=== PATIENT | male | born 1960 | race Caucasian/White ===

== ENCOUNTER 2023-11-16 00:52 | Emergency (ER) | payer MEDICARE, MEDICAID, SELFPAY ==
[2023-11-16] VITALS (38 sets, daily range): BP systolic 112–194; BP diastolic 65–112; PULSE 56–114; RESP 12–26; TEMP 35–37.5; O2SAT 93–100; BMI 28.3
--- NOTE | 2023-11-16 | ECG_ITS ---
Test Reason : BEHAVIOR Blood Pressure : / mmHG Vent. Rate : 089 BPM Atrial Rate : 089 BPM P-R Int : 194 ms QRS Dur : 106 ms QT Int : 390 ms P-R-T Axes : 058 051 075 degrees QTc Int : 474 ms Normal sinus rhythm Nonspecific T wave abnormality Prolonged QT Abnormal ECG No previous ECGs available Referred By: Generic ED Physician Electronically Signed By:RANDY KANG MD
--- NOTE | ~2023-11-16 | XR_ITS ---
EXAMINATION: XR CHEST CLINICAL INFORMATION: Cough. COMPARISON: None available. TECHNIQUE: Frontal view of the chest was obtained. FINDINGS: The cardiomediastinal silhouette is within normal limits. There is a questionable small left retrocardiac opacity. Lungs are otherwise clear. There are no significant pleural effusions. The bony structures and soft tissues are unremarkable. XR/XR chest 1V IMPRESSION: Questionable small left retrocardiac opacity. This could represent a developing infiltrate in the appropriate clinical setting. Consider dedicated PA and lateral chest.
--- NOTE | ~2023-11-16 | CT_ITS ---
EXAMINATION: CT HEAD WITHOUT CONTRAST CT CERVICAL SPINE WITHOUT CONTRAST CLINICAL INFORMATION: Rule out mass, bleed COMPARISON: None TECHNIQUE: Contiguous axial imaging was performed from the skull base to vertex without intravenous administration of contrast. Contiguous axial imaging was performed from the upper chest through the skull base without intravenous administration of contrast. Coronal and sagittal reformats were obtained at the acquisition workstation. This CT examination was performed using dose optimization techniques as appropriate, variously including the following: *Automated exposure control. *Adjustment of mA and/or kV according to patient size (this includes techniques or standardized protocols for targeted exams where dose is matched to indication/reason for exam; i.e. extremities or head). *Use of iterative reconstruction technique. DLP: 2603 mGy-cm FINDINGS: Head: There is no evidence of acute intracranial hemorrhage or edematous territorial infarction. Evans-white matter differentiation appears preserved. Proportional prominence of the ventricles and cortical sulci with mild volume loss. Patchy and confluent hypodensities in the periventricular and deep white matter likely representing moderate chronic microangiopathic changes. No evidence for obstructive hydrocephalus. No abnormal mass effect or midline shift. Prominent extra-axial CSF density along the left paramedian posterior fossa which may represent small arachnoid cyst. No acute soft tissue or osseous abnormalities. Mild mucosal thickening of the maxillary sinuses and ethmoid air cells. The mastoids are well-aerated. Secretions within the nasal cavity, nasopharynx and oropharyngeal region. Cervical Spine: Diffuse osseous demineralization. The atlantooccipital and atlantoaxial articulations remain well aligned. Straightening of the normal cervical lordosis. Minimal retrolisthesis of C4 over C5. Multilevel cervical spondylosis with marginal osteophytes and mild to moderate intervertebral disc space narrowing. Degenerative facet arthropathy with fusion across bilateral facet joints at C2-C3. No acute fracture or traumatic subluxation. There is no prevertebral soft tissue swelling. Thyroid gland is not enlarged.Mild centrilobular emphysematous changes in the visualized lung apices. Atherosclerotic calcifications of the common carotid bulbs CT/CT cervical spine wo IV con IMPRESSION: 1. No acute intracranial pathology. Suggestion of small arachnoid cyst along the the left posterior fossa. 2. No acute fracture or traumatic subluxation involving the cervical spine. Multilevel cervical spondylosis.
--- NOTE | ~2023-11-16 | CT_ITS ---
EXAMINATION: CT CHEST, ABDOMEN AND PELVIS WITHOUT CONTRAST CLINICAL INFORMATION: Reason for Exam ? Pneumonia COMPARISON: No pertinent prior studies are available for comparison aside from chest radiograph earlier today. TECHNIQUE: Multidetector volumetric imaging was performed from the thoracic inlet through the pubic symphysis without IV contrast. Sagittal and coronal reformatted images were obtained on the technologist's workstation. This CT examination was performed using dose optimization techniques as appropriate, variously including the following: *Automated exposure control *Adjustment of mA and/or kV according to patient size (this includes techniques or standardized protocols for targeted exams where dose is matched to indication/reason for exam; i.e. extremities or head) *Use of iterative reconstruction technique DLP: 417 and 779 mGy-cm FINDINGS: CHEST: Lung: There is marked volume loss in the left chest with shift of mediastinum to the left. There is complete mucus impaction with occlusion of the distal left mainstem and lower lobe bronchi There is an irregular area of consolidation seen in the left upper lobe measuring 3.2 x 2.2 x 2.5 cm (25: 131 and conte images). It is possible that this also could represent a mass. No prior films are available for comparison. Patchy consolidation is noted at the left lung base along with some tree-in-bud opacities in the anterior left lung. Some scarring and tree-in-bud opacities are seen in the right middle lobe. Mediastinum: An ET tube is present in good position above the felicity. Small amount of mucus is present in the large central bronchi. See discussion above regarding occluded left mainstem bronchus. The central vascular structures are unremarkable. No hilar or mediastinal lymphadenopathy. An NG tube is present with its tip in the stomach Pericardium/Pleura: No significant effusion. No pleural mass or thickening. Chest Wall/Axilla: Unremarkable ABDOMEN/PELVIS: Peritoneal Space: No significant free air or free fluid identified. Liver, Gallbladder, Biliary Tree: The liver is normal in size, shape, and attenuation. No focal hepatic lesion or biliary ductal dilatation is present. The gallbladder is unremarkable with no evidence of radiopaque gallstones, gallbladder wall thickening, or obvious pericholecystic inflammatory changes. Pancreas: Unremarkable Spleen: Unremarkable Adrenal Glands: Unremarkable Kidneys and Ureters: The kidneys are normal in size, shape, and attenuation. No hydronephrosis, hydroureter, or calculi seen. No perinephric stranding. A benign left mid renal 1.4 cm cortical Bosniak class I renal cyst is noted which requires no additional imaging or follow up. No solid renal masses are seen. Bladder: Guerrero catheter is present in the bladder which contains some air and a thickened wall Gastrointestinal Tract: The small and large bowel are unremarkable aside from some scattered colonic diverticula without diverticulitis. There is no free intraperitoneal air is seen. The triangular lucency seen on the chest radiograph new most likely represented a portion of the air-filled stomach. The appendix is unremarkable. Abdominal Wall: No significant hernia is appreciated. Lymph Nodes: Shotty retroperitoneal lymph nodes nodes are present but no lymphadenopathy. Vascular: Calcific atherosclerotic change present in the aorta and iliofemoral vessels. There is a 3.5 cm in aortic aneurysm present. The IVC appears unremarkable. PELVIC VISCERA: The prostate and seminal versicles are unremarkable. OSSEUS STRUCTURES: Mild degenerative changes are noted in the spine. There is marked compression of the superior endplate of L1 which appears chronic. No bony destructive lesions are seen. CT/CT abdomen pelvis wo IV con IMPRESSION: 1. Mucous/secretions occlusion of left mainstem bronchus with volume loss and shift of the mediastinum to the left. 2. Irregular area of consolidation in the left upper lobe which could represent a mass. Comparison with prior studies would be useful is available. 3. Patchy consolidation left lung base with tree-in-bud opacities in the anterior left lung and right middle lobe. This is most likely inflammatory in good be related to aspiration 4. 3.5 cm infrarenal abdominal aortic aneurysm. Ultrasound surveillance every 2 years is recommended. 5. Other incidental findings as described above. Fleischner guidelines were followed.
--- NOTE | ~2023-11-16 | XR_ITS ---
EXAMINATION: XR CHEST CLINICAL INFORMATION: Post intubation COMPARISON: Previous chest x-ray from earlier the same day TECHNIQUE: Frontal view of the chest was obtained. FINDINGS: Endotracheal tube tip 4.6 cm above the felicity. Nasogastric tube projects over proximal stomach. Tip not seen. Patient is rotated to the left. Question left-sided airspace disease, greatest at the left lung base. Right lung is clear. Difficult to exclude small left pleural effusion. No right pleural effusion. No pneumothorax. Triangular lucency in the upper abdomen to the left of the spine. This has a straight margin, question artifactual. CT of the chest abdomen and pelvis is ordered. XR/XR chest 1V IMPRESSION: Satisfactory position of endotracheal tube. Nasogastric tube projects over proximal stomach, tip not seen. Rotated exam but question left base airspace disease and possible small effusion. Irregular shaped lucency under the medial left hemidiaphragm lateral to the left side of the spine. CT of the chest, abdomen and pelvis is ordered.
[2023-11-16 01:26] LABS: MANUAL DIFF FLAG NO
[2023-11-16 01:29] LABS: Basophils Absolute Auto 0.1 X10*3/uL (0.0-0.2); Basophils Percent Auto 0.7 % (0-2); Eosinophils Percent Auto 0.1 % (0-4); Hematocrit 35.8 % (42.0-52.0); Hemoglobin 11.4 g/dl (14.0-18.0); Imm Gran Abs Auto 0.01 X10*3/uL (0.00-0.03); Imm Gran Pct Auto 0.1 % (0.0-0.4); Lymphocytes Absolute Auto 1.2 X10*3/uL (1.2-4.9); Lymphocytes Percent Auto 17.9 % (20-40); Mean Corpuscular HGB Conc 31.8 g/dl (31.0-36.0); Mean Corpuscular Hemoglobin 29.1 pg (27.0-33.0); Mean Corpuscular Volume 91.3 fL (80.0-98.0); Mean Platelet Volume 8.5 fL (9.4-12.4); Monocytes Absolute Auto 0.6 X10*3/uL (0.1-1.2); Monocytes Percent Auto 8.4 % (2-11); Neutrophils Absolute Auto 4.9 x10*3/uL (2.0-8.3); Neutrophils Percent Auto 72.8 % (45-73); Platelet Count 287 X10*3/uL (160-400); Red Blood Count 3.92 X10*6/uL (4.60-5.80); Red Cell Distribution Width 15.2 % (11.0-16.0); White Blood Count 6.8 X10*3/uL (4.8-10.8)
[2023-11-16 01:42] LABS: Alanine Aminotransferase 7 U/L (0-40); Albumin Level 3.4 g/dL (3.5-5.0); Alkaline Phosphatase 83 U/L (39-117); Anion Gap 11 (12-20); Aspartate Amino Transferase 12 U/L (5-37); Bilirubin Total 0.5 mg/dL (0.0-1.0); Blood Urea Nitrogen 13 mg/dL (9-16); Calcium 9.1 mg/dL (8.4-10.2); Carbon Dioxide 28 mmol/L (22-29); Chloride 103 mmol/L (96-108); Creatinine Clr Calc Pharmacy 139.6; Estimated Glomerular Filt Rate > 60; Glucose Random 109 mg/dL (60-115); Potassium 3.6 mmol/L (3.3-5.1); Sodium 138 mmol/L (135-145); Total Protein 7.5 g/dL (6.5-8.0)
[2023-11-16 01:48] LABS: B Type Natriuretic Peptide 44 pg/mL (<100); Troponin-I High Sensitivity 8.8 ng/L (<3.5-35.0)
--- NOTE | 2023-11-16 02:05 | PC.NURSE ---
pt initially changed into regular hospital attire, pt found to be fully dressed and walking towards the door. pt not responding to questions asked by this RN, pt assisted back into room, changed into green attire, multiple types of drugs found and razers found on pt. security called to bedside at this time.
[2023-11-16] MEDS: Naloxone HCl Nasal 4 MG SPRAY NOSTRILALT (02:12)
--- NOTE | 2023-11-16 02:14 | PC.NURSE ---
pt narcan at this time, pt still not responding, is alert with name. sating 94-97% on room air.
--- NOTE | 2023-11-16 02:22 | ED_ITS ---
HPI - General Adult General Chief complaint: Altered Mental Status Stated complaint: od? Time Seen by Provider: 11/16/23 01:09 Source: patient and EMS Mode of arrival: EMS History of Present Illness HPI narrative: 63-year-old male brought in by EMS after PD found him in a car reportedly not responding to questions with pinpoint pupils but no reports of having administered any Narcan. Patient easily arousable here in the emergency room when I have asked him whether not uses any drugs he denies I asked him about alcohol he denies. Related Data Previous Rx's ?Medication ?Instructions ?Recorded azithromycin 250 mg tablet 250 mg PO DAILY 4 days #4 tabs 11/16/23 Allergies Allergy/AdvReac Type Severity Reaction Status Date / Time codeine [CODEINE] AdvReac Mild HIVES Verified 11/16/23 01:16 Review of Systems 2 Review of Systems: Pertinent positives and negatives as stated in HPI [facility] Past Medical History Source: nursing notes reviewed Social History Social History Do you have a plan to hurt others: No Plan Physical Exam ED Vital Signs: Vital Signs - 24 hr 11/16/23 01:13 11/16/23 01:23 Temperature 98.2 F 98.2 F Pulse Rate 70 68 Respiratory Rate 18 12 Blood Pressure 141/87 H 141/87 H Pulse Oximetry 96 96 Oxygen Delivery Method Room Air Room Air BMI result Body Mass Index 28.3 VITAL SIGNS: Reviewed. GENERAL: Well developed, well nourished, in no acute distress. HEAD: Normocephalic/atraumatic EYES: PERRLA, EOM, pinpoint pupil EARS: Ext canals without abnormality NOSE: Nares patent bilateral OROPHARYNX: no oral lesions noted, posterior pharynx clear NECK: Supple, no adenopathy LUNGS: Normal breath sounds. No adventitious sounds or accessory muscle use. SpO2<96> CARDIOVASCULAR: Regular rate and rhythm without noted murmurs ABDOMEN: Soft, non-tender, non-distended with bowel sounds. MUSCULOSKELETAL: No tenderness, deformities, or effusions noted on gross inspection. EXTREMITIES: No cyanosis, clubbing or edema. SKIN: Inspection of the skin reveals no rashes NEUROLOGIC: Alert and oriented x 3. Strength and sensation to light touch were grossly intact x 4, cranial nerves 2-12 are grossly intact. Medications Administered Discontinued Medications Generic Name Dose Route Start Last Admin Trade Name Jaclyn PRN Reason Stop Dose Admin Diphenhydramine HCl 25 mg 11/16/23 02:52 11/16/23 02:59 Diphenhydramine Hcl 50 Mg/Ml Vial IM 11/16/23 02:53 25 mg ONCE ONE Administration Lorazepam 1 mg 11/16/23 02:52 11/16/23 03:00 Lorazepam 2 Mg/Ml Vial IM 11/16/23 02:53 1 mg ONCE ONE Administration Naloxone HCl 4 mg 11/16/23 02:09 11/16/23 02:12 Naloxone Hcl Nasal 4 Mg [place] NOSTRILALT 11/16/23 02:10 4 mg ONCE ONE Administration Olanzapine 10 mg 11/16/23 04:23 11/16/23 04:32 Olanzapine 10 Mg Vial IM 11/16/23 04:24 10 mg ONCE ONE Administration Medical Decision Making Medical Decision Making MDM Narrative: 63-year-old male with history and clinical presentation most likely for heroin overuse. Patient was then noted to be standing up, getting dressed grabbing his stuff and went into the bathroom, security was contacted and patient was escorted out of the bathroom and there were multiple bundles of heroin confiscated, patient became more drowsy, 4 mg of Narcan were administered. Patient not SI or HI and declines detox at this time. 0235: Patient very restless and readily accepted Benadryl/Ativan/Zyprexa. I reviewed all investigations and hematologic indices were negative for leukocytosis/left shift, there is a normocytic anemia without clinical or historical evidence of acute bleeding, there is no thrombocytopenia. Chemistries to Umesh negative for KENN/electrolyte or liver enzyme derangements. I sensitivity troponin is detectable but not significantly elevated and patient is asymptomatic for chest pain. Urinalysis is negative for UTI. UDS significant for fentanyl and marijuana. Serologies negative for influenza/RSV/COVID-19. Chest x-ray questions possible retrocardiac opacity, patient is neither febrile nor does he have any leukocytosis or noted cough. However given the fact that patient is a smoker will ensure that he is discharged on a Z-Zachery. Patient placed in physician observation because the patient needed more time for clinical sobriety. At the time observation was started the patient's vital signs were stable, patient is alert and oriented but slightly agitated, neuro: Nonfocal, CV RRR, lungs clear Differential Diagnosis Differential Diagnoses: The differential diagnosis associated with the presentation includes Please see the discussion above Admission/Observation Consideration of admission/observation: Escalation of care including admission/observation considered Please see the discussion above Lab Data MDM Lab Attestation statement: I reviewed the patient's lab results. Please see the discussion about 11/16/23 01:22 11/16/23 01:22 Labs: Lab Results 11/16/23 11/16/23 Range/Units 01:22 02:40 WBC 6.8 (4.8-10.8) X10*3/uL RBC 3.92 L (4.60-5.80) X10*6/uL Hgb 11.4 L (14.0-18.0) g/dl Hct 35.8 L (42.0-52.0) % MCV 91.3 (80.0-98.0) fL MCH 29.1 (27.0-33.0) pg MCHC 31.8 (31.0-36.0) g/dl RDW 15.2 (11.0-16.0) % Plt Count 287 (160-400) X10*3/uL MPV 8.5 L (9.4-12.4) fL Immature Gran % (Auto) 0.1 (0.0-0.4) % Neut % (Auto) 72.8 (45-73) % Lymph % (Auto) 17.9 L (20-40) % [place] % (Auto) 8.4 (2-11) % Eos % (Auto) 0.1 (0-4) % Baso % (Auto) 0.7 (0-2) % Lymph # (Auto) 1.2 (1.2-4.9) X10*3/uL [place] # (Auto) 0.6 (0.1-1.2) X10*3/uL Eos # (Auto) 0.0 (0.0-0.4) X10*3/uL Baso # (Auto) 0.1 (0.0-0.2) X10*3/uL Abs Immat Gran (auto) 0.01 (0.00-0.03) X10*3/uL Absolute Neuts (auto) 4.9 (2.0-8.3) x10*3/uL Absolute Nucleated RBC 0.000 (0.0-0.012) X10*3/uL Nucleated RBC % (auto) 0.0 (0.0-0.2) /100WBC Sodium 138 (135-145) mmol/L Potassium 3.6 (3.3-5.1) mmol/L Chloride 103 (96-108) mmol/L Carbon Dioxide 28 (22-29) mmol/L Anion Gap 11 L (12-20) BUN 13 (9-16) mg/dL Creatinine 0.63 (0.5-1.4) mg/dL Estim Creat Clear Calc 139.6 Estimated GFR > 60 Random Glucose 109 (60-115) mg/dL Calcium 9.1 (8.4-10.2) mg/dL Total Bilirubin 0.5 (0.0-1.0) mg/dL AST 12 (5-37) U/L ALT 7 (0-40) U/L Alkaline Phosphatase 83 (39-117) U/L Troponin I High Sens 8.8 (<3.5-35.0) ng/L B-Natriuretic Peptide 44 (<100) pg/mL Total Protein 7.5 (6.5-8.0) g/dL Albumin 3.4 L (3.5-5.0) g/dL Urine Color Yellow Urine Appearance Clear Urine pH 7.5 (5.0-9.0) Ur Specific [place] 1.010 (1.005-1.025) Urine Protein Negative (Neg-Trace) mg/dL Urine Glucose (UA) Negative (Negative) mg/dL Urine Ketones Negative (Negative) mg/dL Urine Blood Trace H (Negative) Urine Nitrite Negative (Negative) Ur Leukocyte Esterase Negative (Negative) Urine RBC 3-5 H (0-2) /HPF Urine WBC 0-5 (0-5) /HPF Ur Squamous Epith Cells 0-2 (0-2) /HPF Urine Bacteria None Seen (None Seen) Hyaline Casts 0-2 (0-2) /LPF Urine Opiates Screen Not Detected (Not Detect) Ur Buprenorphine Scrn Not Detected (Not Detect) ng/mL Ur Oxycodone Screen Not Detected (Not Detect) ng/mL Urine Methadone Screen Not Detected (Not Detect) ng/mL Urine Fentanyl Screen POSITIVE H (Not Detect) Ur Barbiturates Screen Not Detected (Not Detect) Ur Phencyclidine Scrn Not Detected (Not Detect) Ur Amphetamines Screen Not Detected (Not Detect) U Benzodiazepines Scrn Not Detected (Not Detect) Urine Cocaine Screen Not Detected (Not Detect) U Marijuana (THC) Screen POSITIVE H (Not Detect) Influenza Type A (PCR) NEGATIVE (Negative) Influenza Type B (PCR) NEGATIVE (Negative) RSV RNA Qual (PCR) NEGATIVE (Negative) SARS-CoV-2 RNA (RT-PCR) NEGATIVE (Negative) Independent Interpretation I performed an independent interpretation of an: EKG Interpretation: Normal sinus rhythm, HR-89, no STEMI, IA/QRS/QTC is within normal limits. Radiology Impression Discussion of test interpretation with radiology: I have reviewed the radiologist's reading. Radiologist Impression: Please see the discussion above Social Determinants Patient?s care significantly limited by Social Determinants of Health including: Alcoholism and drug addiction in family Critical Care Time Critical Care Time Critical Care Time: Yes Total Critical Care Time: 45 Attestation: I personally attest to this time spent taking care of the patient. Discharge Plan Discharge Clinical Impression: Overdose, Substance use disorder Patient Disposition: Still a Patient Prescriptions: New azithromycin 250 mg tablet 250 mg PO DAILY 4 Days Qty: 4 0RF Rx Instructions: start on day 2 of therapy Print Language: Upper Sorbian
[2023-11-16 02:51] LABS: Appearance Urine Clear; Color Urine Yellow; Glucose Urine UA Negative (Negative); Leukocyte Esterase Urine Negative (Negative); Nitrite Urine Negative (Negative); PH 7.5 (5.0-9.0); UMIC TRIGGER UACC YES; Urine Blood Trace (Negative); Urine Ketones Negative (Negative); Urine Protein Negative (Neg-Trace)
[2023-11-16] MEDS: diphenhydrAMINE HCL 50 MG/ML VIAL 25 MG IM (02:59)
[2023-11-16 03:00] LABS: Amphetamine Screen Urine Not Detected (Not Detect); Barbiturates, Urine Not Detected (Not Detect); Benzodiazepines Screen Urine Not Detected (Not Detect); Buprenorphine Scr Not Detected (Not Detect); Cannabinoid Screen Urine POSITIVE (Not Detect); Cocaine Screen Urine Not Detected (Not Detect); Fentanyl, urine POSITIVE (Not Detect); Methadone Screen, Urine Not Detected (Not Detect); Opiate Screen Urine Not Detected (Not Detect); Oxycodone Screen Urine Not Detected (Not Detect); Phencyclidine Screen Urine Not Detected (Not Detect)
[2023-11-16] MEDS: LORazepam 2 MG/ML VIAL 1 MG IM (03:00)
--- NOTE | 2023-11-16 03:01 | PC.NURSE ---
pt given 4mg narcan, became very restless, agitated, continues to try to get up from stretcher, exit seeking./ pt redirected to stretcher multiple times. on the verge of vomiting from narcan, belching frequently. MD Briscoe ordering IM ativan and IM benadryl for pt safety, pt unable to tolerate po meds at this time.
[2023-11-16 03:15] LABS: Bacteria Urine None Seen (None Seen); Hyaline Casts Urine 0-2 /LPF (0-2); Squamous Epithelial Cell Urine 0-2 /HPF (0-2); WBC Urine 0-5 /HPF (0-5)
[2023-11-16 03:26] LABS: Influenza A PCR NEGATIVE (Negative); Influenza B PCR NEGATIVE (Negative); Resp Syncy Virus RNA Qual PCR NEGATIVE (Negative); SARS COV2 PCR INHOUSE NEGATIVE (Negative)
[2023-11-16] MEDS: OLANZapine 10 MG VIAL IM ×2 (04:32→12:25)
[2023-11-16] MEDS: Naloxone HCl Nasal TAKE HOME 4 MG SPRAY 8 MG NOSTRILALT (07:16)
[2023-11-16] MEDS: Azithromycin 500 MG TABLET PO (07:16)
--- NOTE | 2023-11-16 07:46 | PC.NURSE ---
Pt alert and answering questions, breathing even and unlabored. Pt contacted family member for d/c, reports they will be here in approx an hour to be picked up. 1:1 sitter remains at bedside.
[2023-11-16 09:28] LABS: Troponin-I High Sensitivity 12.2 ng/L (<3.5-35.0)
[2023-11-16] MEDS: Buprenorphine/Naloxone 8/2 mg TAB.SUBL 2 TAB SUBLINGUAL (10:45)
--- NOTE | 2023-11-16 11:14 | PC.NURSE ---
Daughter Annemarie ([phone]) at bedside. Spoke to this RN and Praveena ISRAEL regarding safety concerns as pt over past two weeks confused, falling asleep, not talking to family. States h/o dementia with ?worsening but also reports similar presentation with small strokes in past. Pt does appear restless, answering some questions with yes or no only. Appears confused. Dr Mai aware and to bedside
--- NOTE | 2023-11-16 11:16 | HO.SUDE ---
Met with pt in [id number] after overdose in ED. Pt had presented to the ED after being found in car by PD, not responding to questions, pupils pinpoint. Pt was awake and alert on arrival to ED. While in the ED, pt went to the bathroom but was escorted out by security due to having substances. After leaving bathroom, pt became more drowsy and 4 mg Narcan was administered. Pt laying in bed, visibly restless and uncomfortable, slightly diaphoretic, reports anxiety and feeling not good. Pt continuously moving around in the bed. Pt reports fentanyl use, 1 bundle daily, IN. Denies other substances. Pt reports hx ATS admissions, denies any further treatment. Last ATS a few years ago. Pt is not interested in inpatient treatment at this time. Pt reports being prescribed Suboxone from [facility] in [place], last took it a few days ago. Pt reports he takes it most days. Discussed reinitiating while here, pt agreeable. Pt denies other questions or concerns at this time. Discussed with ED provider.
--- NOTE | 2023-11-16 11:26 | ECG_ITS ---
Test Reason : AMS Blood Pressure : / mmHG Vent. Rate : 099 BPM Atrial Rate : 099 BPM P-R Int : 200 ms QRS Dur : 098 ms QT Int : 360 ms P-R-T Axes : 086 067 088 degrees QTc Int : 462 ms Normal sinus rhythm with sinus arrhythmia Normal ECG When compared with ECG of 16-NOV-2023 01:02, No significant change was found Referred By: Praveena Kwong Electronically Signed By:RANDY KANG MD
[2023-11-16 11:29] LABS: VBG Base Excess 4.6 mmol/L; VBG HCO3 28 mmol/L (22-26); VBG pCO2 39 mmHg; VBG pH 7.46 (7.32-7.43); VBG pO2 64 mmHg
[2023-11-16 11:29] LABS: Venous Blood Gas Refer to POC result
[2023-11-16 11:33] LABS: Ammonia 32 umol/L (13-55)
[2023-11-16] MEDS: Midazolam HCl/PF 2 MG/2 ML VIAL 4 MG IVPUSH ×2 (11:35→12:32)
[2023-11-16] MEDS: droPERidol 5 MG/2 ML VIAL 1.25 MG IVPUSH (11:42)
[2023-11-16] MEDS: cefTRIAXone sodium 1 GM in 0.9 % Sodium Chloride 50 ML IV (11:50)
[2023-11-16 12:00] LABS: Lactic Acid 1.5 mmol/L (0.5-2.0)
[2023-11-16 12:27] LABS: Alanine Aminotransferase 11 U/L (0-40); Albumin Level 3.7 g/dL (3.5-5.0); Alkaline Phosphatase 86 U/L (39-117); Anion Gap 13 (12-20); Aspartate Amino Transferase 20 U/L (5-37); Bilirubin Total 0.6 mg/dL (0.0-1.0); Blood Urea Nitrogen 11 mg/dL (9-16); Calcium 9.3 mg/dL (8.4-10.2); Carbon Dioxide 24 mmol/L (22-29); Chloride 102 mmol/L (96-108); Creatinine Clr Calc Pharmacy 135.3; Estimated Glomerular Filt Rate > 60; Glucose Random 125 mg/dL (60-115); Magnesium 1.7 mg/dL (1.6-2.6); Potassium 3.5 mmol/L (3.3-5.1); Sodium 135 mmol/L (135-145); Total Protein 8.2 g/dL (6.5-8.0)
[2023-11-16 12:57] LABS: Glucose, Whole Blood 137 mg/dL (60-115)
[2023-11-16] MEDS: Magnesium Sulfate/H2O 2 GM/50 ML PIGGYBACK IV (13:02)
[2023-11-16] MEDS: Ketamine HCl/NS 50 MG/5 ML SYRINGE IVPUSH (13:06)
--- NOTE | 2023-11-16 13:16 | MHC.EDTECH ---
This patient is altered and this pct is unable to obtain labs at this time will try again later. RN Aware
[2023-11-16] MEDS: Ketamine HCl/NS 50 MG/5 ML SYRINGE 75 MG IVPUSH (13:54)
[2023-11-16] MEDS: HYDROmorphone HCl 2 MG/ML VIAL IVPUSH (14:17)
[2023-11-16] MEDS: dexmedeTOMIDidine HCL/NS 400 MCG/100 ML INFUS..BTL 11.85 MCG IVCONT (14:49)
[2023-11-16] MEDS: Etomidate 20 MG/10 ML VIAL IVPUSH (15:15)
[2023-11-16] MEDS: Rocuronium Bromide 50 MG/5 ML VIAL 75 MG IVPUSH (15:16)
[2023-11-16] MEDS: Midazolam HCl/NS 50 MG/50 ML PLAST..BAG IVCONT (15:24)
--- NOTE | 2023-11-16 15:30 | PC.NURSE ---
Pt moved to Room 4 for intubation, this RN assumed care. 15:10 team at bedside preparing for intubation, second IV access being obtained. pt is on telemetry monitor 15:15 etomidate pushed 15:16 shan pushed 15:19 pt successfully intubated by provider, 7.5 ETT, 24 at the lip, (+) colormetric end tidal 15:20 versed drip initiated and precedex continued, OG tube placed by MD confirmed via LS VENT SETTINGS: RR 16 TV 470 FiO2 30% 5 PEEP
[2023-11-16 15:45] LABS: Glucose, Whole Blood 125 mg/dL (60-115)
[2023-11-16 15:48] LABS: Basophils Percent Auto 0.2 % (0-2); Hematocrit 37.7 % (42.0-52.0); Hemoglobin 12.4 g/dl (14.0-18.0); Imm Gran Abs Auto 0.02 X10*3/uL (0.00-0.03); Imm Gran Pct Auto 0.2 % (0.0-0.4); Lymphocytes Absolute Auto 0.4 X10*3/uL (1.2-4.9); MANUAL DIFF FLAG SCAN; Mean Corpuscular HGB Conc 32.9 g/dl (31.0-36.0); Mean Corpuscular Hemoglobin 29.2 pg (27.0-33.0); Mean Corpuscular Volume 88.7 fL (80.0-98.0); Mean Platelet Volume 8.4 fL (9.4-12.4); Monocytes Absolute Auto 0.3 X10*3/uL (0.1-1.2); Neutrophils Absolute Auto 7.9 x10*3/uL (2.0-8.3); Neutrophils Percent Auto 91.6 % (45-73); Platelet Count 280 X10*3/uL (160-400); Red Blood Count 4.25 X10*6/uL (4.60-5.80); Red Cell Distribution Width 14.9 % (11.0-16.0); SCAN SMEAR FLAG 1; White Blood Count 8.7 X10*3/uL (4.8-10.8)
--- NOTE | 2023-11-16 15:52 | PC.NURSE ---
late entry: this nurse assumed car of pt at 1130 from [facility]. on arrival pt was extremely combative and aggitated, attempting to get out of bed, grab at staff and medical equipment. pt was too agitated to be CT scanned, or to examine. pt was place in soft wriat restraints and IV access was obtained in right forearm by MD Mai. Pt rec 4mg of versed at 1135 with NS bolus of 2844mls initiated. pt remained combative and droperidol 1.25mg was administered, without effect. Pt was then given an additional 10mg of zyprexa IM in the right vastus lateralis, in addition to magnesium 2gm. Pt continued to be agitated adn was given ketamine 50mg at 1306, pt as reassessed, and given 75mg of ketamine at 1354. MD Mai and JHONATAN Gong initiated precedex drip, and pt was moved to ED 4 for intubation.
[2023-11-16] MEDS: 0.9 % Sodium Chloride 1,000 ML 125 ML IVCONT (15:59)
[2023-11-16] MEDS: vancomycin/NS 2,000 MG/500 ML PLAST..BAG 250 MG IV (16:05)
[2023-11-16] MEDS: fentaNYL citrate/NS 1,000 MCG/100 ML PLAST..BAG 2.5 MCG IVCONT (16:19)
[2023-11-16 16:21] LABS: SLIDE REVIEW VERIFIED
--- NOTE | 2023-11-16 17:07 | PC.NURSE ---
Short period after intubation, pt noted to have increasing agitation, moving all extremities and bucking tube. Per MD verbal orders, versed drip increased to 4 mg/hr, precedex to 1.5 mcg/kg/hr and fentanyl drip added (titrated per protocol to 75 mcg/hr). Pt continued to have increased agitation, reaching for tube (pt is in soft restraints), pt obviously uncomfortable. RT at bedside managing airway with suction. MD aware and orders to give 10 mg of Vecuronium prior to CT scan. Vec administer prior to CT scan, pt monitored during scan and tolerated well, all vitals remained stable. Pt currently noted to have RASS score of +3, NSR on night monitor, SPO2 96% on 40% FiO2, tolerating intubation well after Vec. Urine output of 1025, yellow and clear. Vital signs stable. RN continuing to monitor.
--- NOTE | 2023-11-16 17:43 | PC.NURSE ---
This RN noticed an increase in restlessness in pt. Pt noted to have twitching movement in extremities. MD verbal order to restart versed drip at 2mg/hr. RN continuing to monitor.
[2023-11-16] MEDS: dexmedeTOMIDidine HCL/NS 400 MCG/100 ML INFUS..BTL 35.55 MCG IVCONT ×2 (17:55→21:52)
[2023-11-16] MEDS: Ketamine HCl 500 MG/5 ML VIAL 400 MG IVPUSH (18:21)
--- NOTE | 2023-11-16 18:30 | PC.NURSE ---
Pt noted to still have increasing agitation, MD orders to titrate fentanyl to 200 mcg/hr and push ketamine 400 mg IV. Waiting for pharmacy to bring ketamine drip. RN remains at bedside.
--- NOTE | 2023-11-16 18:32 | PC.NURSE ---
Assessment: Pt agitated, RASS score between +2 and +3. MD aware. Slight improvements with Ketamine push. Chest noted to be barreled. Pts skin warm and dry, pale. OG tube draining dark green/brown fluid, approx 750 mL. Urine output approx. 900 mL, Cloudy with sediment noted. NSR on landing gear mechanic, BPs remaining stable.
[2023-11-16] MEDS: Ketamine HCl 500 MG in 0.9 % Sodium Chloride 250 ML 9.58 MG IVCONT (18:59)
[2023-11-16 19:00] LABS: GASOB Int Neg Ctl Valid YES; GASOB Int Pos Ctl Valid YES; Occult Blood Gastric POSITIVE (NEG)
[2023-11-16] MEDS: Ketamine HCl 500 MG/5 ML VIAL 200 MG IVPUSH ×2 (19:59→21:21)
--- NOTE | 2023-11-16 20:26 | PC.NURSE ---
This RN noticed an increase in restlessness in patient, patient noted to move lower extremities and moaning. Dr. Vo notified, bolus of Ketamine 200 mg IV push administered, Ketamine drip titrated to 0.4 mg/kg/hr.
--- NOTE | 2023-11-16 20:58 | PC.NURSE ---
Unable to titrate Ketamine IV drip above 0.4 mg/kg/hr d/t pump value above drug upper hard limit message. Dr Vo made aware, per OK of Ketamine drip at 0.4 mg at this time.
[2023-11-16] MEDS: Ketamine HCl/NS 50 MG/5 ML SYRINGE 200 MG IVPUSH (21:27)
[2023-11-16] MEDS: fentaNYL citrate/NS 1,000 MCG/100 ML PLAST..BAG 20 MCG IVCONT (22:03)
--- NOTE | 2023-11-16 22:42 | PC.NURSE ---
Nurse to andrey called to [facility] ED. Patient transported to [place] ED by [facility].
== END 2023-11-16 22:47 | disposition short-term general hospital (02) ==
PROVIDERS: Emergency Medicine; Physician Assistant Medical; Student in an Organized Health Care Education/Training Program; Emergency Provider Emergency Medicine Emergency Medical Services
DX: T50.901A Poisoning by unspecified drugs, medicaments and biological substances, accidental (unintentional), initial encounter (principal); Y92.810 Car as the place of occurrence of the external cause; F19.90 Other psychoactive substance use, unspecified, uncomplicated; R45.1 Restlessness and agitation; R91.8 Other nonspecific abnormal finding of lung field; I95.9 Hypotension, unspecified; J98.4 Other disorders of lung; I71.43 Infrarenal abdominal aortic aneurysm, without rupture; Z03.818 Encounter for observation for suspected exposure to other biological agents ruled out
CPT/HCPCS: 0241U; 31500; 36415; 70450; 71045; 71250; 72125; 74176; 80053; 80307; 81001; 82140; 82271; 82550; 82803; 82947; 83605; 83735; 83880; 84443; 84484; 85025; 87040; 93005; 94002; 96361; 96365; 96366; 96367; 96368; 96372; 96375; 96376; 99285; J0696; J1170; J1200; J1790; J2060; J2250; J2251; J2359; J3010; J3370; J3475

== ENCOUNTER → 2023-11-16 01:02 | Outpatient (BNV) | payer MEDICARE, MEDICAID, SELFPAY | PROVIDERS: Emergency Provider Student in an Organized Health Care Education/Training Program; Visit Provider Internal Medicine Cardiovascular Disease | DX: I49.9 Cardiac arrhythmia, unspecified (principal) | CPT/HCPCS: 93010 ==

== ENCOUNTER 2023-11-28 20:24 | Emergency (ER) | payer MEDICARE, MEDICAID, SELFPAY ==
--- NOTE | 2023-11-28 | ECG_ITS ---
Test Reason : ALTERED Blood Pressure : / mmHG Vent. Rate : 063 BPM Atrial Rate : 063 BPM P-R Int : 244 ms QRS Dur : 100 ms QT Int : 410 ms P-R-T Axes : 063 049 040 degrees QTc Int : 419 ms Sinus rhythm with 1st degree A-V block Nonspecific T wave abnormality Abnormal ECG When compared with ECG of 16-NOV-2023 12:09, [place] interval has increased Vent. rate has decreased BY 36 BPM Non-specific change in ST segment in Inferior leads Nonspecific T wave abnormality now evident in Inferior leads Referred By: Hermes Jacobsen Electronically Signed By:Man Kebede
--- NOTE | ~2023-11-28 | CT_ITS ---
EXAMINATION: CT HEAD WITHOUT CONTRAST CT CERVICAL SPINE WITHOUT CONTRAST CLINICAL INFORMATION: Found on ground. COMPARISON: CT head and cervical spine 11/16/2023. TECHNIQUE: Contiguous axial imaging was performed from the skull base to vertex without intravenous administration of contrast. Contiguous axial imaging was performed from the upper chest through the skull base without intravenous administration of contrast. Coronal and sagittal reformats were obtained at the acquisition workstation. This CT examination was performed using dose optimization techniques as appropriate, variously including the following: *Automated exposure control *Adjustment of mA and/or kV according to patient size (this includes techniques or standardized protocols for targeted exams where dose is matched to indication/reason for exam; i.e. extremities or head) *Use of iterative reconstruction technique DLP: 701 and 450 mGy-cm FINDINGS: Head: There is no evidence of acute intracranial hemorrhage or edematous territorial infarction. Scattered hypoattenuation in the periventricular and deep white matter are consistent with moderate microangiopathy. Evans-white matter differentiation is preserved. Unchanged lacunar infarcts in the bilateral basal ganglia. Proportional prominence of the ventricles and sulcal spaces. No evidence for obstructive hydrocephalus. No abnormal mass effect or midline shift. Unchanged prominent CSF-attenuating space in the posterior cranial fossa No acute soft tissue or osseous abnormalities. Mucosal thickening of the paranasal sinuses with no air-fluid levels. The mastoids and middle ear cavities are clear. Cervical Spine: The atlantooccipital and atlantoaxial articulations remain well aligned. Straightening of the cervical lordosis. Unchanged mild anterior vertebral body height loss at C7. No evidence of acute compression deformity or traumatic subluxation. Moderate to severe multilevel cervical spondylosis leading to various degrees of neural foraminal encroachment. Redemonstration of central spinal canal stenoses at C4-C5. There is no prevertebral soft tissue swelling. The thyroid gland and remaining cervical soft tissues are normal in appearance. The lung apices demonstrate no abnormalities. CT/CT cervical spine wo IV con IMPRESSION: 1. No acute intracranial pathology. 2. Chronic microangiopathy and generalized cerebral volume loss. 3. No acute cervical spinal fractures or malalignment. 4. Moderate to severe cervical spondylosis with various degrees of neural foraminal encroachment as well as central canal stenosis. Recommend clinical correlation for cervical myelopathy and if indicated further evaluation with an MRI of the cervical spine.
--- NOTE | ~2023-11-28 | CT_ITS ---
EXAMINATION: CT CHEST WITHOUT CONTRAST CLINICAL INFORMATION: Worsening pneumonia. COMPARISON: CT chest 11/16/2023. TECHNIQUE: Multidetector volumetric CT imaging of the chest was done. Axial MIP volume rendering provided. Sagittal and coronal reformatted images were obtained. This CT examination was performed using dose optimization techniques as appropriate, variously including the following: *Automated exposure control *Adjustment of mA and/or kV according to patient size (this includes techniques or standardized protocols for targeted exams where dose is matched to indication/reason for exam; i.e. extremities or head) *Use of iterative reconstruction technique DLP: 421 mGy-cm FINDINGS: Limited examination secondary to motion. LUNGS: Again noted asymmetric volume loss of the left lung. Combination of consolidative opacities, septal and bronchial thickening in the left lung, predominantly in the left lower lobe are slightly decreased. Slightly decreased size of a consolidative/nodular opacity in the left upper lobe for example measuring 2 cm when AP diameter (image 136 series 26) previously 2.5 cm. Additional nodular like opacity in the left lung base measuring 2.1 cm (image 359 series 26), not well seen previously due to overlying airspace opacities on the prior examination that are now less extensive. Scattered smaller subcentimeter peribronchial parenchymal nodules redemonstrated. Central airways are patent. Stable bleb/bullae measuring 3.4 cm in the right lower lobe (image 38 series 28). Moderate emphysema. MEDIASTINUM: Stable cardiomegaly. No pericardial effusion. No mediastinal lymphadenopathy. Evaluation of the hilar structures is limited in the absence of IV contrast. CORONARY ARTERY CALCIFICATION: Multivessel coronary artery calcifications. PLEURA: No pleural effusion or pneumothorax. AXILLA: No lymphadenopathy. UPPER ABDOMEN: Unremarkable. OSSEOUS STRUCTURES: Thoracic spondylosis. Stable compression deformities in the thoracolumbar spine, more prominent at L1. Chronic appearing bilateral rib deformities. CT/CT chest wo IV con IMPRESSION: Limited examination secondary to motion. Multifocal airspace opacities in the left lower lobe are slightly decreased compared to 11/16/2023. There are multiple nodular-like opacities with bilingual inside sales representative observations in the left upper lobe measuring 2 cm and left lung base measuring 2.1 cm, the former slightly decreased in size compared to 11/16/2023. Constellation of findings might be infectious/inflammatory, although underlying malignancy is difficult to exclude. If these persist/increased on short-term CT chest follow-up, further evaluation with PET/CT is recommended.
[2023-11-28 20:40] VITALS: BP 96/66; PULSE 70; O2SAT 94
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
[2023-11-28 20:59] VITALS: BP 112/64; PULSE 82; RESP 14; TEMP 36.7; O2SAT 94; BMI 23.1
--- NOTE | 2023-11-28 20:59 | PC.NURSE ---
pt refused EKG PA aware
[2023-11-28 21:29] VITALS: BP 98/55; PULSE 63; RESP 16; TEMP 36.6; O2SAT 95
[2023-11-28 21:41] LABS: MANUAL DIFF FLAG NO
--- NOTE | 2023-11-28 21:42 | MHC.EDTECH ---
after lots of talking to Patient this pct was able to get patient ekg and was read by Provider ,was able to get some labs drawn ,Another pct will try to draw blue top .
[2023-11-28 21:43] LABS: Basophils Absolute Auto 0.1 X10*3/uL (0.0-0.2); Basophils Percent Auto 0.9 % (0-2); Eosinophils Percent Auto 0.1 % (0-4); Hematocrit 36.9 % (42.0-52.0); Hemoglobin 11.8 g/dl (14.0-18.0); Imm Gran Abs Auto 0.02 X10*3/uL (0.00-0.03); Imm Gran Pct Auto 0.3 % (0.0-0.4); Lymphocytes Absolute Auto 1.1 X10*3/uL (1.2-4.9); Lymphocytes Percent Auto 16.4 % (20-40); Mean Corpuscular Hemoglobin 29.7 pg (27.0-33.0); Mean Corpuscular Volume 92.9 fL (80.0-98.0); Mean Platelet Volume 9.1 fL (9.4-12.4); Monocytes Absolute Auto 0.8 X10*3/uL (0.1-1.2); Monocytes Percent Auto 11.6 % (2-11); Neutrophils Absolute Auto 4.9 x10*3/uL (2.0-8.3); Neutrophils Percent Auto 70.7 % (45-73); Platelet Count 251 X10*3/uL (160-400); Red Blood Count 3.97 X10*6/uL (4.60-5.80); Red Cell Distribution Width 15.1 % (11.0-16.0); White Blood Count 6.9 X10*3/uL (4.8-10.8)
--- NOTE | 2023-11-28 21:50 | PC.NURSE ---
pt cooperative with care. labs obtained
[2023-11-28 22:01] LABS: Troponin-I High Sensitivity 8.7 ng/L (<3.5-35.0)
[2023-11-28 22:02] LABS: INTERNATIONAL NORM RATIO 1.2 (0.9-1.1); Prothrombin Time 14.4 SEC (11.1-13.3)
[2023-11-28 22:05] LABS: Partial Thromboplastin Time 49.5 SEC (26.0-36.8)
[2023-11-28 22:08] LABS: Alanine Aminotransferase 9 U/L (0-40); Albumin Level 3.3 g/dL (3.5-5.0); Alkaline Phosphatase 73 U/L (39-117); Anion Gap 15 (12-20); Aspartate Amino Transferase 10 U/L (5-37); Bilirubin Total 0.4 mg/dL (0.0-1.0); Blood Urea Nitrogen 22 mg/dL (9-16); Calcium 9.5 mg/dL (8.4-10.2); Carbon Dioxide 28 mmol/L (22-29); Chloride 103 mmol/L (96-108); Creatinine Clr Calc Pharmacy 96.7; Estimated Glomerular Filt Rate > 60; Ethanol < 10 mg/dL; Glucose Random 85 mg/dL (60-115); Magnesium 2.1 mg/dL (1.6-2.6); Potassium 4.4 mmol/L (3.3-5.1); Sodium 142 mmol/L (135-145); Total Protein 6.7 g/dL (6.5-8.0)
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
[2023-11-28 23:59] VITALS: BP 114/57; PULSE 63; RESP 15; TEMP 36.6; O2SAT 95
--- NOTE | 2023-11-29 00:20 | MHC.EDTECH ---
PATIENT WAS AWAKE ,USE URINAL ,URINE SAMPLE COLLECTED AND SENT TO LAB ,PATIENT BACK IN BED .
[2023-11-29 00:28] LABS: Appearance Urine Clear; Color Urine Dark Yellow; Glucose Urine UA Negative (Negative); Leukocyte Esterase Urine Trace (Negative); Nitrite Urine Negative (Negative); PH 5.5 (5.0-9.0); Specific Gravity - Urine 1.025 (1.005-1.025); UMIC TRIGGER UACC YES; Urine Blood Large (3+) (Negative); Urine Ketones Trace mg/dL (Negative); Urine Protein Trace mg/dL (Neg-Trace)
[2023-11-29 00:38] LABS: Amphetamine Screen Urine Not Detected (Not Detect); Barbiturates, Urine Not Detected (Not Detect); Benzodiazepines Screen Urine Not Detected (Not Detect); Buprenorphine Scr Not Detected (Not Detect); Cannabinoid Screen Urine POSITIVE (Not Detect); Cocaine Screen Urine Not Detected (Not Detect); Fentanyl, urine POSITIVE (Not Detect); Methadone Screen, Urine Positive (Not Detect); Opiate Screen Urine Not Detected (Not Detect); Oxycodone Screen Urine Not Detected (Not Detect); Phencyclidine Screen Urine Not Detected (Not Detect)
[2023-11-29 00:49] LABS: Bacteria Urine None Seen (None Seen); Calcium Oxalate Crystals Urine Present; Squamous Epithelial Cell Urine 0-2 /HPF (0-2); WBC Urine 0-5 /HPF (0-5)
[2023-11-29 01:30] VITALS: BP 111/63; PULSE 57; RESP 14; TEMP 36.1; O2SAT 95
--- NOTE | 2023-11-29 01:30 | MHC.EDTECH ---
PATIENT 2ND TROP DRAWN AND SENT TO LAB ,VITALS TAKEN ,PATIENT SLEEPING .
[2023-11-29 01:51] LABS: Troponin-I High Sensitivity 6.4 ng/L (<3.5-35.0)
[2023-11-29 04:00] VITALS: BP 130/75; PULSE 68; RESP 15; TEMP 36.1; O2SAT 95
[2023-11-29 06:08] VITALS: BP 122/76; PULSE 76; RESP 16; TEMP 36.3; O2SAT 97
[2023-11-29 06:55] VITALS: BP 124/65; PULSE 73; RESP 18; TEMP 36.4; O2SAT 95
== END 2023-11-29 06:57 | disposition home or self-care (01) ==
PROVIDERS: Physician Assistant; Emergency Provider Emergency Medicine
DX: R41.82 Altered mental status, unspecified (principal); F19.10 Other psychoactive substance abuse, uncomplicated; Z87.01 Personal history of pneumonia (recurrent)
CPT/HCPCS: 36415; 70450; 71250; 72125; 80053; 80307; 81001; 82550; 83735; 84484; 85025; 85610; 85730; 93005; 99285

== ENCOUNTER → 2023-11-28 21:20 | Outpatient (BNV) | payer MEDICARE, MEDICAID, SELFPAY | PROVIDERS: Emergency Provider Emergency Medicine; Visit Provider Internal Medicine Cardiovascular Disease | DX: I44.0 Atrioventricular block, first degree (principal) | CPT/HCPCS: 93010 ==

== ENCOUNTER 2023-11-30 10:58 | Inpatient (IN) | payer MEDICARE, SELFPAY ==
--- NOTE | ~2023-11-30 | CT_ITS ---
EXAMINATION: CT HEAD WITHOUT CONTRAST CLINICAL INFORMATION: Altered mental status COMPARISON: 11/28/2023 TECHNIQUE: Contiguous axial imaging was performed from the skull base to vertex without intravenous administration of contrast. This CT examination was performed using dose optimization techniques as appropriate, variously including the following: *Automated exposure control *Adjustment of mA and/or kV according to patient size (this includes techniques or standardized protocols for targeted exams where dose is matched to indication/reason for exam; i.e. extremities or head) *Use of iterative reconstruction technique DLP: 729 mGy-cm FINDINGS: CT examination of the brain shows age-related involutional changes with prominence of the ventricles and sulci. Periventricular white matter hypodensities are evident, likely on the basis of chronic microvascular ischemic disease. CSF attenuation space in the posterior cranial fossa is unchanged, likely a prominent cisterna magna. No acute hemorrhage, mass effect or shift is evident. In the posterior fossa, the brainstem, cerebellum and fourth ventricle are unremarkable. The orbits and bony calvarium are intact. The paranasal sinuses and mastoid air cells are well pneumatized and clear. CT/CT head/brain wo IV con IMPRESSION: 1. Age-related involutional changes and microvascular disease. 2. No acute hemorrhage, mass effect, shift or acute intracranial pathology. 3. No significant change since 11/28/2023.
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
[2023-11-30 11:39] VITALS: BP 114/56; PULSE 74; RESP 16; TEMP 36.8; O2SAT 96; BMI 24.3
[2023-11-30 12:31] LABS: MANUAL DIFF FLAG NO
[2023-11-30 12:34] LABS: Basophils Percent Auto 0.6 % (0-2); Hematocrit 36.7 % (42.0-52.0); Hemoglobin 11.7 g/dl (14.0-18.0); Imm Gran Abs Auto 0.02 X10*3/uL (0.00-0.03); Imm Gran Pct Auto 0.3 % (0.0-0.4); Lymphocytes Absolute Auto 0.8 X10*3/uL (1.2-4.9); Lymphocytes Percent Auto 13.1 % (20-40); Mean Corpuscular HGB Conc 31.9 g/dl (31.0-36.0); Mean Corpuscular Hemoglobin 29.7 pg (27.0-33.0); Mean Corpuscular Volume 93.1 fL (80.0-98.0); Mean Platelet Volume 8.7 fL (9.4-12.4); Monocytes Absolute Auto 0.5 X10*3/uL (0.1-1.2); Monocytes Percent Auto 7.8 % (2-11); Neutrophils Percent Auto 78.2 % (45-73); Platelet Count 267 X10*3/uL (160-400); Red Blood Count 3.94 X10*6/uL (4.60-5.80); White Blood Count 6.4 X10*3/uL (4.8-10.8)
[2023-11-30 12:52] LABS: Ammonia 24 umol/L (13-55)
[2023-11-30 12:57] LABS: Ethanol < 10 mg/dL; Salicylate < 5.0 mg/dL (15-30)
[2023-11-30 13:08] LABS: Anion Gap 14 (12-20)
[2023-11-30 13:13] LABS: Alanine Aminotransferase 9 U/L (0-40); Albumin Level 3.5 g/dL (3.5-5.0); Alkaline Phosphatase 75 U/L (39-117); Aspartate Amino Transferase 12 U/L (5-37); Bilirubin Total 0.5 mg/dL (0.0-1.0); Blood Urea Nitrogen 18 mg/dL (9-16); Calcium 9.4 mg/dL (8.4-10.2); Carbon Dioxide 29 mmol/L (22-29); Chloride 105 mmol/L (96-108); Estimated Glomerular Filt Rate > 60; Glucose Random 148 mg/dL (60-115); Lipase 12 U/L (8-78); Magnesium 2.1 mg/dL (1.6-2.6); Potassium 3.7 mmol/L (3.3-5.1); Sodium 144 mmol/L (135-145); Total Protein 7.1 g/dL (6.5-8.0)
[2023-11-30 13:36] VITALS: BP 105/61; PULSE 69; RESP 16; TEMP 36.4; O2SAT 93
--- NOTE | 2023-11-30 14:00 | MHC.CM.ED ---
Received notification from registration that patient interested in completing HCP. Met with patient. HCP completed, signed and witnessed. Original given to patient. Copy placed in chart. Continue to monitor for d/c needs.
[2023-11-30 14:28] LABS: Appearance Urine Clear; Color Urine Dark Yellow; Glucose Urine UA Negative (Negative); Leukocyte Esterase Urine Trace (Negative); Nitrite Urine Negative (Negative); PH 6.5 (5.0-9.0); Specific Gravity - Urine 1.025 (1.005-1.025); UMIC TRIGGER UACC YES; Urine Blood Large (3+) (Negative); Urine Ketones Trace mg/dL (Negative); Urine Protein Trace mg/dL (Neg-Trace)
[2023-11-30 14:33] LABS: Bacteria Urine None Seen (None Seen); Hyaline Casts Urine 0-2 /LPF (0-2); RBC Urine >20 /HPF (0-2); Squamous Epithelial Cell Urine 0-2 /HPF (0-2); WBC Urine 0-5 /HPF (0-5)
[2023-11-30 14:35] LABS: Amphetamine Screen Urine Not Detected (Not Detect); Barbiturates, Urine Not Detected (Not Detect); Benzodiazepines Screen Urine Not Detected (Not Detect); Buprenorphine Scr Not Detected (Not Detect); Cannabinoid Screen Urine POSITIVE (Not Detect); Cocaine Screen Urine Not Detected (Not Detect); Fentanyl, urine POSITIVE (Not Detect); Methadone Screen, Urine Positive (Not Detect); Opiate Screen Urine Not Detected (Not Detect); Oxycodone Screen Urine Not Detected (Not Detect); Phencyclidine Screen Urine Not Detected (Not Detect)
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
--- NOTE | 2023-11-30 15:10 | PC.NURSE ---
report given to VIRI Jules pt to be moved to Pod bed 1
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
[2023-12-01 06:39] VITALS: BP 130/61; PULSE 65; RESP 16; TEMP 36.6
--- NOTE | 2023-12-01 07:34 | MHC.CARE ---
[facility], through which patient obtains his methadone and other medication. [phone]
--- NOTE | 2023-12-01 08:12 | HE.PHANOTE ---
RE: METHADONE Patient's receives methadone from [facility] ([phone]), confirmed by Jorge A Shaver at center 12/01/23. Patient receives 60mg, dose last given 11/28/23 12:17.
[2023-12-01] MEDS: methADONE HCl 20 MG/2 ML ORAL.CONC 60 MG PO (08:44)
[2023-12-01 09:32] VITALS: BP 129/50; PULSE 80; RESP 16; TEMP 36.9; O2SAT 96
--- NOTE | 2023-12-01 09:45 | PC.NURSE ---
Assumed care of patient at 0645. Patient is observed resting in his bed. No signs of distress observed. Breathing is even and unlabored. Will continue plan of care.
--- NOTE | 2023-12-01 09:46 | PC.NURSE ---
Nursing Communication PT daughter called and informed RN that patient takes methadone from [facility]. Methadone verification completed and faxed to pharmacy.
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
[2023-12-01] MEDS: LORazepam 2 MG/ML VIAL IM ×2 (14:15→20:49)
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
[2023-12-01] MEDS: OLANZapine 5 MG TABLET PO (16:50)
[2023-12-01] MEDS: Nicotine 21 MG PATCH.TD24 TRANSDERMA (20:48)
[2023-12-01 21:06] VITALS: BP 125/44; PULSE 84; RESP 18; TEMP 36.9; O2SAT 97
[2023-12-01] MEDS: Nicotine Polacrilex 2 MG GUM BUCCAL (22:55)
[2023-12-02] MEDS: LORazepam 2 MG/ML VIAL IM (03:03)
[2023-12-02 06:18] VITALS: RESP 17
--- NOTE | 2023-12-02 06:52 | PC.NURSE ---
Pt requiring several redirections throughout the evening. PT trying to come into nurses station and other patients rooms, as well as posturing, swinging at staff and saying racial slurs to staff.
--- NOTE | 2023-12-02 07:17 | PC.NURSE ---
Assumed care of patient at 0645, patient appears to be sleeping, respirations even and unlabored, no apparent distress noted. Continue plan of care for care team brenna
[2023-12-02] MEDS: Nicotine 21 MG PATCH.TD24 TRANSDERMA (08:51)
[2023-12-02] MEDS: methADONE HCl 20 MG/2 ML ORAL.CONC 60 MG PO (08:52)
[2023-12-02] MEDS: LORazepam 1 MG TABLET 2 MG PO (09:28)
[2023-12-02] MEDS: QUEtiapine Fumarate 100 MG TABLET PO (09:28)
--- NOTE | 2023-12-02 12:23 | PC.NURSE ---
family member at bedside
--- NOTE | 2023-12-02 13:03 | ECG_ITS ---
Test Reason : qt interval Blood Pressure : / mmHG Vent. Rate : 063 BPM Atrial Rate : 063 BPM P-R Int : 210 ms QRS Dur : 100 ms QT Int : 424 ms P-R-T Axes : 057 031 048 degrees QTc Int : 433 ms Sinus rhythm with 1st degree A-V block Otherwise normal ECG When compared with ECG of 28-NOV-2023 21:20, No significant change was found Referred By: Generic ED Physician Electronically Signed By:Man Kebede
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
[2023-12-02 14:08] VITALS: BP 99/62; PULSE 70; RESP 16; TEMP 36.6; O2SAT 93
[2023-12-02 14:58] VITALS: BP 99/62; PULSE 70; RESP 16; TEMP 36.6; O2SAT 93
[2023-12-02] MEDS: LORazepam 1 MG TABLET PO (15:29)
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
[2023-12-02 20:35] VITALS: RESP 18
[2023-12-03 07:57] VITALS: BP 138/75; PULSE 81; RESP 14; TEMP 36.7; O2SAT 92
[2023-12-03 08:28] LABS: Estimated Average Glucose 100 mg/dL; Hemoglobin A1c % 5.1 % (<6.0)
[2023-12-03 08:42] LABS: Alanine Aminotransferase 9 U/L (0-40); Albumin Level 3.2 g/dL (3.5-5.0); Alkaline Phosphatase 79 U/L (39-117); Anion Gap 12 (12-20); Aspartate Amino Transferase 12 U/L (5-37); Bilirubin Total 0.5 mg/dL (0.0-1.0); Blood Urea Nitrogen 18 mg/dL (9-16); Calcium 9.2 mg/dL (8.4-10.2); Carbon Dioxide 27 mmol/L (22-29); Chloride 105 mmol/L (96-108); Cholesterol 195 mg/dL (<200); Creatinine Clr Calc Pharmacy 115.5; Estimated Glomerular Filt Rate > 60; Glucose Fasting 88 mg/dL (60-99); HDL Cholesterol 31 mg/dL (>40); LDL Cholesterol Calculated 143 mg/dL (<100); Potassium 3.6 mmol/L (3.3-5.1); Sodium 140 mmol/L (135-145); Total Protein 6.7 g/dL (6.5-8.0); Triglycerides 107 mg/dL (<150)
[2023-12-03 08:50] LABS: Thyroid Stimulating Hormone 0.91 uIU/mL (0.32-4.0)
[2023-12-03 09:03] VITALS: BP 138/75
[2023-12-03] MEDS: lisinopriL 40 MG TABLET PO (09:03)
[2023-12-03] MEDS: LORazepam 1 MG TABLET PO ×3 (09:04→22:28)
[2023-12-03] MEDS: methADONE HCl 20 MG/2 ML ORAL.CONC 60 MG PO (09:04)
[2023-12-03] MEDS: OLANZapine 2.5 MG TABLET PO ×2 (09:04→22:28)
[2023-12-03 09:05] LABS: Vitamin B12 354 pg/mL (200-900)
[2023-12-03] MEDS: Nicotine 21 MG PATCH.TD24 TRANSDERMA (09:08)
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
[2023-12-03 20:50] VITALS: RESP 16
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
[2023-12-04 08:55] VITALS: BP 114/55; PULSE 77; RESP 12; TEMP 36.8; O2SAT 95
[2023-12-04] MEDS: Nicotine 21 MG PATCH.TD24 TRANSDERMA (09:26)
[2023-12-04 09:27] VITALS: BP 114/55
[2023-12-04] MEDS: lisinopriL 40 MG TABLET PO (09:27)
[2023-12-04] MEDS: LORazepam 1 MG TABLET PO ×3 (09:27→20:41)
[2023-12-04] MEDS: OLANZapine 2.5 MG TABLET PO ×2 (09:27→20:41)
[2023-12-04] MEDS: methADONE HCl 20 MG/2 ML ORAL.CONC 60 MG PO (09:27)
[2023-12-04 20:35] VITALS: BP 101/59; PULSE 109; RESP 16; TEMP 36.1; O2SAT 96
[2023-12-05 07:38] VITALS: BP 146/74; PULSE 72; RESP 14; TEMP 36.1; O2SAT 93
[2023-12-05 08:58] VITALS: BP 146/74
[2023-12-05] MEDS: lisinopriL 40 MG TABLET PO (08:58)
[2023-12-05] MEDS: Nicotine 21 MG PATCH.TD24 TRANSDERMA (08:58)
[2023-12-05] MEDS: methADONE HCl 20 MG/2 ML ORAL.CONC 60 MG PO (08:58)
[2023-12-05] MEDS: LORazepam 1 MG TABLET PO ×3 (08:58→21:23)
[2023-12-05] MEDS: OLANZapine 2.5 MG TABLET PO ×2 (08:58→21:24)
[2023-12-05 20:05] VITALS: BP 107/56; PULSE 86; RESP 16; TEMP 36; O2SAT 93
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
[2023-12-06 08:00] VITALS: BP 135/62; PULSE 80; RESP 18; TEMP 36.7; O2SAT 97
[2023-12-06 08:20] VITALS: BP 135/62
[2023-12-06] MEDS: LORazepam 1 MG TABLET PO ×2 (08:20→21:08)
[2023-12-06] MEDS: lisinopriL 40 MG TABLET PO (08:20)
[2023-12-06] MEDS: OLANZapine 2.5 MG TABLET PO ×2 (08:21→21:08)
[2023-12-06] MEDS: methADONE HCl 20 MG/2 ML ORAL.CONC 60 MG PO (08:21)
[2023-12-06] MEDS: Nicotine 21 MG PATCH.TD24 TRANSDERMA (08:23)
[2023-12-06 12:34] LABS: Thyroid Peroxidase Antibodies 8 IU/mL (<9)
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
[2023-12-06 20:15] VITALS: BP 114/56; PULSE 79; RESP 20; TEMP 36.7; O2SAT 88
[2023-12-06 20:45] VITALS: O2SAT 93
[2023-12-07 07:38] VITALS: BP 129/71; PULSE 68; RESP 12; TEMP 37.2; O2SAT 94
[2023-12-07 08:47] VITALS: BP 129/71
[2023-12-07] MEDS: methADONE HCl 20 MG/2 ML ORAL.CONC 60 MG PO (08:47)
[2023-12-07] MEDS: lisinopriL 40 MG TABLET PO (08:47)
[2023-12-07] MEDS: Apixaban 5 MG TABLET PO (08:48)
[2023-12-07] MEDS: OLANZapine 2.5 MG TABLET PO (08:48)
[2023-12-07] MEDS: LORazepam 1 MG TABLET PO (08:48)
--- NOTE | 2023-12-07 11:50 | PC.NURSE ---
Pt took a shower and was walking in the hallway. He did not have socks on and slipped, fell and hit his head which was witnessed by staff. Pt stated I didn't have a chance to put my socks on yet, I was going to do it after I got back to my room. Vitals: 137/77, HR 83, O2 96%. No visible injuries noted. aware.
[2023-12-07] MEDS: hydrOXYzine HCL 25 MG TABLET PO (12:04)
== END 2023-12-07 12:13 | disposition home or self-care (01) | DRG 885 ==
LOC: HO.ED 15:22 → HO.PADLT16 12-02 13:52
PROVIDERS: Physician Assistant Medical; Admitting Provider Social Worker; Emergency Provider Student in an Organized Health Care Education/Training Program; Visit Provider Psychiatry & Neurology Psychiatry
DX: F29 Unspecified psychosis not due to a substance or known physiological condition (principal); F11.20 Opioid dependence, uncomplicated; F06.1 Catatonic disorder due to known physiological condition; Z79.899 Other long term (current) drug therapy
CPT/HCPCS: 36415; 70450; 80053; 80061; 80179; 80307; 81001; 82140; 82607; 82746; 83036; 83690; 83735; 84443; 85025; 86376; 93005; 99285; J2060; S9485

== ENCOUNTER → 2023-11-30 12:22 | Outpatient (BNV) | payer MEDICARE, SELFPAY | PROVIDERS: Emergency Provider Student in an Organized Health Care Education/Training Program; Visit Provider Social Worker | DX: F19.988 Other psychoactive substance use, unspecified with other psychoactive substance-induced disorder (principal); F20.2 Catatonic schizophrenia | CPT/HCPCS: 90792; 99231; 99232; 99239; 99285 ==

== ENCOUNTER → 2023-12-02 13:03 | Outpatient (BNV) | payer MEDICARE, SELFPAY | PROVIDERS: Admitting Provider Social Worker; Emergency Provider Student in an Organized Health Care Education/Training Program; Visit Provider Internal Medicine Cardiovascular Disease | DX: I44.0 Atrioventricular block, first degree (principal) | CPT/HCPCS: 93010 ==

== ENCOUNTER 2024-06-06 10:16 | Inpatient (IN) | payer MEDICARE, MEDICAID, SELFPAY ==
--- NOTE | ~2024-06-06 | XR_ITS ---
EXAMINATION: XR CHEST CLINICAL INFORMATION: Shortness of breath. COMPARISON: Most recent CT chest dated 11/28/2023. TECHNIQUE: Frontal view of the chest was obtained. FINDINGS: Diffuse interstitial prominence without focal airspace consolidation. No pleural effusion or pneumothorax. Stable cardiomediastinal silhouette. XR/XR chest 1V IMPRESSION: Diffuse interstitial prominence without focal airspace consolidation. Electronically signed by: Fer Mckay MD 06/07/2024 08:56 PM [facility]
[2024-06-06 10:35] VITALS: BP 158/92; BP 179/92; PULSE 57; PULSE 58; RESP 14; TEMP 36.4; O2SAT 97; O2SAT 98; BMI 29.8
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
--- NOTE | 2024-06-06 11:08 | ECG_ITS ---
Test Reason : AMS Blood Pressure : / mmHG Vent. Rate : 061 BPM Atrial Rate : 061 BPM P-R Int : 244 ms QRS Dur : 104 ms QT Int : 428 ms P-R-T Axes : 059 -04 082 degrees QTc Int : 430 ms Sinus rhythm with 1st degree A-V block Otherwise normal ECG When compared with ECG of 02-DEC-2023 13:07, No significant change was found Referred By: Anni Wu Electronically Signed By:Man Kebede
[2024-06-06 13:02] LABS: MANUAL DIFF FLAG NO
[2024-06-06 13:03] LABS: Basophils Absolute Auto 0.1 X10*3/uL (0.0-0.2); Basophils Percent Auto 0.9 % (0-2); Eosinophils Absolute Auto 0.1 X10*3/uL (0.0-0.4); Eosinophils Percent Auto 0.9 % (0-4); Hematocrit 42.6 % (42.0-52.0); Hemoglobin 14.1 g/dl (14.0-18.0); Imm Gran Abs Auto 0.02 X10*3/uL (0.00-0.03); Imm Gran Pct Auto 0.3 % (0.0-0.4); Lymphocytes Absolute Auto 1.3 X10*3/uL (1.2-4.9); Lymphocytes Percent Auto 17.3 % (20-40); Mean Corpuscular HGB Conc 33.1 g/dl (31.0-36.0); Mean Corpuscular Hemoglobin 30.3 pg (27.0-33.0); Mean Corpuscular Volume 91.4 fL (80.0-98.0); Mean Platelet Volume 8.9 fL (9.4-12.4); Monocytes Absolute Auto 0.6 X10*3/uL (0.1-1.2); Neutrophils Absolute Auto 5.6 x10*3/uL (2.0-8.3); Neutrophils Percent Auto 72.6 % (45-73); Platelet Count 244 X10*3/uL (160-400); Red Blood Count 4.66 X10*6/uL (4.60-5.80); Red Cell Distribution Width 13.8 % (11.0-16.0); White Blood Count 7.8 X10*3/uL (4.8-10.8)
[2024-06-06 13:18] LABS: Alanine Aminotransferase 13 U/L (0-40); Albumin Level 3.8 g/dL (3.5-5.0); Alkaline Phosphatase 81 U/L (39-117); Anion Gap 11 (12-20); Aspartate Amino Transferase 19 U/L (5-37); Bilirubin Total 0.5 mg/dL (0.0-1.0); Blood Urea Nitrogen 12 mg/dL (9-16); Calcium 9.2 mg/dL (8.4-10.2); Carbon Dioxide 30 mmol/L (22-29); Chloride 103 mmol/L (96-108); Creatinine Clr Calc Pharmacy 116.9; Estimated Glomerular Filt Rate > 60; Glucose Random 121 mg/dL (60-115); Magnesium 1.8 mg/dL (1.6-2.6); Potassium 4.1 mmol/L (3.3-5.1); Sodium 140 mmol/L (135-145); Total Protein 7.2 g/dL (6.5-8.0)
[2024-06-06 13:41] LABS: Influenza A PCR NEGATIVE (Negative); Influenza B PCR NEGATIVE (Negative); Resp Syncy Virus RNA Qual PCR NEGATIVE (Negative); SARS COV2 PCR INHOUSE NEGATIVE (Negative)
[2024-06-06 14:07] LABS: Appearance Urine Clear; Color Urine Yellow; Glucose Urine UA Negative (Negative); Leukocyte Esterase Urine Negative (Negative); Nitrite Urine Negative (Negative); PH 7.5 (5.0-9.0); Specific Gravity - Urine <= 1.005 (1.005-1.025); UMIC TRIGGER UACC YES; Urine Blood Trace (Negative); Urine Ketones Negative (Negative); Urine Protein Negative (Neg-Trace)
[2024-06-06 14:10] LABS: Bacteria Urine None Seen (None Seen); Hyaline Casts Urine 0-2 /LPF (0-2); Squamous Epithelial Cell Urine 0-2 /HPF (0-2); WBC Urine 0-5 /HPF (0-5)
[2024-06-06 14:19] LABS: Amphetamine Screen Urine Not Detected (Not Detect); Barbiturates, Urine Not Detected (Not Detect); Benzodiazepines Screen Urine Not Detected (Not Detect); Buprenorphine Scr Positive (Not Detect); Cannabinoid Screen Urine POSITIVE (Not Detect); Cocaine Screen Urine Not Detected (Not Detect); Fentanyl, urine Not Detected (Not Detect); Methadone Screen, Urine Not Detected (Not Detect); Opiate Screen Urine Not Detected (Not Detect); Oxycodone Screen Urine Not Detected (Not Detect); Phencyclidine Screen Urine Not Detected (Not Detect)
[2024-06-06] MEDS: Gabapentin 400 MG CAPSULE 800 MG PO ×2 (16:11→22:50)
[2024-06-06] MEDS: lisinopriL 40 MG TABLET PO (16:27)
[2024-06-06] MEDS: Buprenorphine/Naloxone 12/3 mg FILM 1 FILM SUBLINGUAL (16:28)
--- NOTE | 2024-06-06 16:28 | PC.NURSE ---
one time dose of suboxone requested and ordered by Manuel. Pt has not had it in 3 days. he is uncomfortable, irritable, in pain and agitated. medicated per mar
[2024-06-06] MEDS: OLANZapine 2.5 MG TABLET PO (22:50)
[2024-06-06] MEDS: Apixaban 5 MG TABLET PO (22:50)
[2024-06-06 22:52] VITALS: BP 161/91; PULSE 95; RESP 18; TEMP 36.5; O2SAT 94
--- NOTE | 2024-06-06 23:11 | MHC.CARE ---
Pt evaluated by the CARE team and Pt is found appropriate for inpatient level of care. ED provider and POD RN aware. Pt is on a section 12A for safety.
[2024-06-07] MEDS: Gabapentin 400 MG CAPSULE 800 MG PO (08:06)
[2024-06-07 08:07] VITALS: BP 106/76
[2024-06-07] MEDS: Apixaban 5 MG TABLET PO ×2 (08:07→22:31)
[2024-06-07] MEDS: lisinopriL 40 MG TABLET PO (08:07)
[2024-06-07] MEDS: Buprenorphine/Naloxone 12/3 mg FILM 1 FILM SUBLINGUAL ×2 (08:07→22:31)
[2024-06-07] MEDS: Tiotropium Bromide 2.5 mcg 1 PUFF/2.5 MCG MIST.INHAL 2 PUFF INHALE (08:07)
[2024-06-07] MEDS: OLANZapine 2.5 MG TABLET PO ×2 (08:07→22:31)
[2024-06-07 08:16] VITALS: BP 106/76; PULSE 72; RESP 18; TEMP 36.7; O2SAT 91
--- NOTE | 2024-06-07 08:52 | PHA.MEDREC ---
Pharmacy Consult ? Medication Reconciliation Pharmacy has completed the medication reconciliation. Patient knew medications. Patient states most recent dose of lisinopril is 10mg daily
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
--- NOTE | 2024-06-07 11:05 | MHC.EDTECH ---
patient asked for more food when t/w told the nurse what he already had she asked him what he wanted and he responded I like to eat pussy. I like to eat pussy .T/W told patient that was inappropriate and told him to go to his room he told t/w to suck his balls .
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
[2024-06-07 15:31] VITALS: BP 100/68; PULSE 73; RESP 16; TEMP 36.5; O2SAT 95
[2024-06-07 15:33] VITALS: BMI 30.6
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
[2024-06-07 19:12] LABS: TSH reflex Free T4 2.28 uIU/mL (0.32-4.0)
[2024-06-07 19:32] VITALS: BP 114/69; PULSE 69; RESP 14; TEMP 37.1
[2024-06-07] MEDS: Pseudoephedrine HCL 30 MG TABLET PO (23:03)
[2024-06-08] MEDS: Pseudoephedrine HCL 30 MG TABLET PO (06:33)
[2024-06-08 07:39] VITALS: BP 128/84; PULSE 94; RESP 18; TEMP 36.6; O2SAT 95
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
[2024-06-08] MEDS: Buprenorphine/Naloxone 12/3 mg FILM 1 FILM SUBLINGUAL (08:39)
[2024-06-08] MEDS: lisinopriL 10 MG TABLET PO (08:39)
[2024-06-08] MEDS: Apixaban 5 MG TABLET PO (08:39)
[2024-06-08] MEDS: OLANZapine 2.5 MG TABLET PO (08:39)
[2024-06-08 09:01] LABS: Estimated Average Glucose 111 mg/dL; Hemoglobin A1C 139.2066 umol/L; Hemoglobin A1c % 5.5 % (<6.0); Total Hemoglobin (HGBA1C) 3819.4746 umol/L
[2024-06-08 09:09] LABS: Alanine Aminotransferase 15 U/L (0-40); Albumin Level 3.8 g/dL (3.5-5.0); Alkaline Phosphatase 77 U/L (39-117); Anion Gap 9 (12-20); Aspartate Amino Transferase 22 U/L (5-37); Bilirubin Total 0.5 mg/dL (0.0-1.0); Blood Urea Nitrogen 19 mg/dL (9-16); Calcium 8.9 mg/dL (8.4-10.2); Carbon Dioxide 29 mmol/L (22-29); Chloride 104 mmol/L (96-108); Cholesterol 204 mg/dL (<200); Creatinine Clr Calc Pharmacy 112.3; Estimated Glomerular Filt Rate > 60; Glucose Fasting 126 mg/dL (60-99); HDL Cholesterol 36 mg/dL (>40); LDL Cholesterol Calculated 149 mg/dL (<100); Potassium 3.9 mmol/L (3.3-5.1); Sodium 138 mmol/L (135-145); Total Protein 7.2 g/dL (6.5-8.0); Triglycerides 98 mg/dL (<150)
[2024-06-08 09:24] LABS: Thyroid Stimulating Hormone 1.86 uIU/mL (0.32-4.0)
[2024-06-08 09:33] LABS: Vitamin B12 547 pg/mL (200-900)
[2024-06-08] MEDS: Tiotropium Bromide 2.5 mcg 1 PUFF/2.5 MCG MIST.INHAL 2 PUFF INHALE (09:36)
[2024-06-08] MEDS: OLANZapine ODT 10 MG TAB.RAPDIS TRANSLINGU (10:52)
[2024-06-08] MEDS: LORazepam 1 MG TABLET 2 MG PO ×2 (10:52→14:42)
[2024-06-08] MEDS: OLANZapine 5 MG TABLET PO (14:43)
[2024-06-08] MEDS: OLANZapine 10 MG VIAL IM (15:07)
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
--- NOTE | 2024-06-09 05:34 | PC.NURSE ---
Pt refused HS meds, sleeping all evening and not responding to TW.
[2024-06-09 08:00] VITALS: BP 127/95; PULSE 118; RESP 18; TEMP 36.5; O2SAT 92
[2024-06-09] MEDS: Nicotine 14 MG PATCH.TD24 TRANSDERMA (08:21)
[2024-06-09 08:23] VITALS: BP 127/95
[2024-06-09] MEDS: lisinopriL 10 MG TABLET PO (08:23)
[2024-06-09] MEDS: Apixaban 5 MG TABLET PO (08:23)
[2024-06-09] MEDS: hydrOXYzine HCL 25 MG TABLET PO (08:23)
[2024-06-09] MEDS: OLANZapine 10 MG TABLET PO ×2 (08:23→16:10)
[2024-06-09] MEDS: guaiFENesin DM 600/30 1 TAB TAB.ER.12H PO (08:23)
[2024-06-09] MEDS: Lithium Carbonate 300 MG CAPSULE 600 MG PO (08:23)
[2024-06-09] MEDS: Tiotropium Bromide 2.5 mcg 1 PUFF/2.5 MCG MIST.INHAL 2 PUFF INHALE (08:25)
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
[2024-06-09] MEDS: Buprenorphine/Naloxone 12/3 mg FILM 1 FILM SUBLINGUAL (08:51)
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
[2024-06-09] MEDS: OLANZapine 10 MG VIAL IM (09:07)
[2024-06-09] MEDS: LORazepam 1 MG TABLET 2 MG PO (09:23)
[2024-06-09] MEDS: Propranolol HCL 10 MG TABLET 5 MG PO ×2 (09:24→16:09)
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
[2024-06-09 16:05] VITALS: BP 131/83; PULSE 75; RESP 18; O2SAT 94
--- NOTE | 2024-06-09 23:56 | PC.NURSE ---
refusal HS medications- OOB at 2345 to use the bathroom. when he returned to bed medications offered. psychomotor agitation, moving body hastily, having difficulties putting on hospital Zev top. when discussing medications stated ''I don't want lithium I don't take it at home, if I have zyprexa I don't want that either'' rapid speech. when asked about injection earlier in day stated ''I don't want to talk about anything, my head feels jumbled'' is currently back in bed with eyes closed. 1:1 maintained.
[2024-06-10] MEDS: Pseudoephedrine HCL 30 MG TABLET PO ×2 (03:36→14:35)
[2024-06-10] MEDS: OLANZapine ODT 10 MG TAB.RAPDIS TRANSLINGU (03:36)
[2024-06-10] MEDS: LORazepam 1 MG TABLET 2 MG PO ×3 (03:57→11:54)
--- NOTE | 2024-06-10 04:15 | PC.NURSE ---
OOB at 0315-restless. appeared SOB and self identified as having ''COPD'' then asking if t/w could give him a cigarette. Sao2 89%. walking in hallway, holding up his pants. taking time to lean against the wall. expiratory wheezing noted. did bring up a significant amount of gómez sputum. door checking and exit seeking but accepting direction when given directive then time to process through, the milieu being quiet due to sleeping peers was also a positive contributing factor. frequently in the bathroom, soft smeared stool found on [facility] on floor in room. when asked if he was feeling constipated responded ''yes'' did accept PO zyprexa, ativan and pseudophedrine and had small sips of prune juice. role playing out sniffing cocaine by ripping up pieces of newspaper, rolling and using as a tool to snort substance that was not present. difficulty staying still. 2 staff needed during this time to prevent patient from walking into others room.
--- NOTE | 2024-06-10 05:04 | PC.NURSE ---
inhaler-a rescue inhaler for albuterol was obtained and brought to the unit by the nursing gambling floor supervisor. patient is currently in bed with eyes closed. respirations 17-18. color is pink. will allow patient to sleep. 1:1 maintained.
[2024-06-10 08:08] VITALS: BP 142/84; PULSE 116; RESP 18; TEMP 36.9; O2SAT 93
[2024-06-10] MEDS: Propranolol HCL 10 MG TABLET 5 MG PO ×2 (08:19→14:35)
[2024-06-10] MEDS: guaiFENesin DM 600/30 1 TAB TAB.ER.12H PO (08:20)
[2024-06-10] MEDS: lisinopriL 10 MG TABLET PO (08:20)
[2024-06-10] MEDS: OLANZapine 10 MG TABLET PO ×2 (08:20→14:35)
[2024-06-10] MEDS: Lithium Carbonate 300 MG CAPSULE 600 MG PO (08:20)
[2024-06-10] MEDS: Apixaban 5 MG TABLET PO (08:20)
[2024-06-10] MEDS: Nicotine 14 MG PATCH.TD24 TRANSDERMA (08:21)
[2024-06-10] MEDS: Tiotropium Bromide 2.5 mcg 1 PUFF/2.5 MCG MIST.INHAL 2 PUFF INHALE (08:21)
[2024-06-10] MEDS: Buprenorphine/Naloxone 12/3 mg FILM 1 FILM SUBLINGUAL (08:40)
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
[2024-06-10 14:35] VITALS: BP 98/65; PULSE 101
[2024-06-10 19:50] VITALS: RESP 16
[2024-06-11 08:37] VITALS: BP 114/73; PULSE 73; RESP 16; TEMP 36.9; O2SAT 94
[2024-06-11] MEDS: Nicotine 14 MG PATCH.TD24 TRANSDERMA (08:45)
[2024-06-11] MEDS: Apixaban 5 MG TABLET PO ×2 (08:45→20:56)
[2024-06-11] MEDS: OLANZapine 10 MG TABLET PO ×2 (08:45→14:36)
[2024-06-11] MEDS: Lithium Carbonate 300 MG CAPSULE 600 MG PO ×2 (08:45→20:54)
[2024-06-11] MEDS: guaiFENesin DM 600/30 1 TAB TAB.ER.12H PO ×2 (08:45→20:54)
[2024-06-11] MEDS: lisinopriL 10 MG TABLET PO (08:45)
[2024-06-11] MEDS: Propranolol HCL 10 MG TABLET 5 MG PO ×3 (08:46→20:56)
[2024-06-11] MEDS: Buprenorphine/Naloxone 12/3 mg FILM 1 FILM SUBLINGUAL ×2 (08:47→20:56)
[2024-06-11] MEDS: Tiotropium Bromide 2.5 mcg 1 PUFF/2.5 MCG MIST.INHAL 2 PUFF INHALE (08:59)
[2024-06-11 14:35] VITALS: BP 108/61; PULSE 103
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
[2024-06-11 20:42] VITALS: BP 105/55; PULSE 88; O2SAT 93
[2024-06-11] MEDS: LORazepam 1 MG TABLET 2 MG PO (22:53)
[2024-06-12 07:42] VITALS: BP 121/70; PULSE 86; RESP 18; TEMP 36.5
[2024-06-12] MEDS: Propranolol HCL 10 MG TABLET 5 MG PO (08:29)
[2024-06-12] MEDS: Apixaban 5 MG TABLET PO (08:30)
[2024-06-12] MEDS: Lithium Carbonate 300 MG CAPSULE 600 MG PO (08:30)
[2024-06-12] MEDS: guaiFENesin DM 600/30 1 TAB TAB.ER.12H PO (08:30)
[2024-06-12] MEDS: lisinopriL 10 MG TABLET PO (08:30)
[2024-06-12] MEDS: Nicotine 14 MG PATCH.TD24 TRANSDERMA (08:31)
[2024-06-12] MEDS: OLANZapine 10 MG TABLET PO (08:31)
[2024-06-12] MEDS: LORazepam 1 MG TABLET 2 MG PO (08:35)
[2024-06-12] MEDS: Tiotropium Bromide 2.5 mcg 1 PUFF/2.5 MCG MIST.INHAL 2 PUFF INHALE (08:35)
[2024-06-12] MEDS: Buprenorphine/Naloxone 12/3 mg FILM 1 FILM SUBLINGUAL (08:37)
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
[2024-06-12 18:59] LABS: Thyrotropin Receptor Antibody <1.00 IU/L (<=2.00)
== END 2024-06-12 11:49 | disposition home or self-care (01) | DRG 885 ==
LOC: HO.ED 15:33 → HO.PADLT16 06-07 13:38
PROVIDERS: Physician Assistant Medical; Admitting Provider Social Worker; Emergency Provider Student in an Organized Health Care Education/Training Program; Visit Provider Psychiatry & Neurology Psychiatry
DX: F31.12 Bipolar disorder, current episode manic without psychotic features, moderate (principal); F11.20 Opioid dependence, uncomplicated; Z20.822 Contact with and (suspected) exposure to COVID-19; Z79.01 Long term (current) use of anticoagulants; Z79.899 Other long term (current) drug therapy
CPT/HCPCS: 0241U; 36415; 71045; 80053; 80061; 80307; 81001; 82607; 83036; 83520; 83735; 84443; 85025; 93005; 99285; J2359; S9485

== ENCOUNTER → 2024-06-06 11:08 | Outpatient (BNV) | payer MEDICARE, SELFPAY | PROVIDERS: Admitting Provider Social Worker; Emergency Provider Student in an Organized Health Care Education/Training Program; Visit Provider Internal Medicine Cardiovascular Disease | DX: I44.0 Atrioventricular block, first degree (principal) | CPT/HCPCS: 93010 ==

== ENCOUNTER → 2024-06-07 11:46 | Outpatient (BNV) | payer MEDICARE, SELFPAY | PROVIDERS: Admitting Provider Social Worker; Emergency Provider Student in an Organized Health Care Education/Training Program; Visit Provider Psychiatry & Neurology Psychiatry | DX: F31.12 Bipolar disorder, current episode manic without psychotic features, moderate (principal) | CPT/HCPCS: 90792; 99232; 99239; 99499 ==

== ENCOUNTER 2024-06-14 15:11 | Inpatient (IN) | payer MEDICARE, SELFPAY ==
[2024-06-14] VITALS (19 sets, daily range): BP systolic 87–135; BP diastolic 45–75; PULSE 72–93; RESP 12–22; TEMP 36.4–37.4; O2SAT 82–100; BMI 31.6
--- NOTE | ~2024-06-14 | CT_ITS ---
EXAMINATION: CT HEAD WITHOUT CONTRAST CLINICAL INFORMATION: Altered mental status COMPARISON: CT head 11/30/2023 TECHNIQUE: Contiguous axial imaging was performed from the skull base to vertex without intravenous administration of contrast. This CT examination was performed using dose optimization techniques as appropriate, variously including the following: *Automated exposure control *Adjustment of mA and/or kV according to patient size (this includes techniques or standardized protocols for targeted exams where dose is matched to indication/reason for exam; i.e. extremities or head) *Use of iterative reconstruction technique DLP: 1489 mGy-cm FINDINGS: There is no evidence of acute intracranial hemorrhage or edematous large vessel territorial infarction. No abnormal mass effect or midline shift is seen. Evans to white matter differentiation is well preserved. No abnormal extra-axial fluid collections are identified. Commensurate prominence of the ventricles and sulci is compatible with generalized parenchymal volume loss. Redemonstrated is patchy periventricular and subcortical white matter hypoattenuation, most likely representing microangiopathic disease. CSF attenuation space in the posterior cranial fossa is unchanged, likely a prominent cisterna magna. No acute calvarial fracture.. Orbits appear unremarkable. Paranasal sinuses and mastoid air cells are well-aerated. CT/CT head/brain wo IV con IMPRESSION: No CT evidence of acute intracranial hemorrhage or edematous territorial infarction.. Chronic changes, unchanged from 11/30/2023. Electronically signed by: Roger Rausch MD 06/14/2024 06:53 PM [facility] [place]
--- NOTE | ~2024-06-14 | CT_ITS ---
EXAMINATION: CT CHEST, ABDOMEN AND PELVIS WITHOUT CONTRAST CLINICAL INFORMATION: sob/mucus plugging along with vomiting and question of small bowel obstruction COMPARISON: CT chest 11/28/2023, CT chest abdomen pelvis 11/16/2023 TECHNIQUE: Multidetector volumetric imaging was performed from the thoracic inlet through the pubic symphysis without IV contrast. Sagittal and coronal reformatted images were obtained on the technologist's workstation. This CT examination was performed using dose optimization techniques as appropriate, variously including the following: *Automated exposure control *Adjustment of mA and/or kV according to patient size (this includes techniques or standardized protocols for targeted exams where dose is matched to indication/reason for exam; i.e. extremities or head) *Use of iterative reconstruction technique DLP: 1133 and 1778 mGy-cm FINDINGS: CHEST: There is severe motion artifact limiting interpretation. Lung: Emphysematous changes are present with bullous formation. There is bronchial thickening present with marked changes in the lower lobes with mucus plugging and distal atelectasis/infiltrate. Mediastinum: The mediastinum is normal. The central vascular structures are unremarkable. No hilar or mediastinal lymphadenopathy. Pericardium/Pleura: No significant effusion. No pleural mass or thickening. Coronary artery calcium: Minimal Chest Wall/Axilla: Unremarkable ABDOMEN/PELVIS: Peritoneal Space: No significant free air or free fluid identified. Liver, Gallbladder, Biliary Tree: The liver is enlarged measuring 18.8 cm in cephalocaudad dimension. Attenuation and shape are normal. No focal hepatic lesion or biliary ductal dilatation is present. The gallbladder is unremarkable with no evidence of radiopaque gallstones, gallbladder wall thickening, or obvious pericholecystic inflammatory changes. Pancreas: Unremarkable Spleen: Unremarkable Adrenal Glands: Unremarkable Kidneys and Ureters: The kidneys are normal in size, shape, and attenuation. No hydronephrosis, hydroureter, or calculi seen. No perinephric stranding. A benign 1 cm cortical exophytic left lower pole cm Bosniak class I renal cyst is noted which requires no additional imaging or follow up. No solid renal masses are seen. Bladder: Unremarkable Gastrointestinal Tract: Marked diverticular change seen in the sigmoid without evidence of diverticulitis. Scattered tics elsewhere. The small and large bowel are otherwise unremarkable. The appendix is not seen with certainty but there is no evidence of appendicitis. Abdominal Wall: No significant hernia is appreciated. Lymph Nodes: No retroperitoneal lymphadenopathy. Vascular: The infrarenal abdominal aorta is dilated at 3.6 cm. Marked atherosclerotic changes are seen throughout the aorta and iliofemoral vessels.. The IVC appears unremarkable. PELVIC VISCERA: There is mild BPH. Seminal vesicles appear normal. OSSEUS STRUCTURES: Degenerative changes are present throughout the spine. There is grade 1 anterolisthesis of L5 upon S1 with bilateral L5 pars defects. There are compression fractures of the inferior endplate of L3 and the superior endplate of L1. CT/CT abdomen pelvis wo IV con IMPRESSION: 1. Emphysema with bronchial thickening and mucus plugging in the lower lobes with distal atelectasis/infiltrate. 2. 3.6 cm infrarenal abdominal aortic aneurysm. Ultrasound screening is recommended every 2 years. 3. No bowel obstruction. Pole 4. Other incidental findings as described above. Fleischner guidelines were followed. Electronically signed by: Thomas Keita MD 06/14/2024 10:37 PM [facility]
--- NOTE | ~2024-06-14 | XR_ITS ---
EXAMINATION: XR CHEST CLINICAL INFORMATION: hypoxia COMPARISON: 06/07/2024 TECHNIQUE: Frontal view of the chest was obtained. FINDINGS: There is mild cardiac enlargement. No large pleural effusions are seen. Again noted are diffuse prominent interstitial markings. There is new patchy consolidation at the left lung base. XR/XR chest 1V IMPRESSION: New patchy consolidation left lung base. Electronically signed by: Thomas Keita MD 06/14/2024 07:06 PM [facility]
--- NOTE | 2024-06-14 15:40 | ECG_ITS ---
Test Reason : AMS Blood Pressure : / mmHG Vent. Rate : 081 BPM Atrial Rate : 081 BPM P-R Int : 214 ms QRS Dur : 104 ms QT Int : 372 ms P-R-T Axes : 088 019 081 degrees QTc Int : 432 ms Sinus rhythm with 1st degree A-V block Low voltage QRS Borderline ECG When compared with ECG of 06-JUN-2024 12:01, ST elevation now present in Inferior leads Referred By: Noe Hernandez Electronically Signed By:RANDY KANG MD
--- NOTE | 2024-06-14 15:54 | PC.NURSE ---
patient presents to the ED via ems, patient found in bed with empty b
[2024-06-14 16:22] LABS: INTERNATIONAL NORM RATIO 1.2 (0.9-1.1); Prothrombin Time 13.6 SEC (10.9-12.4)
[2024-06-14 16:36] LABS: Alanine Aminotransferase 13 U/L (0-40); Albumin Level 4.1 g/dL (3.5-5.0); Alkaline Phosphatase 77 U/L (39-117); Anion Gap 14 (12-20); Aspartate Amino Transferase 21 U/L (5-37); Bilirubin Total 0.5 mg/dL (0.0-1.0); Blood Urea Nitrogen 47 mg/dL (9-16); Calcium 9.3 mg/dL (8.4-10.2); Carbon Dioxide 26 mmol/L (22-29); Chloride 102 mmol/L (96-108); Creatinine Clr Calc Pharmacy 42.1; Estimated Glomerular Filt Rate 33; Ethanol < 10 mg/dL; Glucose Random 141 mg/dL (60-115); Lipase 10 U/L (8-78); Magnesium 2.5 mg/dL (1.6-2.6); Potassium 4.8 mmol/L (3.3-5.1); Sodium 137 mmol/L (135-145); Total Protein 7.6 g/dL (6.5-8.0)
[2024-06-14 16:40] LABS: Acetaminophen LAB < 3 mcg/mL (<30); Salicylate < 5.0 mg/dL (15-30)
[2024-06-14 16:42] LABS: Troponin-I High Sensitivity 99.2 ng/L (<3.5-35.0)
[2024-06-14 16:53] LABS: Influenza A PCR NEGATIVE (Negative); Influenza B PCR NEGATIVE (Negative); Resp Syncy Virus RNA Qual PCR NEGATIVE (Negative); SARS COV2 PCR INHOUSE NEGATIVE (Negative)
[2024-06-14 16:56] LABS: TSH reflex Free T4 0.88 uIU/mL (0.32-4.0)
[2024-06-14 16:59] LABS: MANUAL DIFF FLAG NO
--- NOTE | 2024-06-14 16:59 | PC.NURSE ---
patient presented to the ED with ems after being found in bed at his brothers house with empty bottles of lithium, gabapentin, tramdol and citalopram. patient 82% on room air in ED when moved into stretcher, placed on non rebreather 15l. patient responsive to noxious painful stimuli, pupils pin point, grunting respirations. patient sats came up and patient was placed on oxymask 5lNC satting 94%. patients daughter presented at bedside stating patient was not lethargic like this yesterday and is unsure if he took his medications in excess, patient has long hx of drug abuse and mental illness. patient was changed over into hospital attire, belongings secured and locked up.
[2024-06-14 17:01] LABS: Lithium 0.71 mmol/L (0.60-1.20)
[2024-06-14 17:02] LABS: Basophils Percent Auto 0.2 % (0-2); Hematocrit 41.8 % (42.0-52.0); Hemoglobin 13.7 g/dl (14.0-18.0); Imm Gran Abs Auto 0.11 X10*3/uL (0.00-0.03); Imm Gran Pct Auto 0.5 % (0.0-0.4); Lymphocytes Absolute Auto 0.7 X10*3/uL (1.2-4.9); Lymphocytes Percent Auto 3.5 % (20-40); Mean Corpuscular HGB Conc 32.8 g/dl (31.0-36.0); Mean Corpuscular Hemoglobin 30.6 pg (27.0-33.0); Mean Corpuscular Volume 93.5 fL (80.0-98.0); Mean Platelet Volume 9.7 fL (9.4-12.4); Monocytes Absolute Auto 1.4 X10*3/uL (0.1-1.2); Monocytes Percent Auto 6.6 % (2-11); Neutrophils Absolute Auto 18.7 x10*3/uL (2.0-8.3); Neutrophils Percent Auto 89.2 % (45-73); Platelet Count 208 X10*3/uL (160-400); Red Blood Count 4.47 X10*6/uL (4.60-5.80)
[2024-06-14 17:03] LABS: VBG Base Excess 2.3 mmol/L; VBG HCO3 30 mmol/L (22-26); VBG pCO2 64 mmHg; VBG pH 7.28 (7.32-7.43); VBG pO2 38 mmHg
[2024-06-14] MEDS: Naloxone HCl 2 MG/2 ML SYRINGE IVPUSH ×2 (17:19→17:25)
[2024-06-14 17:24] LABS: Venous Blood Gas Refer to POC result
[2024-06-14] MEDS: 0.9 % Sodium Chloride 1,000 ML 999 ML IV ×3 (17:28→19:09)
--- NOTE | 2024-06-14 17:29 | PC.NURSE ---
patient noted to desat down to 65% on oxymask at 5l. patient unresponsive to painful stimuli. was given 2mg IV narcan at 1719 with small change, patient placed on non rebreather sats came up to 85%, patient given second dose of 2mg IV narcan at 1725. RT at bedside patient placed on high flow 50L at 70%, patient repositioned and sitting up, 95%. patient pupils remain pinpoint but reactive.
--- NOTE | 2024-06-14 17:31 | ED.GENADULT ---
HPI - General Adult General Chief complaint: Altered Mental Status Stated complaint: ams,unresponsive Time Seen by Provider: 06/14/24 15:22 Source: patient, family ( daughter), RN notes reviewed and old records reviewed Mode of arrival: EMS Limitations: altered mental status History of Present Illness ED Provider: [place] HPI narrative: 64-year-old male past medical history significant for bipolar disorder, COPD not on supplemental O2 presents for evaluation of altered mental status. Per the patient's daughter, the patient was at his brother's house. He has not gotten out of bed since yesterday he was discharged from this facility 2 days ago for psychosis the patient arrives via EMS, he was apparently found to have a sat of 82% on room air the patient had empty pill bottles of lithium, tramadol, citalopram and gabapentin next to him. He was supposedly prescribed a 1 week supply of these medications 2 days ago and yet they were all empty today the patient will open his eyes and grown but does not answer any questions Related Data Home Medications ?Medication ?Instructions ?Recorded ?Confirmed apixaban 5 mg tablet (Eliquis) 5 mg PO BID 06/06/24 06/06/24 buprenorphine 12 mg-naloxone 3 mg 1 film sublingual BID 06/06/24 06/06/24 sublingual film lisinopril 10 mg tablet 10 mg PO DAILY 06/07/24 06/07/24 Previous Rx's ?Medication ?Instructions ?Recorded gabapentin 800 mg tablet 800 mg PO TID 30 days #90 tabs 06/12/24 lithium carbonate 300 mg capsule 600 mg (2 x 300 mg) PO BID 30 days 06/12/24 #120 caps nicotine (polacrilex) 4 mg gum 4 mg buccal Q2H PRN nicotine 06/12/24 cravings 30 days #110 ea nicotine 14 mg/24 hr daily 14 mg transdermal DAILY 28 days 06/12/24 transdermal patch #28 ea olanzapine 2.5 mg tablet 2.5 mg PO BID 30 days #60 tabs 06/12/24 propranolol 10 mg tablet 5 mg PO TID 30 days #45 tabs 06/12/24 umeclidinium 62.5 mcg/actuation 1 inh inhalation DAILY 30 days #30 06/12/24 blister powder for inhalation ea (Incruse Ellipta) Allergies Allergy/AdvReac Type Severity Reaction Status Date / Time codeine [CODEINE] AdvReac Mild HIVES Verified 06/14/24 15:33 Review of Systems Review of Systems: Yes Unobtainable due to mental status PMFSH Past Medical History Medical History (Updated 06/15/24 @ 06:00 by Holly Knapp RN) Chronic headaches Social History Social History Household Members: Unknown / Unable to assess Housing: Unknown / Unable to assess Unable to assess alcohol history related to: Unable to respond Comment: sitter in room Patient Tobacco Use Status: Tobacco use Unknown Tobacco use type: Cigarette Cigarette Packs Per Day: 1.5 Cigarettes Per Day: 30.0 Years Smoked: 30 Second Hand Smoke Exposure: No Use of substances other than those prescribed or required for medical reasons: Unknown Substance Use Type: Unknown Currently Displaying Signs/Symptoms of Drug Intoxication Withdrawal: No Advance Directives: Yes Advance Directives on File: Yes Advance Directives Date on File: 11/30/23 Do you have a plan to hurt others: Vague Recently lost weight without trying: No How much weight loss: Not applicable Eating poorly because of decreased appetite: No Nutrition screen score: 0 Nutrition Risks: No Nutritional Risk Poor oral hygiene: No service: No Sexual orientation: Unable to collect Physical Exam ED Vital Signs: Vital Signs - 24 hr 06/14/24 15:32 06/14/24 15:42 06/14/24 17:42 Temperature 98.5 F Pulse Rate 84 92 Respiratory Rate 14 12 22 H Blood Pressure 96/51 L 108/75 Pulse Oximetry 82 L 97 Oxygen Delivery Method Room Air High Flow Nasal Cannula Oxygen Flow Rate 50 Fraction of Inspired Oxygen 06/14/24 17:43 06/14/24 17:44 06/14/24 17:55 Temperature Pulse Rate 93 Respiratory Rate 21 H 21 H 22 H Blood Pressure Pulse Oximetry Oxygen Delivery Method Oxygen Flow Rate Fraction of Inspired Oxygen 06/14/24 18:26 06/14/24 18:52 06/14/24 18:56 Temperature Pulse Rate 89 84 Respiratory Rate 22 H 21 H 22 H Blood Pressure 135/67 87/45 L Pulse Oximetry 97 94 Oxygen Delivery Method High Flow Nasal Cannula High Flow Nasal Cannula Oxygen Flow Rate 50 50 Fraction of Inspired Oxygen 06/14/24 19:10 06/14/24 19:30 06/14/24 19:55 Temperature 98.6 F Pulse Rate 83 78 77 Respiratory Rate 20 17 14 Blood Pressure 97/52 L 101/56 L 115/69 Pulse Oximetry 95 98 100 Oxygen Delivery Method High Flow Nasal Cannula High Flow Nasal Cannula High Flow Nasal Cannula Oxygen Flow Rate 50 Fraction of Inspired Oxygen 06/14/24 20:03 06/14/24 21:54 06/14/24 21:55 Temperature 99.3 F 98.2 F Pulse Rate 80 74 79 Respiratory Rate 16 15 15 Blood Pressure 111/62 113/66 111/64 Pulse Oximetry 100 94 97 Oxygen Delivery Method High Flow Nasal Cannula Oxymask Oxymask Oxygen Flow Rate 4 4 Fraction of Inspired Oxygen 06/14/24 23:16 06/14/24 23:19 06/14/24 23:30 Temperature 97.5 F Pulse Rate 81 72 Respiratory Rate 21 H 15 15 Blood Pressure 109/59 L 113/69 Pulse Oximetry 97 95 Oxygen Delivery Method BiPAP BiPAP Oxygen Flow Rate Fraction of Inspired Oxygen 30 06/15/24 02:13 06/15/24 02:23 Temperature 97.9 F Pulse Rate 65 67 Respiratory Rate 14 15 Blood Pressure 108/65 108/65 Pulse Oximetry 90 L 92 Oxygen Delivery Method Nasal Cannula Nasal Cannula Oxygen Flow Rate 4 3 Fraction of Inspired Oxygen BMI result Body Mass Index 31.6 Const General: ill appearing and patient obtunded; No cooperative, healthy appearing, awake or Physically active Nutritional Appearance: overweight Orientation/consciousness: patient obtunded Limitations: altered mental status [facility] Head: Yes normocephalic and Yes atraumatic Eyes Eyelids: Yes eyelids normal Conjunctivae: conjunctivae normal Sclerae: sclerae normal Corneas: corneas normal Chest Chest palpation & inspection: normal inspection of the chest Resp Other: lungs diminished throughout with rhonchi Effort & Inspection: abnormal respiratory effort, not able to speak in complete sentences, abnormal respiratory pattern, Actively coughing and labored Auscultation: not clear to auscultation bilaterally Cardio Rate: regular rate Rhythm: regular rhythm GI Palpation (GI): Soft to palpation, nontender, no guarding and not rigid Skin General skin exam: no rashes or lesions noted and elasticity normal Neuro General: patient obtunded Extrem Other: Moving all extremities well without any obvious deformities Course Reevaluation(s) Reevaluation #1: I re-evaluated the patient, I sternal with the patient he woke up he told me that he knew he was in the hospital but then went back to sleep. He then became more hypoxic to around 75%. I attempting to give the patient Narcan 2 mg IV x2 doses with little to no effect. We ordered a breathing treatment, some Solu-Medrol, vancomycin and Zosyn as his chest x-ray shows pneumonia and he is high risk for aspiration pneumonia. The patient was placed back on non-rebreather. His oxygen saturation improved to about Time: 17:31 Reevaluation #2: patient was given 30 cc/kilos after he had 1 episode of hypotension. His lactate was 1.2 and he only had 1 episode of hypotension below 90 systolic. Time: 21:01 Medications Administered Generic Name Dose Route Start Last Admin Trade Name Freq PRN Reason Stop Dose Admin Albuterol/Ipratropium 3 ml 06/15/24 04:30 06/15/24 04:58 Albuterol/Iprat 2.5/0.5mg 3 Ml Ampul.Neb INHALE 3 ml RQ6H SALTY Administration Piperacillin Sod/Tazobactam 50 mls @ 100 mls/hr 06/15/24 04:30 06/15/24 06:20 Sod 3.375 gm/ Sodium Chloride IV Infused 0000,0600,1200,1800 SALTY Infusion Vancomycin HCl 1,250 mg/ 250 mls @ 166.667 mls/hr 06/15/24 07:00 06/15/24 08:52 Sodium Chloride IV Infused Q12H SALTY Infusion Methylprednisolone Sodium Succinate 60 mg 06/15/24 04:45 06/15/24 05:43 Methylprednisolone Sod Succ 125 Mg/2 Ml Vial IVPUSH 60 mg 0600,1400,2200 SALTY Administration Discontinued Medications Generic Name Dose Route Start Last Admin Trade Name Freq PRN Reason Stop Dose Admin Albuterol Sulfate 2.5 mg/ 0 mg 06/14/24 17:42 06/14/24 17:47 Albuterol/Ipratropium 3 ml INHALE 06/14/24 17:43 1 dose ONCE ONE Administration Sodium Chloride 1,000 mls @ 999 mls/hr 06/14/24 17:15 06/14/24 19:07 Ns IV 06/14/24 18:15 Infused .Q1H1M SALTY Infusion Piperacillin Sod/Tazobactam 50 mls @ 100 mls/hr 06/14/24 17:12 06/14/24 18:33 Sod 3.375 gm/ Sodium Chloride IV 06/14/24 17:41 Infused ONCE ONE Infusion Vancomycin HCl 2,000 mg in 500 mls @ 250 mls/hr 06/14/24 18:00 06/14/24 21:11 Vancomycin/Ns IV 06/14/24 19:59 Infused ONCE ONE Infusion Sodium Chloride 1,000 mls @ 999 mls/hr 06/14/24 18:45 06/14/24 21:08 Ns IV 06/14/24 20:45 Infused .Q1H1M SALTY Infusion Influenza Virus Vaccine 0.5 ml 06/15/24 05:42 06/15/24 06:09 Flu Vacc [id number](6mos Up)/Pf 0.5 Ml Syringe IM 06/15/24 05:43 Not Given .ONCE ONE Lorazepam 2 mg 06/14/24 17:55 06/14/24 17:55 Lorazepam 2 Mg/Ml Vial IVPUSH 06/14/24 17:56 2 mg ONCE ONE Administration Methylprednisolone Sodium Succinate 125 mg 06/14/24 17:30 06/14/24 17:42 Methylprednisolone Sod Succ 125 Mg/2 Ml Vial IVPUSH 06/14/24 17:31 125 mg ONCE ONE Administration Naloxone HCl 2 mg 06/14/24 17:30 06/14/24 17:19 Naloxone Hcl 2 Mg/2 Ml Syringe IVPUSH 06/14/24 17:31 2 mg ONCE ONE Administration Naloxone HCl 2 mg 06/14/24 17:30 06/14/24 17:25 Naloxone Hcl 2 Mg/2 Ml Syringe IVPUSH 06/14/24 17:31 2 mg ONCE ONE Administration Ondansetron HCl 4 mg 06/14/24 17:55 06/14/24 18:07 Ondansetron Hcl 4 Mg/2 Ml Vial IVPUSH 06/14/24 17:56 4 mg ONCE ONE Administration Medical Decision Making Medical Decision Making [facility] Narrative: 64-year-old male presents for evaluation of altered mental status, there is a question of whether or not he ingested some number of his prescribed medications as documented above. He was not witnessed doing this and does not admit to doing this. Plan for labs, VBG, drug screen, EKG, portable chest x-ray, CT scan of the brain. patient has acute respiratory failure secondary to mucus plugging in bilateral lungs with a background of overdose on lithium, gabapentin, trazodone, with likely aspiration level of lithium is 0.055 after 8 hours. Patient's WBC counts are 21,000 initially patient was in respiratory acidosis improved after suctioned and placed on BiPAP 06/02 on 30% FiO2 repeat ABG showed marked improvement last VBG showed pH of 7.32 pCO2 47PO2 150 which has improved from initial pH of 7.28 as patient is on BiPAP not on oxygen at home will admit patient to ICU unable to reach Dr. sullivan, spoke to Dr. Campbell cuff runner agreed to take the patient to ICU for acute respiratory hypoxic hypercapnic failure with bilateral multifocal pneumonia Differential Diagnosis Differential Diagnoses: The differential diagnosis associated with the presentation includes Sepsis Substance abuse Overdose Catatonia Psychosis Pneumonia medication noncompliance Admission/Observation Consideration of admission/observation: Escalation of care including admission/observation considered Lab Data MDM Lab Attestation statement: I reviewed [place] [id number] with a mild anemia. The patient does have a chronic anemia. Normal platelet count. No significant electrolyte abnormalities. The patient does have acute kidney injury with a BUN of 47 and creatinine of 2.04. His renal function two days ago was within normal limits 06/15/24 04:50 06/15/24 04:50 Labs: Lab Results 06/14/24 06/14/24 06/14/24 Range/Units 16:05 16:55 16:58 WBC 21.0 H (4.8-10.8) X10*3/uL RBC 4.47 L (4.60-5.80) X10*6/uL Hgb 13.7 L (14.0-18.0) g/dl Hct 41.8 L (42.0-52.0) % MCV 93.5 (80.0-98.0) fL MCH 30.6 (27.0-33.0) pg MCHC 32.8 (31.0-36.0) g/dl RDW 14.0 (11.0-16.0) % Plt Count 208 (160-400) X10*3/uL MPV 9.7 (9.4-12.4) fL Immature Gran % (Auto) 0.5 H (0.0-0.4) % Neut % (Auto) 89.2 H (45-73) % Lymph % (Auto) 3.5 L (20-40) % [place] % (Auto) 6.6 (2-11) % Eos % (Auto) 0.0 (0-4) % Baso % (Auto) 0.2 (0-2) % Lymph # (Auto) 0.7 L (1.2-4.9) X10*3/uL [place] # (Auto) 1.4 H (0.1-1.2) X10*3/uL Eos # (Auto) 0.0 (0.0-0.4) X10*3/uL Baso # (Auto) 0.0 (0.0-0.2) X10*3/uL Abs Immat Gran (auto) 0.11 H (0.00-0.03) X10*3/uL Absolute Neuts (auto) 18.7 H (2.0-8.3) x10*3/uL Absolute Nucleated RBC 0.000 (0.0-0.012) X10*3/uL Nucleated RBC % (auto) 0.0 (0.0-0.2) /100WBC PT 13.6 H (10.9-12.4) SEC INR 1.2 H (0.9-1.1) O2 Saturation % ABG pH at Pt Temp (7.35-7.45) ABG pCO2 at Pt Temp (32-45) mmHg ABG pO2 at Pt Temp (83-108) mmHg ABG HCO3 (22-26) mmol/L ABG Base Excess (Actual) mmol/L VBG pH 7.28 L (7.32-7.43) VBG pCO2 64 mmHg VBG pO2 38 mmHg VBG HCO3 30 H (22-26) mmol/L VBG O2 Saturation 65.0 % VBG Base Excess 2.3 mmol/L Sodium 137 (135-145) mmol/L Potassium 4.8 D (3.3-5.1) mmol/L Chloride 102 (96-108) mmol/L Carbon Dioxide 26 (22-29) mmol/L Anion Gap 14 (12-20) BUN 47 H (9-16) mg/dL Creatinine 2.04 H (0.5-1.4) mg/dL Estim Creat Clear Calc 42.1 Estimated GFR 33 Random Glucose 141 H (60-115) mg/dL Osmolality (281-305) mosm/kg Lactic Acid (0.5-2.0) mmol/L Calcium 9.3 (8.4-10.2) mg/dL Magnesium 2.5 (1.6-2.6) mg/dL Total Bilirubin 0.5 (0.0-1.0) mg/dL AST 21 (5-37) U/L ALT 13 (0-40) U/L Alkaline Phosphatase 77 (39-117) U/L Total Creatine Kinase (38-174) U/L Troponin I High Sens 99.2 H D (<3.5-35.0) ng/L Total Protein 7.6 (6.5-8.0) g/dL Albumin 4.1 (3.5-5.0) g/dL Lipase 10 (8-78) U/L TSH 0.88 (0.32-4.0) uIU/mL Urine Color Urine Appearance Urine pH (5.0-9.0) Ur Specific [place] (1.005-1.025) Urine Protein (Neg-Trace) mg/dL Urine Glucose (UA) (Negative) mg/dL Urine Ketones (Negative) mg/dL Urine Blood (Negative) Urine Nitrite (Negative) Ur Leukocyte Esterase (Negative) Urine RBC (0-2) /HPF Urine WBC (0-5) /HPF Ur Squamous Epith Cells (0-2) /HPF Calcium Oxalate Crystal Urine Bacteria (None Seen) Hyaline Casts (0-2) /LPF Salicylates < 5.0 L (15-30) mg/dL Urine Opiates Screen (Not Detect) Ur Buprenorphine Scrn (Not Detect) ng/mL Ur Oxycodone Screen (Not Detect) ng/mL Urine Methadone Screen (Not Detect) ng/mL Urine Fentanyl Screen (Not Detect) Acetaminophen < 3 (<30) mcg/mL Ur Barbiturates Screen (Not Detect) Ur Phencyclidine Scrn (Not Detect) Ur Amphetamines Screen (Not Detect) U Benzodiazepines Scrn (Not Detect) [place] 0.71 (0.60-1.20) mmol/L Urine Cocaine Screen (Not Detect) U Marijuana (THC) Screen (Not Detect) Ethyl Alcohol < 10 mg/dL Influenza Type A (PCR) NEGATIVE (Negative) Influenza Type B (PCR) NEGATIVE (Negative) RSV RNA Qual (PCR) NEGATIVE (Negative) SARS-CoV-2 RNA (RT-PCR) NEGATIVE (Negative) 06/14/24 06/14/24 06/14/24 Range/Units 18:20 18:47 21:53 WBC (4.8-10.8) X10*3/uL RBC (4.60-5.80) X10*6/uL Hgb (14.0-18.0) g/dl Hct (42.0-52.0) % MCV (80.0-98.0) fL MCH (27.0-33.0) pg MCHC (31.0-36.0) g/dl RDW (11.0-16.0) % Plt Count (160-400) X10*3/uL MPV (9.4-12.4) fL Immature Gran % (Auto) (0.0-0.4) % Neut % (Auto) (45-73) % Lymph % (Auto) (20-40) % [place] % (Auto) (2-11) % Eos % (Auto) (0-4) % Baso % (Auto) (0-2) % Lymph # (Auto) (1.2-4.9) X10*3/uL [place] # (Auto) (0.1-1.2) X10*3/uL Eos # (Auto) (0.0-0.4) X10*3/uL Baso # (Auto) (0.0-0.2) X10*3/uL Abs Immat Gran (auto) (0.00-0.03) X10*3/uL Absolute Neuts (auto) (2.0-8.3) x10*3/uL Absolute Nucleated RBC (0.0-0.012) X10*3/uL Nucleated RBC % (auto) (0.0-0.2) /100WBC PT (10.9-12.4) SEC INR (0.9-1.1) O2 Saturation % ABG pH at Pt Temp (7.35-7.45) ABG pCO2 at Pt Temp (32-45) mmHg ABG pO2 at Pt Temp (83-108) mmHg ABG HCO3 (22-26) mmol/L ABG Base Excess (Actual) mmol/L VBG pH (7.32-7.43) VBG pCO2 mmHg VBG pO2 mmHg VBG HCO3 (22-26) mmol/L VBG O2 Saturation % VBG Base Excess mmol/L Sodium (135-145) mmol/L Potassium (3.3-5.1) mmol/L Chloride (96-108) mmol/L Carbon Dioxide (22-29) mmol/L Anion Gap (12-20) BUN (9-16) mg/dL Creatinine (0.5-1.4) mg/dL Estim Creat Clear Calc Estimated GFR Random Glucose (60-115) mg/dL Osmolality (281-305) mosm/kg Lactic Acid 1.2 (0.5-2.0) mmol/L Calcium (8.4-10.2) mg/dL Magnesium (1.6-2.6) mg/dL Total Bilirubin (0.0-1.0) mg/dL AST (5-37) U/L ALT (0-40) U/L Alkaline Phosphatase (39-117) U/L Total Creatine Kinase 84 (38-174) U/L Troponin I High Sens (<3.5-35.0) ng/L Total Protein (6.5-8.0) g/dL Albumin (3.5-5.0) g/dL Lipase (8-78) U/L TSH (0.32-4.0) uIU/mL Urine Color Yellow Urine Appearance Clear Urine pH 5.5 (5.0-9.0) Ur Specific [place] 1.020 (1.005-1.025) Urine Protein 30 (1+) H (Neg-Trace) mg/dL Urine Glucose (UA) Negative (Negative) mg/dL Urine Ketones Negative (Negative) mg/dL Urine Blood Negative (Negative) Urine Nitrite Negative (Negative) Ur Leukocyte Esterase Negative (Negative) Urine RBC 0-2 (0-2) /HPF Urine WBC 0-5 (0-5) /HPF Ur Squamous Epith Cells 0-2 (0-2) /HPF Calcium Oxalate Crystal Present Urine Bacteria None Seen (None Seen) Hyaline Casts 11-20 (0-2) /LPF Salicylates (15-30) mg/dL Urine Opiates Screen Not Detected (Not Detect) Ur Buprenorphine Scrn Positive H (Not Detect) ng/mL Ur Oxycodone Screen Not Detected (Not Detect) ng/mL Urine Methadone Screen Not Detected (Not Detect) ng/mL Urine Fentanyl Screen Not Detected (Not Detect) Acetaminophen (<30) mcg/mL Ur Barbiturates Screen Not Detected (Not Detect) Ur Phencyclidine Scrn Not Detected (Not Detect) Ur Amphetamines Screen Not Detected (Not Detect) U Benzodiazepines Scrn Not Detected (Not Detect) [place] (0.60-1.20) mmol/L Urine Cocaine Screen Not Detected (Not Detect) U Marijuana (THC) Screen POSITIVE H (Not Detect) Ethyl Alcohol mg/dL Influenza Type A (PCR) (Negative) Influenza Type B (PCR) (Negative) RSV RNA Qual (PCR) (Negative) SARS-CoV-2 RNA (RT-PCR) (Negative) 06/14/24 06/14/24 06/15/24 Range/Units 21:58 22:36 00:24 WBC (4.8-10.8) X10*3/uL RBC (4.60-5.80) X10*6/uL Hgb (14.0-18.0) g/dl Hct (42.0-52.0) % MCV (80.0-98.0) fL MCH (27.0-33.0) pg MCHC (31.0-36.0) g/dl RDW (11.0-16.0) % Plt Count (160-400) X10*3/uL MPV (9.4-12.4) fL Immature Gran % (Auto) (0.0-0.4) % Neut % (Auto) (45-73) % Lymph % (Auto) (20-40) % [place] % (Auto) (2-11) % Eos % (Auto) (0-4) % Baso % (Auto) (0-2) % Lymph # (Auto) (1.2-4.9) X10*3/uL [place] # (Auto) (0.1-1.2) X10*3/uL Eos # (Auto) (0.0-0.4) X10*3/uL Baso # (Auto) (0.0-0.2) X10*3/uL Abs Immat Gran (auto) (0.00-0.03) X10*3/uL Absolute Neuts (auto) (2.0-8.3) x10*3/uL Absolute Nucleated RBC (0.0-0.012) X10*3/uL Nucleated RBC % (auto) (0.0-0.2) /100WBC PT (10.9-12.4) SEC INR (0.9-1.1) O2 Saturation 95.0 % ABG pH at Pt Temp 7.25 L (7.35-7.45) ABG pCO2 at Pt Temp 59 H (32-45) mmHg ABG pO2 at Pt Temp 81 L (83-108) mmHg ABG HCO3 26 (22-26) mmol/L ABG Base Excess (Actual) -1.3 mmol/L VBG pH 7.29 L (7.32-7.43) VBG pCO2 52 mmHg VBG pO2 95 mmHg VBG HCO3 25 (22-26) mmol/L VBG O2 Saturation 100.0 % VBG Base Excess -1.4 mmol/L Sodium 138 (135-145) mmol/L Potassium 4.5 (3.3-5.1) mmol/L Chloride 109 H (96-108) mmol/L Carbon Dioxide 23 (22-29) mmol/L Anion Gap 11 L (12-20) BUN 36 H (9-16) mg/dL Creatinine 1.13 (0.5-1.4) mg/dL Estim Creat Clear Calc 76.1 Estimated GFR > 60 Random Glucose 143 H (60-115) mg/dL Osmolality 305 (281-305) mosm/kg Lactic Acid (0.5-2.0) mmol/L Calcium 8.5 D (8.4-10.2) mg/dL Magnesium (1.6-2.6) mg/dL Total Bilirubin 0.4 (0.0-1.0) mg/dL AST 17 (5-37) U/L ALT 9 (0-40) U/L Alkaline Phosphatase 81 (39-117) U/L Total Creatine Kinase 72 (38-174) U/L Troponin I High Sens (<3.5-35.0) ng/L Total Protein 6.6 (6.5-8.0) g/dL Albumin 3.5 (3.5-5.0) g/dL Lipase (8-78) U/L TSH (0.32-4.0) uIU/mL Urine Color Urine Appearance Urine pH (5.0-9.0) Ur Specific [place] (1.005-1.025) Urine Protein (Neg-Trace) mg/dL Urine Glucose (UA) (Negative) mg/dL Urine Ketones (Negative) mg/dL Urine Blood (Negative) Urine Nitrite (Negative) Ur Leukocyte Esterase (Negative) Urine RBC (0-2) /HPF Urine WBC (0-5) /HPF Ur Squamous Epith Cells (0-2) /HPF Calcium Oxalate Crystal Urine Bacteria (None Seen) Hyaline Casts (0-2) /LPF Salicylates (15-30) mg/dL Urine Opiates Screen (Not Detect) Ur Buprenorphine Scrn (Not Detect) ng/mL Ur Oxycodone Screen (Not Detect) ng/mL Urine Methadone Screen (Not Detect) ng/mL Urine Fentanyl Screen (Not Detect) Acetaminophen (<30) mcg/mL Ur Barbiturates Screen (Not Detect) Ur Phencyclidine Scrn (Not Detect) Ur Amphetamines Screen (Not Detect) U Benzodiazepines Scrn (Not Detect) [place] 0.55 L (0.60-1.20) mmol/L Urine Cocaine Screen (Not Detect) U Marijuana (THC) Screen (Not Detect) Ethyl Alcohol mg/dL Influenza Type A (PCR) (Negative) Influenza Type B (PCR) (Negative) RSV RNA Qual (PCR) (Negative) SARS-CoV-2 RNA (RT-PCR) (Negative) 06/15/24 06/15/24 Range/Units 00:30 03:50 WBC (4.8-10.8) X10*3/uL RBC (4.60-5.80) X10*6/uL Hgb (14.0-18.0) g/dl Hct (42.0-52.0) % MCV (80.0-98.0) fL MCH (27.0-33.0) pg MCHC (31.0-36.0) g/dl RDW (11.0-16.0) % Plt Count (160-400) X10*3/uL MPV (9.4-12.4) fL Immature Gran % (Auto) (0.0-0.4) % Neut % (Auto) (45-73) % Lymph % (Auto) (20-40) % [place] % (Auto) (2-11) % Eos % (Auto) (0-4) % Baso % (Auto) (0-2) % Lymph # (Auto) (1.2-4.9) X10*3/uL [place] # (Auto) (0.1-1.2) X10*3/uL Eos # (Auto) (0.0-0.4) X10*3/uL Baso # (Auto) (0.0-0.2) X10*3/uL Abs Immat Gran (auto) (0.00-0.03) X10*3/uL Absolute Neuts (auto) (2.0-8.3) x10*3/uL Absolute Nucleated RBC (0.0-0.012) X10*3/uL Nucleated RBC % (auto) (0.0-0.2) /100WBC PT (10.9-12.4) SEC INR (0.9-1.1) O2 Saturation 91.0 % ABG pH at Pt Temp 7.30 L (7.35-7.45) ABG pCO2 at Pt Temp 56 H (32-45) mmHg ABG pO2 at Pt Temp 63 L (83-108) mmHg ABG HCO3 28 H (22-26) mmol/L ABG Base Excess (Actual) 0.7 mmol/L VBG pH 7.32 (7.32-7.43) VBG pCO2 47 mmHg VBG pO2 159 mmHg VBG HCO3 25 (22-26) mmol/L VBG O2 Saturation 100.0 % VBG Base Excess -1.2 mmol/L Sodium (135-145) mmol/L Potassium (3.3-5.1) mmol/L Chloride (96-108) mmol/L Carbon Dioxide (22-29) mmol/L Anion Gap (12-20) BUN (9-16) mg/dL Creatinine (0.5-1.4) mg/dL Estim Creat Clear Calc Estimated GFR Random Glucose (60-115) mg/dL Osmolality (281-305) mosm/kg Lactic Acid (0.5-2.0) mmol/L Calcium (8.4-10.2) mg/dL Magnesium (1.6-2.6) mg/dL Total Bilirubin (0.0-1.0) mg/dL AST (5-37) U/L ALT (0-40) U/L Alkaline Phosphatase (39-117) U/L Total Creatine Kinase (38-174) U/L Troponin I High Sens (<3.5-35.0) ng/L Total Protein (6.5-8.0) g/dL Albumin (3.5-5.0) g/dL Lipase (8-78) U/L TSH (0.32-4.0) uIU/mL Urine Color Urine Appearance Urine pH (5.0-9.0) Ur Specific [place] (1.005-1.025) Urine Protein (Neg-Trace) mg/dL Urine Glucose (UA) (Negative) mg/dL Urine Ketones (Negative) mg/dL Urine Blood (Negative) Urine Nitrite (Negative) Ur Leukocyte Esterase (Negative) Urine RBC (0-2) /HPF Urine WBC (0-5) /HPF Ur Squamous Epith Cells (0-2) /HPF Calcium Oxalate Crystal Urine Bacteria (None Seen) Hyaline Casts (0-2) /LPF Salicylates (15-30) mg/dL Urine Opiates Screen (Not Detect) Ur Buprenorphine Scrn (Not Detect) ng/mL Ur Oxycodone Screen (Not Detect) ng/mL Urine Methadone Screen (Not Detect) ng/mL Urine Fentanyl Screen (Not Detect) Acetaminophen (<30) mcg/mL Ur Barbiturates Screen (Not Detect) Ur Phencyclidine Scrn (Not Detect) Ur Amphetamines Screen (Not Detect) U Benzodiazepines Scrn (Not Detect) [place] (0.60-1.20) mmol/L Urine Cocaine Screen (Not Detect) U Marijuana (THC) Screen (Not Detect) Ethyl Alcohol mg/dL Influenza Type A (PCR) (Negative) Influenza Type B (PCR) (Negative) RSV RNA Qual (PCR) (Negative) SARS-CoV-2 RNA (RT-PCR) (Negative) ABG Data Attestation ABG: I personally reviewed and interpreted this ABG as follows: Interpretation: the patient is acidotic with a pH of 7.28, his CO2 is elevated to 30 which may be related to low respiratory rate Independent Interpretation I performed an independent interpretation of an: EKG, Plain X-Ray ( multifocal pneumonia) and CT Scan Interpretation: Normal sinus rhythm heart rate 71 beats per minute QTC [address]-T changes no acute ischemia Radiology Impression Discussion of test interpretation with radiology: I have reviewed the radiologist's reading. Radiologist Impression: [address] [address] [address] Scan Report Signed Patient: Thomas Hartman MR#: [id number] : 1960 Acct:[id number] Age/Sex: 64 / M ADM Date: 06/14/24 Loc: HO.ED Attending Dr: Ordering Physician: Noe Hernandez MD Date of Service: 06/14/24 Procedure(s): CT chest wo IV con Accession Number(s): [id number] cc: Physician,Unknown ; Noe Hernandez MD~ EXAMINATION: CT CHEST, ABDOMEN AND PELVIS WITHOUT CONTRAST CLINICAL INFORMATION: sob/mucus plugging along with vomiting and question of small bowel obstruction COMPARISON: CT chest 11/28/2023, CT chest abdomen pelvis 11/16/2023 TECHNIQUE: Multidetector volumetric imaging was performed from the thoracic inlet through the pubic symphysis without IV contrast. Sagittal and coronal reformatted images were obtained on the technologist's workstation. This CT examination was performed using dose optimization techniques as appropriate, variously including the following: *Automated exposure control *Adjustment of mA and/or kV according to patient size (this includes techniques or standardized protocols for targeted exams where dose is matched to indication/reason for exam; i.e. extremities or head) *Use of iterative reconstruction technique DLP: 1133 and 1778 mGy-cm FINDINGS: CHEST: There is severe motion artifact limiting interpretation. Lung: Emphysematous changes are present with bullous formation. There is bronchial thickening present with marked changes in the lower lobes with mucus plugging and distal atelectasis/infiltrate. Mediastinum: The mediastinum is normal. The central vascular structures are unremarkable. No hilar or mediastinal lymphadenopathy. Pericardium/Pleura: No significant effusion. No pleural mass or thickening. Coronary artery calcium: Minimal Chest Wall/Axilla: Unremarkable ABDOMEN/PELVIS: Peritoneal Space: No significant free air or free fluid identified. Liver, Gallbladder, Biliary Tree: The liver is enlarged measuring 18.8 cm in cephalocaudad dimension. Attenuation and shape are normal. No focal hepatic lesion or biliary ductal dilatation is present. The gallbladder is unremarkable with no evidence of radiopaque gallstones, gallbladder wall thickening, or obvious pericholecystic inflammatory changes. Pancreas: Unremarkable Spleen: Unremarkable Adrenal Glands: Unremarkable Kidneys and Ureters: The kidneys are normal in size, shape, and attenuation. No hydronephrosis, hydroureter, or calculi seen. No perinephric stranding. A benign 1 cm cortical exophytic left lower pole cm Bosniak class I renal cyst is noted which requires no additional imaging or follow up. No solid renal masses are seen. Bladder: Unremarkable Gastrointestinal Tract: Marked diverticular change seen in the sigmoid without evidence of diverticulitis. Scattered tics elsewhere. The small and large bowel are otherwise unremarkable. The appendix is not seen with certainty but there is no evidence of appendicitis. Abdominal Wall: No significant hernia is appreciated. Lymph Nodes: No retroperitoneal lymphadenopathy. Vascular: The infrarenal abdominal aorta is dilated at 3.6 cm. Marked atherosclerotic changes are seen throughout the aorta and iliofemoral vessels.. The IVC appears unremarkable. PELVIC VISCERA: There is mild BPH. Seminal vesicles appear normal. OSSEUS STRUCTURES: Degenerative changes are present throughout the spine. There is grade 1 anterolisthesis of L5 upon S1 with bilateral L5 pars defects. There are compression fractures of the inferior endplate of L3 and the superior endplate of L1. CT/CT chest wo IV con IMPRESSION: 1. Emphysema with bronchial thickening and mucus plugging in the lower lobes with distal atelectasis/infiltrate. 2. 3.6 cm infrarenal abdominal aortic aneurysm. Ultrasound screening is recommended every 2 years. 3. No bowel obstruction. Pole 4. Other incidental findings as described above. Fleischner guidelines were followed. Electronically signed by: Thomas Keita MD 06/14/2024 10:37 PM [facility] [place] CT/CT head/brain wo IV con IMPRESSION: No CT evidence of acute intracranial hemorrhage or edematous territorial infarction.. Chronic changes, unchanged from 11/30/2023. Critical Care Time Critical Care Time Critical Care Time: Yes Total Critical Care Time: 120 Attestation: The patient was critically ill with a high probability of imminent or life threatening deterioration. I spent greater [id number] minutes of discontinuous time evaluating the patient,delivering critical care at the bedside, discussing and evaluating pertinent data with consultants. Critical care time does not include time spent performing separately billable procedures or teaching. Total time spent performing critical care was 120 minutes. Discharge Plan Discharge Clinical Impression: Acute respiratory failure with hypoxia and hypercapnia, Multifocal pneumonia, KENN (acute kidney injury), Overdose Patient Disposition: Admitted As Inpatient Interventions: Admission Worksheet (ED) Last Done: 06/15/24 05:26 Discharge Date/Time: 06/15/24 05:27
[2024-06-14] MEDS: methylPREDNISolone Sod Succ 125 MG/2 ML VIAL IVPUSH (17:42)
[2024-06-14] MEDS: Albuterol Sulfate 2.5 MG, Albuterol/Iprat 2.5/0.5MG 3 ML 3 ML INHALE (17:47)
[2024-06-14] MEDS: LORazepam 2 MG/ML VIAL IVPUSH (17:55)
[2024-06-14] MEDS: ondansetron HCL 4 MG/2 ML VIAL IVPUSH (18:07)
[2024-06-14] MEDS: Piperacillin Sodium/Tazobactam 3.375 GM in 0.9 % Sodium Chloride 50 ML IV (18:13)
--- NOTE | 2024-06-14 18:17 | PC.NURSE ---
patient had episode of vomiting, patient vomited on self and floor bile and whole green beans. patient went back to unresponsive state. patient remains on high flow nasal cannula, suction used for patient sputum since patient not able to safely cough up on own.
[2024-06-14] MEDS: vancomycin/NS 2,000 MG/500 ML PLAST..BAG 250 MG IV (18:33)
[2024-06-14 18:45] LABS: Lactic Acid 1.2 mmol/L (0.5-2.0)
--- NOTE | 2024-06-14 18:47 | PC.NURSE ---
patient needed to have IV ativan and soft restraints applied due to pulling at medical devices and tubing. patient now sleeping, resp even and unlabored, patient is on high flow nasal cannula, tolerating well. straight cath performed patient has 1000cc of urine output
[2024-06-14 18:54] LABS: Appearance Urine Clear; Color Urine Yellow; Glucose Urine UA Negative (Negative); Leukocyte Esterase Urine Negative (Negative); Nitrite Urine Negative (Negative); PH 5.5 (5.0-9.0); UMIC TRIGGER UACC YES; Urine Blood Negative (Negative); Urine Ketones Negative (Negative); Urine Protein 30 (1+) mg/dL (Neg-Trace)
[2024-06-14 19:04] LABS: Amphetamine Screen Urine Not Detected (Not Detect); Barbiturates, Urine Not Detected (Not Detect); Benzodiazepines Screen Urine Not Detected (Not Detect); Buprenorphine Scr Positive (Not Detect); Cannabinoid Screen Urine POSITIVE (Not Detect); Cocaine Screen Urine Not Detected (Not Detect); Fentanyl, urine Not Detected (Not Detect); Methadone Screen, Urine Not Detected (Not Detect); Opiate Screen Urine Not Detected (Not Detect); Oxycodone Screen Urine Not Detected (Not Detect); Phencyclidine Screen Urine Not Detected (Not Detect)
--- NOTE | 2024-06-14 19:10 | PC.NURSE ---
patient noted to be hypotensive, ED provider aware, fluid bolus running per SEP
[2024-06-14 19:32] LABS: Bacteria Urine None Seen (None Seen); Calcium Oxalate Crystals Urine Present; RBC Urine 0-2 /HPF (0-2); Squamous Epithelial Cell Urine 0-2 /HPF (0-2); WBC Urine 0-5 /HPF (0-5)
--- NOTE | 2024-06-14 20:13 | PC.NURSE ---
Patient discontinued from High Flow Oxygen to Room Air. Stable at 97%, no distress noted. RR even and unlabored at this time.
--- NOTE | 2024-06-14 20:16 | PC.NURSE ---
Patient O2 Saturations dipped, patient placed on Nasal Cannuala and subsequently an oxymask. RR even and unlabored no distress noted.
[2024-06-14 22:02] LABS: VBG Base Excess -1.4 mmol/L; VBG HCO3 25 mmol/L (22-26); VBG pCO2 52 mmHg; VBG pH 7.29 (7.32-7.43); VBG pO2 95 mmHg
[2024-06-14 22:07] LABS: Venous Blood Gas Refer to POC result
[2024-06-14 22:47] LABS: ABG Base Excess -1.3 mmol/L; ABG HCO3 26 mmol/L (22-26); ABG pCO2 59 mmHg (32-45); ABG pH 7.25 (7.35-7.45); ABG pO2 81 mmHg (83-108)
--- NOTE | 2024-06-14 23:05 | PC.NURSE ---
Restraints discontinued at this time due to BiPap being initiated. Sitter in place for patient safety.
--- NOTE | 2024-06-14 23:22 | PC.NURSE ---
This RN assumed care of patient at 23:00. Patient in stretcher bed, calm, opens his eyes to painful stimuli. VSS: P79, BP 109/59, RR 13, O2 Sat 97% on BIPAP at 16/30%. 1:1 sitter at bedside.
--- NOTE | 2024-06-14 23:48 | PC.NURSE ---
This RN called to [facility], spoke to Yl who recommended to draw CMP, Total CK, Serum Osmolality, and Liberal Level, and would like a return call from a hospitalist or ED provider with results of labs. Dr. Gabriel and Willie notified.
--- NOTE | 2024-06-14 23:59 | ECG_ITS ---
Test Reason : OVERDOSED Blood Pressure : / mmHG Vent. Rate : 071 BPM Atrial Rate : 071 BPM P-R Int : 216 ms QRS Dur : 110 ms QT Int : 404 ms P-R-T Axes : 062 003 073 degrees QTc Int : 439 ms Sinus rhythm with 1st degree A-V block Otherwise normal ECG When compared with ECG of 14-JUN-2024 15:35, No significant change was found Referred By: Noe Hernandez Electronically Signed By:RANDY KANG MD
[2024-06-15] VITALS (23 sets, daily range): BP systolic 92–127; BP diastolic 44–74; PULSE 64–81; RESP 10–21; TEMP 36.2–37.1; O2SAT 90–97; BMI 32.0
--- NOTE | 2024-06-15 00:25 | MHC.EDTECH ---
repeated ekg taken and was read by Provider ,repeated blood drawn and sent to lab .
[2024-06-15 00:34] LABS: Venous Blood Gas Refer to POC result
[2024-06-15 00:35] LABS: VBG Base Excess -1.2 mmol/L; VBG HCO3 25 mmol/L (22-26); VBG pCO2 47 mmHg; VBG pH 7.32 (7.32-7.43); VBG pO2 159 mmHg
[2024-06-15 00:46] LABS: Alanine Aminotransferase 9 U/L (0-40); Albumin Level 3.5 g/dL (3.5-5.0); Alkaline Phosphatase 81 U/L (39-117); Anion Gap 11 (12-20); Aspartate Amino Transferase 17 U/L (5-37); Bilirubin Total 0.4 mg/dL (0.0-1.0); Blood Urea Nitrogen 36 mg/dL (9-16); Calcium 8.5 mg/dL (8.4-10.2); Carbon Dioxide 23 mmol/L (22-29); Chloride 109 mmol/L (96-108); Creatinine Clr Calc Pharmacy 76.1; Estimated Glomerular Filt Rate > 60; Glucose Random 143 mg/dL (60-115); Potassium 4.5 mmol/L (3.3-5.1); Sodium 138 mmol/L (135-145); Total Protein 6.6 g/dL (6.5-8.0)
[2024-06-15 00:47] LABS: Lithium 0.55 mmol/L (0.60-1.20)
[2024-06-15 00:52] LABS: Osmolality, Serum 305 mosm/kg (281-305)
[2024-06-15 01:10] LABS: ABG Refer to POC result
--- NOTE | 2024-06-15 01:15 | PC.NURSE ---
This RN called to [facility], spoke to Eli, RN-reported results of labs. Per Eli, monitor patient for seizure acivity, moniotr EKG Q 4 hrs for QT prolongation. Dr. Gabriel made aware.
--- NOTE | 2024-06-15 01:39 | PC.NURSE ---
RT at bedside, BIBAP discontinued. Patient placed on O2 NC at 4 LPM, saturating 93-94%.
--- NOTE | 2024-06-15 02:24 | MHC.EDTECH ---
Rounding done ,vitals taken ,Patient sleeping ,1:1 sitter at bedside .
--- NOTE | 2024-06-15 03:20 | PC.NURSE ---
Lai, provider from ICU at bedside, decreased O2 flow to 3 LPM NC, per MD goal to maintain patient's O2 Sat >88% on 3 LPM, if O2 Sat drops <88%, notify ED provider and respiratory therapist.
--- NOTE | 2024-06-15 03:24 | PC.NURSE ---
[place] catheter applied for comfort/to prevent skin breakdown d/t urinary incontinence.
[2024-06-15 03:52] LABS: ABG Refer to POC result
[2024-06-15 03:55] LABS: ABG Base Excess 0.7 mmol/L; ABG HCO3 28 mmol/L (22-26); ABG pCO2 56 mmHg (32-45); ABG pO2 63 mmHg (83-108)
--- NOTE | 2024-06-15 04:00 | ECG_ITS ---
Test Reason : REPEAT QT Blood Pressure : / mmHG Vent. Rate : 072 BPM Atrial Rate : 072 BPM P-R Int : 242 ms QRS Dur : 102 ms QT Int : 368 ms P-R-T Axes : 044 004 062 degrees QTc Int : 402 ms Poor data quality Sinus rhythm with 1st degree A-V block When compared with ECG of 15-JUN-2024 00:04, Poor data quality in current ECG precludes serial comparison Referred By: Noe Hernandez Electronically Signed By:RANDY KANG MD
--- NOTE | 2024-06-15 04:03 | P.HPCC_ITS ---
History of Present Illness Date of Service: 06/15/24 <JHONATAN Siddiqi - Last Filed: 06/15/24 04:39> Attending physician on admission: Natanael Lomas <JHONATAN Siddiqi - Last Filed: 06/15/24 04:39> Chief Complaint: Hypercapnic resp failure, copd exa, PNA <JHONATAN Siddiqi - Last Filed: 06/15/24 04:39> The patient is a 64-year-old male with underlying history of bipolar disorder on lithium, COPD not O2 dependent, history of severe mucus plugging of the left bronchi for which he had been treated at [facility], details unknown, he is on Eliquis but I am not clear if this is for atrial fibrillation, PE or DVT treatment, he also has a history of Yamil's thyroiditis treated at [facility].; hypertension, peripheral neuropathy, Catatonia, several episodes of overdoses and psychotic episodes. Patient had presented to the emergency room via EMS due to altered mental status reported by the patient's daughter.? The patient reportedly was discharged from this facility 2 days ago due to an acute psychotic episode.? On arrival to the emergency room patient had been satting 82% on room air with empty pill bottles of lithium, tramadol, citalopram and gabapentin which reportedly patient was prescribed all for a one-week supply but he only fill the 2 days ago now they are empty. While in the ER the patient had been somewhat sleepy but otherwise arousable, [place] [address], H and H of 13 and 41, overall normal electrolytes her BUN to creatinine ratio was greater than 30, lactic acid of 1.2.? Patient was treated with vancomycin, Zosyn, due to emphysema with bronchial thickening and mucus plugging in the lower lobes and distal atelectasis/infiltrates noted on chest CT. ?Solu-Medrol, some IV fluids and was given high-flow oxygen however they were concerned that the patient was becoming somewhat somnolent, place him on BiPAP given that the initial ABG showed mild respiratory acidosis with hypercapnia with a pH of 25 and CO2 of 59.? After an hour venous blood gas was normal.? Patient was taken off BiPAP and placed on 3 L nasal cannula, right now the patient has no complaints and is verbally arousable, following commands and is not in any acute distress however repeat ABG reveals pH of 7.3 and pCO2 of 56 on a fully compensated.? Patient will be admitted to the ICU for further care. <JHONATAN Siddiqi - Last Filed: 06/15/24 04:39> Review of Systems 2 Review of Systems: un obtainable on Bi pap <JHONATAN Siddiqi - Last Filed: 06/15/24 04:39> [facility] Past Medical History Medical History: Medical History (Updated 06/15/24 @ 06:00 by Holly Knapp RN) Chronic headaches <JHONATAN Siddiqi - Last Filed: 06/15/24 04:39> Social History Social History: Social History Household Members: Unknown / Unable to assess Housing: Unknown / Unable to assess Unable to assess alcohol history related to: Unable to respond Comment: sitter in room Patient Tobacco Use Status: Tobacco use Unknown Tobacco use type: Cigarette Cigarette Packs Per Day: 1.5 Cigarettes Per Day: 30.0 Years Smoked: 30 Second Hand Smoke Exposure: No Use of substances other than those prescribed or required for medical reasons: Unknown Substance Use Type: Unknown Currently Displaying Signs/Symptoms of Drug Intoxication Withdrawal: No Advance Directives: Yes Advance Directives on File: Yes Advance Directives Date on File: 11/30/23 Do you have a plan to hurt others: Vague Recently lost weight without trying: No How much weight loss: Not applicable Eating poorly because of decreased appetite: No Nutrition screen score: 0 Nutrition Risks: No Nutritional Risk Poor oral hygiene: No service: No Sexual orientation: Unable to collect <JHONATAN Siddiqi - Last Filed: 06/15/24 04:39> Meds Allergies/Adverse reactions: Allergies Allergy/AdvReac Type Severity Reaction Status Date / Time codeine [CODEINE] AdvReac Mild HIVES Verified 06/14/24 15:33 <JHONATAN Siddiqi - Last Filed: 06/15/24 04:39> Home medications: Home Medications ?Medication ?Instructions ?Recorded ?Confirmed ?Last Taken ?Type apixaban 5 mg tablet (Eliquis) 5 mg PO BID 06/06/24 06/15/24 06/05/24 History buprenorphine 12 mg-naloxone 3 mg 1 film sublingual BID 06/06/24 06/15/24 06/05/24 History sublingual film lisinopril 10 mg tablet 10 mg PO DAILY 06/07/24 06/15/24 Unknown History albuterol sulfate 90 mcg/actuation 2 puff inhalation Q6H PRN 06/15/24 06/15/24 Unknown History aerosol inhaler (Ventolin HFA) Shortness Of Breath Or Wheezing <JHONATAN Siddiqi - Last Filed: 06/15/24 04:39> Physical Exam 2 Vital Signs: Vital Signs: Last Vital Signs Temp 97.9 F 06/15/24 02:23 Pulse 67 06/15/24 02:23 Resp 15 06/15/24 02:23 BP 108/65 06/15/24 02:23 Pulse Ox 92 06/15/24 02:23 O2 Del Method Nasal Cannula 06/15/24 02:23 O2 Flow Rate 3 06/15/24 02:23 FiO2 30 06/14/24 23:30 BMI result Body Mass Index 31.6 <JHONATAN Siddiqi - Last Filed: 06/15/24 04:39> VS: ?108/65, 67, 15, 92% on nasal cannula 3 L. General:? Alert oriented x3 no acute distress.? Speaking full sentences.? Speech is well articulated, thought process is coherent.? Following all commands.? No accessory muscles, no respiratory distress. Skin:? Intact, no lesions, edema, erythema, clubbing or cyanosis.? No ulcers. HEENT:? Head is normocephalic, atraumatic, pupils equal round reactive to light.? Buccal mucosa is moist, Neck is supple without lymphadenopathy. Cardiac:? Clear S1-S2, no murmurs rubs or gallops. Pulmonary:? Diminished lung sounds bilaterally with expiratory wheezing and fine rhonchi at both bases right more than left. Abdomen:? Protuberant, positive bowel sounds in all 4 quadrants.? Soft, nontender, no rebound or guarding.? Musculoskeletal:? Moving all 4 extremities upon request a major joints, there is no crepitus or tenderness.? The strength is 5/5 bilaterally and throughout all 4 extremities.? There is no leg edema , no calf tenderness , no leg asymmetry.? Gait not assessed at this point. Neurologic:? As above, no focal deficits. Vascular:? 2+ pulses upper and lower extremities distally. <JHONATAN Siddiqi - Last Filed: 06/15/24 04:39> Results Labs CBC and Chem 7: 06/15/24 04:50 06/15/24 04:50 <JHONATAN Siddiqi - Last Filed: 06/15/24 04:39> Labs: Laboratory Results - last 24 hr 06/14/24 06/14/24 06/14/24 16:05 16:55 16:58 MCV 93.5 MCH 30.6 MCHC 32.8 RDW 14.0 Plt Count 208 MPV 9.7 Immature Gran % (Auto) 0.5 H Neut % (Auto) 89.2 H Lymph % (Auto) 3.5 L Hughes % (Auto) 6.6 Eos % (Auto) 0.0 Baso % (Auto) 0.2 Lymph # (Auto) 0.7 L Hughes # (Auto) 1.4 H Eos # (Auto) 0.0 Baso # (Auto) 0.0 Abs Immat Gran (auto) 0.11 H Absolute Neuts (auto) 18.7 H Absolute Nucleated RBC 0.000 Nucleated RBC % (auto) 0.0 PT 13.6 H INR 1.2 H O2 Saturation ABG pH at Pt Temp ABG pCO2 at Pt Temp ABG pO2 at Pt Temp ABG HCO3 ABG Base Excess (Actual) VBG pH 7.28 L VBG pCO2 64 VBG pO2 38 VBG HCO3 30 H VBG O2 Saturation 65.0 VBG Base Excess 2.3 Anion Gap 14 Estim Creat Clear Calc 42.1 Estimated GFR 33 Random Glucose 141 H Osmolality Lactic Acid Calcium 9.3 Magnesium 2.5 Total Bilirubin 0.5 AST 21 ALT 13 Alkaline Phosphatase 77 Total Creatine Kinase Troponin I High Sens 99.2 H D Total Protein 7.6 Albumin 4.1 Lipase 10 TSH 0.88 Urine Color Urine Appearance Urine pH Ur Specific [place] Urine Protein Urine Glucose (UA) Urine Ketones Urine Blood Urine Nitrite Ur Leukocyte Esterase Urine RBC Urine WBC Ur Squamous Epith Cells Calcium Oxalate Crystal Urine Bacteria Hyaline Casts Salicylates < 5.0 L Urine Opiates Screen Ur Buprenorphine Scrn Ur Oxycodone Screen Urine Methadone Screen Urine Fentanyl Screen Acetaminophen < 3 Ur Barbiturates Screen Ur Phencyclidine Scrn Ur Amphetamines Screen U Benzodiazepines Scrn [place] 0.71 Urine Cocaine Screen U Marijuana (THC) Screen Ethyl Alcohol < 10 Influenza Type A (PCR) NEGATIVE Influenza Type B (PCR) NEGATIVE RSV RNA Qual (PCR) NEGATIVE SARS-CoV-2 RNA (RT-PCR) NEGATIVE 06/14/24 06/14/24 06/14/24 18:20 18:47 21:53 MCV MCH MCHC RDW Plt Count MPV Immature Gran % (Auto) Neut % (Auto) Lymph % (Auto) Hughes % (Auto) Eos % (Auto) Baso % (Auto) Lymph # (Auto) Hughes # (Auto) Eos # (Auto) Baso # (Auto) Abs Immat Gran (auto) Absolute Neuts (auto) Absolute Nucleated RBC Nucleated RBC % (auto) PT INR O2 Saturation ABG pH at Pt Temp ABG pCO2 at Pt Temp ABG pO2 at Pt Temp ABG HCO3 ABG Base Excess (Actual) VBG pH VBG pCO2 VBG pO2 VBG HCO3 VBG O2 Saturation VBG Base Excess Anion Gap Estim Creat Clear Calc Estimated GFR Random Glucose Osmolality Lactic Acid 1.2 Calcium Magnesium Total Bilirubin AST ALT Alkaline Phosphatase Total Creatine Kinase 84 Troponin I High Sens Total Protein Albumin Lipase TSH Urine Color Yellow Urine Appearance Clear Urine pH 5.5 Ur Specific [place] 1.020 Urine Protein 30 (1+) H Urine Glucose (UA) Negative Urine Ketones Negative Urine Blood Negative Urine Nitrite Negative Ur Leukocyte Esterase Negative Urine RBC 0-2 Urine WBC 0-5 Ur Squamous Epith Cells 0-2 Calcium Oxalate Crystal Present Urine Bacteria None Seen Hyaline Casts 11-20 Salicylates Urine Opiates Screen Not Detected Ur Buprenorphine Scrn Positive H Ur Oxycodone Screen Not Detected Urine Methadone Screen Not Detected Urine Fentanyl Screen Not Detected Acetaminophen Ur Barbiturates Screen Not Detected Ur Phencyclidine Scrn Not Detected Ur Amphetamines Screen Not Detected U Benzodiazepines Scrn Not Detected [place] Urine Cocaine Screen Not Detected U Marijuana (THC) Screen POSITIVE H Ethyl Alcohol Influenza Type A (PCR) Influenza Type B (PCR) RSV RNA Qual (PCR) SARS-CoV-2 RNA (RT-PCR) 06/14/24 06/14/24 06/15/24 21:58 22:36 00:24 MCV MCH MCHC RDW Plt Count MPV Immature Gran % (Auto) Neut % (Auto) Lymph % (Auto) Hughes % (Auto) Eos % (Auto) Baso % (Auto) Lymph # (Auto) Hughes # (Auto) Eos # (Auto) Baso # (Auto) Abs Immat Gran (auto) Absolute Neuts (auto) Absolute Nucleated RBC Nucleated RBC % (auto) PT INR O2 Saturation 95.0 ABG pH at Pt Temp 7.25 L ABG pCO2 at Pt Temp 59 H ABG pO2 at Pt Temp 81 L ABG HCO3 26 ABG Base Excess (Actual) -1.3 VBG pH 7.29 L VBG pCO2 52 VBG pO2 95 VBG HCO3 25 VBG O2 Saturation 100.0 VBG Base Excess -1.4 Anion Gap 11 L Estim Creat Clear Calc 76.1 Estimated GFR > 60 Random Glucose 143 H Osmolality 305 Lactic Acid Calcium 8.5 D Magnesium Total Bilirubin 0.4 AST 17 ALT 9 Alkaline Phosphatase 81 Total Creatine Kinase 72 Troponin I High Sens Total Protein 6.6 Albumin 3.5 Lipase TSH Urine Color Urine Appearance Urine pH Ur Specific [place] Urine Protein Urine Glucose (UA) Urine Ketones Urine Blood Urine Nitrite Ur Leukocyte Esterase Urine RBC Urine WBC Ur Squamous Epith Cells Calcium Oxalate Crystal Urine Bacteria Hyaline Casts Salicylates Urine Opiates Screen Ur Buprenorphine Scrn Ur Oxycodone Screen Urine Methadone Screen Urine Fentanyl Screen Acetaminophen Ur Barbiturates Screen Ur Phencyclidine Scrn Ur Amphetamines Screen U Benzodiazepines Scrn [place] 0.55 L Urine Cocaine Screen U Marijuana (THC) Screen Ethyl Alcohol Influenza Type A (PCR) Influenza Type B (PCR) RSV RNA Qual (PCR) SARS-CoV-2 RNA (RT-PCR) 06/15/24 06/15/24 00:30 03:50 MCV MCH MCHC RDW Plt Count MPV Immature Gran % (Auto) Neut % (Auto) Lymph % (Auto) Hughes % (Auto) Eos % (Auto) Baso % (Auto) Lymph # (Auto) Hughes # (Auto) Eos # (Auto) Baso # (Auto) Abs Immat Gran (auto) Absolute Neuts (auto) Absolute Nucleated RBC Nucleated RBC % (auto) PT INR O2 Saturation 91.0 ABG pH at Pt Temp 7.30 L ABG pCO2 at Pt Temp 56 H ABG pO2 at Pt Temp 63 L ABG HCO3 28 H ABG Base Excess (Actual) 0.7 VBG pH 7.32 VBG pCO2 47 VBG pO2 159 VBG HCO3 25 VBG O2 Saturation 100.0 VBG Base Excess -1.2 Anion Gap Estim Creat Clear Calc Estimated GFR Random Glucose Osmolality Lactic Acid Calcium Magnesium Total Bilirubin AST ALT Alkaline Phosphatase Total Creatine Kinase Troponin I High Sens Total Protein Albumin Lipase TSH Urine Color Urine Appearance Urine pH Ur Specific [place] Urine Protein Urine Glucose (UA) Urine Ketones Urine Blood Urine Nitrite Ur Leukocyte Esterase Urine RBC Urine WBC Ur Squamous Epith Cells Calcium Oxalate Crystal Urine Bacteria Hyaline Casts Salicylates Urine Opiates Screen Ur Buprenorphine Scrn Ur Oxycodone Screen Urine Methadone Screen Urine Fentanyl Screen Acetaminophen Ur Barbiturates Screen Ur Phencyclidine Scrn Ur Amphetamines Screen U Benzodiazepines Scrn [place] Urine Cocaine Screen U Marijuana (THC) Screen Ethyl Alcohol Influenza Type A (PCR) Influenza Type B (PCR) RSV RNA Qual (PCR) SARS-CoV-2 RNA (RT-PCR) <JHONATAN Siddiqi - Last Filed: 06/15/24 04:39> Imaging Radiologist's Impressions: Impressions Chest X-Ray 06/14/24 15:58 IMPRESSION: New patchy consolidation left lung base. Electronically signed by: Thomas Keita MD 06/14/2024 07:06 PM EST RP Head CT 06/14/24 16:13 IMPRESSION: No CT evidence of acute intracranial hemorrhage or edematous territorial infarction.. Chronic changes, unchanged from 11/30/2023. Electronically signed by: Roger Rausch MD 06/14/2024 06:53 PM EST RP Chest CT 06/14/24 17:55 IMPRESSION: 1. Emphysema with bronchial thickening and mucus plugging in the lower lobes with distal atelectasis/infiltrate. 2. 3.6 cm infrarenal abdominal aortic aneurysm. Ultrasound screening is recommended every 2 years. 3. No bowel obstruction. Pole 4. Other incidental findings as described above. Fleischner guidelines were followed. Electronically signed by: Thomas Keita MD 06/14/2024 10:37 PM EST RP Abdomen/Pelvis CT 06/14/24 20:54 IMPRESSION: 1. Emphysema with bronchial thickening and mucus plugging in the lower lobes with distal atelectasis/infiltrate. 2. 3.6 cm infrarenal abdominal aortic aneurysm. Ultrasound screening is recommended every 2 years. 3. No bowel obstruction. Pole 4. Other incidental findings as described above. Fleischner guidelines were followed. Electronically signed by: Thomas Keita MD 06/14/2024 10:37 PM [facility] <JHONATAN Siddiqi - Last Filed: 06/15/24 04:39> Assessment and Plan (1) Acute respiratory failure with hypoxia and hypercapnia: Status: Acute <JHONATAN Siddiqi - Last Filed: 06/15/24 04:39> ASSESSMENT : 1. Acute hypoxic respiratory failure with Acute on Chronic hypercapnic state 2. Hospital acquire pneumonia 3. Acute on chronic Mucus plugging with prior history of left mainstem bronchi plugging in October of this year 4. Polysubstance abuse 5. History of bipolar with recent psychotic event 6. Systemic inflammatory distress syndrome due to 1. 7. Acute COPD exacerbation 8. Normocytic anemia 9. Dehydration and early acute kidney injury with BUN to creatinine ratio greater than 30 10. Ongoing tobacco abuse previously on nicotine 11. Stable hypertension PLAN OF CARE: Patient will be admitted to the ICU, monitor vital signs, I's and O's, even though the patient has no respiratory distress and is completely arousable and not confused, obtunded or encephalopathic, will place him on BiPAP support for a few more hours to washout the CO2; although I am concerned that this can make the mucus plugging worse.? Continue with vancomycin and Zosyn, placing on Mucinex and request chest PT during the day.? We will continue with steroids, DuoNebs scheduled and albuterol p.r.n..? Given gentle IV fluids and repeat laboratories this morning. Patient will need further investigation into his psychiatric medications and a psych consult may be ideal. Will request medical records from [facility] and [facility]. Med rec has to be clarified and confirmed as well as the Rx for eliquis before resuming it. Repeat lithium level, check Tsh, t3,t4 and repeat VBG at 11 am GI PROPHYLAXIS:? P.o. Prilosec DVT PROPHYLAXIS: ?Pneumatic stockings only, Critical care time used for critical evaluation of this patient, diagnosis, treatment and coordination of care, review her records and documentation TOTAL CRITICAL CARE TIME 90 MIN . discussion and coordination with consultants, completely separate from any procedures performed. Patient's care was discussed in detail with Dr. Hackett is aware of all the above as well as the plan of care for this patient. <JHONATAN Siddiqi - Last Filed: 06/15/24 04:39> ASSESSMENT : 1. Acute hypoxic respiratory failure with Acute on Chronic hypercapnic state 2. Hospital acquire pneumonia 3. Acute on chronic Mucus plugging with prior history of left mainstem bronchi plugging in October of this year 4. Polysubstance abuse 5. History of bipolar with recent psychotic event 6. Systemic inflammatory distress syndrome due to 1. 7. Acute COPD exacerbation 8. Normocytic anemia 9. Dehydration and early acute kidney injury with BUN to creatinine ratio greater than 30 10. Ongoing tobacco abuse previously on nicotine 11. Stable hypertension PLAN OF CARE: Patient will be admitted to the ICU, monitor vital signs, I's and O's, even though the patient has no respiratory distress and is completely arousable and not confused, obtunded or encephalopathic, will place him on BiPAP support for a few more hours to washout the CO2; although I am concerned that this can make the mucus plugging worse.? Continue with vancomycin and Zosyn, placing on Mucinex and request chest PT during the day.? We will continue with steroids, DuoNebs scheduled and albuterol p.r.n..? Given gentle IV fluids and repeat laboratories this morning. Patient will need further investigation into his psychiatric medications and a psych consult may be ideal. Will request medical records from [facility] and [facility]. Med rec has to be clarified and confirmed as well as the Rx for eliquis before resuming it. Repeat lithium level, check Tsh, t3,t4 and repeat VBG at 11 am EMS found several empty bottles of lithium, tramadol, gabapentin, escitalopram were seen at his home; but his home medications does not include tramadol and gabapentin. [place] levels are normal. His daughter states that he is a hoarder and likes to collect old bottles to keep coins in them. He also stated that his mental status is significantly changed and worse since he has been started on lithium. Psych has been consulted. He is doing well off BiPAP, passed swallow eval. We will transfer him to floor this afternoon. GI PROPHYLAXIS:? P.o. Prilosec DVT PROPHYLAXIS: ?Pneumatic stockings only, Critical care time used for critical evaluation of this patient, diagnosis, treatment and coordination of care, review her records and documentation TOTAL CRITICAL CARE TIME 90 MIN . discussion and coordination with consultants, completely separate from any procedures performed. Patient's care was discussed in detail with Dr. Lomas is aware of all the above as well as the plan of care for this patient. <Natanael Lomas MD - Last Filed: 06/15/24 12:08> Total time managing care of this patient today: 90 minutes. <JHONATAN Siddiqi - Last Filed: 06/15/24 04:39>
--- NOTE | 2024-06-15 04:29 | PC.NURSE ---
Lan, RT at bedside, patient placed on BIBAP / 28% with plan to admit to ICU.
--- NOTE | 2024-06-15 04:31 | PC.NURSE ---
Bladder scan completed by Denise soil technologist with 921 mL of urine noted in patient's bladder, reported results to Dr. Ervin, verbal order received for insertion of F/C 16 Fr with 10 mL balloon inflation.
[2024-06-15 04:58] LABS: Basophils Percent Auto 0.1 % (0-2); Hematocrit 39.6 % (42.0-52.0); Imm Gran Abs Auto 0.08 X10*3/uL (0.00-0.03); Imm Gran Pct Auto 0.5 % (0.0-0.4); Lymphocytes Absolute Auto 0.7 X10*3/uL (1.2-4.9); Lymphocytes Percent Auto 3.7 % (20-40); MANUAL DIFF FLAG SCAN; Mean Corpuscular HGB Conc 32.8 g/dl (31.0-36.0); Mean Corpuscular Hemoglobin 30.7 pg (27.0-33.0); Mean Corpuscular Volume 93.6 fL (80.0-98.0); Mean Platelet Volume 9.6 fL (9.4-12.4); Monocytes Absolute Auto 0.6 X10*3/uL (0.1-1.2); Monocytes Percent Auto 3.3 % (2-11); Neutrophils Absolute Auto 16.4 x10*3/uL (2.0-8.3); Neutrophils Percent Auto 92.4 % (45-73); Platelet Count 175 X10*3/uL (160-400); Red Blood Count 4.23 X10*6/uL (4.60-5.80); Red Cell Distribution Width 13.9 % (11.0-16.0); SCAN SMEAR FLAG 1; White Blood Count 17.8 X10*3/uL (4.8-10.8)
[2024-06-15] MEDS: Albuterol/Iprat 2.5/0.5MG 3 ML AMPUL.NEB INHALE ×4 (04:58→23:42)
[2024-06-15 05:06] LABS: Lithium 0.59 mmol/L (0.60-1.20)
[2024-06-15 05:21] LABS: SLIDE REVIEW VERIFIED
[2024-06-15 05:23] LABS: Alanine Aminotransferase 9 U/L (0-40); Albumin Level 3.6 g/dL (3.5-5.0); Alkaline Phosphatase 66 U/L (39-117); Anion Gap 14 (12-20); Aspartate Amino Transferase 18 U/L (5-37); Bilirubin Total 0.5 mg/dL (0.0-1.0); Blood Urea Nitrogen 33 mg/dL (9-16); Calcium 8.7 mg/dL (8.4-10.2); Carbon Dioxide 22 mmol/L (22-29); Chloride 109 mmol/L (96-108); Creatinine Clr Calc Pharmacy 87.7; Estimated Glomerular Filt Rate > 60; Glucose Random 134 mg/dL (60-115); Potassium 4.6 mmol/L (3.3-5.1); Sodium 140 mmol/L (135-145); Total Protein 6.7 g/dL (6.5-8.0)
[2024-06-15 05:39] LABS: TSH reflex Free T4 0.45 uIU/mL (0.32-4.0); Thyroid Stimulating Hormone 0.45 uIU/mL (0.32-4.0)
[2024-06-15] MEDS: Piperacillin Sodium/Tazobactam 3.375 GM in 0.9 % Sodium Chloride 50 ML IV ×3 (05:43→18:19)
[2024-06-15] MEDS: methylPREDNISolone Sod Succ 125 MG/2 ML VIAL 60 MG IVPUSH (05:43)
--- NOTE | 2024-06-15 06:52 | PHA.PROG ---
Admission Date/Time: June 15, 2024 04:00 Indication: resp infection Weight in k.2 kg Adjusted body weight in K.28 kg Mccarley body weight in K kg Obesity Dosing Indication % IBW: Serum Creatinine - Last 168 Hours 06/14/24 06/15/24 06/15/24 16:05 00:24 04:50 Creatinine 2.04 H 1.13 0.98 Estimated CrCl and GFR - Last 168 Hours 06/14/24 06/15/24 06/15/24 16:05 00:24 04:50 Estim Creat Clear Calc 42.1 76.1 87.7 Estimated GFR 33 > 60 > 60 Vancomycin Loading Dose: 2000 mg Current Vancomycin Dosing Regimen: 1250 mg q12h Vancomycin Monitoring using AUC goal of 400 - 600 range with trough as surrogate marker: predicted AUC 599 Date and Time for next Vancomycin Level to be drawn: before 3rd dose 06/15/24 @1700 Pharmacist Comments on Vancomycin Plan: Patient cr trending down. Getting a level before 3rd dose to see if we are dosing appropriately Vancomycin dosing will take advantage of [employer] as a clinical decision support tool that uses Bayesian modeling to calculate individual patient's pharmacokinetic parameters and forecast the patient's drug concentration time course with the target goal AUC 24 range of 400 - 600 mg/L/hr.
--- NOTE | 2024-06-15 06:57 | MHC.CARE ---
CARE Team called ICU after receiving a consult request to conduct an assessment for level of care. Pt is not currently medically cleared and cannot be effectively assessed at this time. ICU was asked to resubmit the consult request when pt was cleared medically.
[2024-06-15] MEDS: vancomycin HCL 1,250 MG in 0.9 % Sodium Chloride 250 ML 166.67 MG IV ×2 (07:09→19:58)
--- NOTE | 2024-06-15 08:00 | ECG_ITS ---
Test Reason : REPEAT QT Blood Pressure : / mmHG Vent. Rate : 071 BPM Atrial Rate : 071 BPM P-R Int : 214 ms QRS Dur : 116 ms QT Int : 404 ms P-R-T Axes : 057 -02 079 degrees QTc Int : 439 ms Sinus rhythm with 1st degree A-V block Otherwise normal ECG When compared with ECG of 15-JUN-2024 04:02, No significant changes seen Referred By: Noe Hernandez Electronically Signed By:RANDY KANG MD
--- NOTE | 2024-06-15 09:57 | MHC.CM.PN ---
Pt currently on BiPAP, confused in ICU and unable to participate in CM assessment. Review of past visits note pt resides alone, has no DME or services and has his dtr Annemarie listed as his HCP. Pt d/c'd from [facility] psych on 06/12: found at home w/empty med containers. Pt will need to see psych once medically cleared for possible readmission. CM to follow for finalization of d/c needs.
--- NOTE | 2024-06-15 11:09 | PC.NURSE ---
Workflow Developer spoke with Pt's daughter, Geovanna, who related that Pt's increased agitation , disorganized thoughts, and paranoia seem to coincide with starting lithium. Pt's daughter stated that a day prior to admission, Pt had a fall with possible head injury following a marked decrease in balance. Pt's daughter also related that Pt often re-uses pill bottles for other purposes and doesn't throw them away. Pt's daughter feels that Pt may not have taken all those meds especially since one of them (tramadol) is a med that he hasn't taken in years. Pt's daughter educated about pt's health status and plan of care.
--- NOTE | 2024-06-15 12:07 | PHA.MEDREC ---
Pharmacy Consult ? Medication Reconciliation Pharmacy has completed the medication reconciliation. Used pharmacy claims, discharge packet (from 06/12/24) and conversation with patient to confirm med list. Patient was alert and knew his doses for all meds except lithium. He got agitated and upset when asked about lithium. He said he had bad reaction to it and didn't want to say what the reaction is, the last time he took the medication nor confirm the dose that he's on. Med is left confirmed per pharmacy claim and discharge packet. Dr. Lomas was notified of how patient was upset when talking about it.
[2024-06-15] MEDS: Nicotine 14 MG PATCH.TD24 TRANSDERMA (12:08)
[2024-06-15] MEDS: Apixaban 5 MG TABLET PO ×2 (12:08→20:04)
[2024-06-15] MEDS: OLANZapine 2.5 MG TABLET PO ×2 (12:08→20:04)
[2024-06-15] MEDS: guaiFENesin LA 600 MG TAB.ER.12H PO ×2 (12:08→20:04)
[2024-06-15] MEDS: Buprenorphine/Naloxone 12/3 mg FILM 1 FILM SUBLINGUAL ×2 (12:21→20:10)
[2024-06-15 13:07] LABS: VBG HCO3 23 mmol/L (22-26); VBG pCO2 36 mmHg; VBG pO2 191 mmHg
[2024-06-15 13:07] LABS: Venous Blood Gas Refer to POC result
[2024-06-15 13:18] LABS: Lithium 0.53 mmol/L (0.60-1.20)
--- OUTSIDE RECORDS SUMMARY | 2024-06-15 14:50 | XMS_ITS ---
Author Organization [facility] [address] [place] [address] Location Address [address] [place] [phone] Care Team Providers Care Library Page Name Role Phone Chaim MATTA, Edward Unavailable [phone] ALLERGIES Allergen (clinical drug ingredient) Drug/Non Drug Allergy documented on EMR Reaction Allergy Type Onset Date Status codeine Codeine Unknown Drug Allergy Active prednisolone Prednisolone Unknown Drug Allergy A ctive RESULTS Component Value Reference Range Notes MRI : Brain without Contrast Reviewed date:03/19/2024 01:02:55 PM Interpretation: Performing Lab: Notes/Report: REASON FOR REFERRAL Diagnosis 1 Memory loss (R41.3) Referral Organization [facility] Location Referring Provider First Name Edward Referring Provider Last Name Chaim MATTA Referring Provider Speciality Neurology Referred Provider Specialty Neuropsychia try General Notes referral for neuropy remi psych evaluation, Shannan Chapa 03/28/2024 10:22:09 AM >faxed to MARIA VICTORIA ([facility] [place])[phone] Referral Priority Routine REASON FOR VISIT AMS, Gait disorder, h/o neuropathy MEDICATIONS Medication SIG (Take, Route, Frequency, Duration) Notes Start Date End Date Status Buprenorphine HCl-Naloxone HCl Active busPIRone HCl Active Apixaban Active Cyanocobalamin Activ e Docusate Sodium Acti ve Multivitamin Active Nicotine Active Melatonin Active Gabapentin Active Lisinopril Active Albuterol Sulfate Ac tive diphenhydrAMINE HCl Active Thiamine Active cloNIDine Active Magnesium Hydroxide Active Senna Active OLANZapine Active SOCIAL HISTORY Sex Assigned At : Social History Observation Description Sex Assigned At Male PROBLEMS Problem Type ICD Code Onset Dates Problem Status W/U Status Risk SNOMED Code Notes Problem Memory loss (R41.3) Active confirmed Memory loss (69540395) 63 year old male who is here with episodes of AMS and memory complaint MMSE today is 30/30 PCP is concerned about underlying neurological disorder. many of the episodes he stated to me were induced by drug use however we will order MRI brain, cognitive labs and neuropsych to evaluate for other cause to his symptoms Problem Gait abnormality (R26.9) Active confirmed Gait abnormality (86583808) gait is possibly due to neuropathy ordering EMG legs he is already on gabapentin VITAL SIGNS Blood pressure systolic 158 mm Hg 03/19/20 Blood pressure diastolic 100 mm Hg 024 Heart Rate 90 /min 03/19/2024 Respiratory Rate 16 /min 03/19/2024 Encounters Encounter Location Date Provider Diagnosis [facility] [address] [place] [address] [place] [phone] 03/19/2024 Edward Rucker MD Memory loss R41.3 ; Confusion R41.0 and Gait abnormality R26.9 ASSESSMENTS Encounter Date Diagnosis Assessment Notes Treatment Notes Treatment Clinical Notes 03/19/2024 Memory loss (ICD-10 - R41.3) 63 year old male who is here with episodes of AMS and memory complaint MMSE today is 30/30 PCP is concerned about underlying neurological disorder. many of the episodes he stated to me were induced by drug use however we will order MRI brain, cognitive labs and neuropsych to evaluate for other cause to his symptoms 03/19/2024 Confusion (ICD-10 - R41.0) 03/19/2024 Gait abnormality (ICD-10 - R26.9) gait is possibly due to neuropathy ordering EMG legs he is already on gabapentin PLAN OF TREATMENT Pending Test Test Name Order Date RPR (DX) W/REFL TITER AND CONFIRMATORY T ESTING 03/19/2024 LYME DISEASE AB W/REFL TO BLOT (IGG, IGM ) 03/19/2024 VITAMIN B12/FOLATE, SERUM PANEL 03/19/20 24 TSH W/REFLEX TO FT4 03/19/2024 EMG/NCV LEGS 03/19/2024 Referrals Referral Date Details Next Appt Details Follow Up: f/u after [facility] testing, Reason: Progress Notes * Ravi KATOB:1959 (63 yo M)Acc No.[id number]:03/19/2024 Patient:??Thomas KAT Provider:??Edward Rucker MD :1960?Age:63 Y?Sex:Paulie lopez Date:03/19/2024 Phone: Address:[address] [place] [address], [facility], [place], [place] Subjective: * Chief Complaints: * ?AMSGait disorderH/o ne uropathy * HPI: ?Constitutional:? Chief Complaint of: AMS, Gait ataxia ?63 year old male who presents from [facility]. ?Reports he Tasneem 5x in the past year. He has been induced into a coma multiple times. He has been seen through many hospitals including [facility], [facility], [facility], etc. ?States one time he took his daughter car to get cigarettes, ended up at [employer] [place]. Took a bus to multiple different locales. Does not remember what happened himself and forgot where he put his daughter's car. He was taking heroin at the time. ?Also reports will having trouble with balance. Reports history of neuropathy. ?CT head (01/2024): ?NO ACUTE INTRACRANIAL ABNORMALITY. Atrophy and microangiopathy. ?[Records reviewed with the patient today]. * ROS:?General Denies fever, chills, sweats, anorexia, fatigue, weakness, malaise, weight loss and sleep disorder. Eyes Denies blurring, diplopia, irritation, discharge, vision loss, eye pain and photophobia. ENT Denies earache, ear discharge, tinnitus, decreased hearing, nasal congestion, nosebleeds, sore throat and hoarseness. CV Denies chest pains, palpitations, syncope, dyspnea on exertion, orthopnea, PND and peripheral edema. Resp Denies cough, dyspnea at rest, excessive sputum, hemoptysis, wheezing and pleurisy. MS Denies back pain, joint pain, joint swelling, muscle cramps, muscle weakness, stiffness, arthritis, sciatica, restless legs, leg pain at night and leg pain with exertion. Derm Denies rash, itching, dryness and suspicious lesions. Neuro (+) gait difficulty Denies paralysis, paresthesias, tremors, vertigo, transient blindness, frequent falls, seizures, frequent headaches Psych (+) memory loss Denies depression, anxiety, suicidal ideation, hallucinations, paranoia, phobia and confusion. Endo Denies cold intolerance, heat intolerance, polydipsia, polyphagia, polyuria and unusual weight change. Heme Denies abnormal bruising, bleeding and enlarged lymph nodes. Allergy Denies urticaria, allergic rash, hay fever and recurrent infections. * Medical History:?? * Surgical History:??No Surgic al History documented. * Hospitalization/Major Diagno stic Procedure:??overdose * Family History:??Non-Contrib utory.?? * Social History:?history of drugs from 8 years of age on disability, not sure why no alcohol currently at [facility] he used to smoke before history of drug use, but not currently doing any. * Medications:??TakingSenna OL ANZapine Magnesium Hydroxide diphenhydrAMINE HCl Albuterol Sulfate cloNIDine Thiamine Nicotine Multivitamin Melatonin Lisinopril Gabapentin Docusate Sodium Cyanocobalamin busPIRone HCl Buprenorphine HCl- Naloxone HCl Apixaban Taking Senna Taking OLANZapine Taking Magnesium Hydroxide Taking diphenhydrAMINE HCl Taking Albuterol Sulfate Taking cloNIDine Taking Thiamine Taking Nicotine Taking Multivitamin Taking Melatonin Taking Lisinopril Taking Gabapentin Taking Docusate Sodium Taking Cyanocobalamin Taking busPIRone HCl Taking Buprenorphine HCl-Naloxone HCl Taking Apixaban * Allergies:??CodeinePrednisol oneno[Allergies Verified] Objective: * Vitals:??HR:90, BP:158/100, RR:16. * Examination: ?General Examination: ?Comprehensive Examination: ?General examination: The patient was well developed and well nourished. Normal hygiene was noted. ?Eyes / Ophthalmoscopic: See under CN-2 ?Cardiovascular: Carotid arteries: Normal auscultation to the carotid arteries. ?Heart Auscultation: Normal auscultation to the heart. ?Peripheral Vascular Exam: Normal peripheral pulses. ?Mental status: ?Alertness, Attention and Concentration: Normal ?Orientation: Normal. 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 ?PERRL, EOMI, V1-3 intact, no facial droop, hearing intact, uvula is midline, scm/trap 5/5 b/l, tongue is midline ?tone: normal x 4 ext ?bulk: normal x 4 ext ?strength is 5/5 all 4 ext ?sensation intact ST ?(+) romberg ?no dysmetria on FTN b/l ?Gait is normal ?DTR depressed ?MMSE today: . Assessment: * Assessment: 1.??Memory loss - R41.3 (Zayra gordon), 63 year old male who is here with episodes of AMS and memory complaintMMSE today is 30PCP is concerned about underlying neurological disorder. many of the episodes he stated to me were induced by drug use howeverwe will order MRI brain, cognitive labs and neuropsych to evaluate for other cause to his symptoms??2.??Confusion - R41.0??3.??Gait abnormality - R26.9, gait is possibly due to neuropathyordering EMG legshe is already on gabapentin ?? Plan: * Treatment: 2.??Confusion?LAB: RPR (DX) W/REFL TITER AND CONFIRMATORY TESTING ?LAB: LYME DISEASE AB W/REFL TO BLOT (IGG, IGM) ?LAB: VITAMIN B12/FOLATE, SERUM PANEL ?LAB: TSH W/REFLEX TO FT4 ?Imaging: MRI : Brain without Contrast 3.??Gait abnormality?LAB: RPR (DX) W/REFL TITER AND CONFIRMATORY TESTING ?LAB: LYME DISEASE AB W/REFL TO BLOT (IGG, IGM) ?LAB: VITAMIN B12/FOLATE, SERUM PANEL ?LAB: TSH W/REFLEX TO FT4 ?Imaging: EMG/NCV LEGS * Procedure Codes:?? * Follow Up:??f/u after Neurop sych testing * Billing Information: * Visit Code:?? 94738 Office Visit, New Pt., Level 4. * Procedure Codes:?? * Sign off status: Completed true * Provider:??Edward Rucker MD Date:?? 03/19/2024 Consultation Request Notes Referral Date Referring Provider Referred Provider Not es 03/19/2024 Chaim MATTA, Edward ,
--- OUTSIDE RECORDS SUMMARY | 2024-06-15 14:50 | XMS_ITS ---
Author Organization [facility] [address] [place] [address] Location Address [address] [place] [phone] Care Team Providers Care Rn Critical Care Name Role Phone Kevin MATTA, Josiah Gatica [phone] MEDICATIONS Medication SIG (Take, Route, Frequency, Duration) Notes Start Date End Date Status Docusate Sodium Acti ve Apixaban Active Buprenorphine HCl-Naloxone HCl Active busPIRone HCl Active Cyanocobalamin Activ e Gabapentin Active Lisinopril Active Melatonin Active Multivitamin Active Nicotine Active Magnesium Hydroxide Active Thiamine Active cloNIDine Active Albuterol Sulfate Ac tive diphenhydrAMINE HCl Active OLANZapine Active Senna Active SOCIAL HISTORY Sex Assigned At : Social History Observation Description Sex Assigned At Male Encounters Encounter Location Date Provider Diagnosis [facility] [address] [phone] 04/26/2024 Josiah Brown MD PLAN OF TREATMENT No Information Progress Notes * SHEY AndreaToddOB:1959 (63 yo M)Acc No.[id number]:04/26/2024 Patient:??Thomas KAT Provider:??Josiah Brown MD :1960?Age:63 Y?Sex:Ma le Date:04/26/2024 Phone: Address:[address] [place] [address], [place] Subjective: * Chief Complaints: * ? * Medical History:?? * Medications:??Taking Senna , Taking OLANZapine , Taking Magnesium Hydroxide , Taking diphenhydrAMINE HCl , Taking Albuterol Sulfate , Taking cloNIDine , Taking Thiamine , Taking Nicotine , Taking Multivitamin , Taking Melatonin , Taking Lisinopril , Taking Gabapentin , Taking Docusate Sodium , Taking Cyanocobalamin , Taking busPIRone HCl , Taking Buprenorphine HCl-Naloxone HCl , Taking Apixaban Objective: Assessment: Plan: * Treatment: * Procedure Codes:??NSHOW No S how Fee * Billing Information: * Visit Code:?? * Procedure Codes:?? NSHOW No Show Fee. * Sign off status: Completed true * Provider:??Josiah Brown MD Date:??2023
--- OUTSIDE RECORDS SUMMARY | 2024-06-15 14:51 | XMS_ITS | Patient Health Record ---
Author Organization [facility] Address [address], [place] [id number] Support Name Relationship Address Phone MaddielibiaBrad reinoso Emergency Contact Unknown [phone] Thomas Hartman Guarantor Unknown [phone] Allergies Allergen (clinical drug ingredient) Drug/Non Drug Allergy documented on EMR Reaction Allergy Type Onset Date Status codeine codeine (uncoded) Unknown Allergy Ac tive Reason For Referral No Information Medications Medication SIG (Take, Route, Frequency, Duration) Notes Start Date End Date Status Remeron 15 mg 1 tab(s) orally once a day (at bedtime) for 30 day(s) Active CeleXA 20 mg 1 and a half tabs or ally once a day for 30 day(s) 04/11/2012 Active Immunizations Vaccine Route Administration Date Status Comme nts PPD negative Unknown 01/07/2012 Administered Problems Problem Type SNOMED Code ICD Code Onset Dates Problem Status W/U Status Risk Notes Problem Major depressive disorder (580042222) Major depressive disorder NOS (296.00) Active confirmed Problem Back pain (178570864) Back pain (724.5) Active confirmed Problem Obesity (086944830) OBESITY NOS BMI 30.0-39.9 (278.00) Active confirmed Problem OPIOID/OTHER DEP-UNSPEC (304.70) Active confirmed Problem Body mass index 30.00 to 34.99 (61748705495414 7) BMI 31.0-31.9,ADULT (V85.31) Active confirmed Problem Tobacco use (043809417) Tobacco use disorder (305.1) Active confirmed Plan Of Treatment Pending Test Test Name Order Date Hepatitis ABC Profile 05/30/2012 Insurance Providers Payer Name Payer Address Payer Phone Subscriber Number Group Number Insured Name Patient Relationship to Insured Coverage Start Date Coverage End Date [place] Standard [address] [place] [address] [id number] Thomsa Valdovinos Self - patient is the insured [place] Medicare Part A [employer] [facility] [address] DEBBIE Weaver [address] [id number] Mick zuritaAndreaen Self - patient is the insured Medical (General) History Medical History History ICD Code 1999-herniated L4 and 5 , industrial acc ident 1999-COPD, was on inhalers in past Hospitalization History Reason Date(Month/Year) drug OD x 1 week, suicide attempt with opal estrada
--- OUTSIDE RECORDS SUMMARY | 2024-06-15 14:51 | XMS_ITS | Patient Health Record ---
Author Organization [facility] [address] [facility] Location Address [address] [place] [phone] Care Team Providers Care Insurance Rater Name Role Phone Kevin MATTA, Josiah Unavailable [phone] Edward Rucker MD Unavailable [phone] ALLERGIES Allergen (clinical drug ingredient) Drug/Non Drug Allergy documented on EMR Reaction Allergy Type Onset Date Status codeine Codeine Unknown Drug Allergy Active prednisolone Prednisolone Unknown Drug Allergy A ctive RESULTS Component Value Reference Range Notes MRI : Brain without Contrast Reviewed date:03/19/2024 01:02:55 PM Interpretation: Performing Lab: Notes/Report: REASON FOR REFERRAL Diagnosis 1 Memory loss (R41.3) Referral Organization [facility] [address] [place] [address] Location Referring Provider First Name Edward Referring Provider Last Name Chaim MATTA Referring Provider Speciality Neurology Referred Provider Specialty Neuropsychia try General Notes referral for neuropy remi psych evaluation, Shannan Chapa 03/28/2024 10:22:09 AM >faxed to NEON ([facility] [place])[id number] Referral Priority Routine MEDICATIONS Medication SIG (Take, Route, Frequency, Duration) Notes Start Date End Date Status Magnesium Hydroxide Active OLANZapine Active Docusate Sodium Acti ve Senna Active Gabapentin Active Lisinopril Active Melatonin Active Multivitamin Active Nicotine Active Thiamine Active cloNIDine Active Apixaban Active Albuterol Sulfate Ac tive Buprenorphine HCl-Naloxone HCl Active diphenhydrAMINE HCl Active busPIRone HCl Active Cyanocobalamin Activ e SOCIAL HISTORY Sex Assigned At : Social History Observation Description Sex Assigned At Male PROBLEMS Problem Type ICD Code Onset Dates Problem Status W/U Status Risk SNOMED Code Notes Problem Memory loss (R41.3) Active confirmed Memory loss (71054900) 63 year old male who is here [...] Gait abnormality (R26.9) Active confirmed Gait abnormality (36028306) gait is possibly due to neuropathy ordering EMG legs he is already on gabapentin VITAL SIGNS Heart Rate 90 /min 03/19/2024 Respiratory Rate 16 /min 03/19/2024 Blood pressure diastolic 100 mm Hg 03/19/2024 Blood pressure systolic 158 mm Hg 03/19/2024 Encounters Encounter Location Date Provider Diagnosis [facility] [address] [place] [address] [place] [phone] 03/19/2024 Edward Rucker MD Memory loss R41.3 ; Confusion R41.0 and Gait abnormality R26.9 [facility] [address] [address] 04/26/2024 Josiah Brown MD ASSESSMENTS Encounter Date Diagnosis Assessment Notes Treatment [...] ) 03/19/2024 VITAMIN B12/FOLATE, SERUM PANEL 03/19/20 TSH W/REFLEX TO FT4 03/19/2024 EMG/NCV LEGS 03/19/2024 Insurance Providers Payer Name Payer Address Payer Phone Subscriber Number Group Number Insured Name Patient Relationship to Insured Coverage Start Date Coverage End Date [facility] [address] [place] [address] [id number] Thomas Noe Self - patient is the insured MEDICAL (GENERAL) HISTORY Medical History History ICD Code HTN COPD Opioid use disorder Benzodiazepine use disorder PTSD h/o DVT h/o neuropathy Hospitalization History Reason Date(Month/Year) overdose
[2024-06-15 16:00] LABS: MRSA Nasal PCR NEGATIVE (Negative); SA Nasal PCR POSITIVE (Negative)
--- NOTE | 2024-06-15 18:19 | HE.PHANOTE ---
VANCO Trough after 2 doses came back at 13.0, keeping dose at 1250mg Q12H for at least another day to get patient therapeutic and then to potentially be decreased to 1000mg Q12H depending on renal function. Renal fx has come down nicely and stable for now, next trough to be checked at 1700 06/16/24. Predicted trough 18.5, predicted AUC 554.
[2024-06-16] VITALS: BP 133/72; PULSE 68; RESP 18; TEMP 36.8; O2SAT 95
[2024-06-16] MEDS: Piperacillin Sodium/Tazobactam 3.375 GM in 0.9 % Sodium Chloride 50 ML IV ×3 (00:16→12:01)
[2024-06-16 03:36] VITALS: BP 137/73; PULSE 68; RESP 18; TEMP 36.9; O2SAT 92
[2024-06-16 07:29] LABS: Venous Blood Gas Refer to POC result
[2024-06-16 07:30] VITALS: BP 106/75; PULSE 76; RESP 20; TEMP 37.1; O2SAT 92
[2024-06-16 07:33] LABS: VBG Base Excess 4.1 mmol/L; VBG HCO3 29 mmol/L (22-26); VBG pCO2 47 mmHg; VBG pO2 68 mmHg
[2024-06-16 07:51] LABS: MANUAL DIFF FLAG NO
[2024-06-16 07:52] LABS: Basophils Percent Auto 0.4 % (0-2); Eosinophils Absolute Auto 0.1 X10*3/uL (0.0-0.4); Eosinophils Percent Auto 0.5 % (0-4); Hematocrit 35.6 % (42.0-52.0); Hemoglobin 11.6 g/dl (14.0-18.0); Imm Gran Abs Auto 0.06 X10*3/uL (0.00-0.03); Imm Gran Pct Auto 0.5 % (0.0-0.4); Lymphocytes Absolute Auto 1.3 X10*3/uL (1.2-4.9); Lymphocytes Percent Auto 11.7 % (20-40); Mean Corpuscular HGB Conc 32.6 g/dl (31.0-36.0); Mean Corpuscular Hemoglobin 30.6 pg (27.0-33.0); Mean Corpuscular Volume 93.9 fL (80.0-98.0); Mean Platelet Volume 9.7 fL (9.4-12.4); Monocytes Percent Auto 8.8 % (2-11); Neutrophils Absolute Auto 8.6 x10*3/uL (2.0-8.3); Neutrophils Percent Auto 78.1 % (45-73); Platelet Count 185 X10*3/uL (160-400); Red Blood Count 3.79 X10*6/uL (4.60-5.80)
[2024-06-16] MEDS: OLANZapine 2.5 MG TABLET PO (08:05)
[2024-06-16] MEDS: Apixaban 5 MG TABLET PO (08:05)
[2024-06-16] MEDS: vancomycin HCL 1,250 MG in 0.9 % Sodium Chloride 250 ML 166.67 MG IV (08:05)
[2024-06-16] MEDS: predniSONE 20 MG TABLET 40 MG PO (08:05)
[2024-06-16] MEDS: Nicotine 14 MG PATCH.TD24 TRANSDERMA (08:06)
[2024-06-16] MEDS: guaiFENesin LA 600 MG TAB.ER.12H PO (08:06)
[2024-06-16 08:08] LABS: Alanine Aminotransferase 8 U/L (0-40); Albumin Level 3.3 g/dL (3.5-5.0); Alkaline Phosphatase 55 U/L (39-117); Anion Gap 10 (12-20); Aspartate Amino Transferase 15 U/L (5-37); Bilirubin Total 0.4 mg/dL (0.0-1.0); Blood Urea Nitrogen 28 mg/dL (9-16); Calcium 8.7 mg/dL (8.4-10.2); Carbon Dioxide 26 mmol/L (22-29); Chloride 108 mmol/L (96-108); Creatinine Clr Calc Pharmacy 94.1; Estimated Glomerular Filt Rate > 60; Glucose Random 104 mg/dL (60-115); Magnesium 2.1 mg/dL (1.6-2.6); Phosphorus 1.6 mg/dL (2.7-4.5); Potassium 3.7 mmol/L (3.3-5.1); Sodium 140 mmol/L (135-145); Total Protein 6.1 g/dL (6.5-8.0)
[2024-06-16] MEDS: Buprenorphine/Naloxone 12/3 mg FILM 1 FILM SUBLINGUAL (09:15)
--- NOTE | 2024-06-16 09:33 | P.PNIM_ITS ---
Subjective Subjective Date of Service: 06/16/24 Interval History: no complaints Physical Exam 2 Vital Signs: Vital Signs: Last Vital Signs Temp 98.7 F 06/16/24 07:30 Pulse 76 06/16/24 07:30 Resp 20 06/16/24 07:30 BP 106/75 06/16/24 07:30 Pulse Ox 92 06/16/24 07:30 O2 Del Method Room Air 06/16/24 07:30 O2 Flow Rate 2 06/16/24 00:00 FiO2 28 06/15/24 11:00 BMI result Body Mass Index 32.0 General: AO X 3, no acute distress Resp: CTA bilateral, no accessory muscles used CVS: S1,S2,RRR GI: soft, non tender, non distended Neuro: motor grossly intact, alert Psych: appropriate affect, appropriate insight Objective Data Active Medications Albuterol Sulfate (Albuterol Sulfate (0.083%) 2.5 Mg/3 Ml Vial.Neb) 2.5 mg INHALE Q4H PRN PRN Reason: Wheezing Albuterol/Ipratropium (Albuterol/Iprat 2.5/0.5mg 3 Ml Ampul.Neb) 3 ml INHALE RQ6H [facility] Last Admin: 06/16/24 06:24 Dose: Not Given Documented By: ALIS Non-Admin Reason: Patient Asleep Apixaban (Apixaban 5 Mg Tablet) 5 mg PO BID [facility] Last Admin: 06/16/24 08:05 Dose: 5 mg Documented By: KAUR Buprenorphine/Naloxone (Buprenorphine/Naloxone 12/3 Mg Film) 1 film SUBLINGUAL BID [facility] Last Admin: 06/16/24 09:15 Dose: 1 film Documented By: KAUR Guaifenesin (Guaifenesin La 600 Mg Tab.Er.12h) 600 mg PO BID [facility] Last Admin: 06/16/24 08:06 Dose: 600 mg Documented By: KAUR Piperacillin Sod/Tazobactam (Sod 3.375 gm/ Sodium Chloride) 50 mls @ 100 mls/hr IV 0000,0600,1200,1800 [facility] Last Infusion: 06/16/24 06:31 Dose: Infused Documented By: DARIO Vancomycin HCl 1,250 mg/ (Sodium Chloride) 250 mls @ 166.667 mls/hr IV Q12H [facility] Last Admin: 06/16/24 08:05 Dose: 166.67 mls/hr Documented By: AKUR Nicotine (Nicotine 14 Mg Patch.Td24) 14 mg TRANSDERMA DAILY [facility] Last Admin: 06/16/24 08:06 Dose: 14 mg Documented By: KAUR Olanzapine (Olanzapine 2.5 Mg Tablet) 2.5 mg PO BID [facility] Last Admin: 06/16/24 08:05 Dose: 2.5 mg Documented By: KAUR Pharmacy Consult (Consult Rx Vancomycin Dosing) 1 each MISCELLANE DAILY PRN PRN Reason: Consult order Pharmacy Consult (Consult Rx Vancomycin Dosing) 1 each MISCELLANE DAILY PRN PRN Reason: Consult order Prednisone (Prednisone 20 Mg Tablet) 40 mg PO DAILY [facility] Last Admin: 06/16/24 08:05 Dose: 40 mg Documented By: KAUR Ziprasidone (Ziprasidone Mesylate 20 Mg Vial) 20 mg IM Q6H PRN PRN Reason: agitation Labs 06/16/24 07:23 06/16/24 07:23 Labs: Laboratory Results - last 24 hr 06/15/24 06/15/24 06/15/24 12:41 12:56 13:01 MCV MCH MCHC RDW Plt Count MPV Immature Gran % (Auto) Neut % (Auto) Lymph % (Auto) [facility] % (Auto) Eos % (Auto) Baso % (Auto) Lymph # (Auto) [facility] # (Auto) Eos # (Auto) Baso # (Auto) Abs Immat Gran (auto) Absolute Neuts (auto) Absolute Nucleated RBC Nucleated RBC % (auto) VBG pH 7.40 VBG pCO2 36 VBG pO2 191 VBG HCO3 23 VBG O2 Saturation 99.0 VBG Base Excess -1.0 Anion Gap Estim Creat Clear Calc Estimated GFR Random Glucose Calcium Phosphorus Magnesium Total Bilirubin AST ALT Alkaline Phosphatase Total Protein Albumin Nasal Screen MRSA (PCR) NEGATIVE Nasal S. aureus Screen POSITIVE A Nasal MRSA/S.aureus Interp SEE NOTE Random Vancomycin [place] 0.53 L 06/15/24 06/16/24 06/16/24 17:29 07:23 07:27 MCV 93.9 MCH 30.6 MCHC 32.6 RDW 14.0 Plt Count 185 MPV 9.7 Immature Gran % (Auto) 0.5 H Neut % (Auto) 78.1 H Lymph % (Auto) 11.7 L [facility] % (Auto) 8.8 Eos % (Auto) 0.5 Baso % (Auto) 0.4 Lymph # (Auto) 1.3 [facility] # (Auto) 1.0 Eos # (Auto) 0.1 Baso # (Auto) 0.0 Abs Immat Gran (auto) 0.06 H Absolute Neuts (auto) 8.6 H Absolute Nucleated RBC 0.000 Nucleated RBC % (auto) 0.0 VBG pH 7.40 VBG pCO2 47 VBG pO2 68 VBG HCO3 29 H VBG O2 Saturation 94.0 VBG Base Excess 4.1 Anion Gap 10 L Estim Creat Clear Calc 94.1 Estimated GFR > 60 Random Glucose 104 Calcium 8.7 Phosphorus 1.6 L Magnesium 2.1 Total Bilirubin 0.4 AST 15 ALT 8 Alkaline Phosphatase 55 Total Protein 6.1 L Albumin 3.3 L Nasal Screen MRSA (PCR) Nasal S. aureus Screen Nasal MRSA/S.aureus Interp Random Vancomycin 13.0 L [place] Microbiology Microbiology Results: Microbiology 06/15/24 10:38 Gram Stain - Final Sputum - Expectorated Sputum Culture - Preliminary Culture in progress. 06/14/24 17:52 Blood Culture - Preliminary Blood - Venous No growth after 24 hours. 06/14/24 17:52 Blood Culture - Preliminary Blood - Venous No growth after 24 hours. Assessment and Plan (1) Acute respiratory failure with hypoxia and hypercapnia: Status: Acute Plan 64M PMH bipolar, COPD, opiate dependence, hypertension, likely provoked pulmonary embolism (though still on apixaban), brought to hospital by EMS after daughter found patient unresponsive and hypoxic was admitted to the ICU for hypercapnia and BiPAP therapy quickly recovered and downgraded to medical floor. Acute hypoxic and hypercapnic respiratory failure and acute toxic metabolic encephalopathy Now resolved Possible pneumonia On IV vancomycin Zosyn, likely deescalate on discharge Schizoaffective disorder Continue lithium and olanzapine Concern for suicide attempt though patient denies, now medically cleared will request care team eval Reported history of provoked pulmonary embolism Exact circumstances unknown and continues to be on apixaban Hypertension Lisinopril, propranolol held for relative hypotension DVT prophylaxis on Eliquis Full Code reason for continued hospitalization: Care team eval Quality Stroke Does the patient have a stroke diagnosis?: No VTE Prior VTE?: No VTE Risk Level:: Medical - moderate - high VTE Device Contraindication: N/A - Device Ordered VTE Drug Contraindication: N/A - Med Ordered
--- NOTE | 2024-06-16 10:49 | PM.DS ---
DS: Providers Provider Date of Service: 06/16/24 Date of admission: 06/15/24 04:00 Date of discharge: 06/16/24 Primary care physician: Unknown Physician Consults: 06/15/24 05:32 Consult to Psychiatry Stat Consulting Provider: Psych Covering Reason for consultation: bipolar recent admit Has provider been notified: No 06/15/24 05:42 Consult to Care Team Routine Comment: Reason for consultation: ? SI Has provider been notified: Yes 06/16/24 09:32 Consult to Care Team Routine Comment: Reason for consultation: medically cleared, daughter reports SI, patient denies DS: Diagnosis Discharge Diagnosis (1) Acute respiratory failure with hypoxia and hypercapnia: Status: Acute DS: Summary Hospital Course Hospital Course: from initial hpi: 64-year-old male with underlying history of bipolar disorder on lithium, COPD not O2 dependent, history of severe mucus plugging of the left bronchi for which he had been treated at [facility], details unknown, he is on Eliquis but I am not clear if this is for atrial fibrillation, PE or DVT treatment, he also has a history of Yamil's thyroiditis treated at [facility] hypertension, peripheral neuropathy, Catatonia, several episodes of overdoses and psychotic episodes. Patient had presented to the emergency room via EMS due to altered mental status reported by the patient's daughter.? The patient reportedly was discharged from this facility 2 days ago due to an acute psychotic episode.? On arrival to the emergency room patient had been satting 82% on room air with empty pill bottles of lithium, tramadol, citalopram and gabapentin which reportedly patient was prescribed all for a one-week supply but he only fill the 2 days ago now they are empty. While in the ER the patient had been somewhat sleepy but otherwise arousable, [place] [address], H and H of 13 and 41, overall normal electrolytes her BUN to creatinine ratio was greater than 30, lactic acid of 1.2.? Patient was treated with vancomycin, Zosyn, due to emphysema with bronchial thickening and mucus plugging in the lower lobes and distal atelectasis/infiltrates noted on chest CT. ?Solu-Medrol, some IV fluids and was given high-flow oxygen however they were concerned that the patient was becoming somewhat somnolent, place him on BiPAP given that the initial ABG showed mild respiratory acidosis with hypercapnia with a pH of 25 and CO2 of 59.? After an hour venous blood gas was normal.? Patient was taken off BiPAP and placed on 3 L nasal cannula, right now the patient has no complaints and is verbally arousable, following commands and is not in any acute distress however repeat ABG reveals pH of 7.3 and pCO2 of 56 on a fully compensated.? Patient will be admitted to the ICU for further care hospital course: Patient was admitted to the intensive care unit for acute hypoxic and hypercapnic respiratory failure and acute toxic metabolic encephalopathy requiring BiPAP therapy. Hypercapnic quickly resolved and mental status returned to baseline. Patient was weaned off oxygen. For possible pneumonia was treated with IV vancomycin and Zosyn and will be discharged on 5 more days of cefuroxime and azithromycin. For schizoaffective disorder was continued on lithium and olanzapine. There was initially concern for suicide attempt however patient denies and was seen by care team who recommended outpatient follow up. For reported history of provoked pulmonary embolism the exact circumstances are unknown patient should continue his apixaban for now but follow up with Hematology for possible discontinuing. For hypertension patient was noted to have low normal blood pressures and lisinopril and propranolol have been discontinued, if blood pressures increase outpatient may need to restart. Time Attestation Discharge Coordination Time (in mins): 33 Quality: Safe Use of Opioids Does Pt have an Active Cancer Diagnosis on the Problem List?: No Quality: Stroke Does the patient have a stroke diagnosis?: No Physical Exam Vital Signs: Vital Signs: Last Vital Signs Temp 98.7 F 06/16/24 07:30 Pulse 76 06/16/24 07:30 Resp 20 06/16/24 07:30 BP 106/75 06/16/24 07:30 Pulse Ox 92 06/16/24 07:30 O2 Del Method Room Air 06/16/24 07:30 O2 Flow Rate 2 06/16/24 00:00 FiO2 28 06/15/24 11:00 BMI result Body Mass Index 32.0 General: AO X 3, no acute distress Resp: CTA bilateral, no accessory muscles used CVS: S1,S2,RRR GI: soft, non tender, non distended Neuro: motor grossly intact, alert Psych: appropriate affect, appropriate insight DS: Data Data Completed and Pending Labs on day of discharge: Laboratory Results - last 24 hr 1106/15/24 06/15/24 12:41 12:56 13:01 WBC RBC Hgb Hct MCV MCH MCHC RDW Plt Count MPV Immature Gran % (Auto) Neut % (Auto) Lymph % (Auto) [place] % (Auto) Eos % (Auto) Baso % (Auto) Lymph # (Auto) [place] # (Auto) Eos # (Auto) Baso # (Auto) Abs Immat Gran (auto) Absolute Neuts (auto) Absolute Nucleated RBC Nucleated RBC % (auto) VBG pH 7.40 VBG pCO2 36 VBG pO2 191 VBG HCO3 23 VBG O2 Saturation 99.0 VBG Base Excess -1.0 Sodium Potassium Chloride Carbon Dioxide Anion Gap BUN Creatinine Estim Creat Clear Calc Estimated GFR Random Glucose Calcium Phosphorus Magnesium Total Bilirubin AST ALT Alkaline Phosphatase Total Protein Albumin Nasal Screen MRSA (PCR) NEGATIVE Nasal S. aureus Screen POSITIVE A Nasal MRSA/S.aureus Interp SEE NOTE Random Vancomycin [place] 0.53 L 06/15/24 06/16/24 06/16/24 17:29 07:23 07:27 WBC 11.0 H RBC 3.79 L Hgb 11.6 L Hct 35.6 L MCV 93.9 MCH 30.6 MCHC 32.6 RDW 14.0 Plt Count 185 MPV 9.7 Immature Gran % (Auto) 0.5 H Neut % (Auto) 78.1 H Lymph % (Auto) 11.7 L [place] % (Auto) 8.8 Eos % (Auto) 0.5 Baso % (Auto) 0.4 Lymph # (Auto) 1.3 [place] # (Auto) 1.0 Eos # (Auto) 0.1 Baso # (Auto) 0.0 Abs Immat Gran (auto) 0.06 H Absolute Neuts (auto) 8.6 H Absolute Nucleated RBC 0.000 Nucleated RBC % (auto) 0.0 VBG pH 7.40 VBG pCO2 47 VBG pO2 68 VBG HCO3 29 H VBG O2 Saturation 94.0 VBG Base Excess 4.1 Sodium 140 Potassium 3.7 Chloride 108 Carbon Dioxide 26 Anion Gap 10 L BUN 28 H Creatinine 0.92 Estim Creat Clear Calc 94.1 Estimated GFR > 60 Random Glucose 104 Calcium 8.7 Phosphorus 1.6 L Magnesium 2.1 Total Bilirubin 0.4 AST 15 ALT 8 Alkaline Phosphatase 55 Total Protein 6.1 L Albumin 3.3 L Nasal Screen MRSA (PCR) Nasal S. aureus Screen Nasal MRSA/S.aureus Interp Random Vancomycin 13.0 L [place] Preliminary micro results at discharge 06/15/24 10:38 Sputum Culture - Preliminary Sputum - Expectorated Culture in progress. 06/14/24 17:52 Blood Culture - Preliminary Blood - Venous No growth after 24 hours. 06/14/24 17:52 Blood Culture - Preliminary Blood - Venous No growth after 24 hours. Discharge Plan Discharge Anticipated Discharge Date/Time: 06/16/24 10:47 Patient Disposition: Home, Self-Care Discharge Diagnosis: hypercapnea Referrals: Physician,Unknown J [Primary Care Provider] - 1 Week Discharge Medications: Continued buprenorphine-naloxone 12-3 mg film 1 film sublingual BID Eliquis 5 mg tablet 5 mg PO BID nicotine 14 mg/24 hr Patch 24 Hour 14 mg transdermal DAILY 28 Days Qty: 28 0RF nicotine (polacrilex) 4 mg gum 4 mg buccal Q2H PRN (Reason: nicotine cravings) 30 Days Qty: 110 0RF lithium carbonate 300 mg Capsule 600 mg PO BID 30 Days Qty: 120 0RF olanzapine 2.5 mg Tablet 2.5 mg PO BID 30 Days Qty: 60 0RF gabapentin 800 mg tablet 800 mg PO TID 30 Days Qty: 90 0RF Incruse Ellipta 62.5 mcg/actuation blister with device 1 inh INHALATION DAILY 30 Days Qty: 30 0RF albuterol sulfate [Ventolin HFA] 90 mcg/actuation HFA aerosol inhaler 2 puff inhalation Q6H PRN (Reason: Shortness Of Breath Or Wheezing) Discontinued lisinopril 10 mg tablet 10 mg PO DAILY propranolol 10 mg Tablet 5 mg PO TID 30 Days Qty: 45 0RF Protocol: Hold for SBP/HR < HOLD for SBP < : 90 HOLD for HR < : 60 Discharge Orders: Discharge Order (Routine); Ordered 06/16/24 Ordered By: Brandyn Anand Diet: Advance to usual diet Activity on Discharge: As tolerated Stand Alone Forms: Patient Portal Discharge page Print Language: Togolese Care Plan Goals: recovery Health Concerns: ams Plan of Treatment: resolved, holding bp meds for now, if bp increases may need to restart Assessment: see above
[2024-06-16 11:21] VITALS: BP 135/72; PULSE 76; RESP 20; TEMP 36.7; O2SAT 92
--- NOTE | 2024-06-16 11:21 | MHC.CM.PN ---
Pt has been medically cleared for DC, he will go home via family transport, plan is home, self care.
--- NOTE | 2024-06-16 11:27 | P.F2F_ITS ---
Service Date Service Date: 06/16/24 Encounter Date of encounter: 06/16/24 Reasons for Services Signs and symptoms assessed: difficulty managing meds Reason for senior living: medication management, medication treatment and teach disease management Homebound: Leaving the home is medically contraindicated at this time without the asist of a device and/or another person due th the listed conditions above and below. Reason homebound: unsteady gait / fall risk Certification: Based on the above findings, I certify that this patient is confined to the home and needs intermittent senior living care, physical therapy and/or speech therapy, or continues to need occupational therapy. The patient is under my care, and I have initiated the establishment of the plan of care. The patient will be followed by a physician who will periodically review the plan of care. Time Spent With Patient Time: Total time managing care of this patient today ____ minutes.
[2024-06-16] MEDS: Albuterol/Iprat 2.5/0.5MG 3 ML AMPUL.NEB INHALE (11:28)
[2024-06-16 11:32] VITALS: PULSE 80; RESP 18; O2SAT 93
== END 2024-06-16 13:44 | disposition home or self-care (01) | DRG 193 ==
LOC: HO.ED 21:02 → HO.EDOVER 06-15 04:12 → HO.ICU 06-15 04:25 → HO.IMC 06-15 16:50
PROVIDERS: Internal Medicine Critical Care Medicine; Physician Assistant; Student in an Organized Health Care Education/Training Program; Admitting Provider Physician Assistant Medical; Emergency Provider Internal Medicine; PCP Internal Medicine Nephrology; Visit Provider Internal Medicine
DX: J18.9 Pneumonia, unspecified organism (principal); G92.8 Other toxic encephalopathy; J96.21 Acute and chronic respiratory failure with hypoxia; J96.22 Acute and chronic respiratory failure with hypercapnia; J44.0 Chronic obstructive pulmonary disease with (acute) lower respiratory infection; J44.1 Chronic obstructive pulmonary disease with (acute) exacerbation; N17.9 Acute kidney failure, unspecified; F11.20 Opioid dependence, uncomplicated; F25.9 Schizoaffective disorder, unspecified; I10 Essential (primary) hypertension; G62.9 Polyneuropathy, unspecified; E86.0 Dehydration; Z20.822 Contact with and (suspected) exposure to COVID-19; Z86.711 Personal history of pulmonary embolism; Z79.01 Long term (current) use of anticoagulants; Z79.899 Other long term (current) drug therapy
CPT/HCPCS: 0241U; 36415; 70450; 71045; 71250; 74176; 80053; 80143; 80178; 80179; 80202; 80307; 81001; 82550; 82803; 83605; 83690; 83735; 83930; 84100; 84443; 84484; 85025; 85610; 87040; 87070; 87077; 87186; 87205; 87640; 87641; 93005; 94640; 94660; 99285; C1758; J2060; J2310; J2405; J2543; J2919; J3370; J3371; S9485

== ENCOUNTER → 2024-06-14 15:40 | Outpatient (BNV) | payer MEDICARE, SELFPAY | PROVIDERS: Admitting Provider Physician Assistant Medical; Emergency Provider Internal Medicine; Visit Provider Internal Medicine Cardiovascular Disease | DX: I44.0 Atrioventricular block, first degree (principal) | CPT/HCPCS: 93010 ==

== ENCOUNTER → 2024-06-15 04:00 | Outpatient (BNV) | payer MEDICARE, SELFPAY | PROVIDERS: Admitting Provider Physician Assistant Medical; Emergency Provider Internal Medicine; Visit Provider Internal Medicine | DX: J96.01 Acute respiratory failure with hypoxia (principal); J96.02 Acute respiratory failure with hypercapnia | CPT/HCPCS: 99239; 99499; G0180 ==

== ENCOUNTER → 2024-06-15 04:00 | Outpatient (BNV) | payer MEDICARE, SELFPAY | PROVIDERS: Admitting Provider Physician Assistant Medical; Emergency Provider Internal Medicine; Visit Provider Physician Assistant Medical | DX: J96.01 Acute respiratory failure with hypoxia (principal); J96.02 Acute respiratory failure with hypercapnia | CPT/HCPCS: 99291 ==

== ENCOUNTER → 2024-06-15 04:00 | Outpatient (BNV) | payer MEDICARE, SELFPAY | PROVIDERS: Admitting Provider Physician Assistant Medical; Emergency Provider Internal Medicine; Visit Provider Internal Medicine Cardiovascular Disease | DX: I44.0 Atrioventricular block, first degree (principal) | CPT/HCPCS: 93010 ==

== ENCOUNTER 2024-09-07 11:00 | Inpatient (IN) | payer MEDICARE, SELFPAY ==
--- NOTE | ~2024-09-07 | XR_ITS ---
EXAMINATION: XR CHEST CLINICAL INFORMATION: lethargic COMPARISON: 06/14/2024 x-ray [address] CT. TECHNIQUE: 2 views of the chest were obtained. FINDINGS: Mild elevation left hemidiaphragm, unchanged. The cardiac, hilar, and mediastinal contours are normal. Lungs demonstrate increased bronchovascular markings in the right base, suggestive of bronchopneumonia. There is no pneumothorax or pleural effusion. Old right rib fractures are present. No acute bony abnormalities. No soft tissue abnormality. XR/XR chest 2V IMPRESSION: Right basilar opacity, in keeping with bronchopneumonia in the appropriate clinical setting. Electronically signed by: Adalberto Mahan MD 09/07/2024 12:20 PM [facility]
--- NOTE | ~2024-09-07 | CT_ITS ---
EXAMINATION: CT HEAD WITHOUT CONTRAST CLINICAL INFORMATION: Lethargic, anticoagulation. COMPARISON: 06/14/2024. TECHNIQUE: Contiguous axial imaging was performed from the skull base to vertex without intravenous administration of contrast. This CT examination was performed using dose optimization techniques as appropriate, variously including the following: *Automated exposure control *Adjustment of mA and/or kV according to patient size (this includes techniques or standardized protocols for targeted exams where dose is matched to indication/reason for exam; i.e. extremities or head) *Use of iterative reconstruction technique FINDINGS: There is no evidence of intracranial hemorrhage or extra-axial fluid collection. There is no mass effect, or edema. No CT evidence of acute territorial infarct. Ventricles, sulci, and cisterns are normal in size and configuration for patient age. No hydrocephalus. No midline shift. Prominent cisterna magna, normal variant. Negative hyperdense MCA sign. Negative insular ribbon sign. Patchy periventricular and deep white matter hypoattenuation is consistent with mild to moderate small vessel ischemic changes. Old lacunar type infarctions present in the anterior bilateral ganglial capsular regions. Atheromatous calcification of the bilateral carotid siphons and V4 segments vertebral arteries bilaterally. Globes and orbital contents image normally. No extracranial soft tissue abnormalities. There has been prior sinonasal surgery. The paranasal sinuses, mastoid air cells, and tympanic cavities are normally aerated. No suspicious bony abnormalities. There are no acute fractures evident. CT/CT head/brain wo IV con IMPRESSION: 1. No acute intracranial abnormality. 2. Chronic changes as discussed. Electronically signed by: Adalberto Mahan MD 09/07/2024 12:16 PM [facility]
--- NOTE | 2024-09-07 11:13 | ED_ITS ---
HPI - General Adult General Chief complaint: Altered Mental Status Stated complaint: lethargic, slow response, nodding off per EMS Time Seen by Provider: 09/07/24 11:12 Source: patient, EMS, RN notes reviewed and old records reviewed Mode of arrival: EMS Limitations: altered mental status History of Present Illness ED Provider: Senthil HPI narrative: Patient is a 64-year-old male with history of COPD, bipolar 1 disorder on lithium, on Eliquis for unknown reason, HTN, peripheral neuropathy, Yamil's thyroiditis, chronic headaches presenting to the emergency department via EMS for altered mental status. Report that patient was noted to appear altered when walking out of a convenience store. EMS noted pinpoint pupils and administered 2mg IV naloxone with little change. Patient complains only of depression, denies any physical complaints. He denies any drug or alcohol use. Denies suicidal or homicidal ideation. Denies fall or other trauma. MD complaint: altered mental status Onset (ago): unknown Treatments prior to arrival: other Related Data Home Medications ?Medication ?Instructions ?Recorded ?Confirmed apixaban 5 mg tablet (Eliquis) 5 mg PO BID 06/06/24 06/15/24 buprenorphine 12 mg-naloxone 3 mg 1 film sublingual BID 06/06/24 06/15/24 sublingual film albuterol sulfate 90 mcg/actuation 2 puff inhalation Q6H PRN 06/15/24 06/15/24 aerosol inhaler (Ventolin HFA) Shortness Of Breath Or Wheezing Previous Rx's ?Medication ?Instructions ?Recorded gabapentin 800 mg tablet 800 mg PO TID 30 days #90 tabs 06/12/24 lithium carbonate 300 mg capsule 600 mg (2 x 300 mg) PO BID 30 days 06/12/24 #120 caps nicotine (polacrilex) 4 mg gum 4 mg buccal Q2H PRN nicotine 06/12/24 cravings 30 days #110 ea nicotine 14 mg/24 hr daily 14 mg transdermal DAILY 28 days 06/12/24 transdermal patch #28 ea olanzapine 2.5 mg tablet 2.5 mg PO BID 30 days #60 tabs 06/12/24 umeclidinium 62.5 mcg/actuation 1 inh inhalation DAILY 30 days #30 06/12/24 blister powder for inhalation ea (Incruse Ellipta) azithromycin 500 mg tablet 500 mg PO DAILY 5 days #5 tabs 06/16/24 cefuroxime axetil 500 mg tablet 500 mg PO BID #10 tabs 06/16/24 Allergies Allergy/AdvReac Type Severity Reaction Status Date / Time codeine [CODEINE] AdvReac Mild HIVES Verified 09/07/24 11:44 Review of Systems 2 Review of Systems: As per HPI Yes all other systems are reviewed and are negative Constitutional: Constitutional: Reports as per HPI [facility] Past Medical History Medical History (Updated 09/07/24 @ 18:21 by Gilma Ndiaye NP) Chronic headaches Social History Social History Household Members: Unknown / Unable to assess Housing: Unknown / Unable to assess Unable to assess alcohol history related to: Unable to respond 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 Patient Tobacco Use Status: Tobacco use Unknown Tobacco use type: Cigarette Cigarette Packs Per Day: 1.5 Cigarettes Per Day: 30.0 Years Smoked: 30 Second Hand Smoke Exposure: No Use of substances other than those prescribed or required for medical reasons: Unable to respond Substance Use Type: Unknown Advance Directives: Yes Advance Directives on File: Yes Advance Directives Date on File: 11/30/23 service: No Sexual orientation: Unable to collect Physical Exam ED Vital Signs: Vital Signs - 24 hr 09/07/24 11:42 09/07/24 14:41 09/07/24 17:39 Temperature 97.9 F Pulse Rate 60 63 58 Respiratory Rate 18 14 18 Blood Pressure 119/73 119/66 136/72 Pulse Oximetry 97 96 97 Oxygen Delivery Method Room Air Room Air Room Air BMI result Body Mass Index 38.0 Vital signs have been reviewed and appear to be correct. Blood pressure normal. Heart rate normal. Respiratory rate normal. Temperature normal. Oxygen saturation normal. Const General: cooperative, healthy appearing, no acute distress and lethargic Nutritional Appearance: average body habitus Orientation/consciousness: oriented to person, oriented to place, oriented to time, patient oriented x3 and lethargic HENMT Head: Yes normocephalic and Yes atraumatic Ears: external ears normal General nose exam: Normal external nose present Face and sinus: Yes face symmetric Mouth: oropharynx normal and moist mucous membranes Throat: Yes uvula midline Eyes Pupils: Equal, round and reactive pupils present and Pupil size comments bilaterally 2 Neck Neck: Yes normal visual inspection and Yes supple Resp Effort & Inspection: normal respiratory effort and able to speak in complete sentences Auscultation: clear to auscultation bilaterally Cardio Rate: regular rate Rhythm: regular rhythm Heart sounds: S1 normal heart sound present and S2 normal heart sound present GI Palpation (GI): Soft to palpation and nontender Auscultation: normoactive bowel sounds General: Yes no CVA tenderness Back/Spine/Pelvis Back: no CVA tenderness Skin General skin exam: elasticity normal and turgor normal Neuro Other: lethargic, responds to verbal stimuli General: oriented to person, oriented to place, oriented to time, patient oriented x3, tone normal, moves all extremities, Normal light touch and pain sensation, no focal motor deficits, CN's II-XI intact bilaterally and deep tendon reflexes 2+ bilaterally Cranial nerves: Yes Equal, round and reactive pupils present Cognition (Neuro): normal cognition Extrem General: Yes full ROM, Yes no pedal edema and Yes no calf tenderness Psych Mental Status: mental status grossly normal Affect: Blunted affect present Thought content: suicidality, no homicidality, no hallucinations and Depressive thoughts present NIH Stroke Scale Internal: Initial- Upon Arrival Time: 11:42 Level of Consciousness: Not Alert; but arousable by minor stimulation Level of Consciousness Questions: Answers both questions correctly Level of Consciousness Commands: Performs both tasks correctly Best Gaze: Normal Visual: No visual loss Facial Palsy: Normal Motor Arm (Right): No drift Motor Arm (Left): No drift Motor Leg (Right): No drift Motor Leg (Left): No drift Limb Ataxia: Absent Sensory: Normal Best Language: No aphasia Dysarthia: Normal Extinction and Inattention: No abnormality Score: 1 Course Reevaluation(s) Reevaluation #1: Patient now awake, alert, and ambulatory but refusing to answer any questions. Ambulating around the department, redirectable back to his stretcher. Urine drug screen positive for THC and buprenorphine. [place] level subtherapeutic. No evidence of infection on urinalysis. Patient medically cleared at this time for care team evaluation for depression, placed on physician observation. Time: 17:47 Medications Administered Discontinued Medications Generic Name Dose Route Start Last Admin Trade Name Freq PRN Reason Stop Dose Admin Ceftriaxone Sodium 1 gm 09/07/24 12:36 09/07/24 13:19 Ceftriaxone Sodium 1 Gm Vial IVPUSH 09/07/24 12:37 1 gm ONCE ONE Administration Azithromycin 500 mg/ Sodium 250 mls @ 125 mls/hr 09/07/24 12:36 09/07/24 15:50 Chloride IV 09/07/24 14:35 Infused ONCE ONE Infusion Medical Decision Making Medical Decision Making [facility] Narrative: Patient is a 64-year-old male with history of COPD, bipolar 1 disorder on lithium, on Eliquis for unknown reason, HTN, peripheral neuropathy, Yamil's thyroiditis, chronic headaches presenting to the emergency department via EMS for altered mental status. On exam patient is awake, A+Ox3, VS WNL, afebrile, normal neurological exam without focal deficits, physical exam findings as above. Given reported symptoms and physical exam findings, initial differential includes but is not limited to ICH, drug or alcohol intoxication, electrolyte abnormality, lithium toxicity, UTI, pneumonia, viral illness, encephalopathy. Labs at baseline. CT head notable for no evidence of ICH. My interpretation is in agreement with the radiologist's interpretation. See course for remaining clinical decision making. Differential Diagnosis Differential Diagnoses: The differential diagnosis associated with the presentation includes As per [facility] Admission/Observation Consideration of admission/observation: Escalation of care including admission/observation considered Consult Healthcare Provider Management of the patient was discussed with: Behavioral Health Provider Lab Data [facility] Lab Attestation statement: I reviewed the patient's lab results. As per [facility] 09/07/24 12:47 09/07/24 12:47 Labs: Lab Results 09/07/24 09/07/24 09/07/24 Range/Units 11:42 12:47 14:49 WBC 5.1 (4.8-10.8) X10*3/uL RBC 3.97 L (4.60-5.80) X10*6/uL Hgb 11.9 L (14.0-18.0) g/dl Hct 38.1 L (42.0-52.0) % MCV 96.0 (80.0-98.0) fL MCH 30.0 (27.0-33.0) pg MCHC 31.2 (31.0-36.0) g/dl RDW 14.4 (11.0-16.0) % Plt Count 207 (160-400) X10*3/uL MPV 9.3 L (9.4-12.4) fL Immature Gran % (Auto) 0.0 (0.0-0.4) % Neut % (Auto) 60.1 (45-73) % Lymph % (Auto) 25.2 (20-40) % [place] % (Auto) 11.7 H (2-11) % Eos % (Auto) 1.6 (0-4) % Baso % (Auto) 1.4 (0-2) % Lymph # (Auto) 1.3 (1.2-4.9) X10*3/uL [place] # (Auto) 0.6 (0.1-1.2) X10*3/uL Eos # (Auto) 0.1 (0.0-0.4) X10*3/uL Baso # (Auto) 0.1 (0.0-0.2) X10*3/uL Abs Immat Gran (auto) 0.00 (0.00-0.03) X10*3/uL Absolute Neuts (auto) 3.1 (2.0-8.3) x10*3/uL Absolute Nucleated RBC 0.000 (0.0-0.012) X10*3/uL Nucleated RBC % (auto) 0.0 (0.0-0.2) /100WBC PT 13.2 H (10.9-12.4) SEC INR 1.1 (0.9-1.1) Sodium 140 (135-145) mmol/L Potassium 3.8 (3.3-5.1) mmol/L Chloride 108 (96-108) mmol/L Carbon Dioxide 27 (22-29) mmol/L Anion Gap 9 L (12-20) BUN 13 (9-16) mg/dL Creatinine 0.63 (0.5-1.4) mg/dL Estim Creat Clear Calc 132.1 Estimated GFR > 60 POC Glucose 98 (60-115) mg/dL Random Glucose 92 (60-115) mg/dL Lactic Acid 1.7 (0.5-2.0) mmol/L Calcium 8.5 (8.4-10.2) mg/dL Magnesium 2.0 (1.6-2.6) mg/dL Total Bilirubin 0.2 (0.0-1.0) mg/dL AST 21 (5-37) U/L ALT 9 (0-40) U/L Alkaline Phosphatase 62 (39-117) U/L Total Protein 6.7 (6.5-8.0) g/dL Albumin 3.3 L (3.5-5.0) g/dL Urine Color Urine Appearance Urine pH (5.0-9.0) Ur Specific [place] (1.005-1.025) Urine Protein (Neg-Trace) mg/dL Urine Glucose (UA) (Negative) mg/dL Urine Ketones (Negative) mg/dL Urine Blood (Negative) Urine Nitrite (Negative) Ur Leukocyte Esterase (Negative) Urine Opiates Screen (Not Detect) Ur Buprenorphine Scrn (Not Detect) ng/mL Ur Oxycodone Screen (Not Detect) ng/mL Urine Methadone Screen (Not Detect) ng/mL Urine Fentanyl Screen (Not Detect) Ur Barbiturates Screen (Not Detect) Ur Phencyclidine Scrn (Not Detect) Ur Amphetamines Screen (Not Detect) U Benzodiazepines Scrn (Not Detect) [place] < 0.10 L (0.60-1.20) mmol/L Urine Cocaine Screen (Not Detect) U Marijuana (THC) Screen (Not Detect) Ethyl Alcohol < 10 mg/dL Influenza Type A (PCR) NEGATIVE (Negative) Influenza Type B (PCR) NEGATIVE (Negative) RSV RNA Qual (PCR) NEGATIVE (Negative) SARS-CoV-2 RNA (RT-PCR) NEGATIVE (Negative) 09/07/24 Range/Units 17:15 WBC (4.8-10.8) X10*3/uL RBC (4.60-5.80) X10*6/uL Hgb (14.0-18.0) g/dl Hct (42.0-52.0) % MCV (80.0-98.0) fL MCH (27.0-33.0) pg MCHC (31.0-36.0) g/dl RDW (11.0-16.0) % Plt Count (160-400) X10*3/uL MPV (9.4-12.4) fL Immature Gran % (Auto) (0.0-0.4) % Neut % (Auto) (45-73) % Lymph % (Auto) (20-40) % [place] % (Auto) (2-11) % Eos % (Auto) (0-4) % Baso % (Auto) (0-2) % Lymph # (Auto) (1.2-4.9) X10*3/uL [place] # (Auto) (0.1-1.2) X10*3/uL Eos # (Auto) (0.0-0.4) X10*3/uL Baso # (Auto) (0.0-0.2) X10*3/uL Abs Immat Gran (auto) (0.00-0.03) X10*3/uL Absolute Neuts (auto) (2.0-8.3) x10*3/uL Absolute Nucleated RBC (0.0-0.012) X10*3/uL Nucleated RBC % (auto) (0.0-0.2) /100WBC PT (10.9-12.4) SEC INR (0.9-1.1) Sodium (135-145) mmol/L Potassium (3.3-5.1) mmol/L Chloride (96-108) mmol/L Carbon Dioxide (22-29) mmol/L Anion Gap (12-20) BUN (9-16) mg/dL Creatinine (0.5-1.4) mg/dL Estim Creat Clear Calc Estimated GFR POC Glucose (60-115) mg/dL Random Glucose (60-115) mg/dL Lactic Acid (0.5-2.0) mmol/L Calcium (8.4-10.2) mg/dL Magnesium (1.6-2.6) mg/dL Total Bilirubin (0.0-1.0) mg/dL AST (5-37) U/L ALT (0-40) U/L Alkaline Phosphatase (39-117) U/L Total Protein (6.5-8.0) g/dL Albumin (3.5-5.0) g/dL Urine Color Yellow Urine Appearance Clear Urine pH 6.0 (5.0-9.0) Ur Specific [place] 1.020 (1.005-1.025) Urine Protein Negative (Neg-Trace) mg/dL Urine Glucose (UA) Negative (Negative) mg/dL Urine Ketones Negative (Negative) mg/dL Urine Blood Negative (Negative) Urine Nitrite Negative (Negative) Ur Leukocyte Esterase Negative (Negative) Urine Opiates Screen Not Detected (Not Detect) Ur Buprenorphine Scrn Positive H (Not Detect) ng/mL Ur Oxycodone Screen Not Detected (Not Detect) ng/mL Urine Methadone Screen Not Detected (Not Detect) ng/mL Urine Fentanyl Screen Not Detected (Not Detect) Ur Barbiturates Screen Not Detected (Not Detect) Ur Phencyclidine Scrn Not Detected (Not Detect) Ur Amphetamines Screen Not Detected (Not Detect) U Benzodiazepines Scrn Not Detected (Not Detect) [place] (0.60-1.20) mmol/L Urine Cocaine Screen Not Detected (Not Detect) U Marijuana (THC) Screen POSITIVE H (Not Detect) Ethyl Alcohol mg/dL Influenza Type A (PCR) (Negative) Influenza Type B (PCR) (Negative) RSV RNA Qual (PCR) (Negative) SARS-CoV-2 RNA (RT-PCR) (Negative) Independent Interpretation I performed an independent interpretation of an: CT Scan Interpretation: No evidence of ICH on CT head Radiology Impression Discussion of test interpretation with radiology: I have reviewed the radiologist's reading. Radiologist Impression: CT/CT head/brain wo IV con IMPRESSION: 1. No acute intracranial abnormality. 2. Chronic changes as discussed. External Record Review External record reviewed: Inpatient record, Office record and Outpatient record Discharge Plan Discharge Clinical Impression: Depression, Bipolar disorder Patient Disposition: Still a Patient Prescriptions: No Action buprenorphine-naloxone 12-3 mg film 1 film sublingual BID Eliquis 5 mg tablet 5 mg PO BID nicotine 14 mg/24 hr Patch 24 Hour 14 mg transdermal DAILY 28 Days Qty: 28 0RF nicotine (polacrilex) 4 mg gum 4 mg buccal Q2H PRN (Reason: nicotine cravings) 30 Days Qty: 110 0RF lithium carbonate 300 mg Capsule 600 mg PO BID 30 Days Qty: 120 0RF olanzapine 2.5 mg Tablet 2.5 mg PO BID 30 Days Qty: 60 0RF gabapentin 800 mg tablet 800 mg PO TID 30 Days Qty: 90 0RF Incruse Ellipta 62.5 mcg/actuation blister with device 1 inh INHALATION DAILY 30 Days Qty: 30 0RF albuterol sulfate [Ventolin HFA] 90 mcg/actuation HFA aerosol inhaler 2 puff inhalation Q6H PRN (Reason: Shortness Of Breath Or Wheezing) cefuroxime axetil 500 mg tablet 500 mg PO BID Qty: 10 0RF azithromycin 500 mg tablet 500 mg PO DAILY 5 Days Qty: 5 0RF Print Language: Israeli
--- NOTE | 2024-09-07 11:40 | ECG_ITS ---
Test Reason : ALTERED MENTAL Blood Pressure : */* mmHG Vent. Rate : 56 BPM Atrial Rate : 56 BPM P-R Int : 274 ms QRS Dur : 106 ms QT Int : 430 ms P-R-T Axes : 53 -3 32 degrees QTcB Int : 414 ms Sinus bradycardia with 1st degree A-V block Otherwise normal ECG When compared with ECG of 15-Jun-2024 04:04, Nonspecific T wave abnormality no longer evident in Lateral leads Referred By: Gilma Ndiaye Electronically Signed By: RANDY KANG MD
[2024-09-07 11:42] VITALS: BP 119/73; PULSE 60; RESP 18; TEMP 36.6; O2SAT 97; BMI 38.0
[2024-09-07 11:45] LABS: Glucose, Whole Blood 98 mg/dL (60-115)
[2024-09-07 12:55] LABS: MANUAL DIFF FLAG NO
[2024-09-07 13:00] LABS: Basophils Absolute Auto 0.1 X10*3/uL (0.0-0.2); Basophils Percent Auto 1.4 % (0-2); Eosinophils Absolute Auto 0.1 X10*3/uL (0.0-0.4); Eosinophils Percent Auto 1.6 % (0-4); Hematocrit 38.1 % (42.0-52.0); Hemoglobin 11.9 g/dl (14.0-18.0); Lymphocytes Absolute Auto 1.3 X10*3/uL (1.2-4.9); Lymphocytes Percent Auto 25.2 % (20-40); Mean Corpuscular HGB Conc 31.2 g/dl (31.0-36.0); Mean Platelet Volume 9.3 fL (9.4-12.4); Monocytes Absolute Auto 0.6 X10*3/uL (0.1-1.2); Monocytes Percent Auto 11.7 % (2-11); Neutrophils Absolute Auto 3.1 x10*3/uL (2.0-8.3); Neutrophils Percent Auto 60.1 % (45-73); Platelet Count 207 X10*3/uL (160-400); Red Blood Count 3.97 X10*6/uL (4.60-5.80); Red Cell Distribution Width 14.4 % (11.0-16.0); White Blood Count 5.1 X10*3/uL (4.8-10.8)
[2024-09-07 13:05] LABS: INTERNATIONAL NORM RATIO 1.1 (0.9-1.1); Prothrombin Time 13.2 SEC (10.9-12.4)
[2024-09-07 13:09] LABS: Ethanol < 10 mg/dL
[2024-09-07 13:11] LABS: Alanine Aminotransferase 9 U/L (0-40); Albumin Level 3.3 g/dL (3.5-5.0); Alkaline Phosphatase 62 U/L (39-117); Anion Gap 9 (12-20); Aspartate Amino Transferase 21 U/L (5-37); Bilirubin Total 0.2 mg/dL (0.0-1.0); Blood Urea Nitrogen 13 mg/dL (9-16); Calcium 8.5 mg/dL (8.4-10.2); Carbon Dioxide 27 mmol/L (22-29); Chloride 108 mmol/L (96-108); Creatinine Clr Calc Pharmacy 132.1; Estimated Glomerular Filt Rate > 60; Glucose Random 92 mg/dL (60-115); Potassium 3.8 mmol/L (3.3-5.1); Sodium 140 mmol/L (135-145); Total Protein 6.7 g/dL (6.5-8.0)
[2024-09-07 13:14] LABS: Lactic Acid 1.7 mmol/L (0.5-2.0)
[2024-09-07] MEDS: Azithromycin 500 MG in 0.9 % Sodium Chloride 250 ML 125 MG IV (13:19)
[2024-09-07] MEDS: cefTRIAXone sodium 1 GM VIAL IVPUSH (13:19)
--- OUTSIDE RECORDS SUMMARY | 2024-09-07 13:31 | XMS_ITS | Clinical Summary ---
Author Organization [facility] Address [address] [place] [address] Care Team Providers Care House Director Name Role Phone Bashir Vo MD Primary Care Provider [phone] Allergies No known active allergies Medications Medication Sig Dispensed Refills Start Date End Date Status Eliquis 5 MG tablet Take 1 tablet (5 mg total) by mouth 2 (two) times a day. 09/15/2023 Active furosemide (LASIX) 20 MG tablet Take 1 tablet (20 mg total) by mouth daily. 10/27/2023 Active gabapentin (NEURONTIN) 800 MG tablet Take 1 tablet (800 mg total) by mouth 2 (two) times a day. 10/19/2023 Active lisinopril (PRINIVIL,ZeSTRIL) 40 MG tabletIndications:Acu te respiratory failure with hypoxia (HCC) Take 1 tablet (40 mg total) by mouth daily. 90 tablet 11/24/2023 Active multivitamin Tab tabletIndications:Acu te respiratory failure with hypoxia (HCC) Take 1 tablet by mouth daily. 11/24/2023 Active PANTOprazole (PROTONIX) 40 MG EC tabletIndications:Acu te respiratory failure with hypoxia (HCC) Take 1 tablet (40 mg total) by mouth daily. 30 tablet 11/24/2023 Active nicotine polacrilex (NICORETTE) 4 MG gumIndications:Acute respiratory failure with hypoxia (HCC) Apply 1 each (4 mg total) to the mouth or throat every 2 (two) hours as needed for smoking cessation. 11/23/2023 Active nicotine (NICODERM CQ) 21 MG/24HR patchIndications:Acut e respiratory failure with hypoxia (HCC) Place 1 patch on the skin daily. 11/23/2023 Active Active Problems Problem Noted Date Diagnosed Date Aspiration pneumonia 11/17/2023 Substance use 11/17/2023 Pressure injury of left buttock, stage 2 024 Social History Tobacco Use Types Packs/Day Years Used Date Smoking Tobacco: Never Assessed [facility] Utilities Answer Date Recorded In the past 12 months has th e electric, gas, oil, or water company threatened to shut off services in your home? Patient unable to answer 11/17/2023 AUDIT-C Answer Date Recorded Q1: How often do you have a drink containing alcohol? Patient unable to answer 11/17/2023 Q2: How many drinks containi ng alcohol do you have on a typical day when you are drinking? Patient unable to answer Q3: How often do you have si x or more drinks on one occasion? Patient unable to answer 11/17/2023 Hunger Vital Sign Answer Date Recorded Within the past 12 months, y ou worried that your food would run out before you got the money to buy more. Patient unable to answer 11/17/2023 Within the past 12 months, t he food you bought just didn't last and you didn't have money to get more. Patient unable to answer 11/17/2023 PRAPARE - Transportation Answer Date Re corded In the past 12 months, has l ack of transportation kept you from medical appointments or from getting medications? Patient unable to answer 11/17/2023 In the past 12 months, has l ack of transportation kept you from meetings, work, or from getting things needed for daily living? Patient unable to answer 11/17/2023 Housing Stability Vital Sign Answer Ko e Recorded In the last 12 months, was t here a time when you were not able to pay the mortgage or rent on time? Patient unable to answer 11/17/2023 In the last 12 months, how m any places have you lived? 1 11/17/2023 In the last 12 months, was t here a time when you did not have a steady place to sleep or slept in a assisted (including now)? Patient unable to answer 11/17/2023 Sex and Gender Information Value Date Recorded Sex Assigned at Male 11/16/2023 11:24 PM EDT Gender Identity Male 11/16/2023 11:24 PM EDT Sexual Orientation Heterosexual (straight) 11/17 9:07 AM EDT Last Filed Vital Signs Vital Sign Reading Time Taken Comments Blood Pressure 124/72 11/23/2023 12:37 PM EDT Pulse 112 11/23/2023 12:37 PM EDT Temperature 36.9 ??C (98.5 ??F) 11/23/2023 12:37 PM E DT Respiratory Rate 18 11/23/2023 12:37 PM EDT Oxygen Saturation 93% 11/23/2023 12:37 PM EDT Inhaled Oxygen Concentration - - Weight 86.7 kg (191 lb 2.2 oz) 11/22/2023 6:00 A M EDT Height 182.9 cm (6') 11/17/2023 3:40 AM EDT Body Mass Index 25.92 11/17/2023 3:40 AM EDT Plan of Treatment Health Maintenance Due Date Last Done Comments Hepatitis C Virus Screening 1960 DTaP/Tdap/Td Vaccines (1 - Tdap) 1977 Pneumococcal Vaccines 50+ (1 of 2 - PCV) 1977 Colonoscopy 2003 Zoster (Shingles) Vaccine (1 of 2) 2008 Influenza Vaccine 02/23/2024 COVID-19 Vaccine (1 - 2023-2 5 season) 2024 RSV Vaccine 60 years and old er and Patients (1 - 1-dose 75+ series) 2033 Hepatitis B Vaccines Aged Out No long er eligible based on patient's age to complete this topic Advance Directives * Full Code (Latest Code Status on File) Date Activated Date Inactivated Comments 11/17/2023 1:14 AM Healthcare Agents on File Name Relationship Healthcare Agent [facility] p Communication Annemarie Sands Adult child 4. Next of Kin ( Spouse, Adult Child, Parent, Adult Sibling, Grandparent) Care Teams House Director Relationship Specialty Start Date End Date Bashir Vo MD [address] [place] [address] PCP - General Emergency Medicine 11/18/23
--- OUTSIDE RECORDS SUMMARY | 2024-09-07 13:31 | XMS_ITS | Patient Health Record ---
Author Organization [facility] [address] [facility] Location Address [address] [place] [id number] Care Team Providers Care Foam Rubber Fabricator Name Role Phone Kevin MATTA, Josiah Unavailable [phone] Edward Rucker MD Unavailable [phone] ALLERGIES Allergen (clinical drug ingredient) Drug/Non Drug Allergy documented on EMR Reaction Allergy Type Onset Date Status codeine Codeine Unknown Drug Allergy Active prednisolone Prednisolone Unknown Drug Allergy A ctive RESULTS Component Value Reference Range Notes MRI : Brain without Contrast Reviewed date:03/19/2024 01:02:55 PM Interpretation: Performing Lab: Notes/Report: REASON FOR REFERRAL Diagnosis 1 Memory loss (R41.3) Referral Organization [facility] [address] [place] [address] Location Referring Provider First Name Edward Referring Provider Last Name Chaim MATTA Referring Provider Speciality Neurology Referred Provider Specialty Neuropsychia try General Notes referral for neuropy remi psych evaluation, Shannan Chapa 03/28/2024 10:22:09 AM >faxed to [facility] (NEUROPYSCH EVALUATION OF [place])[phone] Referral Priority Routine MEDICATIONS Medication SIG (Take, [...] History Observation Description Sex Assigned At Male Section Notes: history of drugs from 8 years of age on disability, not sure why no alcohol currently at [facility] he used to smoke before history of drug use, but not currently doing any PROBLEMS Problem Type ICD Code Onset Dates Problem Status W/U Status Risk SNOMED Code Notes Problem Memory loss (R41.3) Active confirmed Memory loss (01320177) 63 year old male who is here [...] Gait abnormality (R26.9) Active confirmed Gait abnormality (78792103) gait is possibly due to neuropathy ordering EMG legs he is already on gabapentin VITAL SIGNS Heart Rate 90 /min 03/19/2024 Respiratory Rate 16 /min 03/19/2024 Blood pressure diastolic 100 mm Hg 03/19/2024 Blood pressure systolic 158 mm Hg 03/19/2024 Encounters Encounter Location Date Provider Diagnosis [address] [id number] 03/19/2024 Edward Rucker MD Memory loss R41.3 ; Confusion R41.0 and Gait abnormality R26.9 [facility] [address] [address] 04/26/2024 Josiah Brown MD ASSESSMENTS Encounter Date Diagnosis Assessment Notes Treatment Notes Treatment Clinical Notes Section Notes 03/19/2024 Memory loss (ICD-10 - R41.3) [...] Insured Coverage Start Date Coverage End Date [facility] [address] [place] [address] [id number] Thomas Noe Self - patient is the insured MEDICAL (GENERAL) HISTORY Medical History History ICD Code HTN COPD Opioid use disorder Benzodiazepine use disorder PTSD h/o DVT h/o neuropathy Hospitalization History Reason Date(Month/Year) overdose
--- OUTSIDE RECORDS SUMMARY | 2024-09-07 13:31 | XMS_ITS ---
Author Organization [facility] [address] [place] [address] [address] Address [address] [place] [id number] Care Team Providers Care Windows Systems Engineer Name Role Phone Kevin MATTA, Josiah Gatica [phone] MEDICATIONS Medication SIG (Take, Route, Frequency, Duration) [...] Male Encounters Encounter Location Date Provider Diagnosis [facility] [address] [address] 04/26/2024 Josiah Brown MD PLAN OF TREATMENT No Information Progress Notes * SHEY AndreaToddOB:1959 (63 yo M)Acc No.[id number]:04/26/2024 Patient:??Thomas KAT Provider:??Josiah Brown MD :1960?Age:63 Y?Sex:Ma le Date:04/26/2024 Phone: Address:[address] [place] [address] Subjective: * Chief Complaints: * ? * [...]
--- OUTSIDE RECORDS SUMMARY | 2024-09-07 13:31 | XMS_ITS | Clinical Summary ---
Author Organization [facility] it Address [address] [place] [address] Care Team Providers Care Auditor In Charge Name Role Phone Unavailable Primary Care Provider Unavailabl e Social History Tobacco Use Types Packs/Day Years Used Date Smoking Tobacco: Never Assessed Sex and Gender Information Value Date Recorded Sex Assigned at Not on file Legal Sex Male 9:29 AM EST Gender Identity Not on file Sexual Orientation Not on file Plan of Treatment Health Maintenance Due Date Last Done Comments DTaP,Tdap,and Td Vaccines (1 - Tdap) 1977 Hepatitis A Vaccines (1 of 2 - Risk 2-dose series) 1977 Zoster Vaccines (1 of 2) 2008 Pneumococcal Vaccine: 50+ Ye ars (1 of 1 - PCV) 2023 Abdominal Aortic Aneurysm (A AA) Screen 02/25/2024 Cholesterol Screening (Lipid Panel) 02/25/2024 Colorectal Cancer Screening: Colonoscopy 02/25/2024 Depression Screening 02/25/2024 Falls Risk Assessment 02/25/2024 Hepatitis C Screening 02/25/2024 Social Influencers of Health Screening 02/25/2024 COVID-19 Vaccine (1 - 2023-2 5 season) 2024 Influenza Vaccine (#1) 2024 RSV Immunization Patients 60 + Years Old (1 - 1-dose 75+ series) 2033 HIB Vaccines Aged Out No longer eligi ble based on patient's age to complete this topic HPV Vaccines Aged Out No longer eligi ble based on patient's age to complete this topic Hepatitis B Vaccines Aged Out No long er eligible based on patient's age to complete this topic IPV Vaccines Aged Out No longer eligi ble based on patient's age to complete this topic MMR Vaccines Aged Out No longer eligi ble based on patient's age to complete this topic Meningococcal ACWY Vaccine Aged Out N o longer eligible based on patient's age to complete this topic RSV Immunization Patients Un alexandro 20 months Aged Out No longer eligible b ased on patient's age to complete this topic Varicella Vaccines Aged Out No longer eligible based on patient's age to complete this topic
--- OUTSIDE RECORDS SUMMARY | 2024-09-07 13:31 | XMS_ITS ---
Author Organization [facility] [address] [place] [address] [address] Address [address] [place] [id number] Care Team Providers Care Horticultural Manager Name Role Phone Chaim MATTA, Edward Unavailable [phone] ALLERGIES Allergen (clinical drug ingredient) Drug/Non Drug Allergy documented on EMR Reaction Allergy Type Onset Date Status codeine Codeine Unknown Drug Allergy Active prednisolone Prednisolone Unknown Drug Allergy A ctive RESULTS Component Value Reference Range Notes MRI : Brain without Contrast Reviewed date:03/19/2024 01:02:55 PM Interpretation: Performing Lab: Notes/Report: REASON FOR REFERRAL Diagnosis 1 Memory loss (R41.3) Referral Organization [facility] [address] Location Referring Provider First Name Edward Referring Provider Last Name Chaim MATTA Referring Provider Speciality Neurology Referred Provider Specialty Neuropsychia try General Notes referral for neuropy remi psych evaluation, Shannan Chapa 03/28/2024 10:22:09 AM >faxed to [facility] (NEUROPYSCH EVALUATION OF [place])[phone] Referral Priority Routine REASON FOR VISIT AMS, [...] Memory loss (R41.3) Active confirmed Memory loss (54295894) 63 year old male who is here [...] Gait abnormality (R26.9) Active confirmed Gait abnormality (04878010) gait is possibly due to neuropathy ordering EMG legs he is already on gabapentin VITAL SIGNS Blood pressure systolic 158 mm Hg 03/19/20 Blood pressure diastolic 100 mm Hg 024 Heart Rate 90 /min 03/19/2024 Respiratory Rate 16 /min 03/19/2024 Encounters Encounter Location Date Provider Diagnosis [facility] [address] [place] [address] [place] [phone] 03/19/2024 Edward Rucker MD Memory loss R41.3 [...] Appt Details Follow Up: f/u after [facility] testing, Reason: Progress Notes * Irwin KAT:1959 (63 yo M)Acc No.[id number]:03/19/2024 Patient:??Thomas KAT Provider:??Edward Rucker MD :1960?Age:63 Y?Sex:Paulie lopez Date:03/19/2024 Phone: Address:[address] [place] [address], [facility], [place], [id number] Subjective: * Chief Complaints: * ?AMSGait disorderH/o ne uropathy * HPI: ?Constitutional:? Chief Complaint of: AMS, Gait ataxia ?63 year old male who presents from [facility]. ?Reports he Tasneem 5x in the past year. He has been induced into a coma multiple times. He has been seen through many hospitals including [facility], [facility], [facility], etc. ?States one time he took his daughter car to get cigarettes, ended up at [facility]. Took a bus to multiple different locales. [...] Normal. ?Memory testing: Normal short, intermediate and mcc memory ?Fund of knowledge: Normal to bedside [...] of AMS and memory complaintMMSE today is 30/30PCP is concerned about underlying neurological disorder. many [...] testing * Billing Information: * Visit Code:?? 41221 Office Visit, New Pt., Level 4. * Procedure Codes:?? * Sign off status: Completed true * Provider:??Edward Rucker MD Date:?? 03/19/2024 History and Physical Notes * HPI (History of Present Illness) Category Sub-Category Detail Notes Category Not es Constitutional Chief Complaint of: AMS, Gait ataxia 63 year old male who presents from [facility]. Reports he Tasneem 5x in the past year. He has been induced into a coma multiple times. He has been seen through many hospitals including [facility], [facility], [facility], etc. States one time he took his daughter car to get cigarettes, ended up at [facility]. Took a bus to multiple different locales. Does not remember what happened himself and forgot where he put his daughter's car. He was taking heroin at the time. Also reports will having trouble with balance. Reports history of neuropathy. CT head (01/2024): NO ACUTE INTRACRANIAL ABNORMALITY. Atrophy and microangiopathy. [Records reviewed with the patient today] Examination Category Sub-Category Detail Notes Category Not es General Examination Comprehensive Examination: General examination: The patient was well developed and well nourished. Normal hygiene was noted. Eyes / Ophthalmoscopic: See under CN-2 Cardiovascular: Carotid arteries: Normal auscultation to the carotid arteries. Heart Auscultation: Normal auscultation to the heart. Peripheral Vascular Exam: Normal peripheral pulses. Mental status: Alertness, Attention and Concentration: Normal Orientation: Normal. Memory testing: Normal short, intermediate and computer terminal operator memory Fund of knowledge: Normal to bedside testing Speech: Normal Language: Normal including naming. PERRL, EOMI, V1-3 intact, no facial droop, hearing intact, uvula is midline, scm/trap 5/5 b/l, tongue is midline tone: normal x 4 ext bulk: normal x 4 ext strength is 5/5 all [address] (+) romberg no dysmetria on FTN b/l Gait is normal DTR depressed MMSE today: Consultation Request Notes Referral Date Referring Provider Referred Provider Not es 03/19/2024 Chaim MATTA, Edward ,
[2024-09-07 13:57] LABS: Influenza A PCR NEGATIVE (Negative); Influenza B PCR NEGATIVE (Negative); Resp Syncy Virus RNA Qual PCR NEGATIVE (Negative); SARS COV2 PCR INHOUSE NEGATIVE (Negative)
[2024-09-07 14:41] VITALS: BP 119/66; PULSE 63; RESP 14; O2SAT 96
--- NOTE | 2024-09-07 14:41 | PC.NURSE ---
continues to sleep. pupils 3mm
[2024-09-07 15:16] LABS: Lithium < 0.10 mmol/L (0.60-1.20)
--- NOTE | 2024-09-07 17:13 | PC.NURSE ---
Pt is ambulatory to br. states he feels fine to go home.
[2024-09-07 17:24] LABS: Appearance Urine Clear; Color Urine Yellow; Glucose Urine UA Negative (Negative); Leukocyte Esterase Urine Negative (Negative); Nitrite Urine Negative (Negative); Urine Blood Negative (Negative); Urine Ketones Negative (Negative); Urine Protein Negative (Neg-Trace)
--- NOTE | 2024-09-07 17:32 | PC.NURSE ---
This RN removed IV aprx 15 minutes ago when patient began frequenting bathroom repeatedly. Pt had mult bottles of THC, one bottle of ativan and one bottle of gabapentin prescribed to him. has been roaming and not speaking with staff. only response was to the question would you like a snack?
[2024-09-07 17:36] LABS: Amphetamine Screen Urine Not Detected (Not Detect); Barbiturates, Urine Not Detected (Not Detect); Benzodiazepines Screen Urine Not Detected (Not Detect); Buprenorphine Scr Positive (Not Detect); Cannabinoid Screen Urine POSITIVE (Not Detect); Cocaine Screen Urine Not Detected (Not Detect); Fentanyl, urine Not Detected (Not Detect); Methadone Screen, Urine Not Detected (Not Detect); Opiate Screen Urine Not Detected (Not Detect); Oxycodone Screen Urine Not Detected (Not Detect); Phencyclidine Screen Urine Not Detected (Not Detect)
[2024-09-07 17:39] VITALS: BP 136/72; PULSE 58; RESP 18; O2SAT 97
--- NOTE | 2024-09-07 18:14 | PC.NURSE ---
pt is able to follow commands and dress in green elver. gabapentin and ativan from pockets sent to pharmy. continues to remain silent except when asking for food.
--- NOTE | 2024-09-07 19:16 | PC.NURSE ---
sleeping. needs to be escorted to pod
--- NOTE | 2024-09-07 20:43 | MHC.EDTECH ---
Belongings in locker #2 in Pod
--- NOTE | 2024-09-07 21:40 | PC.NURSE ---
client wandered mildly once transitioned from main ED asked where bathroom was and utilized bathroom then adjourned to his assigned room
[2024-09-07 23:25] VITALS: BP 173/81; PULSE 66; RESP 18; TEMP 36.6; O2SAT 94
[2024-09-07 23:30] VITALS: BMI 38.0
--- NOTE | 2024-09-08 00:37 | PC.ADMIT ---
Mr Thomas Hartman was admitted to as a 12B on 5 minute checks. Patient's skin check was unremarkable. His current issues include Bipolar 1, depression, KENN, pneumonia, COPD, and possible overdose. His toxicology screen was positive for Bupenorphine and THC. The patient answered a few questions, then kassandra and returned to his room, ending the attempted admission. Thomas was on medications but apparently has gone without taking these medications for a few weeks. Thomas lives with his daughter in an apartment. He smokes 30 cigarettes a day and vapes as well. It is unclear if he drinks alcohol, but he is not currently showing signs of withdrawal.
[2024-09-08 08:00] VITALS: RESP 16
[2024-09-08 09:27] LABS: Estimated Average Glucose 103 mg/dL; Hemoglobin A1C 115.6281 umol/L; Hemoglobin A1c % 5.2 % (<6.0)
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
[2024-09-08 09:44] LABS: Cholesterol 165 mg/dL (<200); HDL Cholesterol 37 mg/dL (>40); LDL Cholesterol Calculated 114 mg/dL (<100); Magnesium 1.8 mg/dL (1.6-2.6); Triglycerides 73 mg/dL (<150)
[2024-09-08 09:54] LABS: Thyroid Stimulating Hormone 0.96 uIU/mL (0.32-4.0)
[2024-09-08 10:10] LABS: Folate 13.7 ng/mL (> or = 4.0); Vitamin B12 482 pg/mL (200-900)
[2024-09-08] MEDS: Nicotine 14 MG PATCH.TD24 TRANSDERMA (10:30)
[2024-09-08] MEDS: Buprenorphine/Naloxone 12/3 mg FILM 1 FILM SUBLINGUAL ×2 (10:31→19:29)
[2024-09-08] MEDS: Apixaban 5 MG TABLET PO ×2 (10:31→19:58)
[2024-09-08] MEDS: OLANZapine 2.5 MG TABLET PO ×2 (10:31→19:58)
[2024-09-08] MEDS: Lithium Carbonate 300 MG CAPSULE 600 MG PO (10:31)
--- NOTE | 2024-09-08 10:31 | PHA.MEDREC ---
Pharmacy Consult ? Medication Reconciliation Pharmacy has completed the medication reconciliation. Pharmacy has reviewed med rec done by nursing. Corrections made including removal of azithromycin and cefuroxime last filled in May for 5 day supply, addition of bupropion xl 150 that was missing from original home med list, and change of gabapentin 800 mg tid to more current dosing of 600 mg tid. MD notified of changes and she adjusted orders accordingly.
[2024-09-08] MEDS: Gabapentin 300 MG CAPSULE 600 MG PO ×2 (14:40→19:58)
[2024-09-08] MEDS: Nicotine Polacrilex 2 MG GUM 4 MG BUCCAL (15:11)
[2024-09-09 08:00] VITALS: BP 133/81; PULSE 76; RESP 16; TEMP 36.4; O2SAT 94
[2024-09-09] MEDS: Nicotine 14 MG PATCH.TD24 TRANSDERMA (08:39)
[2024-09-09] MEDS: Lithium Carbonate 300 MG CAPSULE 600 MG PO (08:39)
[2024-09-09] MEDS: OLANZapine 2.5 MG TABLET PO ×2 (08:39→21:07)
[2024-09-09] MEDS: Buprenorphine/Naloxone 12/3 mg FILM 1 FILM SUBLINGUAL ×2 (08:39→21:07)
[2024-09-09] MEDS: Apixaban 5 MG TABLET PO ×2 (08:39→21:08)
[2024-09-09] MEDS: Gabapentin 300 MG CAPSULE 600 MG PO ×3 (08:39→21:08)
--- NOTE | 2024-09-09 09:38 | P.PNPSI_ITS ---
Subjective Subjective Date of Service: 09/09/24 Reason For Visit: Bipolar disorder Subjective Notes: Conditional Voluntary Healthcare Proxy: No Guardianship: No Medical Problems Affecting Mental Status: No Interim History: Pt refusing to meet today. Later in the day he became anxious, needing prns per team, along with confusion. Will continue to attempt to make alliance to assist him. Medication Compliance: Intermittent Side effects from medications: Yes (??) Attending Groups: No Review of Systems Acute medical concerns: No Medical Review of Systems: unchanged Review of Systems Review of Systems confusion is intermittent Mental Status Exam Mental Status Exam Patient Appearance: Fatigued Patient Orientation: Person Level of Consciousness: Sedated Patient Behavior: Guarded, Suspicious, Resistive to Care and Confused Mood Description: Angry Affect Description: Hostile Patient Cognition Impaired: No Ability to Follow Directions: Fair Speech Pattern: Spontaneous Speech and Poor Articulation Memory Description: Remote Impaired and Episodic Impaired Hallucinations: None Delusions: Paranoid Ideation Thought Process: Distracted Thought Content: positive for Circumstantial Depressive Symptoms: Increased Irritability and Difficulty Concentrating Judgement: Poor Diagnostics Vital Signs (24Hr): BMI result Body Mass Index 38.0 Labs 09/07/24 12:47 09/07/24 12:47 Labs: Laboratory Results - last 48 hr 09/07/24 09/07/24 09/07/24 11:42 12:47 14:49 WBC 5.1 RBC 3.97 L Hgb 11.9 L Hct 38.1 L MCV 96.0 MCH 30.0 MCHC 31.2 RDW 14.4 Plt Count 207 MPV 9.3 L Immature Gran % (Auto) 0.0 Neut % (Auto) 60.1 Lymph % (Auto) 25.2 [place] % (Auto) 11.7 H Eos % (Auto) 1.6 Baso % (Auto) 1.4 Lymph # (Auto) 1.3 [place] # (Auto) 0.6 Eos # (Auto) 0.1 Baso # (Auto) 0.1 Abs Immat Gran (auto) 0.00 Absolute Neuts (auto) 3.1 Absolute Nucleated RBC 0.000 Nucleated RBC % (auto) 0.0 PT 13.2 H INR 1.1 Sodium 140 Potassium 3.8 Chloride 108 Carbon Dioxide 27 Anion Gap 9 L BUN 13 Creatinine 0.63 Estim Creat Clear Calc 132.1 Estimated GFR > 60 POC Glucose 98 Random Glucose 92 Estimat Average Glucose Hemoglobin A1c % Lactic Acid 1.7 Calcium 8.5 Magnesium 2.0 Total Bilirubin 0.2 AST 21 ALT 9 Alkaline Phosphatase 62 Total Protein 6.7 Albumin 3.3 L Triglycerides Cholesterol LDL Cholesterol, Calc HDL Cholesterol Vitamin B12 Folate TSH Free T4 Urine Color Urine Appearance Urine pH Ur Specific [place] Urine Protein Urine Glucose (UA) Urine Ketones Urine Blood Urine Nitrite Ur Leukocyte Esterase Urine Opiates Screen Ur Buprenorphine Scrn Ur Oxycodone Screen Urine Methadone Screen Urine Fentanyl Screen Ur Barbiturates Screen Ur Phencyclidine Scrn Ur Amphetamines Screen U Benzodiazepines Scrn [place] < 0.10 L Urine Cocaine Screen U Marijuana (THC) Screen Ethyl Alcohol < 10 Influenza Type A (PCR) NEGATIVE Influenza Type B (PCR) NEGATIVE RSV RNA Qual (PCR) NEGATIVE SARS-CoV-2 RNA (RT-PCR) NEGATIVE 09/07/24 09/08/24 17:15 09:04 WBC RBC Hgb Hct MCV MCH MCHC RDW Plt Count MPV Immature Gran % (Auto) Neut % (Auto) Lymph % (Auto) [place] % (Auto) Eos % (Auto) Baso % (Auto) Lymph # (Auto) [place] # (Auto) Eos # (Auto) Baso # (Auto) Abs Immat Gran (auto) Absolute Neuts (auto) Absolute Nucleated RBC Nucleated RBC % (auto) PT INR Sodium Potassium Chloride Carbon Dioxide Anion Gap BUN Creatinine Estim Creat Clear Calc Estimated GFR POC Glucose Random Glucose Estimat Average Glucose 103 Hemoglobin A1c % 5.2 Lactic Acid Calcium Magnesium 1.8 Total Bilirubin AST ALT Alkaline Phosphatase Total Protein Albumin Triglycerides 73 Cholesterol 165 LDL Cholesterol, Calc 114 H HDL Cholesterol 37 L Vitamin B12 482 Folate 13.7 TSH 0.96 Free T4 1.00 Urine Color Yellow Urine Appearance Clear Urine pH 6.0 Ur Specific [place] 1.020 Urine Protein Negative Urine Glucose (UA) Negative Urine Ketones Negative Urine Blood Negative Urine Nitrite Negative Ur Leukocyte Esterase Negative Urine Opiates Screen Not Detected Ur Buprenorphine Scrn Positive H Ur Oxycodone Screen Not Detected Urine Methadone Screen Not Detected Urine Fentanyl Screen Not Detected Ur Barbiturates Screen Not Detected Ur Phencyclidine Scrn Not Detected Ur Amphetamines Screen Not Detected U Benzodiazepines Scrn Not Detected [place] Urine Cocaine Screen Not Detected U Marijuana (THC) Screen POSITIVE H Ethyl Alcohol Influenza Type A (PCR) Influenza Type B (PCR) RSV RNA Qual (PCR) SARS-CoV-2 RNA (RT-PCR) Imaging Radiology Impressions: ITS Impressions Head CT 09/07/24 11:41 IMPRESSION: 1. No acute intracranial abnormality. 2. Chronic changes as discussed. Electronically signed by: Adalberto Mahan MD 09/07/2024 12:16 PM EST RP Chest X-Ray 09/07/24 12:10 IMPRESSION: Right basilar opacity, in keeping with bronchopneumonia in the appropriate clinical setting. Electronically signed by: Adalberto Mahan MD 09/07/2024 12:20 PM EST RP Medications Medications Current Medications Acetaminophen (Acetaminophen 325 Mg Tablet) 650 mg PO Q6H PRN PRN Reason: Headache/Pain, Scale 1-10 Al Hydroxide/Mg Hydroxide (Magnesium Hydrox/Alum Hydrox 30 Ml Oral.Susp) 30 ml PO Q6H PRN PRN Reason: Heartburn/Nausea Albuterol Sulfate (Albuterol Sulfate 90 Mcg 8 Gm Inhaler) 2 puff INHALE RQ6H PRN PRN Reason: sob Apixaban (Apixaban 5 Mg Tablet) 5 mg PO BID [facility] Last Admin: 09/09/24 08:39 Dose: 5 mg Buprenorphine/Naloxone (Buprenorphine/Naloxone 12/3 Mg Film) 1 film SUBLINGUAL BID [facility] Last Admin: 09/09/24 08:39 Dose: 1 film Gabapentin (Gabapentin 300 Mg Capsule) 600 mg PO TID [facility] Last Admin: 09/09/24 08:39 Dose: 600 mg Hydroxyzine HCl (Hydroxyzine Hcl 25 Mg Tablet) 25 mg PO Q6H PRN PRN Reason: mild anxiety [place] Carbonate ([place] Carbonate 300 Mg Capsule) 600 mg PO BID [facility] Last Admin: 09/09/24 08:39 Dose: 600 mg Magnesium Hydroxide (Milk Of Magnesia 30 Ml Oral.Susp) 30 ml PO DAILY PRN PRN Reason: Constipation Nicotine (Nicotine 14 Mg Patch.Td24) 14 mg TRANSDERMA DAILY [facility] Last Admin: 09/09/24 08:39 Dose: 14 mg Nicotine Polacrilex (Nicotine Polacrilex 2 Mg Gum) 4 mg BUCCAL Q2H PRN PRN Reason: Nicotine Cravings Last Admin: 09/08/24 15:11 Dose: 4 mg Nicotine Polacrilex (Nicotine Polacrilex Lozenge 4 Mg Lozenge) 4 mg BUCCAL Q2H PRN PRN Reason: Nicotine Cravings Olanzapine (Olanzapine 2.5 Mg Tablet) 2.5 mg PO BID [facility] Last Admin: 09/09/24 08:39 Dose: 2.5 mg Tiotropium [place] (Tiotropium [place] 2.5 Mcg 1 Puff/2.5 Mcg Mist.Inhal) 2 puff INHALE RDAILY SALTY Trazodone HCl (Trazodone Hcl 50 Mg Tablet) 50 mg PO BEDTIME MRX1 PRN PRN Reason: Insomnia Allergies Allergies Allergy/AdvReac Type Severity Reaction Status Date / Time codeine [CODEINE] AdvReac Mild HIVES Verified 09/07/24 11:44 Assessment & Plan Assessment & Plan (1) Bipolar disorder: Status: Acute Code(s): F31.9 - Bipolar disorder, unspecified (2) Opioid use disorder, moderate, dependence: Status: Acute Code(s): F11.20 - Opioid dependence, uncomplicated Plan Admit, 15 minute checks Re-establish regime Diagnostics as needed Collateral Contact Encourage milieu as pt recompensates Discharge planning 09/09 continue current regime Reason for continued inpatient stay Substantial Risk for: rapid decompensation Time Spent With Patient Time: Total time managing care of this patient today ____ minutes.
[2024-09-09 19:35] VITALS: BP 122/64; PULSE 73; RESP 16; TEMP 37.3; O2SAT 91
[2024-09-09] MEDS: LORazepam 1 MG TABLET 2 MG PO (22:17)
[2024-09-09] MEDS: OLANZapine 10 MG TABLET PO (22:17)
--- NOTE | 2024-09-10 08:27 | P.PNPSI_ITS ---
Subjective Subjective Date of Service: 09/10/24 Reason For Visit: Bipolar disorder Subjective Notes: Conditional Voluntary Healthcare Proxy: No Guardianship: No Medical Problems Affecting Mental Status: No Interim History: Pt able to talk with tw today. He will not accept [place] as he finds it to be very unhelpful. He asks we re-start Wellbutrin. He is willing to increase Olanzapine and asks for Lorazepam prn which we will briefly trial. Medication Compliance: Intermittent Side effects from medications: Yes (??) Attending Groups: No Review of Systems Acute medical concerns: No Medical Review of Systems: unchanged Review of Systems Review of Systems confusion, lability, irritability, anxiety Mental Status Exam Mental Status Exam Patient Appearance: Fatigued Patient Orientation: Person Level of Consciousness: Sedated Patient Behavior: Guarded, Suspicious, Resistive to Care and Confused Mood Description: Angry Affect Description: Hostile Patient Cognition Impaired: No Ability to Follow Directions: Fair Speech Pattern: Spontaneous Speech and Poor Articulation Memory Description: Remote Impaired and Episodic Impaired Hallucinations: None Delusions: Paranoid Ideation Thought Process: Distracted Thought Content: positive for Circumstantial Depressive Symptoms: Increased Irritability and Difficulty Concentrating Judgement: Poor Diagnostics Vital Signs (24Hr): Vital Signs - 24 hr 09/09/24 19:35 Temperature 99.1 F Pulse Rate 73 Respiratory Rate 16 Blood Pressure 122/64 Pulse Oximetry 91 L Oxygen Delivery Method Room Air BMI result Body Mass Index 38.0 Labs 09/07/24 12:47 09/07/24 12:47 Labs: Laboratory Results - last 48 hr 09/08/24 09:04 Estimat Average Glucose 103 Hemoglobin A1c % 5.2 Magnesium 1.8 Triglycerides 73 Cholesterol 165 LDL Cholesterol, Calc 114 H HDL Cholesterol 37 L Vitamin B12 482 Folate 13.7 TSH 0.96 Free T4 1.00 Imaging Radiology Impressions: ITS Impressions Head CT 09/07/24 11:41 IMPRESSION: 1. No acute intracranial abnormality. 2. Chronic changes as discussed. Electronically signed by: Adalberto Mahan MD 09/07/2024 12:16 PM EST RP Chest X-Ray 09/07/24 12:10 IMPRESSION: Right basilar opacity, in keeping with bronchopneumonia in the appropriate clinical setting. Electronically signed by: Adalberto Mahan MD 09/07/2024 12:20 PM EST RP Medications Medications Current Medications Acetaminophen (Acetaminophen 325 Mg Tablet) 650 mg PO Q6H PRN PRN Reason: Headache/Pain, Scale 1-10 Al Hydroxide/Mg Hydroxide (Magnesium Hydrox/Alum Hydrox 30 Ml Oral.Susp) 30 ml PO Q6H PRN PRN Reason: Heartburn/Nausea Albuterol Sulfate (Albuterol Sulfate 90 Mcg 8 Gm Inhaler) 2 puff INHALE RQ6H PRN PRN Reason: sob Apixaban (Apixaban 5 Mg Tablet) 5 mg PO BID [facility] Last Admin: 09/09/24 21:08 Dose: 5 mg Buprenorphine/Naloxone (Buprenorphine/Naloxone 12/3 Mg Film) 1 film SUBLINGUAL BID [facility] Last Admin: 09/09/24 21:07 Dose: 1 film Gabapentin (Gabapentin 300 Mg Capsule) 600 mg PO TID [facility] Last Admin: 09/09/24 21:08 Dose: 600 mg Hydroxyzine HCl (Hydroxyzine Hcl 25 Mg Tablet) 25 mg PO Q6H PRN PRN Reason: mild anxiety [place] Carbonate ([place] Carbonate 300 Mg Capsule) 600 mg PO BID [facility] Last Admin: 09/09/24 21:08 Dose: Not Given Magnesium Hydroxide (Milk Of Magnesia 30 Ml Oral.Susp) 30 ml PO DAILY PRN PRN Reason: Constipation Nicotine (Nicotine 14 Mg Patch.Td24) 14 mg TRANSDERMA DAILY [facility] Last Admin: 09/09/24 08:39 Dose: 14 mg Nicotine Polacrilex (Nicotine Polacrilex 2 Mg Gum) 4 mg BUCCAL Q2H PRN PRN Reason: Nicotine Cravings Last Admin: 09/08/24 15:11 Dose: 4 mg Nicotine Polacrilex (Nicotine Polacrilex Lozenge 4 Mg Lozenge) 4 mg BUCCAL Q2H PRN PRN Reason: Nicotine Cravings Olanzapine (Olanzapine 2.5 Mg Tablet) 2.5 mg PO BID [facility] Last Admin: 09/09/24 21:07 Dose: 2.5 mg Tiotropium [place] (Tiotropium [place] 2.5 Mcg 1 Puff/2.5 Mcg Mist.Inhal) 2 puff INHALE RDAILY [facility] Last Admin: 09/09/24 10:25 Dose: Not Given Trazodone HCl (Trazodone Hcl 50 Mg Tablet) 50 mg PO BEDTIME MRX1 PRN PRN Reason: Insomnia Allergies Allergies Allergy/AdvReac Type Severity Reaction Status Date / Time codeine [CODEINE] AdvReac Mild HIVES Verified 09/07/24 11:44 Assessment & Plan Assessment & Plan (1) Bipolar disorder: Status: Acute Code(s): F31.9 - Bipolar disorder, unspecified (2) Opioid use disorder, moderate, dependence: Status: Acute Code(s): F11.20 - Opioid dependence, uncomplicated Plan Admit, 15 minute checks Re-establish regime Diagnostics as needed Collateral Contact Encourage milieu as pt recompensates Discharge planning. 09/10: DC [place] Wellbutrin 75 mg a.m. Increase Olanzapine to 5 mg bid Trial of Lorazepam prn Reason for continued inpatient stay Substantial Risk for: med/psych decompensation Time Spent With Patient Time: Total time managing care of this patient today ____ minutes.
[2024-09-10] MEDS: Gabapentin 300 MG CAPSULE 600 MG PO ×3 (09:20→20:50)
[2024-09-10] MEDS: Apixaban 5 MG TABLET PO ×2 (09:20→20:50)
[2024-09-10] MEDS: OLANZapine 2.5 MG TABLET PO (09:20)
[2024-09-10] MEDS: Lithium Carbonate 300 MG CAPSULE 600 MG PO (09:20)
[2024-09-10] MEDS: Buprenorphine/Naloxone 12/3 mg FILM 1 FILM SUBLINGUAL ×2 (09:20→20:49)
[2024-09-10] MEDS: Nicotine 14 MG PATCH.TD24 TRANSDERMA (09:21)
[2024-09-10] MEDS: hydrOXYzine HCL 25 MG TABLET PO (14:43)
[2024-09-10 20:00] VITALS: BP 121/64; PULSE 93; RESP 16; TEMP 37.1; O2SAT 92
[2024-09-10] MEDS: LORazepam 1 MG TABLET PO (20:49)
[2024-09-10] MEDS: OLANZapine 5 MG TABLET PO (20:49)
[2024-09-11 07:55] VITALS: BP 107/54; PULSE 52; TEMP 36.8; O2SAT 95
[2024-09-11] MEDS: buPROPion HCL 75 MG TABLET PO (08:56)
[2024-09-11] MEDS: Gabapentin 300 MG CAPSULE 600 MG PO ×3 (08:56→20:57)
[2024-09-11] MEDS: Nicotine 14 MG PATCH.TD24 TRANSDERMA (08:57)
[2024-09-11] MEDS: OLANZapine 5 MG TABLET PO ×2 (08:57→20:56)
[2024-09-11] MEDS: Buprenorphine/Naloxone 12/3 mg FILM 1 FILM SUBLINGUAL ×2 (08:57→20:58)
[2024-09-11] MEDS: Tiotropium Bromide 2.5 mcg 1 PUFF/2.5 MCG MIST.INHAL 2 PUFF INHALE (09:02)
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
[2024-09-11] MEDS: LORazepam 1 MG TABLET PO (20:56)
[2024-09-11 21:00] VITALS: BP 129/77; PULSE 86; TEMP 36.9; O2SAT 93
[2024-09-12 08:00] VITALS: BP 136/84; PULSE 69; RESP 16; TEMP 36.8; O2SAT 95
[2024-09-12] MEDS: Buprenorphine/Naloxone 12/3 mg FILM 1 FILM SUBLINGUAL ×2 (08:42→22:10)
[2024-09-12] MEDS: Nicotine 14 MG PATCH.TD24 TRANSDERMA (08:42)
[2024-09-12] MEDS: buPROPion HCL 75 MG TABLET PO (08:43)
[2024-09-12] MEDS: Tiotropium Bromide 2.5 mcg 1 PUFF/2.5 MCG MIST.INHAL 2 PUFF INHALE (08:43)
[2024-09-12] MEDS: OLANZapine 5 MG TABLET PO ×2 (08:43→22:07)
[2024-09-12] MEDS: Apixaban 5 MG TABLET PO (08:43)
[2024-09-12] MEDS: Gabapentin 300 MG CAPSULE 600 MG PO ×3 (08:43→22:06)
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
[2024-09-12] MEDS: LORazepam 1 MG TABLET PO ×3 (09:49→22:07)
--- NOTE | 2024-09-12 15:59 | PC.NURSE ---
09/12/24 All assessments were done by this nurse, not by Tristen Hamlin RN, systems error had occurred. IT aware.
[2024-09-12 20:00] VITALS: BP 114/66; PULSE 83; TEMP 36.6; O2SAT 93
[2024-09-12] MEDS: Acetaminophen 325 MG TABLET 650 MG PO (22:08)
[2024-09-13 08:00] VITALS: BP 142/69; PULSE 69; RESP 16; TEMP 36.6; O2SAT 95
[2024-09-13] MEDS: buPROPion HCL 75 MG TABLET PO (09:06)
[2024-09-13] MEDS: OLANZapine 5 MG TABLET PO ×2 (09:06→21:27)
[2024-09-13] MEDS: LORazepam 1 MG TABLET PO ×3 (09:06→21:26)
[2024-09-13] MEDS: Acetaminophen 325 MG TABLET 650 MG PO ×3 (09:06→22:04)
[2024-09-13] MEDS: Gabapentin 300 MG CAPSULE 600 MG PO ×3 (09:06→21:27)
[2024-09-13] MEDS: Buprenorphine/Naloxone 12/3 mg FILM 1 FILM SUBLINGUAL ×2 (09:06→21:28)
[2024-09-13] MEDS: Tiotropium Bromide 2.5 mcg 1 PUFF/2.5 MCG MIST.INHAL 2 PUFF INHALE (09:12)
[2024-09-13] MEDS: Nicotine 21 MG PATCH.TD24 TRANSDERMA (09:12)
[2024-09-13] MEDS: buPROPion HCl XL 150 MG TAB.ER.24H PO (11:39)
[2024-09-13] MEDS: hydrOXYzine HCL 25 MG TABLET PO (13:25)
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
[2024-09-13 20:00] VITALS: BP 120/88; PULSE 94; TEMP 36.6; O2SAT 94
[2024-09-14 08:00] VITALS: BP 139/63; PULSE 77; RESP 16; TEMP 36.9; O2SAT 91
[2024-09-14] MEDS: Buprenorphine/Naloxone 12/3 mg FILM 1 FILM SUBLINGUAL ×2 (09:04→22:38)
[2024-09-14] MEDS: LORazepam 1 MG TABLET PO ×3 (09:04→20:06)
[2024-09-14] MEDS: Gabapentin 300 MG CAPSULE 600 MG PO ×3 (09:04→22:38)
[2024-09-14] MEDS: buPROPion HCl XL 150 MG TAB.ER.24H PO (09:04)
[2024-09-14] MEDS: OLANZapine 5 MG TABLET PO ×2 (09:05→22:38)
[2024-09-14] MEDS: Nicotine 21 MG PATCH.TD24 TRANSDERMA (09:05)
[2024-09-14] MEDS: Tiotropium Bromide 2.5 mcg 1 PUFF/2.5 MCG MIST.INHAL 2 PUFF INHALE (10:49)
[2024-09-14 19:49] VITALS: BP 130/69; PULSE 94; RESP 16; TEMP 37.3; O2SAT 94
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
[2024-09-15 08:00] VITALS: BP 134/81; PULSE 85; RESP 16; TEMP 36.4; O2SAT 98
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
[2024-09-15] MEDS: LORazepam 1 MG TABLET PO ×4 (09:20→22:48)
[2024-09-15] MEDS: Gabapentin 300 MG CAPSULE 600 MG PO ×3 (09:20→21:36)
[2024-09-15] MEDS: OLANZapine 5 MG TABLET PO ×2 (09:20→21:37)
[2024-09-15] MEDS: buPROPion HCl XL 150 MG TAB.ER.24H PO (09:21)
[2024-09-15] MEDS: Buprenorphine/Naloxone 12/3 mg FILM 1 FILM SUBLINGUAL ×2 (09:21→21:37)
[2024-09-15] MEDS: Tiotropium Bromide 2.5 mcg 1 PUFF/2.5 MCG MIST.INHAL 2 PUFF INHALE (09:35)
[2024-09-15] MEDS: hydrOXYzine HCL 25 MG TABLET PO ×2 (12:51→21:37)
[2024-09-15 19:43] VITALS: BP 129/70; PULSE 82; RESP 16; TEMP 36.9; O2SAT 87
[2024-09-16 08:00] VITALS: BP 148/82; PULSE 70; TEMP 36.7; O2SAT 95
[2024-09-16] MEDS: Tiotropium Bromide 2.5 mcg 1 PUFF/2.5 MCG MIST.INHAL 2 PUFF INHALE (09:07)
[2024-09-16] MEDS: Buprenorphine/Naloxone 12/3 mg FILM 1 FILM SUBLINGUAL ×2 (09:08→21:26)
[2024-09-16] MEDS: Gabapentin 300 MG CAPSULE 600 MG PO ×3 (09:08→21:26)
[2024-09-16] MEDS: OLANZapine 5 MG TABLET PO ×2 (09:08→21:27)
[2024-09-16] MEDS: LORazepam 1 MG TABLET PO ×3 (09:08→21:27)
[2024-09-16] MEDS: buPROPion HCl XL 150 MG TAB.ER.24H PO (09:08)
[2024-09-16] MEDS: Nicotine 21 MG PATCH.TD24 TRANSDERMA (09:08)
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
[2024-09-16 12:47] VITALS: BP 139/80; PULSE 97; RESP 18; O2SAT 97
[2024-09-16] MEDS: hydrOXYzine HCL 25 MG TABLET PO (16:07)
[2024-09-16 20:00] VITALS: BP 136/80; PULSE 97; RESP 16; TEMP 36.3; O2SAT 97
[2024-09-17 08:00] VITALS: BP 128/74; PULSE 76; RESP 18; TEMP 36.6; O2SAT 94
[2024-09-17] MEDS: Gabapentin 300 MG CAPSULE 600 MG PO ×3 (09:06→21:17)
[2024-09-17] MEDS: buPROPion HCl XL 150 MG TAB.ER.24H PO (09:06)
[2024-09-17] MEDS: LORazepam 1 MG TABLET PO ×4 (09:06→21:17)
[2024-09-17] MEDS: Nicotine 21 MG PATCH.TD24 TRANSDERMA (09:06)
[2024-09-17] MEDS: OLANZapine 5 MG TABLET PO ×3 (09:06→21:17)
[2024-09-17] MEDS: Buprenorphine/Naloxone 12/3 mg FILM 1 FILM SUBLINGUAL ×2 (09:07→21:22)
[2024-09-17] MEDS: Tiotropium Bromide 2.5 mcg 1 PUFF/2.5 MCG MIST.INHAL 2 PUFF INHALE (09:09)
[2024-09-17] MEDS: Albuterol Sulfate 90 MCG 8 GM INHALER 2 PUFF INHALE ×4 (09:13→19:40)
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
[2024-09-17] MEDS: Acetaminophen 325 MG TABLET 650 MG PO (14:50)
[2024-09-17] MEDS: hydrOXYzine HCL 25 MG TABLET PO (16:42)
[2024-09-17 19:45] VITALS: BP 120/74; PULSE 100; RESP 22; O2SAT 85
[2024-09-17 21:00] VITALS: BP 123/79; PULSE 79; RESP 20; TEMP 36.9; O2SAT 92
[2024-09-18 08:00] VITALS: BP 159/84; PULSE 88; RESP 20; TEMP 36.5; O2SAT 98
[2024-09-18] MEDS: Gabapentin 300 MG CAPSULE 600 MG PO ×3 (09:27→21:35)
[2024-09-18] MEDS: OLANZapine 5 MG TABLET PO ×2 (09:27→21:35)
[2024-09-18] MEDS: LORazepam 1 MG TABLET PO ×3 (09:27→21:35)
[2024-09-18] MEDS: buPROPion HCl XL 150 MG TAB.ER.24H PO (09:27)
[2024-09-18] MEDS: Buprenorphine/Naloxone 12/3 mg FILM 1 FILM SUBLINGUAL ×2 (09:28→21:35)
[2024-09-18] MEDS: Tiotropium Bromide 2.5 mcg 1 PUFF/2.5 MCG MIST.INHAL 2 PUFF INHALE (09:30)
[2024-09-18] MEDS: Nicotine 21 MG PATCH.TD24 TRANSDERMA (09:36)
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
[2024-09-18] MEDS: hydrOXYzine HCL 25 MG TABLET PO (16:57)
[2024-09-18 17:55] VITALS: BP 143/78
[2024-09-18] MEDS: cloNIDine HCL 0.1 MG TABLET PO (17:55)
[2024-09-18] MEDS: Albuterol Sulfate 90 MCG 8 GM INHALER 2 PUFF INHALE ×2 (17:57→21:36)
[2024-09-18 18:02] VITALS: BP 143/78; PULSE 88; O2SAT 90
[2024-09-18 20:00] VITALS: BP 117/58; PULSE 98; TEMP 36.4; O2SAT 90
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
[2024-09-19] MEDS: Nicotine 21 MG PATCH.TD24 TRANSDERMA (09:14)
[2024-09-19] MEDS: buPROPion HCl XL 150 MG TAB.ER.24H PO (09:14)
[2024-09-19] MEDS: Gabapentin 300 MG CAPSULE 600 MG PO ×2 (09:14→14:11)
[2024-09-19] MEDS: LORazepam 1 MG TABLET PO ×2 (09:14→14:11)
[2024-09-19] MEDS: OLANZapine 5 MG TABLET PO (09:14)
[2024-09-19] MEDS: Naloxone HCl Nasal TAKE HOME 4 MG SPRAY 8 MG NOSTRILALT (09:15)
[2024-09-19] MEDS: Buprenorphine/Naloxone 12/3 mg FILM 1 FILM SUBLINGUAL (09:15)
[2024-09-19] MEDS: Tiotropium Bromide 2.5 mcg 1 PUFF/2.5 MCG MIST.INHAL 2 PUFF INHALE (09:21)
[2024-09-19 09:42] VITALS: BP 176/92; PULSE 100; RESP 18; TEMP 36.9; O2SAT 93
[2024-09-19 11:50] VITALS: BP 126/74
[2024-09-19] MEDS: cloNIDine HCL 0.1 MG TABLET PO (11:50)
== END 2024-09-19 16:28 | disposition home or self-care (01) | DRG 885 ==
LOC: HO.ED 20:42 → HO.PM5 22:09
PROVIDERS: Registered Nurse Emergency; Admitting Provider Clinical Nurse Specialist Psychiatric/Mental Health, Adult; Emergency Provider Emergency Medicine; PCP Internal Medicine Nephrology; Visit Provider Psychiatry & Neurology Psychiatry
DX: F31.9 Bipolar disorder, unspecified (principal); F11.20 Opioid dependence, uncomplicated; F17.210 Nicotine dependence, cigarettes, uncomplicated; Z71.6 Tobacco abuse counseling; Z20.822 Contact with and (suspected) exposure to COVID-19; Z79.899 Other long term (current) drug therapy
CPT/HCPCS: 0241U; 36415; 70450; 71046; 80053; 80061; 80178; 80307; 81003; 82607; 82746; 82947; 83036; 83605; 83735; 84439; 84443; 85025; 85610; 93005; 99285; J0456; J0696; S9485

== ENCOUNTER → 2024-09-07 11:40 | Outpatient (BNV) | payer MEDICARE, SELFPAY | PROVIDERS: Emergency Provider Emergency Medicine; PCP Internal Medicine Nephrology; Visit Provider Internal Medicine Cardiovascular Disease | DX: I44.0 Atrioventricular block, first degree (principal); R00.1 Bradycardia, unspecified | CPT/HCPCS: 93010 ==

== ENCOUNTER → 2024-09-07 11:41 | Outpatient (BNV) | payer MEDICARE, SELFPAY | PROVIDERS: Emergency Provider Emergency Medicine; PCP Internal Medicine Nephrology; Visit Provider Radiology Diagnostic Radiology | DX: R53.83 Other fatigue (principal) | CPT/HCPCS: 70450; 71046 ==

== ENCOUNTER → 2024-09-07 21:45 | Outpatient (BNV) | payer MEDICARE, SELFPAY | PROVIDERS: Admitting Provider Clinical Nurse Specialist Psychiatric/Mental Health, Adult; Emergency Provider Emergency Medicine; PCP Internal Medicine Nephrology; Visit Provider Clinical Nurse Specialist Psychiatric/Mental Health, Adult | DX: F31.4 Bipolar disorder, current episode depressed, severe, without psychotic features (principal); F11.20 Opioid dependence, uncomplicated | CPT/HCPCS: 90792; 99231; 99232; 99239 ==

== ENCOUNTER 2024-12-09 16:40 | Emergency (ER) | payer MEDICARE, SELFPAY ==
--- NOTE | ~2024-12-09 | CT_ITS ---
CLINICAL HISTORY: Overdose, AMS, R O bleed, stroke, mass effect CT head without contrast Comparison: CT/ME/SR - CT HEAD/BRAIN WO IV CON - 09/07/24 11:45 EST Findings: No intra-axial mass, midline shift, hydrocephalus, or acute hemorrhage. Mild diffuse cerebral volume loss. Mild degree of patchy low-density within the periventricular and subcortical white matter. The visualized paranasal sinuses and mastoid air cells are normal. The orbits are within normal limits. There is no acute fracture. IMPRESSION: 1. No acute intracranial findings. This document has been electronically signed by: Jeremy Gilbert MD on 12/09/2024 18:44:46
--- NOTE | ~2024-12-09 | XR_ITS ---
CLINICAL HISTORY: Overdose, AMS, hypoxia R O CHF, pneumonia 1 view chest x-ray Comparison: CR/SR - XR CHEST 2V - 09/07/24 12:02 EST Findings: The lungs are clear. Normal size heart. No acute fracture. IMPRESSION: 1. No acute findings. This document has been electronically signed by: Jeremy Gilbert MD on 12/09/2024 18:13:56
[2024-12-09 16:51] VITALS: BP 131/85; BP 166/70; PULSE 53; PULSE 82; RESP 14; TEMP 36.6; O2SAT 92; O2SAT 94; BMI 35.5
--- NOTE | 2024-12-09 17:04 | ED.OVERDOSE ---
HPI - Overdose General Chief Complaint: Overdose Stated Complaint: bundle of fentanyl use found by pd lethargic awake Time Seen by Provider: 12/09/24 17:04 Source: EMS Mode of arrival: EMS Limitations: no limitations History of Present Illness ED Provider: Dr. Bashir Vo HPI Narrative: 64-year-old male COPD, bipolar disorder, HTN, peripheral neuropathy, Yamil's thyroiditis, chronic headaches polysubstance use disorder with unintentional overdose in the past who was brought to emergency department by EMS for altered mental status. According to EMS note, the patient was found unresponsive / drowsy and a car after supposedly using 10 bags of fentanyl. Paramedics did not give Narcan prior to arrival emergency department. In the emergency department the patient was somnolent but arousable. He had pinpoint pupils. He was given intranasal Narcan 4 mg x2 and the patient became more alert. The patient had no memory coming to the emergency department. He states that he did use narcotic medications but he can not recount how much she used. He states that he use the narcotics intranasally. Related Data Previous Rx's ?Medication ?Instructions ?Recorded albuterol sulfate 90 mcg/actuation 2 puff inhalation Q6H PRN 09/18/24 aerosol inhaler (Ventolin HFA) Shortness Of Breath Or Wheezing 30 days #6.7 grams buprenorphine 12 mg-naloxone 3 mg 1 film sublingual BID 30 days #60 09/18/24 sublingual film ea bupropion HCl 150 mg 24 hr tablet, 150 mg PO DAILY 30 days #30 tabs 09/18/24 extended release clonidine HCl 0.1 mg tablet 0.1 mg PO Q4H PRN moderate anxiety 09/18/24 30 days #60 tabs gabapentin 600 mg tablet 600 mg PO TID 30 days #90 tabs 09/18/24 hydroxyzine HCl 25 mg tablet 25 mg PO Q6H PRN mild anxiety 30 09/18/24 days #60 tabs lorazepam 1 mg tablet 1 mg PO TID 30 days #90 tabs 09/18/24 nicotine (polacrilex) 4 mg gum 4 mg buccal Q2H PRN nicotine 09/18/24 cravings 30 days #110 ea olanzapine 5 mg tablet 5 mg PO BID 30 days #60 tabs 09/18/24 umeclidinium 62.5 mcg/actuation 1 inh inhalation DAILY 30 days #30 09/18/24 blister powder for inhalation ea (Incruse Ellipta) albuterol sulfate 2.5 mg/3 mL 2.5 mg (3 mL) inhalation Q6H PRN 09/19/24 (0.083 %) solution for nebulization SOB 30 days #360 mL nicotine 21 mg/24 hr daily 1 patch transdermal DAILY PRN 09/19/24 transdermal patch smoking cessation 28 days #28 ea Allergies Allergy/AdvReac Type Severity Reaction Status Date / Time codeine [CODEINE] AdvReac Mild HIVES Verified 12/10/24 10:43 [facility] Past Medical History Medical History (Updated 12/09/24 @ 23:10 by Bashir Vo MD) Overdose Opioid use disorder, moderate, dependence Chronic headaches Social History Social History Household Members: Children Housing: Apartment Unable to assess alcohol history related to: Unable to respond 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 Patient Tobacco Use Status: Current everyday Tobacco user Tobacco use type: Cigarette Cigarette Packs Per Day: 1.5 Cigarettes Per Day: 30 Years Smoked: 55 e-Cigarette/Vaping Use: Currently Using Second Hand Smoke Exposure: No Substance Use Type: Opiates Advance Directives: Yes Advance Directives on File: Yes Advance Directives Date on File: 11/30/23 service: No Sexual orientation: Straight/Heterosexual Physical Exam Vital Signs: Vital Signs: Last Vital Signs Temp 98.3 F 12/09/24 23: Pulse 68 12/09/24 23:25 Resp 19 12/09/24 23:25 BP 138/93 H 12/09/24 23:25 Pulse Ox 92 12/09/24 23:25 O2 Del Method Room Air 12/09/24 23:25 O2 Flow Rate 3 12/09/24 22:29 BMI result Body Mass Index 35.5 initial vital signs revealed bradycardia with heart rate 53, respiratory rate 14, O2 saturation 92% on 4 L via nasal cannula. Exam: General: Somnolent, minimally arousable to painful stimuli Head: Normocephalic, atraumatic EENT: pinpoint pupils, conjunctiva normal, nose normal , ears normal, throat without erythema or exudates Neck: Supple, no adenopathy Lung: breath sounds symmetric, no wheezing, rales or rhonchi Chest: symmetric movement, nontender Heart: regular rate and rhythm, normal S1, S2 no murmurs or rubs Abdomen: soft, non-tender, nondistended, normal bowel sounds Back: no vertebral tenderness, no CVAT Extremities: no deformities, moves all extremities symmetrically Neuro: somnolent but arousable, minimally responsible painful stimuli Medications Administered Discontinued Medications Generic Name Dose Route Start Last Admin Trade Name Jaclyn PRN Reason Stop Dose Admin Sodium Chloride 1,000 mls @ 999 mls/hr 12/09/24 17:05 12/09/24 19:26 Ns IV 12/09/24 18:05 Infused .Q1H1M STA Infusion Naloxone HCl 4 mg 12/09/24 16:51 12/09/24 17:06 Naloxone Hcl Nasal 4 Mg [place] NOSTRILALT 12/09/24 16:52 4 mg ONCE ONE Administration Medical Decision Making Medical Decision Making MDM Narrative: 64-year-old male COPD, bipolar disorder, HTN, peripheral neuropathy, Yamil's thyroiditis, chronic headaches polysubstance use disorder with unintentional overdose in the past who was brought to emergency department by EMS for altered mental status. According to EMS note, the patient was found unresponsive / drowsy and a car after supposedly using 10 bags of fentanyl. Paramedics did not give Narcan prior to arrival emergency department. In the emergency department the patient was somnolent but arousable. He had pinpoint pupils. He was given intranasal Narcan 4 mg x2 and the patient became more alert. The patient had no memory coming to the emergency department. He states that he did use narcotic medications but he can not recount how much she used. He states that he use the narcotics intranasally. vital signs revealed bradycardia, O2 saturation was 92% on on oxygen via nasal cannula with an O2 saturation of 92% on room air. exam revealed was somnolent minimally arousable to painful stimuli and pinpoint pupils. Patient was given intranasal Narcan 4 mg x 2 with improvement of his mental status. Patient had no memory of coming to the emergency department but did state that he used intranasal narcotics prior to coming to emergency department. Differential diagnosis: Includes but is not limited to unintentional opiate overdose, fentanyl overdose, aspiration pneumonia, anemia, electrolyte abnormalities Course: My interpretation patient's laboratory evaluation was as follows: CBC was normal. CMP was normal. VBG was normal. COVID-19, influenza and RSV tests were negative. Urinalysis was negative. Urine tox screen was positive for opiates, fentanyl, marijuana and buprenorphine. Patient did tell me that he takes Suboxone and is followed weekly via Suboxone clinic. CT scan of the head revealed no acute findings. chest x-ray revealed no acute findings. EKG revealed a sinus bradycardia with a first-degree block and poor R-wave progression V1 -V2 but this was unchanged compared to the previous EKG in August of 2024. The patient was kept in the emergency department until the morning when he was awake and able to give me a history and he did tell me that he used intranasal narcotics. The patient is in a Suboxone program and states that he has seen weekly. He is not interested in talking to our recovery team or care team at this time. I did discuss the dangers of using street drugs and he was given a rescue pack of intranasal Narcan at the time of discharge. He was also given recover resources on his discharge instructions. The patient's O2 saturation was 92% on room air at the time of discharge. Admission/Observation Consideration of admission/observation: Escalation of care including admission/observation considered (Yes) Lab Data MDM Lab Attestation statement: I reviewed the patient's lab results. 12/09/24 18:06 12/09/24 17:41 Labs: Lab Results 12/09/24 12/09/24 12/09/24 Range/Units 17:41 17:47 18:06 WBC 6.4 (4.8-10.8) X10*3/uL RBC 4.69 (4.60-5.80) X10*6/uL Hgb 14.1 (14.0-18.0) g/dl Hct 42.6 (42.0-52.0) % MCV 90.8 (80.0-98.0) fL MCH 30.1 (27.0-33.0) pg MCHC 33.1 (31.0-36.0) g/dl RDW 13.3 (11.0-16.0) % Plt Count 202 (160-400) X10*3/uL MPV 9.4 (9.4-12.4) fL Immature Gran % (Auto) 0.3 (0.0-0.4) % Neut % (Auto) 72.0 (45-73) % Lymph % (Auto) 16.6 L (20-40) % Whiteside % (Auto) 8.7 (2-11) % Eos % (Auto) 1.6 (0-4) % Baso % (Auto) 0.8 (0-2) % Lymph # (Auto) 1.1 L (1.2-4.9) X10*3/uL Whiteside # (Auto) 0.6 (0.1-1.2) X10*3/uL Eos # (Auto) 0.1 (0.0-0.4) X10*3/uL Baso # (Auto) 0.1 (0.0-0.2) X10*3/uL Abs Immat Gran (auto) 0.02 (0.00-0.03) X10*3/uL Absolute Neuts (auto) 4.6 (2.0-8.3) x10*3/uL Absolute Nucleated RBC 0.000 (0.0-0.012) X10*3/uL Nucleated RBC % (auto) 0.0 (0.0-0.2) /100WBC ESR 8 (0-15) MM/HR APTT 45.5 H (26.0-36.8) SEC VBG pH 7.38 (7.32-7.43) VBG pCO2 48 mmHg VBG pO2 83 mmHg VBG HCO3 29 H (22-26) mmol/L VBG O2 Saturation 98.0 % VBG Base Excess 3.4 mmol/L Sodium 141 (135-145) mmol/L Potassium 4.3 (3.3-5.1) mmol/L Chloride 106 (96-108) mmol/L Carbon Dioxide 26 (22-29) mmol/L Anion Gap 13 (12-20) BUN 13 (9-16) mg/dL Creatinine 0.60 (0.5-1.4) mg/dL Estim Creat Clear Calc 138.3 Estimated GFR > 60 Random Glucose 86 (60-115) mg/dL Calcium 9.2 D (8.4-10.2) mg/dL Magnesium 1.9 (1.6-2.6) mg/dL Total Bilirubin 0.8 (0.0-1.0) mg/dL AST 39 H (5-37) U/L ALT 16 (0-40) U/L Alkaline Phosphatase 80 (39-117) U/L Total Creatine Kinase 153 (38-174) U/L Troponin I High Sens 8.9 D (<3.5-35.0) ng/L C-Reactive Protein 0.27 (< or = 0.50) mg/dL B-Natriuretic Peptide 94 (<100) pg/mL Total Protein 7.8 (6.5-8.0) g/dL Albumin 3.8 (3.5-5.0) g/dL Lipase 10 (8-78) U/L Urine Color Urine Appearance Urine pH (5.0-9.0) Ur Specific Ridott (1.005-1.025) Urine Protein (Neg-Trace) mg/dL Urine Glucose (UA) (Negative) mg/dL Urine Ketones (Negative) mg/dL Urine Blood (Negative) Urine Nitrite (Negative) Ur Leukocyte Esterase (Negative) Urine Opiates Screen (Not Detect) Ur Buprenorphine Scrn (Not Detect) ng/mL Ur Oxycodone Screen (Not Detect) ng/mL Urine Methadone Screen (Not Detect) ng/mL Urine Fentanyl Screen (Not Detect) Ur Barbiturates Screen (Not Detect) Ur Phencyclidine Scrn (Not Detect) Ur Amphetamines Screen (Not Detect) U Benzodiazepines Scrn (Not Detect) Urine Cocaine Screen (Not Detect) U Marijuana (THC) Screen (Not Detect) Ethyl Alcohol < 10 mg/dL Influenza Type A (PCR) NEGATIVE (Negative) Influenza Type B (PCR) NEGATIVE (Negative) RSV RNA Qual (PCR) NEGATIVE (Negative) SARS-CoV-2 RNA (RT-PCR) NEGATIVE (Negative) 12/09/24 Range/Units 22:02 WBC (4.8-10.8) X10*3/uL RBC (4.60-5.80) X10*6/uL Hgb (14.0-18.0) g/dl Hct (42.0-52.0) % MCV (80.0-98.0) fL MCH (27.0-33.0) pg MCHC (31.0-36.0) g/dl RDW (11.0-16.0) % Plt Count (160-400) X10*3/uL MPV (9.4-12.4) fL Immature Gran % (Auto) (0.0-0.4) % Neut % (Auto) (45-73) % Lymph % (Auto) (20-40) % Whiteside % (Auto) (2-11) % Eos % (Auto) (0-4) % Baso % (Auto) (0-2) % Lymph # (Auto) (1.2-4.9) X10*3/uL Whiteside # (Auto) (0.1-1.2) X10*3/uL Eos # (Auto) (0.0-0.4) X10*3/uL Baso # (Auto) (0.0-0.2) X10*3/uL Abs Immat Gran (auto) (0.00-0.03) X10*3/uL Absolute Neuts (auto) (2.0-8.3) x10*3/uL Absolute Nucleated RBC (0.0-0.012) X10*3/uL Nucleated RBC % (auto) (0.0-0.2) /100WBC ESR (0-15) MM/HR APTT (26.0-36.8) SEC VBG pH (7.32-7.43) VBG pCO2 mmHg VBG pO2 mmHg VBG HCO3 (22-26) mmol/L VBG O2 Saturation % VBG Base Excess mmol/L Sodium (135-145) mmol/L Potassium (3.3-5.1) mmol/L Chloride (96-108) mmol/L Carbon Dioxide (22-29) mmol/L Anion Gap (12-20) BUN (9-16) mg/dL Creatinine (0.5-1.4) mg/dL Estim Creat Clear Calc Estimated GFR Random Glucose (60-115) mg/dL Calcium (8.4-10.2) mg/dL Magnesium (1.6-2.6) mg/dL Total Bilirubin (0.0-1.0) mg/dL AST (5-37) U/L ALT (0-40) U/L Alkaline Phosphatase (39-117) U/L Total Creatine Kinase (38-174) U/L Troponin I High Sens (<3.5-35.0) ng/L C-Reactive Protein (< or = 0.50) mg/dL B-Natriuretic Peptide (<100) pg/mL Total Protein (6.5-8.0) g/dL Albumin (3.5-5.0) g/dL Lipase (8-78) U/L Urine Color Yellow Urine Appearance Clear Urine pH 6.5 (5.0-9.0) Ur Specific Ridott 1.020 (1.005-1.025) Urine Protein Negative (Neg-Trace) mg/dL Urine Glucose (UA) Negative (Negative) mg/dL Urine Ketones 15 (Negative) mg/dL Urine Blood Negative (Negative) Urine Nitrite Negative (Negative) Ur Leukocyte Esterase Negative (Negative) Urine Opiates Screen POSITIVE H (Not Detect) Ur Buprenorphine Scrn Positive H (Not Detect) ng/mL Ur Oxycodone Screen Not Detected (Not Detect) ng/mL Urine Methadone Screen Not Detected (Not Detect) ng/mL Urine Fentanyl Screen POSITIVE H (Not Detect) Ur Barbiturates Screen Not Detected (Not Detect) Ur Phencyclidine Scrn Not Detected (Not Detect) Ur Amphetamines Screen Not Detected (Not Detect) U Benzodiazepines Scrn Not Detected (Not Detect) Urine Cocaine Screen Not Detected (Not Detect) U Marijuana (THC) Screen POSITIVE H (Not Detect) Ethyl Alcohol mg/dL Influenza Type A (PCR) (Negative) Influenza Type B (PCR) (Negative) RSV RNA Qual (PCR) (Negative) SARS-CoV-2 RNA (RT-PCR) (Negative) Independent Interpretation I performed an independent interpretation of an: Plain X-Ray Interpretation: My independent interpretation of the patient's one-view chest x-ray is as follows: No acute disease My independent interpretation of the patient's 12 EKG done on 12/09/2024 at 18:14 hours is as follows: Sinus bradycardia with a rate of 54, first-degree AV block with a DC interval 278 milliseconds, prolonged QRS duration of 110 milliseconds, normal QTC, no ST segment elevation, no ST segment depression, no significant T-wave abnormalities, patient does have poor R-wave progression V1 to V2. compared to EKG dated 09/07/2024 at 12:24 hours the sinus bradycardia and first-degree AV block were old. The poor R-wave progression was also old. Radiology Impression Discussion of test interpretation with radiology: I have reviewed the radiologist's reading. Radiologist Impression: CT head without contrast Comparison: CT/DC/SR - CT HEAD/BRAIN WO IV CON - 09/07/24 11:45 EST Findings: No intra-axial mass, midline shift, hydrocephalus, or acute hemorrhage. Mild diffuse cerebral volume loss. Mild degree of patchy low-density within the periventricular and subcortical white matter. The visualized paranasal sinuses and mastoid air cells are normal. The orbits are within normal limits. There is no acute fracture. IMPRESSION: 1. No acute intracranial findings. This document has been electronically signed by: Jeremy Gilbert MD on 12/09/2024 18:44:46 1 view chest x-ray Comparison: CR/SR - XR CHEST 2V - 09/07/24 12:02 EST Findings: The lungs are clear. Normal size heart. No acute fracture. IMPRESSION: 1. No acute findings. This document has been electronically signed by: Jeremy Gilbert MD on 12/09/2024 18:13:56 Independent Historian Clinical information obtained from an independent historian. History obtained from or confirmed by: EMS Prescription Management I considered prescription management with: Other ( patient was given dispense pack of intranasal Narcan at the time of discharge) Chronic Conditions Patient?s care impacted by: Other ( bipolar disorder) Critical Care Time Critical Care Time Critical Care Time: Yes Total Critical Care Time: 35 Attestation: Critical Care: The patient was critically ill with a high probability of imminent or life threatening deterioration. I spent greater than 30 minutes of discontinuous time evaluating the patient,delivering critical care at the bedside, discussing and evaluating pertinent data with consultants. Critical care time does not include time spent performing separately billable procedures or teaching. Total time spent performing critical care was 35 minutes. Discharge Plan Discharge Clinical Impression: Accidental fentanyl overdose Opiate overdose Qualifiers: Encounter type: initial encounter Injury intent: accidental or unintentional Qualified Code(s): T40.601A - Poisoning by unspecified narcotics, accidental (unintentional), initial encounter Patient Disposition: Home, Self-Care Additional Instructions: According to the paramedics, you were found in a car unresponsive. When you got here to the emergency department you were unresponsive in you were given 2 doses of Narcan into your nose in you woke up. Your blood work was unremarkable. Your drug screen urine test was positive for fentanyl, opiates (heroin) and buprenorphine (Suboxone). Your are being discharged home with intranasal Narcan. If you are going to continue to use heroin, you should make sure that there is a sober person with you that is not using drugs and that this person can administer intranasal Narcan in the event that you stop breathing. Overdose You were seen in our Emergency Department for an overdose today. You received narcan in order to reverse the effects of overdose. Narcan only lasts about 45 min to 1 hour in the system. You may have been given narcan to take home with you today, please keep it near you if you are going to use again, so others can use it if needed.? The number one risk for fatal overdose is using alone? [employer] is a 14/02 hotline where you can be on the phone with someone while you use, and they can call for help if they suspect an overdose: [phone] Things to look out for when you leave include severe vomiting or diarrhea, headaches, muscle cramps, fever, coughing, chest pain, or if you feel so short of breath you cannot walk to the bathroom. Please seek care and return any time for worsening symptoms.? You may have been provided with safer injection?items, please take time to take care of YOU and your health. Use new supplies whenever possible to lessen the chances of infections and other illnesses.? If you need more supplies, please go [facility],? [address] [place] [address] OR you can call or text to coordinate delivery of safer supplies. If you decide you want to stop or cut down on how much you?re using, please call the numbers on the list provided to you or you can come to our outpatient Addiction Treatment office [facility] (M-F 9am-5p) [address] [place] [address], [address] [place], [place]. [phone] Prescriptions: No Action clonidine HCl 0.1 mg Tablet 0.1 mg PO Q4H PRN (Reason: moderate anxiety) 30 Days Qty: 60 0RF Protocol: Hold for SBP< HOLD for SBP < : 90 hydroxyzine HCl 25 mg Tablet 25 mg PO Q6H PRN (Reason: mild anxiety) 30 Days Qty: 60 0RF lorazepam 1 mg Tablet 1 mg PO TID 30 Days Qty: 90 0RF gabapentin 600 mg tablet 600 mg PO TID 30 Days Qty: 90 0RF olanzapine 5 mg tablet 5 mg PO BID 30 Days Qty: 60 0RF nicotine (polacrilex) 4 mg gum 4 mg buccal Q2H PRN (Reason: nicotine cravings) 30 Days Qty: 110 0RF albuterol sulfate [Ventolin HFA] 90 mcg/actuation HFA aerosol inhaler 2 puff inhalation Q6H PRN (Reason: Shortness Of Breath Or Wheezing) 30 Days Qty: 6.7 0RF bupropion HCl 150 mg tablet extended release 24 hr 150 mg PO DAILY 30 Days Qty: 30 0RF buprenorphine-naloxone 12-3 mg film 1 film sublingual BID 30 Days Qty: 60 0RF Incruse Ellipta 62.5 mcg/actuation blister with device 1 inh INHALATION DAILY 30 Days Qty: 30 0RF nicotine 21 mg/24 hr patch 24 hour 1 patch transdermal DAILY PRN (Reason: smoking cessation) 28 Days Qty: 28 0RF Rx Instructions: Move at bedtime albuterol sulfate 2.5 mg /3 mL (0.083 %) solution for nebulization 2.5 mg inhalation Q6H PRN (Reason: SOB) 30 Days Qty: 360 0RF Discharge Date/Time: 12/10/24 00:23 Print Language: Unable To Collect
--- NOTE | 2024-12-09 17:05 | ECG_ITS ---
Test Reason : OD Blood Pressure : */* mmHG Vent. Rate : 54 BPM Atrial Rate : 54 BPM P-R Int : 278 ms QRS Dur : 110 ms QT Int : 446 ms P-R-T Axes : 42 3 51 degrees QTcB Int : 422 ms Sinus bradycardia with 1st degree A-V block Otherwise normal ECG When compared with ECG of 07-Sep-2024 12:24, No significant change was found Referred By: Bashir Vo Electronically Signed By: Man Kebede
[2024-12-09 17:06] VITALS: BP 134/72; PULSE 54; RESP 12; TEMP 36.8; O2SAT 95
[2024-12-09] MEDS: Naloxone HCl Nasal 4 MG SPRAY NOSTRILALT (17:06)
[2024-12-09 17:55] LABS: Venous Blood Gas Refer to POC result
[2024-12-09 17:57] LABS: VBG Base Excess 3.4 mmol/L; VBG HCO3 29 mmol/L (22-26); VBG pCO2 48 mmHg; VBG pH 7.38 (7.32-7.43); VBG pO2 83 mmHg
[2024-12-09 18:09] LABS: Alanine Aminotransferase 16 U/L (0-40); Albumin Level 3.8 g/dL (3.5-5.0); Alkaline Phosphatase 80 U/L (39-117); Anion Gap 13 (12-20); Aspartate Amino Transferase 39 U/L (5-37); Bilirubin Total 0.8 mg/dL (0.0-1.0); Blood Urea Nitrogen 13 mg/dL (9-16); C Reactive Protein 0.27 mg/dL (< or = 0.50); Calcium 9.2 mg/dL (8.4-10.2); Carbon Dioxide 26 mmol/L (22-29); Chloride 106 mmol/L (96-108); Creatinine Clr Calc Pharmacy 138.3; Estimated Glomerular Filt Rate > 60; Ethanol < 10 mg/dL; Glucose Random 86 mg/dL (60-115); Lipase 10 U/L (8-78); Magnesium 1.9 mg/dL (1.6-2.6); Potassium 4.3 mmol/L (3.3-5.1); Sodium 141 mmol/L (135-145); Total Protein 7.8 g/dL (6.5-8.0)
[2024-12-09 18:10] LABS: MANUAL DIFF FLAG NO
[2024-12-09 18:12] LABS: B Type Natriuretic Peptide 94 pg/mL (<100)
[2024-12-09 18:12] LABS: Basophils Absolute Auto 0.1 X10*3/uL (0.0-0.2); Basophils Percent Auto 0.8 % (0-2); Eosinophils Absolute Auto 0.1 X10*3/uL (0.0-0.4); Eosinophils Percent Auto 1.6 % (0-4); Hematocrit 42.6 % (42.0-52.0); Hemoglobin 14.1 g/dl (14.0-18.0); Imm Gran Abs Auto 0.02 X10*3/uL (0.00-0.03); Imm Gran Pct Auto 0.3 % (0.0-0.4); Lymphocytes Absolute Auto 1.1 X10*3/uL (1.2-4.9); Lymphocytes Percent Auto 16.6 % (20-40); Mean Corpuscular HGB Conc 33.1 g/dl (31.0-36.0); Mean Corpuscular Hemoglobin 30.1 pg (27.0-33.0); Mean Corpuscular Volume 90.8 fL (80.0-98.0); Mean Platelet Volume 9.4 fL (9.4-12.4); Monocytes Absolute Auto 0.6 X10*3/uL (0.1-1.2); Monocytes Percent Auto 8.7 % (2-11); Neutrophils Absolute Auto 4.6 x10*3/uL (2.0-8.3); Platelet Count 202 X10*3/uL (160-400); Red Blood Count 4.69 X10*6/uL (4.60-5.80); Red Cell Distribution Width 13.3 % (11.0-16.0); White Blood Count 6.4 X10*3/uL (4.8-10.8)
[2024-12-09] MEDS: 0.9 % Sodium Chloride 1,000 ML 999 ML IV (18:15)
[2024-12-09 18:21] LABS: Partial Thromboplastin Time 45.5 SEC (26.0-36.8)
[2024-12-09 18:28] LABS: Troponin-I High Sensitivity 8.9 ng/L (<3.5-35.0)
[2024-12-09 18:29] VITALS: BP 147/93; PULSE 65; RESP 13; O2SAT 94
[2024-12-09 18:48] LABS: Influenza A PCR NEGATIVE (Negative); Influenza B PCR NEGATIVE (Negative); Resp Syncy Virus RNA Qual PCR NEGATIVE (Negative); SARS COV2 PCR INHOUSE NEGATIVE (Negative)
[2024-12-09 18:51] LABS: Erythrocyte Sedimentation Rate 8 MM/HR (0-15)
[2024-12-09 19:26] VITALS: BP 153/73; PULSE 53; RESP 12; O2SAT 90
--- NOTE | 2024-12-09 19:33 | PC.NURSE ---
assumed care for pt at this time. pt noted to be sleeping symmetrical rise and fall of chest and unlabored respirations noted. pt arousable to name but falls right back asleep. VSS. pts call gonzalez within reach. plan of care ongoing
[2024-12-09 22:14] LABS: Appearance Urine Clear; Color Urine Yellow; Glucose Urine UA Negative (Negative); Leukocyte Esterase Urine Negative (Negative); Nitrite Urine Negative (Negative); PH 6.5 (5.0-9.0); Urine Blood Negative (Negative); Urine Ketones 15 mg/dL (Negative); Urine Protein Negative (Neg-Trace)
[2024-12-09 22:29] VITALS: BP 149/83; PULSE 56; RESP 15; TEMP 36.8; O2SAT 92
[2024-12-09 22:30] LABS: Amphetamine Screen Urine Not Detected (Not Detect); Barbiturates, Urine Not Detected (Not Detect); Benzodiazepines Screen Urine Not Detected (Not Detect); Buprenorphine Scr Positive (Not Detect); Cannabinoid Screen Urine POSITIVE (Not Detect); Cocaine Screen Urine Not Detected (Not Detect); Fentanyl, urine POSITIVE (Not Detect); Methadone Screen, Urine Not Detected (Not Detect); Opiate Screen Urine POSITIVE (Not Detect); Oxycodone Screen Urine Not Detected (Not Detect); Phencyclidine Screen Urine Not Detected (Not Detect)
[2024-12-09 23:25] VITALS: BP 138/93; PULSE 68; RESP 19; TEMP 36.8; O2SAT 92
== END 2024-12-10 00:23 | disposition home or self-care (01) ==
PROVIDERS: Emergency Provider Emergency Medicine Emergency Medical Services; PCP Internal Medicine Nephrology
DX: T40.411A Poisoning by fentanyl or fentanyl analogs, accidental (unintentional), initial encounter (principal); T40.2X1A Poisoning by other opioids, accidental (unintentional), initial encounter; R40.0 Somnolence; Y92.810 Car as the place of occurrence of the external cause; R00.1 Bradycardia, unspecified; I44.0 Atrioventricular block, first degree; F11.20 Opioid dependence, uncomplicated; F31.12 Bipolar disorder, current episode manic without psychotic features, moderate; J44.9 Chronic obstructive pulmonary disease, unspecified; F17.210 Nicotine dependence, cigarettes, uncomplicated; Z03.818 Encounter for observation for suspected exposure to other biological agents ruled out; I10 Essential (primary) hypertension
CPT/HCPCS: 0241U; 36415; 70450; 71045; 80053; 80307; 81003; 82550; 82803; 83690; 83735; 83880; 84484; 85025; 85652; 85730; 86140; 93005; 96360; 99285; S9485

== ENCOUNTER → 2024-12-09 17:05 | Outpatient (BNV) | payer MEDICARE, SELFPAY | PROVIDERS: Emergency Provider Emergency Medicine Emergency Medical Services; PCP Internal Medicine Nephrology; Visit Provider Internal Medicine Cardiovascular Disease | DX: I44.0 Atrioventricular block, first degree (principal); R00.1 Bradycardia, unspecified | CPT/HCPCS: 93010 ==

== ENCOUNTER → 2024-12-09 17:06 | Outpatient (BNV) | payer MEDICARE, SELFPAY | PROVIDERS: Emergency Provider Emergency Medicine Emergency Medical Services; PCP Internal Medicine Nephrology; Visit Provider Radiology Diagnostic Radiology | DX: J96.01 Acute respiratory failure with hypoxia (principal); R41.82 Altered mental status, unspecified; T50.901A Poisoning by unspecified drugs, medicaments and biological substances, accidental (unintentional), initial encounter | CPT/HCPCS: 70450; 71045 ==

== ENCOUNTER 2024-12-10 10:33 | Emergency (ER) | payer MEDICARE, SELFPAY ==
[2024-12-10 10:43] VITALS: BP 103/54; PULSE 54; RESP 16; TEMP 36.3; O2SAT 94; BMI 34.5
--- NOTE | 2024-12-10 10:49 | PC.NURSE ---
security at bedside for foreign exchange student coordinator, patient brought to bed 11 via wheelchair s/p narcan administration. seen yesterday and discharged to waiting room, patient previously wandering throughout unit.
--- NOTE | 2024-12-10 10:57 | PC.NURSE ---
Pt daughter called and said pt has Hx of bipolar and MDD. she stated pt had not been on his meds for over a week and can become catanotic without his meds. She states he left her house about 5 days ago.
--- OUTSIDE RECORDS SUMMARY | 2024-12-10 11:28 | XMS_ITS ---
Author Name [facility] [[email or web address]]P Organization Unknown Encounters Encounter Type Encounter Reason Primary Diagnosis Location Date Inpatient Acute respiratory failure with hypoxia Acute respiratory failure with hypoxia [employer] 11/16/2023 [facility] [place] [employer] 11/16/2023 [facility] [employer] 11/16/2023 [facility] [employer] 11/16/2023 [facility] [employer] 11/16/2023 Care Team Organization Name Specialty Phone Email Start Date End Da te [employer] 11/17/2023 10/10/2024 [employer] 11/17/2023
--- OUTSIDE RECORDS SUMMARY | 2024-12-10 11:28 | XMS_ITS | Patient Health Record ---
Author Organization [facility] Location Address [address] [place] [address] Care Team Providers Care Donor Recruiter Name Role Phone Kevin MATTA, Josiah Unavailable [phone] Edward Rucker MD Unavailable [phone] ALLERGIES Allergen (clinical drug ingredient) Drug/Non Drug Allergy documented on EMR Reaction Allergy Type Onset Date Status codeine Codeine Unknown Drug Allergy Active prednisolone Prednisolone Unknown Drug Allergy A ctive RESULTS Component Value Reference Range Notes MRI : Brain without Contrast Reviewed date:03/19/2024 01:02:55 PM Interpretation: Performing Lab: Notes/Report: REASON FOR REFERRAL Diagnosis 1 Memory loss (R41.3) Referral Organization [facility] [address] [place] [address] Location Referring Provider First Name Edward Referring Provider Last Name Chaim MATTA Referring Provider Speciality Neurology Referred Provider Specialty Neuropsychia try General Notes referral for neuropy remi psych evaluation, Shannan Chapa 03/28/2024 10:22:09 AM >faxed to [facility] ([facility] [place])[phone] Referral Priority Routine MEDICATIONS Medication SIG (Take, [...] Memory loss (R41.3) Active confirmed Memory loss (12514481) 63 year old male who is here [...] Gait abnormality (R26.9) Active confirmed Gait abnormality (36091651) gait is possibly due to neuropathy ordering EMG legs he is already on gabapentin VITAL SIGNS Heart Rate 90 /min 03/19/2024 Respiratory Rate 16 /min 03/19/2024 Blood pressure diastolic 100 mm Hg 03/19/2024 Blood pressure systolic 158 mm Hg 03/19/2024 Encounters Encounter Location Date Provider Diagnosis [address] [address] 03/19/2024 Edward Rucker MD Memory loss R41.3 ; Confusion R41.0 and Gait abnormality R26.9 [facility] [address] [address] 04/26/2024 Josiah Brown MD ASSESSMENTS Encounter Date [...] Insured Coverage Start Date Coverage End Date [facility] [address] [place] [address] [phone] [id number] Thomas Noe Self - patient is the insured MEDICAL (GENERAL) HISTORY Medical History History ICD Code HTN COPD Opioid use disorder Benzodiazepine use disorder PTSD h/o DVT h/o neuropathy Hospitalization History Reason Date(Month/Year) overdose
--- OUTSIDE RECORDS SUMMARY | 2024-12-10 11:28 | XMS_ITS | Clinical Summary ---
Author Organization [facility] Address [address] [place] [address] Care Team Providers Care Ad Trafficker Name Role Phone Bashir Vo MD Primary Care Provider Unav ailable Allergies No known active allergies Medications Eliquis 5 MG tablet Take 1 tablet (5 mg total) by mouth 2 (two) times a day. 09/15/2023 Active furosemide (LASIX) 20 MG tablet Take 1 tablet (20 mg total) by mouth daily. 10/27/2023 Active gabapentin (NEURONTIN) 800 MG tablet Take 1 tablet (800 mg total) by mouth 2 (two) times a day. 10/19/2023 Active lisinopril (PRINIVIL,ZeSTRI L) 40 MG tabletIndication s:Acute respiratory failure with hypoxia (HCC) Take 1 tablet (40 mg total) by mouth daily. 90 tablet 11/24/2023 Active multivitamin Tab tabletIndication s:Acute respiratory failure with hypoxia (HCC) Take 1 tablet by mouth daily. 11/24/2023 Active PANTOprazole (PROTONIX) 40 MG EC tabletIndication s:Acute respiratory failure with hypoxia (HCC) Take 1 tablet (40 mg total) by mouth daily. 30 tablet 11/24/2023 Active nicotine polacrilex (NICORETTE) 4 MG gumIndications:A cute respiratory failure with hypoxia (HCC) Apply 1 each (4 mg total) to the mouth or throat every 2 (two) hours as needed for smoking cessation. 11/23/2023 Active nicotine (NICODERM CQ) 21 MG/24HR patchIndications :Acute respiratory failure with hypoxia (HCC) Place 1 patch on the skin daily. 11/23/2023 Active Active Problems Problem Noted Date Diagnosed Date Aspiration pneumonia 11/17/2023 Substance use 11/17/2023 Pressure injury of left buttock, stage 2 024 Social History Tobacco Use Types Packs/Day Years Used Date Smoking Tobacco: Never Assessed [facility] Utilities Answer Date Recorded In the past [...] place to sleep or slept in a nursing home (including now)? Patient unable to answer 11/17/2023 Sex and Gender Information Value Date Recorded Sex Assigned at Male 11/16/2023 11:24 PM EDT Legal Sex Male 6:42 PM EDT Gender Identity Male 11/16/2023 11:24 [...] Zoster (Shingles) Vaccine (1 of 2) 2008 COVID-19 Vaccine (1 - 2023-2 5 season) 2024 Influenza Vaccine 02/22/2025 RSV Vaccine 60 years and old er and Patients (1 - 1-dose 75+ series) 2033 Hepatitis B Vaccines Aged Out No long er eligible based on patient's age to complete this topic Insurance [facility] Body Central Member Subscriber Plan / Payer (Ef fective 2023-Present) Name:Thomas Hartman Relation to Subscriber:Self Name:Thomas Hartman Payer ID:Not on file Group ID:Not on file Type:Not on file Address: [facility] [id number] [place] [address] [employer] MEDICARE OUT OF NETWORK MEDICARE PART A & B Advance Directives * Full Code (Latest Code Status on File) Date Activated Date Inactivated Comments 11/17/2023 1:14 AM Healthcare Agents on File Name Relationship Healthcare Agent Relationshi p Communication Annemarie Sands Adult child 4. Next of Kin ( Spouse, Adult Child, Parent, Adult Sibling, Grandparent) Care Teams Ad Trafficker Relationship Specialty Start Date End Date Bashir Vo MD PCP - General Emergency Medicine 11/18/23
--- OUTSIDE RECORDS SUMMARY | 2024-12-10 11:28 | XMS_ITS | Clinical Summary ---
Author Organization [facility] it Address [address] [place] [address] Care Team Providers Care Pool Table Mechanic Name Role Phone Unavailable Primary Care Provider [...] DTaP,Tdap,and Td Vaccines (1 - Tdap) 1977 Pneumococcal Vaccine: 50+ Ye ars (1 of 1 - PCV) 2008 Zoster Vaccines (1 of 2) 2008 Abdominal Aortic Aneurysm (A AA) Screen 02/25/2024 Cholesterol Screening (Lipid Panel) 02/25/2024 Colorectal Cancer Screening: Colonoscopy 02/25/2024 Depression Screening 02/25/2024 Falls Risk Assessment 02/25/2024 Hepatitis C Screening 02/25/2024 Social Influencers of Health Screening 02/25/2024 COVID-19 Vaccine ( - 2023-2 5 season) 2024 Influenza Vaccine (Season Ended) 2025 RSV Immunization Adult Patie nts (1 - 1-dose 75+ series) 2033 HIB Vaccines Aged Out No longer eligi ble based on patient's age to complete this topic HPV Vaccines Aged Out No longer eligi ble based on patient's age to complete this topic Hepatitis A Vaccines Aged Out No long er eligible [...] patient's age to complete this topic Meningococcal B Vaccine Aged Out No l onger eligible based on patient's age to complete this topic RSV Immunization Patients Un alexandro 20 months Aged Out No longer eligible b ased on patient's age to complete this topic Varicella Vaccines Aged Out No longer eligible based on patient's age to complete this topic
--- OUTSIDE RECORDS SUMMARY | 2024-12-10 11:28 | XMS_ITS ---
Author Organization [facility] [address] [place] [address] Location Address [address] [place] [phone] Care Team Providers Care Bag Bleacher Name Role Phone Chaim MATTA, Edward Unavailable [phone] ALLERGIES Allergen (clinical drug ingredient) Drug/Non Drug Allergy documented on EMR Reaction Allergy Type Onset Date Status codeine Codeine Unknown Drug Allergy Active prednisolone Prednisolone Unknown Drug Allergy A ctive RESULTS Component Value Reference Range Notes MRI : Brain without Contrast Reviewed date:03/19/2024 01:02:55 PM Interpretation: Performing Lab: Notes/Report: REASON FOR REFERRAL Diagnosis 1 Memory loss (R41.3) Referral Organization [facility] [address] Location Referring Provider First Name Edward Referring Provider Last Name Chaim MATTA Referring Provider Speciality Neurology Referred Provider Specialty Neuropsychia try General Notes referral for neuropy remi psych evaluation, Shannan Chapa 03/28/2024 10:22:09 AM >faxed to [facility] ([facility] EV[facility]UATION OF [place])[phone] Referral Priority Routine REASON FOR VISIT AMS, [...] Notes Problem Memory loss (R41.3) Active confirmed 63 year old male who is here [...] Gait abnormality (R26.9) Active confirmed Gait abnormality ([id number]) gait is possibly due to neuropathy ordering EMG legs he is already on gabapentin VITAL SIGNS Blood pressure systolic 158 mm Hg 03/19/20 24 Blood pressure diastolic 100 mm Hg 024 Heart Rate 90 /min 03/19/2024 Respiratory Rate 16 /min 03/19/2024 Encounters Encounter Location Date Provider Diagnosis [facility] [address] [place] [address] [place] [phone] 03/19/2024 Edward Rucker MD Memory loss R41.3 [...] Appt Details Follow Up: f/u after Neurops ych testing, Reason: Progress Notes * Ravi KATOB:1959 (63 yo M)Acc No.[id number]:03/19/2024 Patient:??Thomas KAT Provider:??Edward Rucker MD :1960?Age:63 Y?Sex:Paulie lopez Date:03/19/2024 Phone: Address:[address] [place] [address], [facility], [id number] Subjective: * Chief Complaints: * ?AMSGait disorderH/o ne uropathy * HPI: ?Constitutional:? Chief Complaint of: AMS, Gait ataxia ?63 year old male who presents from [facility]. ?Reports he Tasneem 5x in the past year. He has been induced into a coma multiple times. He has been seen through many hospitals including [facility], [facility], [facility], etc. ?States one time he took his daughter car to get cigarettes, ended up at [facility]. Took a bus to multiple [...] Normal. ?Memory testing: Normal short, intermediate and intermodal dispatcher memory ?Fund of knowledge: Normal to bedside [...] testing * Billing Information: * Visit Code:?? 94980 Office Visit, New Pt., Level 4. * Procedure Codes:?? * Sign off status: Completed true * Provider:??Edward Rucker MD Date:?? 03/19/2024 History and Physical Notes * HPI (History of Present Illness) Category Sub-Category Detail Notes Category Not es Constitutional Chief Complaint of: AMS, Gait ataxia 63 year old male who presents from [facility]. Reports he Tasneem 5x in the past year. He has been induced into a coma multiple times. He has been seen through many hospitals including [facility], [facility], [facility], etc. States one time he took his daughter car to get cigarettes, ended up at [place] [facility]. Took a bus to multiple different locales. [...] Normal. Memory testing: Normal short, intermediate and custodial memory Fund of knowledge: Normal to bedside [...]
--- OUTSIDE RECORDS SUMMARY | 2024-12-10 11:28 | XMS_ITS ---
Author Organization [facility] [address] [place] [address] Location Address [address] [place] [phone] Care Team Providers Care Quote Clerk Name Role Phone Kevin MATTA, Josiah Gatica [phone] MEDICATIONS Medication SIG (Take, Route, Frequency, Duration) [...] Male Encounters Encounter Location Date Provider Diagnosis [facility] [address] [address] 04/26/2024 Josiah Brown MD PLAN OF TREATMENT No Information Progress Notes * SHEY AndreaToddOB:1959 (63 yo M)Acc No.[id number]:04/26/2024 Patient:??Thomas KTA Provider:??Josiah Brown MD :1960?Age:63 Y?Sex:Ma le Date:04/26/2024 Phone: Address:[address] [place] [address] Subjective: * Chief Complaints: * ? * [...]
--- NOTE | 2024-12-10 11:29 | ED_ITS ---
HPI - Overdose General Chief Complaint: Overdose Stated Complaint: OD Time Seen by Provider: 12/10/24 11:28 Source: patient, RN notes reviewed and old records reviewed History of Present Illness ED Provider: HPI Narrative: 64-year-old male with history of polysubstance use disorder, according to he was seen yesterday after he presented with an overdose, and he was discharged but never left the waiting room and was brought back into ER for nodding off , I spoke to RN who took report and she told me that his daughter also called in stating that he has been off his medications for at least 5 days and he becomes catatonic like when he is off his med his medications. Patient states he feels anxious, he did not take any of his Suboxone today he takes to 12 mg pills and then 8 mg pill, he is also requesting a nicotine patch he smokes 3 packs of cigarettes a day. He states he used fentanyl last time 3 days ago, denies chest pain or shortness of breath headaches, any rashes, no SI or HI. He had a full workup yesterday. Related Data Previous Rx's ?Medication ?Instructions ?Recorded albuterol sulfate 90 mcg/actuation 2 puff inhalation Q6H PRN 09/18/24 aerosol inhaler (Ventolin HFA) Shortness Of Breath Or Wheezing 30 days #6.7 grams buprenorphine 12 mg-naloxone 3 mg 1 film sublingual BID 30 days #60 09/18/24 sublingual film ea bupropion HCl 150 mg 24 hr tablet, 150 mg PO DAILY 30 days #30 tabs 09/18/24 extended release clonidine HCl 0.1 mg tablet 0.1 mg PO Q4H PRN moderate anxiety 09/18/24 30 days #60 tabs gabapentin 600 mg tablet 600 mg PO TID 30 days #90 tabs 09/18/24 hydroxyzine HCl 25 mg tablet 25 mg PO Q6H PRN mild anxiety 30 09/18/24 days #60 tabs lorazepam 1 mg tablet 1 mg PO TID 30 days #90 tabs 09/18/24 nicotine (polacrilex) 4 mg gum 4 mg buccal Q2H PRN nicotine 09/18/24 cravings 30 days #110 ea olanzapine 5 mg tablet 5 mg PO BID 30 days #60 tabs 09/18/24 umeclidinium 62.5 mcg/actuation 1 inh inhalation DAILY 30 days #30 09/18/24 blister powder for inhalation ea (Incruse Ellipta) albuterol sulfate 2.5 mg/3 mL 2.5 mg (3 mL) inhalation Q6H PRN 09/19/24 (0.083 %) solution for nebulization SOB 30 days #360 mL nicotine 21 mg/24 hr daily 1 patch transdermal DAILY PRN 09/19/24 transdermal patch smoking cessation 28 days #28 ea Allergies Allergy/AdvReac Type Severity Reaction Status Date / Time codeine [CODEINE] AdvReac Mild HIVES Verified 12/10/24 10:43 Review of Systems Constitutional: Constitutional: Reports as per [facility] Past Medical History Medical History (Updated 12/10/24 @ 12:46 by Jeffy Caro DO) Overdose Opioid use disorder, moderate, dependence Chronic headaches Social History Social History Household Members: Children Housing: Apartment Unable to assess alcohol history related to: Unable to respond 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 Patient Tobacco Use Status: Current everyday Tobacco user Tobacco use type: Cigarette Cigarette Packs Per Day: 1.5 Cigarettes Per Day: 30 Years Smoked: 55 e-Cigarette/Vaping Use: Currently Using Second Hand Smoke Exposure: No Substance Use Type: Opiates Advance Directives: Yes Advance Directives on File: Yes Advance Directives Date on File: 11/30/23 service: No Sexual orientation: Straight/Heterosexual Physical Exam Vital Signs: Vital Signs: Last Vital Signs Temp 97.3 F 12/10/24 12:40 Pulse 74 12/10/24 12:40 Resp 18 12/10/24 12:40 BP 156/86 H 12/10/24 12:40 Pulse Ox 92 12/10/24 12:40 O2 Del Method Room Air 12/10/24 12:40 BMI result Body Mass Index 34.5 Const: Other: * Gen: ?Appears at baseline * HEENT: Somewhat dry oral mucosa, no scleral icterus, pupils 3 mm, * Neck: Supple, no LAD, no neck tenderness no paraspinal tenderness * CV: RRR, * Resp: ?No wheezing rales rhonchi no stridor moving air well * Abd: ?Bowel sounds are present, no tenderness no rebound no rigidity * MSK: FROM, strength 5/5 all extremities * Skin: Warm, dry, intact, no track ivory noted, chronic venous stasis changes bilateral lower extremity * Neuro: ?Alert and oriented x3, moving upper and lower extremities symmetr ically, no obvious facial asymmetry noted * Psych: No SI or HI, cooperative Medications Administered Discontinued Medications Generic Name Dose Route Start Last Admin Trade Name Jaclyn PRN Reason Stop Dose Admin Buprenorphine/Naloxone 1 film 12/10/24 11:40 12/10/24 11:55 Buprenorphine/Naloxone 12/3 Mg Film SUBLINGUAL 12/10/24 11:41 1 film ONCE ONE Administration Clonidine HCl 0.1 mg 12/10/24 11:40 12/10/24 11:55 Clonidine Hcl 0.1 Mg Tablet PO 12/10/24 11:41 0.1 mg ONCE ONE Administration Protocol Nicotine 21 mg 12/10/24 11:40 12/10/24 11:55 Nicotine 21 Mg Patch.Td24 TRANSDERMA 12/10/24 11:41 21 mg ONCE ONE Administration Medical Decision Making Medical Decision Making MDM Narrative: 1150 am: evaluated, yesterday he was seen for an overdose reportedly discharged to the waiting room but now the left was brought back in because he was either sleeping or lethargic I am not really aware what was the complain out in the waiting room but at this time he states he is withdrawing he has not been taking his Suboxone he is having nicotine cravings and he is requesting this to be addressed which I well, his daughter apparently also called and spoke to the nurse and stated that patient becomes kind of tonic-clonic when he is off his medications and apparently he has been off his meds for the past 5 days, and on my physical examination there is no obvious trauma to the head neck or body area, no obvious evidence for any infectious etiology from substances, I have evaluated his prior workup which included blood work, urinalysis, tox panel, ECG all of which has been reassuring except for polysubstances noted in his urine. We will provide him 12 mg of Suboxone, clonidine and a nicotine patch and we will ask crisis falx to evaluate him. Otherwise anticipating discharge. 12:48 behavioral health spoke with his daughter, he was offered additional support he is not interested in detox, there is no indication for psychiatric admission, he can restart his meds we will be discharging Discharge Plan Discharge Clinical Impression: Drug overdose, Polysubstance use disorder Patient Disposition: Home, Self-Care Instructions: Polysubstance Use Disorder (ED) Additional Instructions: Please take all your psychiatric medications on a regular basis you can just re start them, you were offered addiction consult, you were evaluated by our behavioral health crisis team, he will be discharged back into the community Prescriptions: No Action clonidine HCl 0.1 mg Tablet 0.1 mg PO Q4H PRN (Reason: moderate anxiety) 30 Days Qty: 60 0RF Protocol: Hold for SBP< HOLD for SBP < : 90 hydroxyzine HCl 25 mg Tablet 25 mg PO Q6H PRN (Reason: mild anxiety) 30 Days Qty: 60 0RF lorazepam 1 mg Tablet 1 mg PO TID 30 Days Qty: 90 0RF gabapentin 600 mg tablet 600 mg PO TID 30 Days Qty: 90 0RF olanzapine 5 mg tablet 5 mg PO BID 30 Days Qty: 60 0RF nicotine (polacrilex) 4 mg gum 4 mg buccal Q2H PRN (Reason: nicotine cravings) 30 Days Qty: 110 0RF albuterol sulfate [Ventolin HFA] 90 mcg/actuation HFA aerosol inhaler 2 puff inhalation Q6H PRN (Reason: Shortness Of Breath Or Wheezing) 30 Days Qty: 6.7 0RF bupropion HCl 150 mg tablet extended release 24 hr 150 mg PO DAILY 30 Days Qty: 30 0RF buprenorphine-naloxone 12-3 mg film 1 film sublingual BID 30 Days Qty: 60 0RF Incruse Ellipta 62.5 mcg/actuation blister with device 1 inh INHALATION DAILY 30 Days Qty: 30 0RF nicotine 21 mg/24 hr patch 24 hour 1 patch transdermal DAILY PRN (Reason: smoking cessation) 28 Days Qty: 28 0RF Rx Instructions: Move at bedtime albuterol sulfate 2.5 mg /3 mL (0.083 %) solution for nebulization 2.5 mg inhalation Q6H PRN (Reason: SOB) 30 Days Qty: 360 0RF Print Language: Unable To Collect
--- NOTE | 2024-12-10 11:29 | PC.NURSE ---
patient appears more awake at this time, removed medical devices from self. sat up in bed requesting nicotine patch.
--- NOTE | 2024-12-10 11:49 | PC.NURSE ---
three bags of belongings placed in mattie port on the ground. medications sent to pharmacy
[2024-12-10] MEDS: cloNIDine HCL 0.1 MG TABLET PO (11:55)
[2024-12-10] MEDS: Nicotine 21 MG PATCH.TD24 TRANSDERMA (11:55)
[2024-12-10] MEDS: Buprenorphine/Naloxone 12/3 mg FILM 1 FILM SUBLINGUAL (11:55)
--- NOTE | 2024-12-10 12:37 | MHC.CARE ---
Pt does not meet the criteria for a higher level of care at this time and is not in a psychiatric crisis. Pt declined a referral to speak with the recovery team and will D/C. Provider in agreement.
[2024-12-10 12:40] VITALS: BP 156/86; PULSE 74; RESP 18; TEMP 36.3; O2SAT 92
[2024-12-10 13:09] VITALS: BP 156/86; PULSE 74; RESP 18; TEMP 36.3; O2SAT 92
== END 2024-12-10 13:11 | disposition home or self-care (01) ==
PROVIDERS: Emergency Provider Emergency Medicine; PCP Internal Medicine Nephrology
DX: T40.411A Poisoning by fentanyl or fentanyl analogs, accidental (unintentional), initial encounter (principal); Y92.89 Other specified places as the place of occurrence of the external cause; F17.210 Nicotine dependence, cigarettes, uncomplicated; F41.9 Anxiety disorder, unspecified; Z71.51 Drug abuse counseling and surveillance of drug abuser; Z79.891 Long term (current) use of opiate analgesic
CPT/HCPCS: 99283; S9485

== ENCOUNTER 2024-12-22 08:48 | Emergency (ER) | payer MEDICARE, SELFPAY ==
[2024-12-22] VITALS (7 sets, daily range): BP systolic 127–149; BP diastolic 51–87; PULSE 60–80; RESP 13–20; TEMP 36.5–37.2; O2SAT 89–98; BMI 32.4
--- NOTE | ~2024-12-22 | XR_ITS ---
CLINICAL HISTORY: hypoxia 1 view chest x-ray Comparison: CR - XR CHEST 1V - 12/09/24 17:45 EDT Findings: There is prominence of interstitial markings within the bilateral lungs. There is no consolidative process. Normal size heart. Multiple chronic rib fractures. No acute fracture. IMPRESSION: Prominent interstitial markings. This may be chronic. Interstitial infiltrates or edema are not excluded. This document has been electronically signed by: Jackelin Rivero MD on 12/22/2024 13:21:46
--- NOTE | 2024-12-22 09:22 | PC.NURSE ---
Pt arrives to ED via EMS after being found by police attempting to break into a random home to gain warmth. Pt is very drowsy on arrival with no verbal interactions. Supplemental O2 applied @ 4L via NC d/t O2 sat 89% RA. Skin is warm and dry. Breaths are slow, even, and unlabored. Pt changed into hospital gown as personal clothing damp from rain. Limited assessment achieved at Pt is not alert enough to participate. Awaiting ED provider orders.
--- NOTE | 2024-12-22 09:45 | ED_ITS ---
HPI - General Adult General Chief complaint: ETOH/Substance Use Stated complaint: PT STS COLD,FOUND TRYING TO ENTER A HOME PER EMS Time Seen by Provider: 12/22/24 09:04 Source: patient, EMS, RN notes reviewed and old records reviewed Mode of arrival: EMS History of Present Illness ED Provider: Ashley Cuadra PA-C HPI narrative: 64-year-old male with a past medical history of COPD, bipolar, HTN, peripheral neuropathy, Yamil's thyroiditis, chronic headaches, polysubstance use disorder, presenting to the ED via EMS s/p being found by PD attempting to break into someone's house due to being cold/outside. Per EMS patient possibly homeless / living out of his car. Reported using fentanyl this morning, unclear how much, however possibly 12 bags. Remaining history limited due to patient un-cooperation & acute mental status. Related Data Home Medications ?Medication ?Instructions ?Recorded ?Confirmed bupropion HCl 150 mg 24 hr tablet, 150 mg PO DAILY 12/23/24 12/23/24 extended release lorazepam 1 mg tablet 1 mg PO TID PRN anxiety attack 12/23/24 12/23/24 olanzapine 5 mg tablet 5 mg PO BID 12/23/24 12/23/24 Previous Rx's ?Medication ?Instructions ?Recorded albuterol sulfate 90 mcg/actuation 2 puff inhalation Q6H PRN 09/18/24 aerosol inhaler (Ventolin HFA) Shortness Of Breath Or Wheezing 30 days #6.7 grams nicotine (polacrilex) 4 mg gum 4 mg buccal Q2H PRN nicotine 09/18/24 cravings 30 days #110 ea nicotine 21 mg/24 hr daily 1 patch transdermal DAILY PRN 09/19/24 transdermal patch smoking cessation 28 days #28 ea Allergies Allergy/AdvReac Type Severity Reaction Status Date / Time codeine [CODEINE] AdvReac Mild HIVES Verified 12/22/24 22:25 Review of Systems 2 Review of Systems: Yes all other systems are reviewed and are negative Constitutional: Constitutional: Reports as per HPI [facility] Past Medical History Attestation statement: The following information was validated with the patient. 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 Patient Tobacco Use Status: Current everyday Tobacco user Tobacco use type: Cigarette Cigarette Packs Per Day: 1.5 Cigarettes Per Day: 30 Years Smoked: 55 Smoked in Last 30 Days: No e-Cigarette/Vaping Use: Currently Using Second Hand Smoke Exposure: No Substance Use Type: Opiates Advance Directives: Yes Advance Directives on File: Yes Advance Directives Date on File: 11/30/23 service: No Sexual orientation: Straight/Heterosexual Physical Exam ED Vital Signs: Vital Signs - 24 hr 12/22/24 14:04 12/22/24 16:24 12/22/24 17:08 Temperature 97.7 F 98.1 F 98.1 F Pulse Rate 63 64 64 Respiratory Rate 13 16 16 Blood Pressure 135/74 145/87 H 145/87 H Pulse Oximetry 96 92 92 Oxygen Delivery Method Nasal Cannula Room Air Room Air Oxygen Flow Rate 3 BMI result Body Mass Index 32.4 Const Other: Appears under the influence, arousable to voice General: no acute distress HENMT Head: Yes normal to inspection and Yes atraumatic Ears: hearing grossly normal bilaterally General nose exam: Normal external nose present Face and sinus: Yes normal facial exam Eyes General: appearance normal, both eyes and all related structures Pupils: Pinpoint pupils bilaterally EOM: EOMs intact bilaterally Neck Neck: Yes normal visual inspection and Yes no meningeal signs Resp Effort & Inspection: normal respiratory effort and no respiratory distress Auscultation: clear to auscultation bilaterally and no wheezes Cardio Rate: regular rate Heart sounds: S1 normal heart sound present and S2 normal heart sound present GI Inspection: Yes normal to inspection Palpation (GI): Soft to palpation, nontender, no guarding and not rigid Skin Rashes: no rashes Wounds: no wounds Neuro General: tone normal, no meningeal signs and CN's II-XI intact bilaterally Cranial nerves: Yes CN's II-XII intact bilaterally Extrem General: Yes normal to inspection Course Course Course Narrative: -1224-- labs reassuring. Tox screen positive for buprenorphine, otherwise negative/ethanol negative - viral testing negative 1430--XR chest 1V IMPRESSION: Prominent interstitial markings. This may be chronic. Interstitial infiltrates or edema are not excluded. > Low suspicion for acute pneumonia. No clinical evidence of CHF/overload, no pedal edema - physician observation initiated at 14:40 as patient needs more time for clinical sobriety. On re-evaluation remains sleeping, easily arousable to voice, non conversational/ cooperative with history /physical still, will continue to monitor - 1657-- patient has been awake and alert. Has eaten 5 containers of sherbert / ice cream in the ED, ambulating with steady gait. Denies SI / HI. Is not interested in detox. Attempted to have recovery team speak with patient however he would not engage. Requesting cigarettes at this time. He is safe for discharge. Will supply with list of shelters Medications Administered Discontinued Medications Generic Name Dose Route Start Last Admin Trade Name Frerita PRN Reason Stop Dose Admin Naloxone HCl 8 mg 12/22/24 09:52 12/22/24 16:02 Naloxone Hcl Nasal Take Home 4 Mg [place] NOSTRILALT 12/22/24 09:53 8 mg ONCE ONE Administration Medical Decision Making Medical Decision Making [facility] Narrative: 64-year-old male with a past medical history of COPD, bipolar, HTN, peripheral neuropathy, Yamil's thyroiditis, chronic headaches, polysubstance use disorder, presenting to the ED via EMS s/p being found by PD attempting to break into someone's house due to being cold/outside. On exam hypoxic 89% on RA and 97-98% on 4L NC, appears under the influence, alert to voice, bilaterally pinpoint and reactive pupils, uncooperative with history / physical, no evidence of overt trauma. Concern for polysubstance use. Lower suspicion for acute infectious etiology. Rule out metabolic abnormalities. Lower suspicion for ICH/ fractures Plan: Labs, tox screen, observe and re-evaluate for clinical sobriety Please refer to course for remaining clinical decision making, interpretation of labs/imaging results, and discussions with consultants and/or family members. Differential Diagnosis Differential Diagnoses: The differential diagnosis associated with the presentation includes As above Admission/Observation Consideration of admission/observation: Escalation of care including admission/observation considered Consult Healthcare Provider Management of the patient was discussed with: Behavioral Health Provider Lab Data [facility] Lab Attestation statement: I reviewed the patient's lab results. 12/22/24 09:43 12/22/24 09:43 Labs: Lab Results 12/22/24 12/22/24 Range/Units 09:43 11:23 WBC 6.6 (4.8-10.8) X10*3/uL RBC 4.63 (4.60-5.80) X10*6/uL Hgb 14.0 (14.0-18.0) g/dl Hct 41.4 L (42.0-52.0) % MCV 89.4 (80.0-98.0) fL MCH 30.2 (27.0-33.0) pg MCHC 33.8 (31.0-36.0) g/dl RDW 13.4 (11.0-16.0) % Plt Count 175 (160-400) X10*3/uL MPV 8.9 L (9.4-12.4) fL Immature Gran % (Auto) 0.3 (0.0-0.4) % Neut % (Auto) 75.1 H (45-73) % Lymph % (Auto) 13.9 L (20-40) % Cooper % (Auto) 7.9 (2-11) % Eos % (Auto) 1.7 (0-4) % Baso % (Auto) 1.1 (0-2) % Lymph # (Auto) 0.9 L (1.2-4.9) X10*3/uL Cooper # (Auto) 0.5 (0.1-1.2) X10*3/uL Eos # (Auto) 0.1 (0.0-0.4) X10*3/uL Baso # (Auto) 0.1 (0.0-0.2) X10*3/uL Abs Immat Gran (auto) 0.02 (0.00-0.03) X10*3/uL Absolute Neuts (auto) 5.0 (2.0-8.3) x10*3/uL Absolute Nucleated RBC 0.000 (0.0-0.012) X10*3/uL Nucleated RBC % (auto) 0.0 (0.0-0.2) /100WBC Sodium 141 (135-145) mmol/L Potassium 4.1 (3.3-5.1) mmol/L Chloride 108 (96-108) mmol/L Carbon Dioxide 25 (22-29) mmol/L Anion Gap 12 (12-20) BUN 12 (9-16) mg/dL Creatinine 0.66 (0.5-1.4) mg/dL Estim Creat Clear Calc 120.1 Estimated GFR > 60 Random Glucose 91 (60-115) mg/dL Calcium 8.9 (8.4-10.2) mg/dL Magnesium 2.0 (1.6-2.6) mg/dL Total Bilirubin 0.5 (0.0-1.0) mg/dL Direct Bilirubin 0.2 (0.0-0.5) mg/dL AST 21 (5-37) U/L ALT 10 (0-40) U/L Alkaline Phosphatase 81 (39-117) U/L Total Protein 6.9 (6.5-8.0) g/dL Albumin 3.6 (3.5-5.0) g/dL Urine Opiates Screen Not Detected (Not Detect) Ur Buprenorphine Scrn Positive H (Not Detect) ng/mL Ur Oxycodone Screen Not Detected (Not Detect) ng/mL Urine Methadone Screen Not Detected (Not Detect) ng/mL Urine Fentanyl Screen Not Detected (Not Detect) Ur Barbiturates Screen Not Detected (Not Detect) Ur Phencyclidine Scrn Not Detected (Not Detect) Ur Amphetamines Screen Not Detected (Not Detect) U Benzodiazepines Scrn Not Detected (Not Detect) Urine Cocaine Screen Not Detected (Not Detect) U Marijuana (THC) Screen Not Detected (Not Detect) Ethyl Alcohol < 10 mg/dL Influenza Type A (PCR) NEGATIVE (Negative) Influenza Type B (PCR) NEGATIVE (Negative) RSV RNA Qual (PCR) NEGATIVE (Negative) SARS-CoV-2 RNA (RT-PCR) NEGATIVE (Negative) Independent Historian Clinical information obtained from an independent historian. History obtained from or confirmed by: EMS External Record Review External record reviewed: Inpatient record, Office record, Outpatient record, Prior outpatient labs, Prior outpatient radiology, Primary care record and Outside ED record Tests considered The following testing was considered but not selected: As above Prescription Management I considered prescription management with: Other Chronic Conditions Patient?s care impacted by: Other Social Determinants Patient?s care significantly limited by Social Determinants of Health including: Inadequate housing, Low income, Alcoholism and drug addiction in family, Problems related to primary support group, Unemployment, Problems related to employment and Other Social Determinant of Health Discharge Plan Discharge Clinical Impression: Substance abuse Patient Disposition: Home, Self-Care Instructions: Polysubstance Use Disorder (ED) Additional Instructions: Opiate use disorder You were seen in our Emergency Department today for treatment of opiate use disorder. You may have been dosed with medication for opiate use disorder (MOUD) in the form of suboxone or methadone. You may experience feeling some withdrawal symptoms and this is normal. The? dose in the Emergency Department is a starting dose and meant to be titrated up once you follow up with a clinic. Please do not feel discouraged, it is a process. The nurse has reviewed with you where to follow up and what information to bring with you, to continue treatment. You also may have been given naloxone (narcan) to take home with you. This medication is used to potentially treat opiate overdose. If you decide you want to stop or cut down on how much you?re using, you can call or walk into our outpatient Addiction Treatment office: [facility] (M-F 9am-5p) [address] [place] [address], [address] [phone] You may have been provided with safer injection?items, please take time to take care of YOU and your health. Use new supplies whenever possible to lessen the chances of infections and other illnesses.? ?If you need more supplies, please go [facility],? [address] [place] [address] OR you can call or text to coordinate delivery of safer supplies. You were also provided a list of several treatment providers in the area.? If you experience any worsening symptoms you cannot control please return to the ED or call 911. Please follow up at your next appointment. Things to look out for are fevers, chest pain, shortness of breath, severe pain, dizziness, fainting or any other concerns. Prescriptions: No Action olanzapine 5 mg tablet 5 mg PO BID lorazepam 1 mg tablet 1 mg PO TID PRN (Reason: anxiety attack) bupropion HCl 150 mg tablet extended release 24 hr 150 mg PO DAILY nicotine (polacrilex) 4 mg gum 4 mg buccal Q2H PRN (Reason: nicotine cravings) 30 Days Qty: 110 0RF albuterol sulfate [Ventolin HFA] 90 mcg/actuation HFA aerosol inhaler 2 puff inhalation Q6H PRN (Reason: Shortness Of Breath Or Wheezing) 30 Days Qty: 6.7 0RF nicotine 21 mg/24 hr patch 24 hour 1 patch transdermal DAILY PRN (Reason: smoking cessation) 28 Days Qty: 28 0RF Rx Instructions: Move at bedtime Referrals: [facility] [Provider Group] [facility] [Outside] Physician,Unknown J [Primary Care Provider] - Interventions: ED Discharge Assessment Last Done: 12/22/24 17:08 Discharge Date/Time: 12/22/24 17:16 Print Language: Kyrgyz
[2024-12-22 09:47] LABS: MANUAL DIFF FLAG NO
[2024-12-22 09:49] LABS: Basophils Absolute Auto 0.1 X10*3/uL (0.0-0.2); Basophils Percent Auto 1.1 % (0-2); Eosinophils Absolute Auto 0.1 X10*3/uL (0.0-0.4); Eosinophils Percent Auto 1.7 % (0-4); Hematocrit 41.4 % (42.0-52.0); Imm Gran Abs Auto 0.02 X10*3/uL (0.00-0.03); Imm Gran Pct Auto 0.3 % (0.0-0.4); Lymphocytes Absolute Auto 0.9 X10*3/uL (1.2-4.9); Lymphocytes Percent Auto 13.9 % (20-40); Mean Corpuscular HGB Conc 33.8 g/dl (31.0-36.0); Mean Corpuscular Hemoglobin 30.2 pg (27.0-33.0); Mean Corpuscular Volume 89.4 fL (80.0-98.0); Mean Platelet Volume 8.9 fL (9.4-12.4); Monocytes Absolute Auto 0.5 X10*3/uL (0.1-1.2); Monocytes Percent Auto 7.9 % (2-11); Neutrophils Percent Auto 75.1 % (45-73); Platelet Count 175 X10*3/uL (160-400); Red Blood Count 4.63 X10*6/uL (4.60-5.80); Red Cell Distribution Width 13.4 % (11.0-16.0); White Blood Count 6.6 X10*3/uL (4.8-10.8)
[2024-12-22 10:08] LABS: Alanine Aminotransferase 10 U/L (0-40); Albumin Level 3.6 g/dL (3.5-5.0); Alkaline Phosphatase 81 U/L (39-117); Anion Gap 12 (12-20); Aspartate Amino Transferase 21 U/L (5-37); Bilirubin Direct 0.2 mg/dL (0.0-0.5); Bilirubin Total 0.5 mg/dL (0.0-1.0); Blood Urea Nitrogen 12 mg/dL (9-16); Calcium 8.9 mg/dL (8.4-10.2); Carbon Dioxide 25 mmol/L (22-29); Chloride 108 mmol/L (96-108); Creatinine Clr Calc Pharmacy 120.1; Estimated Glomerular Filt Rate > 60; Ethanol < 10 mg/dL; Glucose Random 91 mg/dL (60-115); Potassium 4.1 mmol/L (3.3-5.1); Sodium 141 mmol/L (135-145); Total Protein 6.9 g/dL (6.5-8.0)
[2024-12-22 10:43] LABS: Influenza A PCR NEGATIVE (Negative); Influenza B PCR NEGATIVE (Negative); Resp Syncy Virus RNA Qual PCR NEGATIVE (Negative); SARS COV2 PCR INHOUSE NEGATIVE (Negative)
--- OUTSIDE RECORDS SUMMARY | 2024-12-22 11:12 | XMS_ITS | Patient Health Record ---
Author Organization [facility] Location Address [address] [place] [id number] Care Team Providers Care Medical Educator Name Role Phone Kevin MATTA, Josiah Unavailable [phone] Edward Rucker MD Unavailable [phone] ALLERGIES Allergen (clinical drug ingredient) Drug/Non Drug Allergy documented on EMR Reaction Allergy Type Onset Date Status codeine Codeine Unknown Drug Allergy Active prednisolone Prednisolone Unknown Drug Allergy A ctive RESULTS Component Value Reference Range Notes MRI : Brain without Contrast Reviewed date:03/19/2024 01:02:55 PM Interpretation: Performing Lab: Notes/Report: REASON FOR REFERRAL Diagnosis 1 Memory loss (R41.3) Referral Organization [facility] [address] [place] [address] Location Referring Provider First Name Edward Referring Provider Last Name Chaim MATTA Referring Provider Speciality Neurology Referred Provider Specialty Neuropsychia try General Notes referral for neuropy remi psych evaluation, Shannan Chapa 03/28/2024 10:22:09 AM >faxed to [facility])[phone] Referral Priority Routine MEDICATIONS Medication SIG (Take, [...] Memory loss (R41.3) Active confirmed Memory loss ([id number] ) 63 year old male who is here with episodes of AMS and memory complaint MMSE today is 30/30 PCP is concerned about underlying neurological disorder. many of the episodes he stated to me were induced by drug use however we will order MRI brain, cognitive labs and neuropsych to evaluate for other cause to his symptoms Problem Gait abnormality (R26.9) Active confirmed gait is possibly due to neuropathy ordering EMG legs he is already on gabapentin VITAL SIGNS Heart Rate 90 /min 03/19/2024 Respiratory Rate 16 /min 03/19/2024 Blood pressure diastolic 100 mm Hg 03/19/2024 Blood pressure systolic 158 mm Hg 03/19/2024 Encounters Encounter Location Date Provider Diagnosis [facility] [address] [facility] Location [address] [place] [address] 03/19/2024 Edward Rucker MD Memory loss R41.3 ; Confusion R41.0 and Gait abnormality R26.9 [facility] [address] [address] 04/26/2024 Josiah Brown MD ASSESSMENTS Encounter Date [...] Insured Coverage Start Date Coverage End Date [facility] [address] [place] [address] [id number] Thomas Noe Self - patient is the insured MEDICAL (GENERAL) HISTORY Medical History History ICD Code HTN COPD Opioid use disorder Benzodiazepine use disorder PTSD h/o DVT h/o neuropathy Hospitalization History Reason Date(Month/Year) overdose
[2024-12-22 11:41] LABS: Amphetamine Screen Urine Not Detected (Not Detect); Barbiturates, Urine Not Detected (Not Detect); Benzodiazepines Screen Urine Not Detected (Not Detect); Buprenorphine Scr Positive (Not Detect); Cannabinoid Screen Urine Not Detected (Not Detect); Cocaine Screen Urine Not Detected (Not Detect); Fentanyl, urine Not Detected (Not Detect); Methadone Screen, Urine Not Detected (Not Detect); Opiate Screen Urine Not Detected (Not Detect); Oxycodone Screen Urine Not Detected (Not Detect); Phencyclidine Screen Urine Not Detected (Not Detect)
--- NOTE | 2024-12-22 15:50 | MHC.CARE ---
Addendum entered by Rhonda Claudio LCSW 12/22/24 15:52: ED provider expressed they consulted recovery to see if Pt would engage in conversation with someone else, as they had no luck. Original Note: ED Provider JHONATAN Krause placed a recovery consult for Pt. T/W attempted to engage Pt in conversation who was eating multiple Maltese ice's and expressed, I'm hungry. However, Pt then disengaged from conversation. ED provider made aware.
[2024-12-22] MEDS: Naloxone HCl Nasal TAKE HOME 4 MG SPRAY 8 MG NOSTRILALT (16:02)
== END 2024-12-22 17:16 | disposition home or self-care (01) ==
PROVIDERS: Physician Assistant; Emergency Provider Emergency Medicine
DX: F19.10 Other psychoactive substance abuse, uncomplicated (principal); F31.9 Bipolar disorder, unspecified; F11.20 Opioid dependence, uncomplicated; I10 Essential (primary) hypertension; J44.9 Chronic obstructive pulmonary disease, unspecified; Z03.818 Encounter for observation for suspected exposure to other biological agents ruled out; F17.210 Nicotine dependence, cigarettes, uncomplicated; Z79.899 Other long term (current) drug therapy
CPT/HCPCS: 0241U; 71045; 80048; 80076; 80307; 83735; 85025; 99284

== ENCOUNTER → 2024-12-22 12:25 | Outpatient (BNV) | payer MEDICARE, SELFPAY | PROVIDERS: Emergency Provider Emergency Medicine; Visit Provider Radiology Diagnostic Radiology | DX: J84.9 Interstitial pulmonary disease, unspecified (principal) | CPT/HCPCS: 71045 ==

== ENCOUNTER 2024-12-22 22:17 | Emergency (ER) | payer MEDICARE, SELFPAY ==
[2024-12-22 22:22] VITALS: BP 176/101; PULSE 92; RESP 18; TEMP 36.4; O2SAT 92; BMI 28.0
[2024-12-22 22:55] VITALS: BP 161/89; PULSE 88; RESP 17; TEMP 36.7; O2SAT 94
[2024-12-22 23:29] LABS: Amphetamine Screen Urine Not Detected (Not Detect); Barbiturates, Urine Not Detected (Not Detect); Benzodiazepines Screen Urine Not Detected (Not Detect); Buprenorphine Scr Positive (Not Detect); Cannabinoid Screen Urine Not Detected (Not Detect); Cocaine Screen Urine Not Detected (Not Detect); Fentanyl, urine Not Detected (Not Detect); Methadone Screen, Urine Not Detected (Not Detect); Opiate Screen Urine Not Detected (Not Detect); Oxycodone Screen Urine Not Detected (Not Detect); Phencyclidine Screen Urine Not Detected (Not Detect)
--- NOTE | 2024-12-22 23:51 | ED.PSYCH ---
HPI - Psych General Chief Complaint: Psychiatric Symptoms Stated Complaint: doesn't know anything??? Time Seen by Provider: 12/22/24 22:44 Source: patient Mode of arrival: ambulatory Limitations: no limitations History of Present Illness ED Provider: Nithya Barragan NP HPI Narrative: Patient is a 64-year-old male in the emergency department for evaluation. He was patient in the ED earlier today for more proximally 09:00-17:00, initially brought in by PD as he was found attempting to break into someone's home due to being cold and outside concern for an possibly being on housed, had endorsed using fentanyl earlier this morning. Patient was initially not very cooperative and forthcoming. But ultimately he was awake and alert had ate and drank was ambulating with steady gait denying SI/HI and had no interest in detox, he would not engage with recovery team to speak with them. He was ultimately discharged from provided with a list of local shelters. Evidently he never left the waiting room, was sitting out there for about 10 hours. She ultimately checked back in was very tearful reporting that he is depressed his family has a band in him. Denies having any suicidal or homicidal ideations. Requesting some food and to sleep. Related Data Home Medications ?Medication ?Instructions ?Recorded ?Confirmed bupropion HCl 150 mg 24 hr tablet, 150 mg PO DAILY 12/23/24 12/23/24 extended release lorazepam 1 mg tablet 1 mg PO TID PRN anxiety attack 12/23/24 12/23/24 olanzapine 5 mg tablet 5 mg PO BID 12/23/24 12/23/24 Previous Rx's ?Medication ?Instructions ?Recorded albuterol sulfate 90 mcg/actuation 2 puff inhalation Q6H PRN 09/18/24 aerosol inhaler (Ventolin HFA) Shortness Of Breath Or Wheezing 30 days #6.7 grams nicotine (polacrilex) 4 mg gum 4 mg buccal Q2H PRN nicotine 09/18/24 cravings 30 days #110 ea nicotine 21 mg/24 hr daily 1 patch transdermal DAILY PRN 09/19/24 transdermal patch smoking cessation 28 days #28 ea Allergies Allergy/AdvReac Type Severity Reaction Status Date / Time codeine [CODEINE] AdvReac Mild HIVES Verified 12/22/24 22:25 Review of Systems Review of Systems: Yes all other systems are reviewed and are negative PMFSH Past Medical History Attestation statement: The following information was validated with the patient. 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 Patient Tobacco Use Status: Current everyday Tobacco user Tobacco use type: Cigarette Cigarette Packs Per Day: 1.5 Cigarettes Per Day: 30 Years Smoked: 55 Smoked in Last 30 Days: No e-Cigarette/Vaping Use: Currently Using Second Hand Smoke Exposure: No Substance Use Type: Opiates Advance Directives: Yes Advance Directives on File: Yes Advance Directives Date on File: 11/30/23 service: No Sexual orientation: Straight/Heterosexual Physical Exam Vital Signs: Vital Signs: Last Vital Signs Temp 98.0 F 12/23/24 11:31 Pulse 81 12/23/24 11:31 Resp 18 12/23/24 11:31 BP 152/84 H 12/23/24 11:31 Pulse Ox 96 12/23/24 11:31 O2 Del Method Room Air 12/23/24 11:31 BMI result Body Mass Index 28.0 Appearance: Alert.?Oriented to person, place and time. No acute distress.?Normal affect. Eyes: Pupils equal, round and reactive to light.? ENT: Pharynx normal.?? Neck: Normal inspection.? Neck supple.?? CVS: Heart sounds normal. Normal heart rate and rhythm.? Pulses normal.?? Respiratory: No respiratory distress.? Lung sounds clear to auscultation bilaterally?? Abdomen: Soft and non-tender. Normoactive bowel sounds. Skin: Skin warm and dry.? Normal skin color.? Extremities: No lower extremity edema.? Neuro: Moves all extremities spontaneously. Sensation intact bilaterally. CN II-XII intact. No focal neuro deficits. Ambulates with normal steady gait. Course Course Course Narrative: Time: 07:12 Date: 12/23/24 Provider: Saskia Mai, DO Patient in physician observation for psychiatric evaluation.? No acute events reported overnight. No current complaints. VS stable. pending CARE team evaluation. Will continue to monitor. Reevaluation(s) Reevaluation #1: Time: 11:17 Date: 12/23/24 Provider: Saskia Mai DO Physician observation ended at 1117am. Patient has been cleared for discharge by the CARE team. Will follow up as an outpatient. He has no SI. He declines STR or placement. At this time no SI he can be DC home Medications Administered Discontinued Medications Generic Name Dose Route Start Last Admin Trade Name Freq PRN Reason Stop Dose Admin Bupropion HCl 150 mg 12/23/24 09:15 12/23/24 10:22 Bupropion Hcl Xl 150 Mg Tab.Er.24h PO 150 mg DAILY SALTY Administration Lorazepam 1 mg 12/23/24 05:48 12/23/24 05:51 Lorazepam 1 Mg Tablet PO 12/23/24 05:49 1 mg ONCE ONE Administration Olanzapine 5 mg 12/23/24 09:15 12/23/24 10:23 Olanzapine 5 Mg Tablet PO 5 mg BID SALTY Administration Medical Decision Making Medical Decision Making MDM Narrative: Patient is a 64-year-old male with past medical history of bipolar disorder, COPD, substance use disorder, hypertension checking back into emergency department after having been discharged by [facility] previously with endorsement of depression no suicidal or homicidal ideations. He again is not entirely very forthcoming, somewhat uncooperative as far as trying to obtain further history/details. He is in the behavioral health pad pending care team evaluation for assistance with disposition planning. Differential Diagnosis Differential Diagnoses: The differential diagnosis associated with the presentation includes (See narrative above and below for further detail) Admission/Observation Consideration of admission/observation: Escalation of care including admission/observation considered Patient is being observed in the Emergency Department for depression Observation time was started at 23:00 on 12/22/24?The patient is currently stable and non-toxic appearing. Observation is being initiated in the Emergency Department to allow time to help differentiate if the patient's depression and anxiety is due to Substance Induced Mood Disorder and Anxiety versus Major Depressive Disorder, Bipolar Joellen, Bipolar Depression, and Schizophrenia. The patient will receive frequent psychiatric assessments from the provider as well as from nursing staff. The patient will also be monitored for the need of PRN agitation medications such as Haldol, Ativan, and Benadryl. Consult Healthcare Provider Management of the patient was discussed with: Behavioral Health Provider (CARE team) Lab Data MDM Lab Attestation statement: I reviewed the patient's lab results. Labs: Lab Results 12/22/24 Range/Units 23:12 Urine Opiates Screen Not Detected (Not Detect) Ur Buprenorphine Scrn Positive H (Not Detect) ng/mL Ur Oxycodone Screen Not Detected (Not Detect) ng/mL Urine Methadone Screen Not Detected (Not Detect) ng/mL Urine Fentanyl Screen Not Detected (Not Detect) Ur Barbiturates Screen Not Detected (Not Detect) Ur Phencyclidine Scrn Not Detected (Not Detect) Ur Amphetamines Screen Not Detected (Not Detect) U Benzodiazepines Scrn Not Detected (Not Detect) Urine Cocaine Screen Not Detected (Not Detect) U Marijuana (THC) Screen Not Detected (Not Detect) External Record Review External record reviewed: Outpatient record Chronic Conditions Patient?s care impacted by: Other (See narrative above) Discharge Plan Discharge Clinical Impression: Depression Patient Disposition: Home, Self-Care Instructions: Depression (ED) Additional Instructions: You were seen in our Emergency Department today for treatment of a behavioral health issue. It is important after your visit that you follow up with either your behavioral health provider or a primary care doctor within 7 days.? If you have trouble finding a therapist you can reach out to [address] [phone] The National Suicide and Crisis Lifeline can be reached 7 days a week 24 hours a day.? Call 988 to speak with someone.? Return for any worsening symptoms or concerns such as thoughts of self harm or harm to others. Please call 911 if you feel your mental health is worsening.? Prescriptions: No Action olanzapine 5 mg tablet 5 mg PO BID lorazepam 1 mg tablet 1 mg PO TID PRN (Reason: anxiety attack) bupropion HCl 150 mg tablet extended release 24 hr 150 mg PO DAILY nicotine (polacrilex) 4 mg gum 4 mg buccal Q2H PRN (Reason: nicotine cravings) 30 Days Qty: 110 0RF albuterol sulfate [Ventolin HFA] 90 mcg/actuation HFA aerosol inhaler 2 puff inhalation Q6H PRN (Reason: Shortness Of Breath Or Wheezing) 30 Days Qty: 6.7 0RF nicotine 21 mg/24 hr patch 24 hour 1 patch transdermal DAILY PRN (Reason: smoking cessation) 28 Days Qty: 28 0RF Rx Instructions: Move at bedtime Interventions: Stephenson-Suicide Risk Severity Scale Last Done: 06/01/25 00:59 ED Discharge Assessment Last Done: 12/23/24 11:31 Discharge Date/Time: 12/23/24 11:45 Print Language: Unable To Collect
[2024-12-23 05:51] VITALS: BP 165/83; PULSE 75; RESP 18; TEMP 36.6; O2SAT 93
[2024-12-23] MEDS: LORazepam 1 MG TABLET PO (05:51)
--- NOTE | 2024-12-23 06:58 | PC.NURSE ---
Assumed care of patient at 0645, patient appears to be in no apparent distress this am, eating breakfast at bedside table. Continue plan of care for CARE team brenna
[2024-12-23] MEDS: buPROPion HCl XL 150 MG TAB.ER.24H PO (10:22)
[2024-12-23] MEDS: OLANZapine 5 MG TABLET PO (10:23)
[2024-12-23 11:31] VITALS: BP 152/84; PULSE 81; RESP 18; TEMP 36.7; O2SAT 96
== END 2024-12-23 11:45 | disposition home or self-care (01) ==
PROVIDERS: Nurse Practitioner Family; Emergency Provider Emergency Medicine
DX: F32.A Depression, unspecified (principal); J44.9 Chronic obstructive pulmonary disease, unspecified; F11.20 Opioid dependence, uncomplicated; F17.210 Nicotine dependence, cigarettes, uncomplicated; Z03.818 Encounter for observation for suspected exposure to other biological agents ruled out; Z79.899 Other long term (current) drug therapy
CPT/HCPCS: 0241U; 71045; 80048; 80076; 80307; 83735; 85025; 99284; 99285; S9485

== ENCOUNTER 2025-02-02 16:31 | Emergency (ER) | payer MEDICARE, SELFPAY ==
--- NOTE | ~2025-02-02 | CT_ITS ---
CLINICAL HISTORY: altered mental status CT head without contrast Comparison: CT/SR - CT HEAD/BRAIN WO IV CON - 12/09/24 17:42 EDT Findings: There is age-appropriate atrophy. The size and shape of the ventricular system is within normal limits for this degree of atrophy. Unchanged moderate areas of low attenuation are identified within the periventricular and deep white matter. Prominent CSF collection within the left posterior fossa near the midline is unchanged compared to prior study measuring 2.9 x 3.9 cm in size, presumably an arachnoid cyst. No midline shift or mass effect. No intracranial hemorrhage. No calvarial fractures. Partial absence of the posterior aspect of the cartilaginous nasal septum. IMPRESSION: 1. No acute intracranial findings. Specifically, no hemorrhage or acute territorial infarct. This document has been electronically signed by: Mina Vargas MD on 02/03/2025 01:23:29
[2025-02-02 16:37] VITALS: BP 127/74; PULSE 79; O2SAT 94
[2025-02-02 16:39] VITALS: BP 127/72; PULSE 73; RESP 16; TEMP 36.8; O2SAT 93; BMI 28.2
--- NOTE | 2025-02-02 16:44 | PC.NURSE ---
Security called, spoke to Jorge A, requested safety search since patient was OD earlier today, security to come to search patient. Primary RN Ebony made aware.
--- NOTE | 2025-02-02 17:09 | ED.GENADULT ---
HPI - General Adult General Chief complaint: Overdose Stated complaint: altered mental status Time Seen by Provider: 02/02/25 17:09 History of Present Illness ED Provider: Cheyanne MCKINNON narrative: The patient is a 64-year-old male with a history of previous visits for opioid use disorder. Apparently the patient was brought to the hospital by ambulance after being found unresponsive. The patient apparently told paramedics he had used a bag of heroin. On arrival here the patient we will briefly open his eyes and make eye contact when questioned but will not answer any significant questions. Related Data Home Medications ?Medication ?Instructions ?Recorded ?Confirmed bupropion HCl 150 mg 24 hr tablet, 150 mg PO DAILY 12/23/24 12/23/24 extended release lorazepam 1 mg tablet 1 mg PO TID PRN anxiety attack 12/23/24 12/23/24 olanzapine 5 mg tablet 5 mg PO BID 12/23/24 12/23/24 Previous Rx's ?Medication ?Instructions ?Recorded albuterol sulfate 90 mcg/actuation 2 puff inhalation Q6H PRN 09/18/24 aerosol inhaler (Ventolin HFA) Shortness Of Breath Or Wheezing 30 days #6.7 grams nicotine (polacrilex) 4 mg gum 4 mg buccal Q2H PRN nicotine 09/18/24 cravings 30 days #110 ea nicotine 21 mg/24 hr daily 1 patch transdermal DAILY PRN 09/19/24 transdermal patch smoking cessation 28 days #28 ea Allergies Allergy/AdvReac Type Severity Reaction Status Date / Time codeine (CODEINE) AdvReac Mild HIVES Verified 02/02/25 16:43 Review of Systems Review of Systems: Yes Unobtainable due to mental status PMFSH Past Medical History Medical History Overdose Opioid use disorder, moderate, dependence Chronic headaches Social History Social History Household Members: Children Housing: Apartment Unable to assess alcohol history related to: Unknown 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 Patient Tobacco Use Status: Current everyday Tobacco user Tobacco use type: Cigarette Cigarette Packs Per Day: 1.5 Cigarettes Per Day: 30 Years Smoked: 55 e-Cigarette/Vaping Use: Currently Using Second Hand Smoke Exposure: No Substance Use Type: Opiates Advance Directives: Yes Advance Directives on File: Yes Advance Directives Date on File: 11/30/23 Do you have a plan to hurt others: No Plan service: No Sexual orientation: Straight/Heterosexual Physical Exam ED Vital Signs: Vital Signs - 24 hr 02/02/25 16:39 02/02/25 18:10 02/02/25 20:00 Temperature 98.3 F 98.1 F Pulse Rate 73 70 65 Respiratory Rate 16 20 14 Blood Pressure 127/72 144/85 H 137/84 Pulse Oximetry 93 96 93 Oxygen Delivery Method Room Air Room Air Room Air 02/02/25 21:03 02/02/25 23:16 Temperature 97.9 F Pulse Rate 73 64 Respiratory Rate 12 16 Blood Pressure 160/83 H 146/82 H Pulse Oximetry 94 94 Oxygen Delivery Method Room Air Room Air BMI result Body Mass Index 28.2 Const Other: The patient is a somewhat chronically ill-appearing 64-year-old male. He seemed to be sleeping. When directly addressed and stimulated he would open his eyes and make eye contact briefly before closing his eyes and nodding off. It was difficult to determine whether he was actually falling asleep or simply avoiding conversation. He did not seem in any pain or respiratory difficulty. He did not seem toxic. HENMT Other: Face is symmetrical, mucous membranes moist. Airway is clear. Eyes Other: The pupils are small but not pinpoint. The patient has mild anisocoria. The right pupil is slightly larger than the left. Conjunctivae are clear. Extraocular movements seem intact. Neck Neck: Yes normal visual inspection, Yes full ROM and Yes no JVD Resp Effort & Inspection: normal respiratory effort Auscultation: clear to auscultation bilaterally Cardio Rate: regular rate Rhythm: regular rhythm Heart sounds: S1 normal heart sound present and S2 normal heart sound present GI Other: Abdomen is soft and nontender Skin Other: The skin is dry and unremarkable. I do not see any obvious signs of track ivory. Neuro Other: The patient was very drowsy. He was arousable with verbal stimuli. He would open his eyes and make eye contact briefly before closing his eyes again. Pupils are small. There is some mild anisocoria that I suspect is chronic. Extraocular movements seem intact. The face seems symmetrical. He spoke very little but there was no dysarthria or aphasia apparent. He seemed to have symmetrical tone in his extremities. At 1 point he got up and walked to the bathroom and he seemed to have a reasonably steady gait. Extrem Other: The patient has lower leg seems somewhat thick but without lila edema. Medical Decision Making Medical Decision Making [facility] Narrative: The patient is a 64-year-old male with opioid use disorder who presents after what seems to be an opioid overdose. He had apparently reported using 1 bag of heroin. He has been observed in the emergency room. At no point has been hypoxic. He has been somnolent but arousable. He is not significantly in engaging in conversation but it 1 point he seemed to say that he had not injected the heroin. Given the duration of his somnolence I ultimately ordered a CT of the head which is unremarkable. He has a mild anisocoria on exam which I suspect is chronic. The patient has a history of multiple ER visits for overdoses. At this point I think it would be reasonable to keep the patient in the emergency room until he emerges the effect of his presumed heroin overdose. He also has a history of bipolar disorder. The patient will be placed in physician observation. I will place a recovery team consult. Lab Data 02/02/25 17:53 02/02/25 17:47 Labs: Lab Results 02/02/25 02/02/25 02/02/25 Range/Units 17:47 17:53 17:55 WBC 5.4 (4.8-10.8) X10*3/uL RBC 4.17 L (4.60-5.80) X10*6/uL Hgb 12.8 L (14.0-18.0) g/dl Hct 37.0 L (42.0-52.0) % MCV 88.7 (80.0-98.0) fL MCH 30.7 (27.0-33.0) pg MCHC 34.6 (31.0-36.0) g/dl RDW 14.0 (11.0-16.0) % Plt Count 199 (160-400) X10*3/uL MPV 8.5 L (9.4-12.4) fL Immature Gran % (Auto) 0.2 (0.0-0.4) % Neut % (Auto) 62.5 (45-73) % Lymph % (Auto) 23.0 (20-40) % Jenkins % (Auto) 12.1 H (2-11) % Eos % (Auto) 1.3 (0-4) % Baso % (Auto) 0.9 (0-2) % Lymph # (Auto) 1.2 (1.2-4.9) X10*3/uL Jenkins # (Auto) 0.7 (0.1-1.2) X10*3/uL Eos # (Auto) 0.1 (0.0-0.4) X10*3/uL Baso # (Auto) 0.1 (0.0-0.2) X10*3/uL Abs Immat Gran (auto) 0.01 (0.00-0.03) X10*3/uL Absolute Neuts (auto) 3.3 (2.0-8.3) x10*3/uL Absolute Nucleated RBC 0.000 (0.0-0.012) X10*3/uL Nucleated RBC % (auto) 0.0 (0.0-0.2) /100WBC VBG pH 7.43 (7.32-7.43) VBG pCO2 45 mmHg VBG pO2 83 mmHg VBG HCO3 30 H (22-26) mmol/L VBG O2 Saturation 98.0 % VBG Base Excess 5.5 mmol/L Sodium 141 (135-145) mmol/L Potassium 3.9 (3.3-5.1) mmol/L Chloride 109 H (96-108) mmol/L Carbon Dioxide 24 (22-29) mmol/L Anion Gap 12 (12-20) BUN 18 H (9-16) mg/dL Creatinine 0.70 (0.5-1.4) mg/dL Estim Creat Clear Calc 127.2 Estimated GFR > 60 Random Glucose 105 (60-115) mg/dL Calcium 8.7 (8.4-10.2) mg/dL Total Bilirubin 0.4 (0.0-1.0) mg/dL Direct Bilirubin 0.1 (0.0-0.5) mg/dL AST 19 (5-37) U/L ALT 10 (0-40) U/L Alkaline Phosphatase 64 (39-117) U/L Total Protein 6.7 (6.5-8.0) g/dL Albumin 3.5 (3.5-5.0) g/dL TSH 0.88 (0.32-4.0) uIU/mL Ethyl Alcohol < 10 mg/dL Discharge Plan Discharge Clinical Impression: Opioid overdose, Opioid use disorder, Bipolar disorder Prescriptions: No Action olanzapine 5 mg tablet 5 mg PO BID lorazepam 1 mg tablet 1 mg PO TID PRN (Reason: anxiety attack) bupropion HCl 150 mg tablet extended release 24 hr 150 mg PO DAILY nicotine (polacrilex) 4 mg gum 4 mg buccal Q2H PRN (Reason: nicotine cravings) 30 Days Qty: 110 0RF albuterol sulfate [Ventolin HFA] 90 mcg/actuation HFA aerosol inhaler 2 puff inhalation Q6H PRN (Reason: Shortness Of Breath Or Wheezing) 30 Days Qty: 6.7 0RF nicotine 21 mg/24 hr patch 24 hour 1 patch transdermal DAILY PRN (Reason: smoking cessation) 28 Days Qty: 28 0RF Rx Instructions: Move at bedtime Print Language: Unable To Collect
--- NOTE | 2025-02-02 17:20 | ECG_ITS ---
Test Reason : OD Blood Pressure : */* mmHG Vent. Rate : 73 BPM Atrial Rate : 73 BPM P-R Int : 228 ms QRS Dur : 108 ms QT Int : 406 ms P-R-T Axes : 52 -3 98 degrees QTcB Int : 447 ms Sinus rhythm with 1st degree A-V block with Premature atrial complexes with Aberrant conduction Nonspecific T wave abnormality Abnormal ECG When compared with ECG of 09-Dec-2024 18:14, Aberrant conduction is now Present Nonspecific T wave abnormality no longer evident in Anterior leads Nonspecific T wave abnormality, worse in Lateral leads Referred By: Beny Edward Electronically Signed By: Man Kebede
[2025-02-02 17:56] LABS: MANUAL DIFF FLAG NO
[2025-02-02 17:57] LABS: Hematocrit 37.0 % (42.0-52.0); Hemoglobin 12.8 g/dl (14.0-18.0); Imm Gran Abs Auto 0.01 X10*3/uL (0.00-0.03); Imm Gran Pct Auto 0.2 % (0.0-0.4); Lymphocytes Absolute Auto 1.2 X10*3/uL (1.2-4.9); Mean Corpuscular HGB Conc 34.6 g/dl (31.0-36.0); Mean Corpuscular Hemoglobin 30.7 pg (27.0-33.0); Mean Corpuscular Volume 88.7 fL (80.0-98.0); NRBC Abs Auto 0.000 X10*3/uL (0.0-0.012); NRBC Pct Auto 0.0 /100WBC (0.0-0.2); Platelet Count 199 X10*3/uL (160-400); Red Blood Count 4.17 X10*6/uL (4.60-5.80); White Blood Count 5.4 X10*3/uL (4.8-10.8)
[2025-02-02 17:59] LABS: VBG HCO3 30 mmol/L (22-26); VBG O2 % Saturation 98.0 %
[2025-02-02 18:00] LABS: Venous Blood Gas Refer to POC result
[2025-02-02 18:07] LABS: Alanine Aminotransferase 10 U/L (0-40); Albumin Level 3.5 g/dL (3.5-5.0); Alkaline Phosphatase 64 U/L (39-117); Anion Gap 12 (12-20); Aspartate Amino Transferase 19 U/L (5-37); Blood Urea Nitrogen 18 mg/dL (9-16); Calcium 8.7 mg/dL (8.4-10.2); Carbon Dioxide 24 mmol/L (22-29); Chloride 109 mmol/L (96-108); Creatinine Clr Calc Pharmacy 127.2; Estimated Glomerular Filt Rate > 60; Potassium 3.9 mmol/L (3.3-5.1); Sodium 141 mmol/L (135-145); Total Protein 6.7 g/dL (6.5-8.0)
[2025-02-02 18:10] VITALS: BP 144/85; PULSE 70; RESP 20; TEMP 36.7; O2SAT 96
--- NOTE | 2025-02-02 19:09 | PC.NURSE ---
patient came in as an overdose, admitted to using 1 bag of heroin earlier in the day to ems. pt refusing to answer questions to this nurse, sleeping/wakes to verbal stimulus, vitals WNL, RR equal/non labored, call gonzalez wtihin reach/plan of care ongoing
[2025-02-02 20:00] VITALS: BP 137/84; PULSE 65; RESP 14; O2SAT 93
[2025-02-02 21:03] VITALS: BP 160/83; PULSE 73; RESP 12; TEMP 36.6; O2SAT 94
[2025-02-02 23:16] VITALS: BP 146/82; PULSE 64; RESP 16; O2SAT 94
--- NOTE | 2025-02-02 23:23 | PC.NURSE ---
Pt resting on stretcher with eyes closed. Pt maintaining O2 sat above 90%. Pt noted to pull away arm and open eyes when attempting to take blood pressure.
[2025-02-03 00:15] LABS: Thyroid Stimulating Hormone 0.88 uIU/mL (0.32-4.0)
[2025-02-03 02:32] LABS: Appearance Urine Clear; Glucose Urine UA Negative (Negative); PH 6.5 (5.0-9.0); Specific Gravity - Urine 1.025 (1.005-1.025)
[2025-02-03 02:49] LABS: Acetaminophen LAB < 3 mcg/mL (<30); Salicylate < 5.0 mg/dL (15-30)
[2025-02-03 03:33] LABS: Cannabinoid Screen Urine POSITIVE (Not Detect)
--- NOTE | 2025-02-03 04:15 | PC.NURSE ---
Pt called daughter Geovanna, to see if she would pick him up. Pt did not give an answer if she would be available to get him. Pt unsteady on feet at times. Has attempted to leave the ED multiple times. ED provider notified.
[2025-02-03 05:30] VITALS: BP 148/67; PULSE 60; RESP 18; TEMP 36.7; O2SAT 94
--- NOTE | 2025-02-03 05:49 | PC.NURSE ---
Pt made second phone call to his daughter with no answer.
[2025-02-03] MEDS: Buprenorphine/Naloxone 4/1 mg FILM 1 FILM SUBLINGUAL (06:36)
[2025-02-03 07:36] VITALS: BP 139/62; PULSE 67; RESP 12; TEMP 36.4; O2SAT 94
[2025-02-03 10:36] VITALS: BP 148/85; PULSE 64; RESP 18; TEMP 36.6; O2SAT 93
--- NOTE | 2025-02-03 11:56 | PC.NURSE ---
Pt daughter arrives to take Pt home. Pt opts to leave without speaking with recovery team. Dr. Caro made aware Discharge pending.
[2025-02-03 12:00] VITALS: BP 160/74; PULSE 56; RESP 16; TEMP 36.5; O2SAT 94
[2025-02-03 12:13] VITALS: BP 160/74; PULSE 56; RESP 16; TEMP 36.5; O2SAT 94
== END 2025-02-03 12:15 | disposition home or self-care (01) ==
PROVIDERS: Emergency Medicine; Emergency Provider Emergency Medicine
DX: T40.1X1A Poisoning by heroin, accidental (unintentional), initial encounter (principal); R40.4 Transient alteration of awareness; F11.10 Opioid abuse, uncomplicated; Y92.9 Unspecified place or not applicable; F31.9 Bipolar disorder, unspecified; Z79.899 Other long term (current) drug therapy
CPT/HCPCS: 36415; 70450; 80048; 80076; 80143; 80179; 80307; 81003; 82803; 84443; 85025; 93005; 99285

== ENCOUNTER → 2025-02-02 17:20 | Outpatient (BNV) | payer MEDICARE, SELFPAY | PROVIDERS: Emergency Provider Emergency Medicine; Visit Provider Internal Medicine Cardiovascular Disease | DX: I44.0 Atrioventricular block, first degree (principal); I49.1 Atrial premature depolarization | CPT/HCPCS: 93010 ==

== ENCOUNTER → 2025-02-02 23:38 | Outpatient (BNV) | payer MEDICARE, SELFPAY | PROVIDERS: Emergency Provider Emergency Medicine; Visit Provider Radiology Diagnostic Radiology | DX: R41.82 Altered mental status, unspecified (principal) | CPT/HCPCS: 70450 ==

== ENCOUNTER 2025-06-30 14:34 | Emergency (ER) | payer MEDICARE, MEDICAID, SELFPAY ==
--- NOTE | ~2025-06-30 | XR_ITS ---
CLINICAL HISTORY: cough, congestion 2 view chest x-ray. Comparison: CR - XR CHEST 1V - 12/22/24 12:44 EDT Findings: The lungs are adequately expanded. No focal consolidation. Mild chronic interstitial changes.No effusion or pneumothorax. Cardiac and mediastinal contours are within normal limits. No acute osseous abnormality Impression: No acute process. This document has been electronically signed by: Dylan Epps MD on 07/13/2025 10:18:46
--- NOTE | ~2025-06-30 | XR_ITS ---
CLINICAL HISTORY: worsening cough, known covid, r o pna 1 view chest x-ray Comparison: CR - XR CHEST 2V - 07/13/25 09:25 EST Findings: No consolidation or pleural effusion. Bilateral parenchymal scarring. Normal size heart. No acute fracture. IMPRESSION: 1. No acute findings. This document has been electronically signed by: Roxann Nolan MD on 07/23/2025 01:50:33
--- NOTE | 2025-06-30 14:42 | ED.PSYCH ---
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 (0.0-0.012) X10*3/uL Nucleated RBC % (auto) 0.0 (0.0-0.2) /100WBC Sodium 141 (135-145) mmol/L Potassium 4.5 (3.3-5.1) mmol/L Chloride 104 (96-108) mmol/L Carbon Dioxide 31 H (22-29) mmol/L Anion Gap 11 L (12-20) BUN 18 H (9-16) mg/dL Creatinine 0.87 (0.5-1.4) mg/dL Estim Creat Clear Calc 93.1 Estimated GFR > 60 Random Glucose 119 H (60-115) mg/dL Calcium 9.4 (8.4-10.2) mg/dL Magnesium (1.6-2.6) mg/dL Total Bilirubin 0.4 (0.0-1.0) mg/dL Direct Bilirubin (0.0-0.5) mg/dL AST 22 (5-37) U/L ALT 18 (0-40) U/L Alkaline Phosphatase 67 (39-117) U/L Ammonia 30 (13-55) umol/L Total Protein 7.5 (6.5-8.0) g/dL Albumin 4.0 (3.5-5.0) g/dL TSH 1.69 (0.32-4.0) uIU/mL Urine Color Yellow Urine Appearance Clear Urine pH 7.5 (5.0-9.0) Ur Specific [place] 1.015 (1.005-1.025) Urine Protein Negative (Neg-Trace) mg/dL Urine Glucose (UA) Negative (Negative) mg/dL Urine Ketones Negative (Negative) mg/dL Urine Blood Negative (Negative) Urine Nitrite Negative (Negative) Ur Leukocyte Esterase Negative (Negative) Urine Opiates Screen (Not Detect) Ur Buprenorphine Scrn (Not Detect) ng/mL Ur Oxycodone Screen (Not Detect) ng/mL Urine Methadone Screen (Not Detect) ng/mL Urine Fentanyl Screen (Not Detect) Ur Barbiturates Screen (Not Detect) Valproic Acid 24.2 L (50.0-100.0) mcg/mL Ur Phencyclidine Scrn (Not Detect) Ur Amphetamines Screen (Not Detect) U Benzodiazepines Scrn (Not Detect) Urine Cocaine Screen (Not Detect) U Marijuana (THC) Screen (Not Detect) Influenza Type A (PCR) (Negative) Influenza Type B (PCR) (Negative) RSV RNA Qual (PCR) (Negative) SARS-CoV-2 RNA (RT-PCR) (Negative) Discharge Plan Discharge Clinical Impression: Bipolar I disorder depressed with catatonic features, Dementia, unspecified, without behavioral disturbance, Opiate dependence Patient Disposition: Xfer LTC Transfer Details: [facility]. Accepting physician, Dr. Virgil Ibarra Prescriptions: No Action olanzapine 5 mg tablet 5 mg PO BID lorazepam 1 mg tablet 1 mg PO TID PRN (Reason: anxiety attack) bupropion HCl 150 mg tablet extended release 24 hr 150 mg PO DAILY buprenorphine-naloxone 8-2 mg film 1 film sublingual BEDTIME nicotine (polacrilex) 4 mg gum 4 mg buccal Q2H PRN (Reason: nicotine cravings) 30 Days Qty: 110 0RF albuterol sulfate [Ventolin HFA] 90 mcg/actuation HFA aerosol inhaler 2 puff inhalation Q6H PRN (Reason: Shortness Of Breath Or Wheezing) 30 Days Qty: 6.7 0RF nicotine 21 mg/24 hr patch 24 hour 1 patch transdermal DAILY PRN (Reason: smoking cessation) 28 Days Qty: 28 0RF Rx Instructions: Move at bedtime buprenorphine-naloxone [Suboxone] 12-3 mg film 1 film buccal BID Qty: 30 0RF Referrals: [facility] [Outside] Referral Note: [phone] Murali Lujan PA-C [Primary Care Provider, Family Practice] Interventions: ED Discharge Assessment Last Done: 07/24/25 16:51 Discharge Date/Time: 07/24/25 16:52 Print Language: Unable To Collect
[2025-06-30 14:43] VITALS: BP 145/77; PULSE 72; RESP 18; TEMP 36.1; O2SAT 97; BMI 27.7
[2025-06-30 15:02] LABS: MANUAL DIFF FLAG NO
[2025-06-30 15:03] LABS: Hematocrit 42.6 % (42.0-52.0); Hemoglobin 14.0 g/dl (14.0-18.0); Imm Gran Abs Auto 0.02 X10*3/uL (0.00-0.03); Imm Gran Pct Auto 0.3 % (0.0-0.4); Lymphocytes Absolute Auto 1.3 X10*3/uL (1.2-4.9); Mean Corpuscular HGB Conc 32.9 g/dl (31.0-36.0); Mean Corpuscular Hemoglobin 31.0 pg (27.0-33.0); Mean Corpuscular Volume 94.5 fL (80.0-98.0); NRBC Abs Auto 0.000 X10*3/uL (0.0-0.012); NRBC Pct Auto 0.0 /100WBC (0.0-0.2); Platelet Count 218 X10*3/uL (160-400); Red Blood Count 4.51 X10*6/uL (4.60-5.80); White Blood Count 6.0 X10*3/uL (4.8-10.8)
--- OUTSIDE RECORDS SUMMARY | 2025-06-30 15:03 | XMS_ITS ---
[facility] Name [facility] Organization Unknown Encounters Encounter Type Encounter Reason Primary Diagnosis Location Date Inpatient Acute respiratory failure with hypoxia Acute respiratory failure with hypoxia [facility] 11/16/2023 [facility] St[facility] 11/16/2023 [facility] St[facility] 11/16/2023 Ambulatory [facility] 11/16/2023 [facility] St[facility] 11/16/2023 Care Team Organization Name Specialty Phone Email Start Date End Da te [facility] 11/17/2023 10/10/2024 [facility] 11/17/2023
--- OUTSIDE RECORDS SUMMARY | 2025-06-30 15:03 | XMS_ITS | Clinical Summary ---
Author Organization [facility] Address [address] [place] [address] Care Team Providers Care Pomology Teacher Name Role Phone Bashir Vo MD Primary [...] Years Used Date Smoking Tobacco: Never Assessed [facility] Utilities Answer Date Recorded In the past [...] place to sleep or slept in a senior care (including now)? Patient unable to answer 11/17/2023 [...] 112 11/23/2023 12:37 PM EDT Temperature 36.9 C (98.5 F) 11/23/2023 12:37 PM EDT Respiratory Rate 18 11/23/2023 12:37 PM EDT Oxygen Saturation 93% 11/23/2023 12:37 PM EDT Inhaled Oxygen Concentration - - Weight 86.7 kg (191 lb 2.2 oz) 11/22/2023 6:00 A M EDT Height 182.9 cm (6') 11/17/2023 3:40 AM EDT Body Mass Index 25.92 11/17/2023 3:40 AM EDT Plan of Treatment Health Maintenance Due Date Last Done Comments Advance Care Planning 1960 Hepatitis C Virus Screening 1960 DTaP/Tdap/Td Vaccines (1 - Tdap) 1977 Colonoscopy 2003 Pneumococcal Vaccines 50+ (1 of 1 - PCV) 2008 Zoster (Shingles) Vaccine (1 of 2) 2008 Influenza Vaccine 02/22/2025 COVID-19 Vaccine (1 - 2024-2 6 season) 2025 RSV Vaccine 50 years and old er and Patients (1 - 1-dose 75+ series) 2033 Hepatitis B Vaccines Aged Out No long er eligible based on patient's age to complete this topic Insurance [facility] [id number] [employer] MEDICARE OUT OF NETWORK MEDICARE PART A & B Advance Directives * Full Code (Latest Code Status on File) Date Activated Date Inactivated Comments 11/17/2023 1:14 AM Healthcare Agents on File Name Relationship Healthcare Agent [facility] Communication Annemarie Sands Adult child 4. Next of Kin ( Spouse, Adult Child, Parent, Adult Sibling, Grandparent) Care Teams Pomology Teacher Relationship Specialty Start Date End Date Bashir Vo MD PCP - General Emergency Medicine 11/18/23
[2025-06-30 15:17] LABS: Alanine Aminotransferase 16 U/L (0-40); Albumin Level 4.5 g/dL (3.5-5.0); Alkaline Phosphatase 95 U/L (39-117); Anion Gap 12 (12-20); Aspartate Amino Transferase 21 U/L (5-37); Blood Urea Nitrogen 19 mg/dL (9-16); Calcium 9.0 mg/dL (8.4-10.2); Carbon Dioxide 28 mmol/L (22-29); Chloride 107 mmol/L (96-108); Creatinine Clr Calc Pharmacy 96.4; Estimated Glomerular Filt Rate > 60; Magnesium 2.1 mg/dL (1.6-2.6); Potassium 4.3 mmol/L (3.3-5.1); Sodium 143 mmol/L (135-145); Total Protein 7.5 g/dL (6.5-8.0)
--- NOTE | 2025-06-30 15:29 | PC.NURSE ---
Pt steady on his feet. Initially unwilling to undress but eventually is cooperative when promised nicotine replacement. No SOB>. reports depression and denies SI. Has elopment band.
[2025-06-30 15:39] LABS: Resp Syncy Virus RNA Qual PCR NEGATIVE (Negative); SARS COV2 PCR INHOUSE NEGATIVE (Negative)
--- NOTE | 2025-06-30 17:47 | PC.NURSE ---
Pt has begun to pace in the hallway. states give me my stuff I have to leave Awaits nicotine replacement and Care team. Ativan is administered
[2025-06-30] MEDS: buPROPion HCl XL 150 MG TAB.ER.24H PO (18:10)
[2025-06-30 18:30] VITALS: BP 143/71; PULSE 81; RESP 20; TEMP 36.6; O2SAT 95
--- NOTE | 2025-06-30 19:15 | PC.NURSE ---
report given to pod RN. RN informed home theatre technician to turn off elopement band for transfer to the pod.
[2025-06-30] MEDS: Nicotine 21 MG PATCH.TD24 TRANSDERMA (19:26)
[2025-06-30] MEDS: Buprenorphine/Naloxone 12/3 mg FILM 1 FILM BUCCAL (21:23)
--- NOTE | 2025-06-30 22:27 | PC.NURSE ---
Pt is pacing and intense at times, he asks for snacks and juice. He takes his HS meds then continues to pace. He stands in front of the desk, and says Im going to loose it, I need something A PRN is given.
--- NOTE | 2025-07-01 07:31 | PC.NURSE ---
[facility] care, report received. Pt is currently sleeping, safety maintained.
[2025-07-01] MEDS: Buprenorphine/Naloxone 12/3 mg FILM 1 FILM BUCCAL ×2 (09:57→20:31)
[2025-07-01] MEDS: buPROPion HCl XL 150 MG TAB.ER.24H PO (09:59)
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
--- NOTE | 2025-07-01 13:10 | PHA.MEDREC ---
Pharmacy Consult ? Medication Reconciliation Pharmacy has reviewed the medication reconciliation completed by nursing. Double checked and pt states he is on both doses of suboxone as claims and PDMP show. Updated med rec.
--- NOTE | 2025-07-01 13:49 | MHC.CARE ---
Patient has been seen for psych consult and does not meet inpatient level of care. Per Pattie Platt EMBRYOLOGY TEACHER on hospital psychiatry team, patient is appropriate for referral to hospital for LTC placement.
[2025-07-01 16:31] VITALS: BP 146/82; PULSE 61; RESP 18; TEMP 36.1; O2SAT 97
--- NOTE | 2025-07-01 21:35 | PC.NURSE ---
Assumed care at 1845. Patient is confused. Had to be redirected multiple times for masturbating and exposing self while in/out of room. Screaming out My balls are itchy! Causing a disturbance to female peers. college director Ashley nichols. Pt requested a medication for anxiety. Medicated per MAR. Denies pain/discomfort. Currently resting in bed, no apparent distress. Unable to collect HS VS or pending UA, will reattempt in AM.
--- NOTE | 2025-07-02 06:12 | PC.NURSE ---
Unable to collect UA. Patient unable to follow directions provided.
[2025-07-02 06:30] VITALS: BP 156/81; PULSE 64; RESP 18; TEMP 36.7; O2SAT 97
[2025-07-02] MEDS: Buprenorphine/Naloxone 12/3 mg FILM 1 FILM BUCCAL ×2 (07:52→20:38)
[2025-07-02] MEDS: buPROPion HCl XL 150 MG TAB.ER.24H PO (07:53)
--- NOTE | 2025-07-02 08:38 | PC.NURSE ---
Assumed care, report received. Pt is awake, pacing, unable to answer question. He looks everywhere for food and eats off others trays that they are done with. He needs frequent redirection. He takes his meds without difficulty.
[2025-07-02 13:42] VITALS: BP 140/70; PULSE 88; RESP 20; TEMP 36.1; O2SAT 96
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
--- NOTE | 2025-07-02 18:06 | PC.NURSE ---
Pt wakes from a nap he attempts to walk into a patients room, she yells at him and he yells back at her, he then proceeds to cinder man front of this service writer advisor at the nursing station, he has his hands in his pants and is making inappropriate noises. Security is called, Pt is walked to his room and spoken to. A PRN is obtained by and given with Security assist.
--- NOTE | 2025-07-02 20:42 | PC.NURSE ---
Assumed care at 1845. Patient resting in bed upon arrival, no apparent distress. Attempted to walk into another patients room, followed re-direction. Cooperative with VS. Adherent to HS scheduled medications. No PRN's utilized. Provided liquids/snacks. 15 minute safety checks ongoing. Continue plan for CM/LTC Management.
[2025-07-02 20:49] VITALS: BP 150/69; PULSE 103; RESP 20; TEMP 36.2; O2SAT 93
--- NOTE | 2025-07-03 07:30 | PC.NURSE ---
Assumed care of patient at 0645, patient appears to be in no apparent distress this am, calm and cooperative, offering no complaints to this RN. Continue plan of care for case management follow up
[2025-07-03 07:54] VITALS: BP 153/79; PULSE 82; RESP 18; TEMP 36.5; O2SAT 94
[2025-07-03 08:26] LABS: Appearance Urine Clear; Glucose Urine UA Negative (Negative); PH 6.0 (5.0-9.0); Specific Gravity - Urine 1.020 (1.005-1.025)
[2025-07-03] MEDS: Buprenorphine/Naloxone 12/3 mg FILM 1 FILM BUCCAL ×2 (08:35→21:04)
[2025-07-03] MEDS: buPROPion HCl XL 150 MG TAB.ER.24H PO (08:36)
--- NOTE | 2025-07-03 11:18 | PC.NURSE ---
Pt in no apparent distress, eating snacks frequently throughout morning
[2025-07-03 11:26] LABS: Cannabinoid Screen Urine Not Detected (Not Detect)
--- NOTE | 2025-07-03 11:28 | MHC.CM.ED ---
Received case management consult on 07/02. Patient came to the ER on 06/30 due to AMS. Patient was cleared by Care Team. Psych consult completed. Pattie, engineering analyst, feels patient needs LTC due to dementia. MOCA and ACL assessments are pending. Patient is currently in ER. Spoke with patient's daughter/HCP, Geovanna, via telephone at [phone]. Patient was originally homeless but has been living with Geovanna for the past 2 years. Geovanna does not feel she can safely care for her father any longer. His dementia symptoms have worsened. Geovanna works and is not able to provide 24/7 for her father. Geovanna feels patient will require LTC. Patient is on Suboxone through [facility] on [facility] in [place]. Patient is currently on probation because he went into a [employer], went behind the counter, grabbed himself a coffee and donut and sat down. He did not pay. This happened because he wasn't aware he had to pay because he thought he was in his apartment. A similar incident happened at [employer]. Patient was in the store, grabbed something from the shelf and walked out without paying. Geovanna is aware that LTC beds are difficult to find at this time. Also aware patient being on Suboxone may make it difficult to place. Geovanna aware placement may be as far as [place] or [place]. Geovanna agreeable. Referral will be broadcasted in [facility]. Continue to monitor for d/c needs.
[2025-07-03 13:46] VITALS: BP 148/88; PULSE 122; RESP 16; TEMP 36.4; O2SAT 96
--- NOTE | 2025-07-03 15:40 | PC.NURSE ---
ACLS and MoCA: Pt scored a 4.6 on the [place] Cognitive Level Screen indicating Moderate cognitive functional deficits and the need for 30% cognitive assistance for IADLs, safety, problem solving. He scored a 21/30 on the MoCA indicating mild cognitive deficits, however, deficits in most domains were noted.
--- NOTE | 2025-07-03 18:33 | PC.NURSE ---
Pt becoming more and more restless as the night goes on. Pt pacing around BH pod, unable to be verbally redirected at times. pt not displaying aggressive or violent behaviors. Pt continually requesting belongings from locker
[2025-07-04 00:13] VITALS: BP 135/76; PULSE 89; RESP 16; TEMP 36.7; O2SAT 95
--- NOTE | 2025-07-04 07:13 | PC.NURSE ---
Assumed care, report received. Pt is currently sleeping. Safety is maintaned.
[2025-07-04] MEDS: buPROPion HCl XL 150 MG TAB.ER.24H PO (08:19)
[2025-07-04] MEDS: Buprenorphine/Naloxone 12/3 mg FILM 1 FILM BUCCAL ×2 (08:19→20:13)
[2025-07-04 08:34] VITALS: BP 156/102; PULSE 52; RESP 20; TEMP 36.6; O2SAT 95
--- NOTE | 2025-07-04 10:02 | PC.NURSE ---
Pt is awake, her takes his meds and eats breakfast. He [place] [facility] and asks for food constantly. He spits on the floor, he belches and coughs with no concern of anyone around him.
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
--- NOTE | 2025-07-04 10:29 | HO.HCP ---
Health Care Proxy Invocation Health Care Proxy Declaration: Pattie Crowell____, on the date cited below, have determined that, Thomas Hartman__, lacks the capacity to make or communicate, informed health care decision. This determination is made in accordance with accepted standards of medical judgment and pursuant to [place] c[place] 201[place], the [place] Health Care Proxy Law. The cause, nature, extent and probable duration of the patient's inapacity are described below: Cause:impaired memory/cognition Nature:major neurocognitive disorder Extent:complete Probable Duration of Patient's Incapacity: not expected to be regained.
[2025-07-04 15:22] VITALS: BP 131/67; PULSE 84; RESP 18; TEMP 36.3; O2SAT 97
--- NOTE | 2025-07-04 22:29 | PC.NURSE ---
Pt has been sleeping on and off. He takes his meds without difficulty.
--- NOTE | 2025-07-05 00:18 | PC.NURSE ---
Took over care from Juan Garcia at 23:00, pt sleeping at this time.
--- NOTE | 2025-07-05 04:42 | PC.NURSE ---
pt sleeping at this time.
--- NOTE | 2025-07-05 07:05 | PC.NURSE ---
Assumed care of patient at 0645, patient appears to be in no apparent distress this am, resting in bed, respirations even and unlabored. Continue plan of care for case management follow up
[2025-07-05 07:31] VITALS: BP 157/71; PULSE 78; RESP 16; TEMP 36.3; O2SAT 96
[2025-07-05] MEDS: Buprenorphine/Naloxone 12/3 mg FILM 1 FILM BUCCAL ×2 (08:38→22:54)
--- NOTE | 2025-07-05 08:39 | PC.NURSE ---
Pt refusing AM lithium but requesting PRN ativan, provided per request
--- NOTE | 2025-07-05 14:56 | MHC.CM.PN ---
Remains in ED. No LTC bed offers at this time. Per FS, patient's secondary [facility] is [facility] and not [facility]. Sent FS referral to start LTC [facility]. LM for dtr to discuss possibility of home w/ services.
[2025-07-05] MEDS: Nicotine 21 MG PATCH.TD24 TRANSDERMA (16:57)
--- NOTE | 2025-07-05 17:05 | MHC.EDTECH ---
Addendum entered by Alpa Pfeiffer 07/05/25 17:07: Located by this tech in [facility]. Original Note: Patients belongings moved to [facility]
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
[2025-07-05 17:40] VITALS: BP 154/81; PULSE 93; RESP 20; TEMP 36.3; O2SAT 96
[2025-07-05 22:52] VITALS: BP 118/56; PULSE 56; RESP 17; TEMP 36.6; O2SAT 94
[2025-07-06 06:28] VITALS: BP 142/87; PULSE 66; RESP 18; TEMP 36.6; O2SAT 96
--- NOTE | 2025-07-06 07:18 | PC.NURSE ---
Assumed care of patient at 0645, patient appears to be in no apparent distress this am, calm and cooperative, resting in bed, respirations even and unlabored. Continue plan of care for case management follow up
[2025-07-06] MEDS: Buprenorphine/Naloxone 12/3 mg FILM 1 FILM BUCCAL ×2 (08:56→20:04)
[2025-07-06 16:53] VITALS: BP 128/82; PULSE 77; RESP 18; TEMP 36.2; O2SAT 97
--- NOTE | 2025-07-06 18:11 | PC.NURSE ---
Pt able to advocate for when he needs anxiety medications in an appropriate manner. Pt has been calm and cooperative throughout the day
[2025-07-07 06:05] VITALS: RESP 18
[2025-07-07 08:08] VITALS: BP 129/77; PULSE 78; RESP 16; TEMP 36.3; O2SAT 96
[2025-07-07] MEDS: Buprenorphine/Naloxone 12/3 mg FILM 1 FILM BUCCAL ×2 (08:35→20:31)
[2025-07-07] MEDS: Nicotine 21 MG PATCH.TD24 TRANSDERMA (13:41)
--- NOTE | 2025-07-07 16:02 | PC.NURSE ---
Thomas has been resting the majority of the day in no apparent distress. He occasionally exits his room and begins to pace which he then will self present to the nurses station to request a PRN medication. Overall, patient seems to be better behaviorally overall since first arriving to the emergency department
[2025-07-08 06:04] VITALS: RESP 16
--- NOTE | 2025-07-08 07:29 | PC.NURSE ---
Assumed care, report received. Pt is currently sleeping, he is provided breakfast. Safety is maintained.
[2025-07-08] MEDS: Buprenorphine/Naloxone 12/3 mg FILM 1 FILM BUCCAL ×2 (07:51→21:00)
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
--- NOTE | 2025-07-08 13:03 | MHC.CM.ED ---
Review of referrals shows no offers of acceptance: [place] extended [place]. ED CM to follow.
[2025-07-08 14:54] VITALS: BP 150/83; PULSE 76; RESP 18; TEMP 36.2; O2SAT 96
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
--- NOTE | 2025-07-09 03:43 | PC.NURSE ---
Assumed care at 1845. Patient presents as calm and cooperative. Very polite when speaking to staff/peers. Medicated per SEP. No PRN's utilized. No pain/discomfort reported. 15 minute safety checks ongoing. Continue plan for LTC BS.
[2025-07-09 06:31] VITALS: BP 131/74; PULSE 64; RESP 17; TEMP 36.2; O2SAT 95
--- NOTE | 2025-07-09 07:29 | PC.NURSE ---
Assumed care, report received. Pt is currently sleeping, he is provided breakfast. safety is maintained.
[2025-07-09] MEDS: Buprenorphine/Naloxone 12/3 mg FILM 1 FILM BUCCAL ×2 (08:15→20:38)
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
[2025-07-09 14:17] VITALS: BP 135/67; PULSE 93; RESP 18; TEMP 36.4; O2SAT 93
[2025-07-09] MEDS: Nicotine 21 MG PATCH.TD24 TRANSDERMA (14:18)
--- NOTE | 2025-07-09 15:49 | MHC.CM.ED ---
Addendum entered by Bridget Childs 07/09/25 16:18: Received return telephone call from Geovanna. Accepts bed in [place]. [facility] PASRR Level 1 submitted. Will complete MDS and send to facility and ACP. Original Note: Patient remains in ER. [facility] [place] is able to offer a bed. Will need [facility] PASRR Level 2 and [facility] approval from [facility]. Attempted to speak with patient's daughter/HCP, Geovanna, via telephone at [phone]. Left voicemail requesting return telephone call. Continue to monitor for d/c needs.
--- NOTE | 2025-07-09 18:10 | PC.NURSE ---
Pt has been pacing, laying down, watching TV and occasionally talking to staff. He reported very high anxiety and is given PRN's He states he is tired of being here and wants to get back to a normal life.
--- NOTE | 2025-07-09 20:38 | PC.NURSE ---
Patient awake and alert. skin pwd, resp even and non labored, speaking in full, clear sentences. calm and cooperative with care, able to make needs known. denies SI/HI, reports anxiety. evening medications administered per SEP.
--- NOTE | 2025-07-10 00:27 | PC.NURSE ---
patient sleeping. skin pwd, resp even and non labored.
[2025-07-10 06:44] VITALS: BP 149/92; PULSE 70; RESP 17; TEMP 36.6; O2SAT 95
--- NOTE | 2025-07-10 07:54 | PC.NURSE ---
Assumed care, report received. Pt is currently sleeping, safety is maintained.
[2025-07-10] MEDS: Buprenorphine/Naloxone 12/3 mg FILM 1 FILM BUCCAL ×2 (08:11→21:30)
[2025-07-10] MEDS: Nicotine 21 MG PATCH.TD24 TRANSDERMA (11:09)
--- NOTE | 2025-07-10 11:35 | MHC.CM.ED ---
Patient remains in ER. [facility] has accepted patient. MDS and Level 2 sent to [facility] and SNF. Hoping for verbal [facility] approval this afternoon so that transport can be booked for tomorrow morning. Facility requested daughter/HCP speak to Debbie of their facility at [phone]. Geovanna aware and will speak to facility. Continue to monitor for d/c needs.
[2025-07-10 13:21] LABS: Alanine Aminotransferase 30 U/L (0-40); Albumin Level 3.9 g/dL (3.5-5.0); Alkaline Phosphatase 80 U/L (39-117); Anion Gap 9 (12-20); Aspartate Amino Transferase 27 U/L (5-37); Blood Urea Nitrogen 20 mg/dL (9-16); Calcium 8.9 mg/dL (8.4-10.2); Carbon Dioxide 30 mmol/L (22-29); Chloride 106 mmol/L (96-108); Creatinine Clr Calc Pharmacy 103.8; Estimated Glomerular Filt Rate > 60; Potassium 4.4 mmol/L (3.3-5.1); Sodium 141 mmol/L (135-145); Total Protein 6.9 g/dL (6.5-8.0)
--- NOTE | 2025-07-10 16:58 | MHC.CM.ED ---
Addendum entered by Paz Alfaro 07/10/25 20:18: [facility] has rescinded their bed offer, stating they do not have a bed. Pt needs a locked unit, as he will leave. Several facilities have not yet responded. Provider and Primary RN aware. Pt is sleeping. Primary RN will let patient know when he wakes. CM did speak with his daughter, Geovanna. Original Note: CM spoke with patient at his request. He is very upset about transferring to [facility]. He states he will not go. CM gently explained that this is the only facility that has offered a bed. Explained that Psych has invoked his HCP and his daughter is now making medical decisions for him. Explained that his daughter can work with the facility to try and find placement closer when a bed opens up. Pt does not understand why he can't just leave. CM explained that he has some memory loss-dementia- and his behaviors with aggression and his suboxone have made it difficult to find placement. Pt needs a locked unit. CM spoke with his daughter and patient together on the phone. Daughter questioned if CM would continue to work on placement if she took him home. CM explained that once her father is discharged, CM will no longer look for any placements for him. Explained that she needs to work with the manager social work at [facility] for other placement closer to home. CM explained that he does not have to like or be happy about facility, but that patient does need to be discharged to facility. Awaiting PASRR and MDS leveling. Possible discharge 07/05 or 07/12. CM suggested that a morning discharge would be better for this patient. Pt tells CM he has been in many facilities over his life time. States he used drugs for 50 years. Pt has nothing to say about his behaviors and aggression. CM suggested daughter call facility with any questions, i.e. visitation and if she can take her father out of the facility on day . Daughter has contact information for the facility. CM is aware that CM is hear until 11pm if she has any questions or concerns.
--- NOTE | 2025-07-10 18:13 | PC.NURSE ---
Pt has been told he is going to [facility] for admission to a locked Dementia unit. He is angry and anxious, he talked with his daughter and CM at length about it.
[2025-07-11 06:22] VITALS: BP 155/82; PULSE 72; RESP 17; TEMP 36.4; O2SAT 95
--- NOTE | 2025-07-11 07:36 | PC.NURSE ---
Assumed care of patient at 0645, patient appears to be in no apparent distress this am, sitting at table eating breakfast, calm and cooperative, offering no complaints. Continue plan of care for case management follow up
[2025-07-11 07:43] VITALS: BP 134/81; PULSE 85; RESP 19; TEMP 36.3; O2SAT 93
[2025-07-11] MEDS: Buprenorphine/Naloxone 12/3 mg FILM 1 FILM BUCCAL ×2 (08:32→20:41)
--- NOTE | 2025-07-11 09:26 | MHC.CM.ED ---
Addendum entered by Bridget Childs 07/11/25 12:10: Clinical updates sent to facilities that haven't responded in careport: [facility], [facility], [facility], [facility], [facility], [facility], [facility], [facility], [facility], [facility], [facility], [facility], [facility], [facility], [facility], [facility], [facility], [facility], [facility], [facility] and [facility]. Original Note: Patient remains in ER. Spoke with Kylie at [facility]. Unfortunately they had a hospital bedhold patient that required isolation and bed was no longer available for Thomas. T/W requested facility follow if bed opens up. Continue to monitor for d/c needs.
[2025-07-11] MEDS: Nicotine 21 MG PATCH.TD24 TRANSDERMA (13:19)
--- NOTE | 2025-07-11 18:53 | PC.NURSE ---
assumed care of patient, patient sitting in day room watching TV NAD.
[2025-07-11 20:40] VITALS: BP 162/86; PULSE 72; RESP 20; TEMP 36.6; O2SAT 99
--- NOTE | 2025-07-12 | ECG_ITS ---
Test Reason : MED CLEARANCE Blood Pressure : */* mmHG Vent. Rate : 78 BPM Atrial Rate : 78 BPM P-R Int : 252 ms QRS Dur : 114 ms QT Int : 382 ms P-R-T Axes : 64 0 72 degrees QTcB Int : 435 ms Sinus rhythm with 1st degree A-V block Otherwise normal ECG When compared with ECG of 02-Feb-2025 17:22, Aberrant conduction is no longer Present Nonspecific T wave abnormality no longer evident in Lateral leads Referred By: Nicolasa Bird Electronically Signed By: Man Kebede
[2025-07-12 01:07] VITALS: BP 159/90; PULSE 83; RESP 20; TEMP 37.1; O2SAT 93
--- NOTE | 2025-07-12 01:31 | PC.NURSE ---
Patient up multiple times reporting headache, and generalized feelings of unwell. vitals WNL EKG obtained and provider Pelon notified. Patient asked to lay in bed, TV volume turned down and lights dimmed, NAD noted at this time
--- NOTE | 2025-07-12 03:04 | PC.NURSE ---
patient now reporting nausea, notified dr. Bird and patient medicated according to MAR
--- NOTE | 2025-07-12 04:10 | PC.NURSE ---
patient up multiple times to bathroom, bladder scan post void showed 85mL. Pt educated on importance of getting rest warm blanket given and and lights dimmed
--- NOTE | 2025-07-12 07:46 | PC.NURSE ---
Pt had two episodes of vomiting this am, fair amount of green, chunky emesis during each episode. Pt also endorses chills and shakiness. Denies BRAR. Dr. Caro made aware at this time
[2025-07-12 07:53] VITALS: BP 150/85; PULSE 97; RESP 18; TEMP 36.8; O2SAT 94
[2025-07-12] MEDS: Buprenorphine/Naloxone 12/3 mg FILM 1 FILM BUCCAL ×2 (08:40→20:50)
[2025-07-12 08:57] LABS: MANUAL DIFF FLAG NO
[2025-07-12 09:00] LABS: Hematocrit 41.2 % (42.0-52.0); Hemoglobin 13.9 g/dl (14.0-18.0); Imm Gran Abs Auto 0.02 X10*3/uL (0.00-0.03); Imm Gran Pct Auto 0.3 % (0.0-0.4); Lymphocytes Absolute Auto 0.3 X10*3/uL (1.2-4.9); Mean Corpuscular HGB Conc 33.7 g/dl (31.0-36.0); Mean Corpuscular Hemoglobin 31.3 pg (27.0-33.0); Mean Corpuscular Volume 92.8 fL (80.0-98.0); NRBC Abs Auto 0.000 X10*3/uL (0.0-0.012); NRBC Pct Auto 0.0 /100WBC (0.0-0.2); Platelet Count 181 X10*3/uL (160-400); Red Blood Count 4.44 X10*6/uL (4.60-5.80); White Blood Count 7.9 X10*3/uL (4.8-10.8)
[2025-07-12 09:20] LABS: Anion Gap 13 (12-20); Blood Urea Nitrogen 17 mg/dL (9-16); Calcium 9.2 mg/dL (8.4-10.2); Carbon Dioxide 27 mmol/L (22-29); Chloride 100 mmol/L (96-108); Creatinine Clr Calc Pharmacy 128.5; Estimated Glomerular Filt Rate > 60; Potassium 4.2 mmol/L (3.3-5.1); Sodium 136 mmol/L (135-145)
[2025-07-12] MEDS: Nicotine 21 MG PATCH.TD24 TRANSDERMA (11:29)
[2025-07-12 19:19] VITALS: BP 169/84; PULSE 97; RESP 20; TEMP 37.3; O2SAT 93
[2025-07-12] MEDS: Albuterol Sulfate 90 MCG 8 GM INHALER 2 PUFF INHALE (19:19)
[2025-07-12 19:49] VITALS: O2SAT 95
--- NOTE | 2025-07-13 02:55 | PC.NURSE ---
Assumed care at 1845. Patient presents as calm and cooperative. Medicated per SEP. Requested PRN Tylenol for c/o 7/10 body aches. Administered with good effect. Observed spitting clear sputum into an Emesis bag and states I just need to clear all this junk out. Denied current N/V/D. Cooperative with VS, 02 sat 92%. Given PRN Albuterol inhaler for c/o SOB with positive effect. Recheck 02 95%. 15 minute safety checks ongoing. Continue plan of care.
[2025-07-13 06:28] VITALS: RESP 16
--- NOTE | 2025-07-13 07:49 | PC.NURSE ---
Assumed care, report received. Pt is awake, her eats his breakfast, takes meds and goes back to his room.
[2025-07-13 07:51] VITALS: BP 169/96; PULSE 95; RESP 20; TEMP 37.2; O2SAT 92
[2025-07-13] MEDS: Buprenorphine/Naloxone 12/3 mg FILM 1 FILM BUCCAL ×2 (08:16→21:30)
--- NOTE | 2025-07-13 09:24 | PC.NURSE ---
Pt with increased cough and congestion. Pts Pox 92% on RA. BP elevated. MD notified. Pt is sent for a CXR and swabbed for Flu/Covid Pt reports feeling very tired.
[2025-07-13 11:05] LABS: Resp Syncy Virus RNA Qual PCR NEGATIVE (Negative); SARS COV2 PCR INHOUSE POSITIVE (Negative)
[2025-07-13 13:34] VITALS: BP 121/80; PULSE 95; RESP 18; TEMP 36.9; O2SAT 90
[2025-07-13] MEDS: Nicotine 21 MG PATCH.TD24 TRANSDERMA (13:51)
[2025-07-13 18:23] VITALS: PULSE 57; RESP 20; O2SAT 90
--- NOTE | 2025-07-13 18:24 | PC.NURSE ---
Pt has remained in his room due to COVID + he is compliant with his mask when going to the bathroom. He has had mild anxiety but did not ask for a PRN.
--- NOTE | 2025-07-14 03:32 | PC.NURSE ---
Assumed care at 18:45. Presents as calm and cooperative. Compliant with remaining in room d/t COVID+ status. Medicated per SEP. Utilized PRN Ativan for anxiety. Denied current pain/discomfort. Continue plan of care.
--- NOTE | 2025-07-14 04:02 | PC.NURSE ---
Pt requested Tylenol for BRAR. MD Swenson made aware, order for PRN Tylenol obtained. T/w attempted to administer medication, but patient is currently resting. Rise and fall of chest observed. Respirations counted.
[2025-07-14 05:06] VITALS: BP 141/80; PULSE 90; RESP 19; TEMP 37.9; O2SAT 91
--- NOTE | 2025-07-14 05:10 | PC.NURSE ---
Patient temp 100.3. MD Swenson made aware, given PRN Tylenol.
--- NOTE | 2025-07-14 07:37 | PC.NURSE ---
Care of Pt assumed at change of shift (0700.) Pt is observed resting quietly on bed. NAD noted. Breakfast made available at bedside.
[2025-07-14] MEDS: Buprenorphine/Naloxone 12/3 mg FILM 1 FILM BUCCAL ×2 (09:46→20:30)
[2025-07-14 14:31] VITALS: BP 114/61; PULSE 83; RESP 18; TEMP 36.6; O2SAT 91
--- NOTE | 2025-07-14 16:11 | PC.NURSE ---
Pt sound asleep at this time; snoring observed. Zyprex held at this time to allow Pt to rest.
--- NOTE | 2025-07-14 16:54 | PC.NURSE ---
Pt wakes to use restroom. Pt offered 1500 Zyprexa dose at this time. Pt declines and states he will wait until 2100 for his night time dose.
--- NOTE | 2025-07-14 20:40 | PC.NURSE ---
Assumed care at 1845. Patient presents as calm and cooperative. Medicated per SEP. Was resistant to accepting HS scheduled Depakote and stated I want to take 125mg. I felt better at that dose I don't want to walk around like a zombie or be overmedicated. Tells t/w that another nurse has been splitting this medication in half. MD Swan made aware of patient statements. Education provided on current Depakote dose. Requested PRN Ativan for anxiety and reports this is the only medication that is helpful. MD Swan made aware, 1x order for Ativan obtained/administered. Remains in behavioral control. Plan of care ongoing.
[2025-07-14 21:58] VITALS: BP 116/74; PULSE 67; RESP 16; TEMP 37; O2SAT 92
[2025-07-15 06:48] VITALS: BP 125/77; PULSE 61; RESP 16; TEMP 36.6; O2SAT 91
[2025-07-15] MEDS: Buprenorphine/Naloxone 12/3 mg FILM 1 FILM BUCCAL ×2 (08:34→21:51)
[2025-07-15] MEDS: Nicotine 21 MG PATCH.TD24 TRANSDERMA ×2 (09:19→18:22)
[2025-07-15 14:00] VITALS: BP 126/84; PULSE 86; RESP 16; TEMP 36.7; O2SAT 93
--- NOTE | 2025-07-15 16:13 | HO.WOUND ---
Ed Boarding Rounding completed 65yr old male present in [facility] ED / OverFlow area - See ED notes for detailed history.? Inpatient Skin Integrity Maintenance Rounding. Patient agreeable to assessment and skin assessment. Brief chart review completed.? Patient denies pain and tenderness. Skin assessed to reveal intact skin - no concerns noted at this time. Bilateral Heels assessed for intact dry heels - no pink or redness noted. Occiput assessed to be intact no pink or redness noted. Buttock, Sacrum and Coccyx assessed - no pink or redness noted - intact. Bilateral Elbows - no pink or redness noted. No topical recommendations needed at this time.
--- NOTE | 2025-07-15 22:20 | PC.NURSE ---
pt refusing mar ordered dose of depakote; states: it makes me feel like a zombie; I only want half. MD solorzano made aware. MD bess with half dose.
[2025-07-16 00:55] VITALS: BP 126/84; PULSE 86; RESP 16; TEMP 36.7; O2SAT 93
[2025-07-16 03:36] VITALS: BP 149/85; PULSE 91; RESP 18; TEMP 36.8; O2SAT 92
[2025-07-16 06:21] VITALS: BP 149/85; PULSE 91; RESP 18; TEMP 36.8; O2SAT 92
--- NOTE | 2025-07-16 07:14 | MHC.CM.ED ---
Patient remains in ER. 07/13 +Covid. Will be more difficult to place d/t to this. Spoke with patient's [place] [employer], Abel Puentes. Abel requesting notification when LTC placement is found. Abel can be reached at [phone]. Patient's daughter, Geovanna, aware of delay in finding placement. Continue to monitor for d/c needs.
--- NOTE | 2025-07-16 07:45 | PC.NURSE ---
Assumed care, report received. Pt is awake, he eats breakfast, watches the news and states he does not want 250mg of Depakote. He states he has been only taking half the pill because it makes him lethargic and loopy. PETTY Blankenship is notified, She plans to meet with him today.
[2025-07-16] MEDS: Buprenorphine/Naloxone 12/3 mg FILM 1 FILM BUCCAL ×2 (08:03→20:23)
[2025-07-16] MEDS: Nicotine 21 MG PATCH.TD24 TRANSDERMA (08:03)
[2025-07-16 14:00] VITALS: BP 116/60; PULSE 69; RESP 18; TEMP 36.5; O2SAT 92
[2025-07-16 20:32] VITALS: BP 149/91; PULSE 85; RESP 16; TEMP 37; O2SAT 95
--- NOTE | 2025-07-16 23:19 | PC.NURSE ---
Report received and care assumed. The pt is noted to be ambulating freely throughout the POD with even , steady gait, mask in place and no acute distress noted. He has been to and from the bathroom numerous times thus far and self presented to the nurse's station requesting medication to assist with his anxiety. The pt is not currenlty exhibiting any outward expressions of anxity of inability to self regulate. Once medicated he returned to his room where he could be seen laying in the bed. Staff will continue to monitor.
[2025-07-17] MEDS: Nicotine 21 MG PATCH.TD24 TRANSDERMA (08:24)
[2025-07-17] MEDS: Buprenorphine/Naloxone 12/3 mg FILM 1 FILM BUCCAL ×2 (08:24→21:48)
--- NOTE | 2025-07-17 08:31 | PC.NURSE ---
Assumed care, report received. Pt is awake, calm and cooperative. Pt eats breakfast, takes his meds and walks the halls.
--- NOTE | 2025-07-17 12:31 | MHC.CM.PN ---
Addendum entered by Gilma Holman RN 07/17/25 16:05: Rec'd call back from [employer]. She will call Geovanna on Tuesday (after the holiday) to provide education on supports [facility] can provide (paid night time nanny caregiver, day programs that can manage behaviors, bracelet from [employer] man[employer] de[employer] for wandering, etc). Will f/u after phone call. Addendum entered by Gilma Holman RN 07/17/25 14:45: Rec'd call back from daughter, Geovanna. Reports she has tried to work with [facility] to be patients night time nanny caregiver in the past, but patient was only approved for 12 hours, so she had to continue to work night time nanny. She would consider taking patient home if she was able to have night time nanny paid hours to care for patient. Task send to [facility] w/ request to look into this. Also sent referral to [facility] management accounts manager Hallie Lord via email ([email or web address], ). No bed offers, but [facility] has requested to assess patient onsite 07/19. Daughter is aware we have no bed offers and will continue search, while exploring alternate plan for home w/ daughter as paid caregiver. Original Note: Patient awaiting LTC. No bed offers at this time. Referrals updated and expanded. LM for daughter to discuss possibility of returning home.
--- NOTE | 2025-07-17 16:05 | PC.NURSE ---
marketing and communications officer Ashley Gamez [phone] called to talk to patient. She was informed Pt is sleeping. She states the case is new.
--- NOTE | 2025-07-17 19:29 | PC.NURSE ---
Assumed care at 1845. Patient resting comfortably in bed, no apparent distress noted. Denies pain. Remains in behavioral control.
--- NOTE | 2025-07-17 21:53 | PC.NURSE ---
Patient refused HS scheduled Depakote. Told t/w I only want half. Either give me half or nothing. T/w attempted patient education on current medication regimen. No PRN's utilized.
--- NOTE | 2025-07-17 22:48 | PC.NURSE ---
Patient approached nurses station and requested Depakote, that he had refused. T/w explained to patient the dose could not be split. Patient is agreeable and accepted medication.
[2025-07-18 04:30] VITALS: O2SAT 94
[2025-07-18] MEDS: Albuterol Sulfate 90 MCG 8 GM INHALER 2 PUFF INHALE (04:30)
--- NOTE | 2025-07-18 04:30 | PC.NURSE ---
Patient OOB coughing. Endorses SOB, wheezing observed. 94% RA. Given PRN Albuterol inhaler.
--- NOTE | 2025-07-18 05:20 | PC.NURSE ---
Patient OOB multiple times throughout shift to the bathroom. Began to pace the unit. Was redirected multiple times to stay in room d/t +COVID status. Patient ignoring staff and stated Leave me be. Patient walked into [facility]'s room confused and turned around, apologetic. T/w reinforced the importance of staying in room d/t risks of spreading infection and privacy of peers. Given PRN Ativan d/t increased agitation and irritable edge. Remains in room, pacing.
--- NOTE | 2025-07-18 07:05 | PC.NURSE ---
Assumed care of patient at 0645, patient appears to be resting in bed, respirations even and unlabored, no apparent distress is noted. Continue plan of care for Case Management follow up
[2025-07-18] MEDS: Buprenorphine/Naloxone 12/3 mg FILM 1 FILM BUCCAL ×2 (08:34→20:12)
[2025-07-18 12:35] VITALS: BP 121/62; PULSE 74; RESP 14; TEMP 36.9; O2SAT 99
[2025-07-18 18:34] VITALS: BP 133/76; PULSE 88; RESP 16; TEMP 36.5; O2SAT 93
--- NOTE | 2025-07-18 20:22 | PC.NURSE ---
pt medicated per MAR, very restless, in/out of room, pacing. forgetting to wear mask in common areas. redirected many times.
--- NOTE | 2025-07-19 01:33 | PC.NURSE ---
pt awake, very restless and agitated. in/out of the bathroom. pt medicated with PRN zyprexa PO.
--- NOTE | 2025-07-19 02:44 | PC.NURSE ---
pt continues to try to urinate, unable to. provider aware, straight cath ordered, pt refused. 125cc in bladder per bladder scan. pt pacing in hallway
--- NOTE | 2025-07-19 04:38 | PC.NURSE ---
pt resting comfortably at this time
--- NOTE | 2025-07-19 07:19 | PC.NURSE ---
Patient remains covid precautions Patient able to ambulate independently without assistive device Patient wore mask while in common area Patient able to provider urine sample Patient resting in bed
[2025-07-19 07:37] LABS: Appearance Urine Clear; Glucose Urine UA Negative (Negative); PH 7.5 (5.0-9.0); Specific Gravity - Urine 1.015 (1.005-1.025)
[2025-07-19] MEDS: Buprenorphine/Naloxone 12/3 mg FILM 1 FILM BUCCAL ×2 (08:17→20:00)
[2025-07-19 08:18] VITALS: BP 107/72; PULSE 105; RESP 20; TEMP 36.7; O2SAT 91
--- NOTE | 2025-07-19 09:18 | MHC.CM.ED ---
Patient remains in ER. Per Mikki of [facility], will be on-site Sunday 07/22 to eval for [facility]'s behavioral health unit. Continue to monitor for d/c needs.
[2025-07-19 14:00] VITALS: BP 109/56; PULSE 89; RESP 16; TEMP 36.3; O2SAT 95
[2025-07-19] MEDS: Albuterol Sulfate 90 MCG 8 GM INHALER 2 PUFF INHALE (19:11)
[2025-07-20] MEDS: Albuterol Sulfate 90 MCG 8 GM INHALER 2 PUFF INHALE (08:12)
[2025-07-20] MEDS: Buprenorphine/Naloxone 12/3 mg FILM 1 FILM BUCCAL ×2 (08:33→20:52)
--- NOTE | 2025-07-20 08:55 | PC.NURSE ---
Pt walking around unit, using bathroom over and over again, verbalizes no needs at this time. pt took medications without incident.
--- NOTE | 2025-07-20 15:37 | PC.NURSE ---
Pt requested something for anxiety. pt attempted to limit stimulation to reduce anxiety, pt requested anxiolytic again, medicated per order.
[2025-07-20 15:41] VITALS: BP 131/75; PULSE 77; RESP 20; TEMP 36.6; O2SAT 96
[2025-07-21 06:49] VITALS: BP 145/83; PULSE 76; RESP 20; TEMP 36.6; O2SAT 96
--- NOTE | 2025-07-21 07:37 | PC.NURSE ---
Suboxone requested from pharmacy at this time. Medication not available in ED BH Pod pyxis.
[2025-07-21] MEDS: Buprenorphine/Naloxone 12/3 mg FILM 1 FILM BUCCAL ×2 (08:34→19:59)
--- NOTE | 2025-07-21 16:14 | PC.NURSE ---
Patient occasionally pacing throughout the shift. Medicated as ordered. Requested food/snacks/beverages when asked. Ambulates with steady gait. Care ongoing by this RN.
--- NOTE | 2025-07-21 18:19 | PC.NURSE ---
Patient requesting a medication for anxiety. Spoke with Dr. Smart, who is ordering something PRN. Medication to be administered upon receipt.
[2025-07-21 19:37] VITALS: BP 125/92; PULSE 82; RESP 16; TEMP 36.4; O2SAT 99
--- NOTE | 2025-07-21 20:02 | PC.NURSE ---
patient awake and alert, able to make needs known. ambulating with steady gait. skin pwd, resp even and non labored, medicated w/ evening meds per MAR. patient aware of plan of care
[2025-07-22 01:22] VITALS: BP 128/89; PULSE 78; RESP 20; TEMP 36.9; O2SAT 92
[2025-07-22] MEDS: Albuterol Sulfate 90 MCG 8 GM INHALER 2 PUFF INHALE (01:31)
--- NOTE | 2025-07-22 01:36 | PC.NURSE ---
Patient pacing in and out of room, requiring to be frequently redirected. Patients vitals assessed, patient O2 noted to be 92% on room air, which is lower than baseline. Lungs assessed, exp wheezes noted- prn inhaler given per SEP. Patient noted to have a pillow case tied up and full of objects in room. Pillow case removed and noted to be full of [facility] property- cups, toothbrushes, coloring pages, magazines, crayons and towels. Patient became agitated, restless, swearing at staff and yelling he wants the pillow case back in his room. Patient made aware he cannot keep a pillow case full of belongings in his room and that will keep the belongings he would like to use in a safe place for him. medicated with prn zyprexa per SEP.
[2025-07-22 03:49] VITALS: O2SAT 94
[2025-07-22] MEDS: Buprenorphine/Naloxone 12/3 mg FILM 1 FILM BUCCAL ×2 (08:46→20:55)
[2025-07-22 09:26] VITALS: BP 127/81; PULSE 80; RESP 19; TEMP 36.6; O2SAT 90
[2025-07-22] MEDS: Bismuth Subsalicylate Liquid 524 MG/30 ML ORAL.SUSP PO (15:45)
--- NOTE | 2025-07-22 16:09 | MHC.CM.ED ---
Pt is being followed by [facility] in [place], [place]. Facility jay Diaz to arrive on 07/23 at 1pm to evaluate pt. She was delayed today d/t [address]. pod updated on status.
[2025-07-22 20:45] VITALS: BP 143/70; PULSE 71; RESP 14; TEMP 36.4; O2SAT 95
--- NOTE | 2025-07-23 00:41 | PC.NURSE ---
pt oob to bathroom, sandwich given.
[2025-07-23 06:59] VITALS: BP 148/75; PULSE 103; RESP 16; TEMP 35.8; O2SAT 96
[2025-07-23 07:54] VITALS: PULSE 96; RESP 20; O2SAT 92
--- NOTE | 2025-07-23 08:19 | MHC.CM.PN ---
Addendum entered by Monserrat Dc 07/23/25 14:01: Message left for pts dtr for an update on [facility] liasion visit and to inquire on [facility]. Awaiting callback Addendum entered by Monserrat Dao 07/23/25 10:54: [facility]. Pattie Larry to see pt today for increased behaviors. Original Note: Pt continues boarding in 4 awaiting placement. ED CM received call from RN who reports escalating adverse behaviors for approximately 1 week. These behaviors include pacing, insomnia, aggression and hypersexualized statements and behaviors (masterbating/exposing self) RN states behaviors are similar to his initial presentation to . Pt was to have a visit by a liasion from [facility] today at 1pm for possible placement however, since his behaviors are not managed as previously indicated in correspondence with facility, a postponement was requested. ED CM sent a message to Pattie Larry NP with pt update. RN aware and will follow. ED CM to follow
[2025-07-23] MEDS: Buprenorphine/Naloxone 12/3 mg FILM 1 FILM BUCCAL ×2 (08:36→20:30)
--- NOTE | 2025-07-23 14:17 | PC.NURSE ---
pt requiring frequent redirection and walking into others room seemingly thinking its his, at one point had his hands down his pants and stated he would be urinating, redirected by staff to the bathroom, in and out of room, pacing at times, ate both breakfast and lunch, nad
[2025-07-23 14:21] VITALS: BP 139/53; PULSE 76; RESP 16; TEMP 36.2; O2SAT 94
--- NOTE | 2025-07-23 15:43 | PC.NURSE ---
Assumed care of patient at 1445, patient appears to be in no apparent distress this afternoon, pt does appear to be increasingly dysregulated, ambulating around BH pod needing frequently redirection, unable to remember where bathroom is, making sexual comments. Continue plan of care for case management
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
--- NOTE | 2025-07-23 17:00 | MHC.EDTECH ---
Attempt to draw patient labs, patient refused blood work, this tech explained to patient the reasoning behind the lab work. Patient stated, fuck you bitch, I told you no you can't draw my fucking blood, I'm sick of this shit. RN magdalena weir to obtain samples at this time.
--- NOTE | 2025-07-23 17:03 | PC.NURSE ---
Pt agitated, pacing the unit, angry that he cannot leave, frequently requiring redirection to bathroom, his room. Pt is also noted to be disrobing in common areas which is similar to behavior he was exhibiting when he first arrived to the unit
[2025-07-23 18:35] LABS: MANUAL DIFF FLAG NO
[2025-07-23 18:43] LABS: Ammonia 30 umol/L (13-55)
[2025-07-23 18:57] LABS: Alanine Aminotransferase 18 U/L (0-40); Albumin Level 4.0 g/dL (3.5-5.0); Alkaline Phosphatase 67 U/L (39-117); Anion Gap 11 (12-20); Aspartate Amino Transferase 22 U/L (5-37); Blood Urea Nitrogen 18 mg/dL (9-16); Calcium 9.4 mg/dL (8.4-10.2); Carbon Dioxide 31 mmol/L (22-29); Chloride 104 mmol/L (96-108); Creatinine Clr Calc Pharmacy 93.1; Estimated Glomerular Filt Rate > 60; Potassium 4.5 mmol/L (3.3-5.1); Sodium 141 mmol/L (135-145); Total Protein 7.5 g/dL (6.5-8.0)
[2025-07-23 19:15] VITALS: BP 112/59; PULSE 73; RESP 16; TEMP 37.1; O2SAT 94
[2025-07-23 19:15] LABS: Hematocrit 38.2 % (42.0-52.0); Hemoglobin 12.7 g/dl (14.0-18.0); Imm Gran Abs Auto 0.04 X10*3/uL (0.00-0.03); Imm Gran Pct Auto 0.6 % (0.0-0.4); Lymphocytes Absolute Auto 1.3 X10*3/uL (1.2-4.9); Mean Corpuscular HGB Conc 33.2 g/dl (31.0-36.0); Mean Corpuscular Hemoglobin 31.0 pg (27.0-33.0); Mean Corpuscular Volume 93.2 fL (80.0-98.0); NRBC Abs Auto 0.000 X10*3/uL (0.0-0.012); NRBC Pct Auto 0.0 /100WBC (0.0-0.2); Platelet Count 307 X10*3/uL (160-400); Red Blood Count 4.10 X10*6/uL (4.60-5.80); White Blood Count 6.8 X10*3/uL (4.8-10.8)
--- NOTE | 2025-07-24 00:20 | PC.NURSE ---
pt sleeping without any distress at this time
--- NOTE | 2025-07-24 05:45 | PC.NURSE ---
pt coughing for past hour or so, contacted MD & rec order for joan mendez. med was given at this time.
[2025-07-24] MEDS: Albuterol Sulfate 90 MCG 8 GM INHALER 2 PUFF INHALE (05:50)
[2025-07-24 06:35] VITALS: BP 127/88; PULSE 87; RESP 18; TEMP 36.8; O2SAT 94
[2025-07-24] MEDS: Buprenorphine/Naloxone 12/3 mg FILM 1 FILM BUCCAL (08:50)
--- NOTE | 2025-07-24 09:28 | PC.NURSE ---
Assumed care, report received. Pt is currently sleeping, he is provided breakfast. safety is maintained.
--- NOTE | 2025-07-24 12:04 | PC.NURSE ---
Addendum entered by Radha Riojas RN 07/24/25 12:46: THis note is written by Radha Riojas RN. IT error for the prior note. 07/17 at 15:59 1mg of Ativan was removed from the medication pyxis for PO administration. Pts wrist band was scanned as well as the ativan, an error occurred with the scanner resulting in the medication not being scanned/ saved. This user did not note this at the time of the occurrence. Pharmacy made note of it. Original Note: 07/17 at 15:59 1mg of Ativan was removed from the medication pyxis for PO administration. Pts wrist band was scanned as well as the ativan, an error occurred with the scanner resulting in the medication not being scanned/ saved. This user did not note this at the time of the occurrence. Pharmacy made note of it.
[2025-07-24 15:45] VITALS: PULSE 100; RESP 20; O2SAT 94
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
--- NOTE | 2025-07-24 15:56 | PC.NURSE ---
Case management notifies t/w that Pt has a bed a [facility] and is arranging transpot. Pt is informed and he is looking forward to leaving. Pt was seen by Pattie DOVE his medications are reviewed for transfer.
--- NOTE | 2025-07-24 15:57 | MHC.CM.PN ---
Addendum entered by Gilma Martines 07/24/25 16:20: THIS CM PLACED CALL TO PATIENTS DAUGHTER SEEMA AND NOTIFIED HER OF HIS DISCHARGE TODAY. Original Note: THIS CM RECEIVED A CALL FROM NORRIS FROM [facility], SHE STATES THEY HAVE A BED TO OFFER THE PATIENT, THEY REQUESTED THE APPROVED [facility]DS LEVELING. THIS CM PLACED CALL TO [facility] AND SPOKE TO [facility] WHO IS WORKING ON COMPLETING THE PAPERWORK FOR THE FACILITY, BUT STATES PATIENT HAS BEEN APPROVED. PATIENT WILL TRANSPORT TO THE FACILITY THIS EVENING AT 5PM VIA BLS/SCOOTER.
[2025-07-24 16:51] VITALS: BP 127/88; PULSE 100; RESP 20; TEMP 36.8; O2SAT 94
== END 2025-07-24 16:52 ==
PROVIDERS: Emergency Medicine; Physician Assistant; Social Worker; Emergency Provider Emergency Medicine; PCP Student in an Organized Health Care Education/Training Program
DX: F31.9 Bipolar disorder, unspecified (principal); F06.1 Catatonic disorder due to known physiological condition; R26.2 Difficulty in walking, not elsewhere classified; U07.1 COVID-19; F03.90 Unspecified dementia, unspecified severity, without behavioral disturbance, psychotic disturbance, mood disturbance, and anxiety; J44.9 Chronic obstructive pulmonary disease, unspecified; F11.20 Opioid dependence, uncomplicated; F17.210 Nicotine dependence, cigarettes, uncomplicated; Z79.899 Other long term (current) drug therapy
CPT/HCPCS: 36415; 51701; 71045; 71046; 80048; 80053; 80076; 80164; 80307; 81003; 82140; 83735; 84443; 85025; 87637; 93005; 97161; 99285; S9485

== ENCOUNTER → 2025-06-30 14:56 | Outpatient (BNV) | payer MEDICARE, MEDICAID, SELFPAY | PROVIDERS: Emergency Provider Emergency Medicine; PCP Student in an Organized Health Care Education/Training Program; Visit Provider Social Worker | DX: F31.9 Bipolar disorder, unspecified (principal); F06.1 Catatonic disorder due to known physiological condition; R41.89 Other symptoms and signs involving cognitive functions and awareness; F11.20 Opioid dependence, uncomplicated; J44.9 Chronic obstructive pulmonary disease, unspecified | CPT/HCPCS: 99285 ==

== ENCOUNTER → 2025-07-12 01:18 | Outpatient (BNV) | payer MEDICARE, MEDICAID, SELFPAY | PROVIDERS: Emergency Provider Emergency Medicine; PCP Student in an Organized Health Care Education/Training Program; Visit Provider Internal Medicine Cardiovascular Disease | DX: I44.0 Atrioventricular block, first degree (principal) | CPT/HCPCS: 93010 ==

== ENCOUNTER → 2025-07-13 09:10 | Outpatient (BNV) | payer MEDICARE, MEDICAID, SELFPAY | PROVIDERS: Emergency Provider Emergency Medicine; PCP Student in an Organized Health Care Education/Training Program; Visit Provider Radiology Vascular & Interventional Radiology | DX: R05.9 Cough, unspecified (principal); R09.89 Other specified symptoms and signs involving the circulatory and respiratory systems | CPT/HCPCS: 71046 ==